=== PATIENT | male | born 1975 | race American Indian/Alaskan Native ===

== ENCOUNTER 2017-11-08 14:20 | Emergency (ER) | payer SELFPAY ==
[2017-11-08 16:38] VITALS: BP 111/67
[2017-11-08 17:44] LABS: Bilirubin,Urine NEG (Negative); Blood,Urine NEG (Negative); Color,Urine Yellow (Yellow); Hyaline Casts,Urine 1 /LPF; Mucus,Urine FEW /HPF; Nitrite,Urine NEG (Negative); Protein,Urine <15 mg/dL mg/dL (Negative)
== END 2017-11-08 22:02 | disposition left against medical advice (07) ==
LOC: ED 14:20
DX: Z53.21 Procedure and treatment not carried out due to patient leaving prior to being seen by health care provider (principal)
CPT/HCPCS: 81001

== ENCOUNTER 2017-11-09 07:15 | Inpatient (IN) | payer OTHER ==
[2017-11-09] MEDS ORDERED: NACL 0.9% 1000 ML 1,000 ML IV ONE ×2 (11:22→17:21)
--- NOTE | 2017-11-09 11:31 | XRay Report ---
Portable chest: Right chest pain. There is increased opacity at the lateral right lung base with blunting of the costophrenic angle. The remainder of the right lung as well as left lung are generally clear. The heart is normal in size. The ribs and other bony structures appear normal. Impression: Right basilar infiltrate consistent with pneumonia.
[2017-11-09 11:36] LABS: Bilirubin,Urine NEG (Negative); Blood,Urine NEG (Negative); Color,Urine Yellow (Yellow); Mucus,Urine 1+ /HPF; Nitrite,Urine NEG (Negative); Protein,Urine <15 mg/dL mg/dL (Negative)
[2017-11-09 12:14] LABS: Hematocrit 34.6 % (35.5-45.6); Hemoglobin 11.8 gm/dl (11.8-15.2); Mean Corpuscular HGB Conc 34 % (32-34); Mean Corpuscular Hemoglobin 31 pg (28-32); Mean Corpuscular Volume 90 fl (84-94); Platelet Count 198 K/mm3 (140-440); Red Blood Count 3.86 M/mm3 (3.65-5.03)
[2017-11-09 12:21] LABS: INR 0.96 (0.87-1.13)
[2017-11-09] MEDS ORDERED: ROCEPHIN/NS 1 GM/50 ML 1 GM/50 ML BAG IV ONE (12:28)
[2017-11-09 12:29] LABS: Alanine Aminotransferase 11 units/L (7-56); Albumin 4.3 g/dL (3.9-5); BUN/Creatinine Ratio 17; Blood Urea Nitrogen 10 mg/dL (9-20); Calcium 8.9 mg/dL (8.4-10.2); Hemolysis Index 20
--- NOTE | 2017-11-09 12:53 | Emergency Department Report ---
ED General Adult HPI - General Chief complaint: Pain General Stated complaint: R SIDE PAIN Time Seen by Provider: 11/09/17 11:17 Source: patient, RN notes reviewed, old records reviewed Mode of arrival: Ambulatory Limitations: No Limitations - History of Present Illness Initial comments: TO ER WITH 3 D HX OF RIGHT SIDE RIB PAIN. SOB. INC TODAY. CHILLS. OTC MEDS NOT HELPING -: Gradual, days(s) (3) Radiation: non-radiation Severity scale (0 -10): 7 Quality: burning Consistency: constant Improves with: none Worsens with: none Associated Symptoms: cough, fever/chills, malaise, shortness of breath. denies : confusion, chest pain, diaphoresis, headaches, loss of appetite, nausea/ vomiting, rash, seizure, syncope, weakness Treatments Prior to Arrival: NSAID, other (OTC) - Related Data Allergies Allergy/AdvReac Type Severity Reaction Status Date / Time No Known Allergies Allergy Unverified 11/08/17 16:40 ED Review of Systems ROS: Stated complaint: RIGHT FLANK PAIN Other details as noted in HPI Comment: All other systems reviewed and negative Constitutional: fever, malaise Respiratory: cough, SOB at rest, other (R LOWER RIB PAIN). denies: no symptoms reported Endocrine: denies: excessive sweating, flushing, intolerance to cold, intolerance to heat Gastrointestinal: denies: abdominal pain, nausea, vomiting Genitourinary: denies: urgency, dysuria Musculoskeletal: back pain (rib) Skin: denies: rash, lesions Neurological: weakness. denies: headache Psychiatric: denies: anxiety, depression Hematological/Lymphatic: denies: easy bleeding, easy bruising ED Past Medical Hx - Past Medical History Previous Medical History?: Yes Hx Sickle Cell Disease: No (DETAILS UNKNOWN AND I'M NOT CERTAIN THIS IF THIS IS A TRAIT OR SCD. ) Additional medical history: PT SAYS HE CAN NOT REMEMBER WHO TOLD HIM HE HAD THIS. BUT HAS ONLY BEEN ILL ONCE IN HIS LIFE. - Surgical History Past Surgical History?: No - Family History Family history: other (MOM A/W; DAD DEC P TRAUMA) - Social History Smoking Status: Current Every Day Smoker Substance Use Type: Alcohol ED Physical Exam - General Limitations: No Limitations General appearance: alert, other (APPEARS TO BE IN PAIN; STATES R SIDE HURTS) - Head Head exam: Present: atraumatic - Eye Eye exam: Present: PERRL, EOMI - ENT ENT exam: Present: mucous membranes dry, TM's normal bilaterally - Neck Neck exam: Present: normal inspection. Absent: tenderness, meningismus - Respiratory Respiratory exam: Present: normal lung sounds bilaterally, other (DEC B BASES; GUARDED WHEN ASKED TO TAKE DEEP BREATH; COUGH; NON PROD; CIG SMOKER) - Cardiovascular Cardiovascular Exam: Present: tachycardia, normal heart sounds - GI/Abdominal GI/Abdominal exam: Present: soft, normal bowel sounds. Absent: distended, tenderness, guarding, rebound, rigid, diminished bowel sounds - Rectal Rectal exam: Present: deferred - Extremities Exam Extremities exam: Present: normal inspection, full ROM - Back Exam Back exam: Present: normal inspection, full ROM. Absent: CVA tenderness (R), CVA tenderness (L) - Neurological Exam Neurological exam: Present: alert, oriented X3, CN II-XII intact, normal gait, reflexes normal - Psychiatric Psychiatric exam: Present: normal mood. Absent: normal affect (CONSTRICTED) - Skin Skin exam: Present: warm, dry, pallor, other (ILL APPEARING) ED Course Vital Signs 11/09/17 11/09/17 11/09/17 08:06 12:54 12:58 Temperature 98.1 F 99.3 F Pulse Rate 96 H 97 H Respiratory 20 18 Rate Blood Pressure 107/62 93/55 Blood Pressure 107/62 [Left] O2 Sat by Pulse 99 99 Oximetry 11/09/17 11/09/17 16:11 16:15 Temperature 98.8 F Pulse Rate 111 H Respiratory 20 20 Rate Blood Pressure Blood Pressure 107/65 [Left] O2 Sat by Pulse 95 Oximetry - Reevaluation(s) Reevaluation #1: 11/09/17 to er w co r side lower rib cage pain appears ill tachy no fever xray noted 12 lead noted trop neg wbc inc septic protocol fluids antibiotics still tachy p fluids/anbx no fever taking po fluids still co right lower rib cage pain no known risk for pe/dvt- may need to scan Reevaluation #2: 11/09/17 15:59 107/65 95%, 111, 98.[address] Law Will admit CO PAIN R LOWER LUNG AREA medicated for pain Reevaluation #3: 11/09/17 16:[address] LAW WILL ADMIT TO DR MICHAELS 11/09/17 16:06 DR MICHAELS AWARE OF PT AND WILL SEE PT. HER REMAINS 110 P FLUIDS AND IV ANBX ED Medical Decision Making - Lab Data Result diagrams: 11/09/17 11:48 11/09/17 11:48 - EKG Data Rate: tachycardia - EKG Data Interpretation: no acute changes - Radiology Data Radiology results: report reviewed, image reviewed PNA - Medical Decision Making SEE NOTE - Differential Diagnosis URTI V PLEURTIC PAIN Critical care attestation.: If time is entered above; I have spent that time in minutes in the direct care of this critically ill patient, excluding procedure time. ED Disposition Clinical Impression: PNA (pneumonia), Pleuritic pain, Tachycardia Disposition: 09 OP ADMIT IP TO THIS HOSP Is pt being admited?: Yes Does the pt Need Aspirin: No Condition: Stable Referrals: PRIMARY CARE, [Primary Care Provider] - 3-5 Days Time of Disposition: 16:10
[2017-11-09 13:57] LABS: Erythrocyte Sedimentation Rate 19 mm/Hr (0-20)
[2017-11-09] MEDS ORDERED: cefTRIAXone 1 GM in NACL 0.9% 20 ML IV ONE (14:00)
[2017-11-09 14:52] LABS: Basophils % (Manual) 0 % (0.0-1.8); Eosinophils % (Manual) 0 % (0.0-4.3); Total Cells Counted 100
[2017-11-09 14:53] LABS: Anisocytosis 1+
[2017-11-09 14:54] LABS: Poikilocytosis Few; Target Cells 2+
[2017-11-09] MEDS ORDERED: NORCO 5/325 PO ONE (15:59)
[2017-11-09 19:48] LABS: Hematocrit 31.1 % (35.5-45.6); Hemoglobin 10.8 gm/dl (11.8-15.2); Mean Corpuscular HGB Conc 35 % (32-34); Mean Corpuscular Hemoglobin 31 pg (28-32); Mean Corpuscular Volume 89 fl (84-94); Platelet Count 186 K/mm3 (140-440); Red Blood Count 3.48 M/mm3 (3.65-5.03)
[2017-11-09] MEDS ORDERED: LEVAQUIN 750MG/150ML 750 MG/150 ML BAG IV ONE (20:00)
[2017-11-09] MEDS ORDERED: TYLENOL PO PRN (20:35)
[2017-11-09] MEDS ORDERED: PROVENTIL IH PRN (20:35)
[2017-11-09] MEDS ORDERED: ZOFRAN IV PRN (20:35)
[2017-11-09 20:37] LABS: Anisocytosis 1+; Basophils % (Manual) 0 % (0.0-1.8); Eosinophils % (Manual) 0 % (0.0-4.3); Hypochromasia 1+; Total Cells Counted 100
[2017-11-09 20:38] LABS: Platelet Estimate Consistent w Auto; Target Cells 1+
--- NOTE | 2017-11-09 20:39 | History and Physical Report ---
History of Present Illness Chief complaint: I been coughing for days, History of present illness: 42 YO Male with Nicotine Dependence presents to ED for evaluation. Pt states that he has experienced productive cough of clear sputum over the past 4 days, with subjective fever, malaise, shortness of breath with worsening symptoms over the past 3 days. Pt states that his right side hurts and is worse with coughing episodes. Pt denies shaking chills, back pain, trauma, falls, hemoptysis, prolonged travel/immobility, individual/family history of DVT/PE, recent ill contacts, or HIV risk factors. Pt seen and evaluated in ED and found to have bilateral pneumonia complicated by sepsis. Pt initiated on sepsis protocol, and admitted to medical floor. Past History Past Medical History: No medical history, other (reviewed) Past Surgical History: No surgical history, Other (reviewed) Social history: single Family history: no significant family history Medications and Allergies Allergies Allergy/AdvReac Type Severity Reaction Status Date / Time No Known Allergies Allergy Unverified 11/08/17 16:40 Active Meds: Active Medications Acetaminophen (Tylenol) 650 mg PO Q4H PRN PRN Reason: Pain MILD(1-3)/Fever >100.5/LOWRY Albuterol (Proventil) 2.5 mg IH Q4HRT PRN PRN Reason: Shortness Of Breath Sodium Chloride (Nacl 0.9% 1000 Ml) 1,000 mls @ 150 mls/hr IV DIRECT JAMIR Levofloxacin/Dextrose (Levaquin 750mg/150ml) 750 mg in 150 mls @ 100 mls/hr IV ONCE ONE Stop: 11/09/17 21:29 Azithromycin 500 mg/ Sodium (Chloride) 250 mls @ 250 mls/hr IV Q24HR JAMIR Ceftriaxone Sodium (Rocephin/Ns 2 Gm/100 Ml) 2 gm in 100 mls @ 200 mls/hr IV Q24HR JAMIR PRN Reason: Protocol Ondansetron HCl (Zofran) 4 mg IV Q8H PRN PRN Reason: N/V unrelieved by Reglan Sodium Chloride (Nacl 0.9% 1000 Ml) 1,820 ml 30 ml/kg (1820 ml) IV ONCE ONE Stop: 11/09/17 20:36 Review of Systems Constitutional: fever, no weight loss, no weight gain, no chills, no sweats Ears, nose, mouth and throat: no ear pain, no ear discharge, no tinnitis, no decreased hearing, no nose pain, no nasal congestion Cardiovascular: no chest pain, no orthopnea, no palpitations, no rapid/ irregular heart beat Respiratory: cough with sputum, excessive sputum Gastrointestinal: no abdominal pain, no nausea Genitourinary Male: no hematuria, no flank pain, no discharge, no urinary frequency Rectal: no pain, no incontinence, no bleeding Musculoskeletal: no neck stiffness, no neck pain, no shooting arm pain, no arm numbness/tingling, no low back pain Integumentary: no rash, no pruritis, no redness, no sores, no wounds Neurological: no head injury, no transient paralysis, no paralysis, no weakness Psychiatric: no anxiety, no memory loss, no change in sleep habits, no sleep disturbances, no insomnia Endocrine: no cold intolerance, no heat intolerance, no polyphagia, no excessive thirst, no polydipsia, no polyuria, no nocturia Hematologic/Lymphatic: no easy bruising, no easy bleeding, no lymphadenopathy, no lymphedema Allergic/Immunologic: no urticaria, no allergic rhinitis, no wheezing, no persistent infections Exam - Constitutional Vitals: Temp Pulse Resp BP Pulse Ox 98.1 F 99 H 20 104/58 99 11/09/17 17:32 11/09/17 17:32 11/09/17 17:32 11/09/17 17:32 11/09/17 17:32 General appearance: Present: mild distress - EENT Eyes: Present: PERRL ENT: hearing intact, clear oral mucosa - Neck Neck: Present: supple, normal ROM - Respiratory Respiratory effort: normal Respiratory: bilateral: diminished - Cardiovascular Heart Sounds: Present: S1 & S2. Absent: rub, click - Extremities Extremities: pulses symmetrical, No edema Peripheral Pulses: within normal limits - Abdominal General gastrointestinal: Present: soft, non-tender, non-distended, normal bowel sounds Male genitourinary: Present: normal - Integumentary Integumentary: Present: clear, warm, dry - Musculoskeletal Musculoskeletal: gait normal, strength equal bilaterally - Psychiatric Psychiatric: appropriate mood/affect, intact judgment & insight - Neurologic Neurologic: CNII-XII intact, moves all extremities Results - Labs CBC & Chem 7: 11/10/17 04:00 11/09/17 11:48 Labs: Abnormal lab results 11/09/17 11/09/17 11/09/17 Range/Units 11:48 11:48 11:48 WBC 22.6 H (4.5-11.0) K/mm3 RBC (3.65-5.03) M/mm3 Hgb (11.8-15.2) gm/dl Hct 34.6 L (35.5-45.6) % MCHC (32-34) % RDW 16.0 H (13.2-15.2) % Seg Neuts % (Manual) 75.0 H (40.0-70.0) % Monocytes % (Manual) (0.0-7.3) % Seg Neutrophils # Man 17.0 H (1.8-7.7) K/mm3 Monocytes # (Manual) 1.1 H (0.0-0.8) K/mm3 Percent Retic 4.27 H (0.78-2.58) % Creatinine 0.6 L (0.8-1.5) mg/dL 11/09/17 Range/Units 19:05 WBC 21.9 H (4.5-11.0) K/mm3 RBC 3.48 L (3.65-5.03) M/mm3 Hgb 10.8 L (11.8-15.2) gm/dl Hct 31.1 L (35.5-45.6) % MCHC 35 H (32-34) % RDW 16.0 H (13.2-15.2) % Seg Neuts % (Manual) (40.0-70.0) % Monocytes % (Manual) 19.0 H (0.0-7.3) % Seg Neutrophils # Man 14.5 H (1.8-7.7) K/mm3 Monocytes # (Manual) 4.2 H (0.0-0.8) K/mm3 Percent Retic (0.78-2.58) % Creatinine (0.8-1.5) mg/dL Assessment and Plan - Patient Problems (1) Sepsis Current Visit: Yes Status: Acute Qualifiers: Sepsis type: sepsis due to unspecified organism Qualified Code(s): A41.9 - Sepsis, unspecified organism Plan to address problem: IV abx, IVF, serial lactic acid, blood cultures, supportive care, monitor uop q shift, CXR, CT chest, Rapid HIV, (2) PNA (pneumonia) Current Visit: Yes Status: Acute Plan to address problem: Pneumonia protocol; IV abx, supplemental oxygen, nebs, blood cultures, repeat cbc (3) DVT prophylaxis Current Visit: Yes Status: Acute
[2017-11-09] MEDS ORDERED: NACL 0.9% 1000 ML IV ONE (21:00)
[2017-11-09] MEDS: NACL 0.9% 1000 ML 1,000 ML IV SCH (22:09)
[2017-11-10] MEDS: ZITHROMAX 500 MG in NACL 0.9% 250ML 250 ML IV SCH ×2 (00:03→22:11)
[2017-11-10 04:10] LABS: Hematocrit 31.9 % (35.5-45.6); Hemoglobin 10.9 gm/dl (11.8-15.2); Mean Corpuscular HGB Conc 34 % (32-34); Mean Corpuscular Hemoglobin 31 pg (28-32); Mean Corpuscular Volume 90 fl (84-94); Platelet Count 186 K/mm3 (140-440); Red Blood Count 3.53 M/mm3 (3.65-5.03)
--- NOTE | 2017-11-10 04:55 | Cat Scan Report ---
FINAL REPORT EXAM: CT ANGIO CHEST HISTORY: shortness of breath TECHNIQUE: A CT angiogram was performed following the intravenous injection of 100 cc of Omnipaque 350. Rotational, sagittal and coronal MIP reconstructions were reviewed. FINDINGS: There are patchy traits within the right lower lobe, right middle lobe and to lesser extent in the left lower lobe compatible with pneumonia. There is a small right-sided effusion. The lungs are not overtly congested. The lung apices reveal multiple blebs and bulla. The heart size is normal. Adenopathy is not seen. Pericardial effusion is not identified. In the upper abdomen the adrenal glands appear normal. The spleen is normal size and reveals capsular calcifications. At the thoracic inlet the thyroid gland appears normal. The skeletal structures are well-maintained. IMPRESSION: No evidence of pulmonary embolus or aortic dissection. Extensive pneumonia involving the right lower lobe and right middle lobe and to lesser extent in the left lower lobe. Small right-sided pleural effusion.
[2017-11-10 07:40] LABS: Basophils % (Manual) 0 % (0.0-1.8); Eosinophils % (Manual) 0 % (0.0-4.3); Total Cells Counted 100
[2017-11-10 07:41] LABS: Anisocytosis 2+; Hypochromasia 1+; Poikilocytosis 1+; Sickle Cells Rare; Target Cells 1+; Tear Drop Cells Rare
[2017-11-10 07:43] LABS: Acanthocytes Few; Large Platelets Few; Platelet Estimate Cons; Toxic Granulation 1+; Toxic Vacuolation Few
[2017-11-10] MEDS ORDERED: ROCEPHIN/NS 2 GM/100 ML 2 GM/100 ML BAG IV SCH (10:00)
[2017-11-10] MEDS: cefTRIAXone 2 GM in NACL 0.9% 20 ML IV SCH (11:25)
[2017-11-10] MEDS: NACL 0.9% 1000 ML 1,000 ML IV SCH ×2 (11:25→22:11)
[2017-11-10] MEDS ORDERED: PNEUMOVAX 23 IM ONE (12:00)
--- NOTE | 2017-11-10 15:28 | Progress Note ---
<REGINO PALM - Last Filed: 11/10/17 15:24> Assessment and Plan Assessment and plan: 42 YO Male with Nicotine Dependence presents to ED for evaluation. Pt states that he has experienced productive cough of clear sputum over the past 4 days, with subjective fever, malaise, shortness of breath with worsening symptoms over the past 3 days. Pt states that his right side hurts and is worse with coughing episodes. Pt denies shaking chills, back pain, trauma, falls, hemoptysis, prolonged travel/immobility, individual/family history of DVT/PE, recent ill contacts, or HIV risk factors. Pt seen and evaluated in ED and found to have bilateral pneumonia complicated by sepsis. Sepsis Continue IV abx, IVF, blood cultures pending, supportive care, monitor uop q shift Rapid HIV non reactive PNA (pneumonia) Continue IV abx, supplemental oxygen PRN, nebs PRN CTA chest shows extensive PNA involving R lower and R middle lobe and to lesser extent L lower lobe Anemia Will continue to monitor Tachycardia Will continue to monitor DVT prophylaxis SCDs History Interval history: Patient was seen and examined. Patient continues to complain of r side lower rib cage pain 8/10. He denies shortness of breath, nausea, vomiting, chest pain. Labs and nursing notes reviewed. Hospitalist Physical - Constitutional Vitals: Temp Pulse Resp BP Pulse Ox 98.4 F 101 H 20 109/66 94 11/10/17 07:35 11/10/17 07:35 11/10/17 07:35 11/10/17 07:35 11/10/17 07:35 General appearance: Present: no acute distress - EENT Eyes: Present: PERRL, EOM intact ENT: hearing intact, clear oral mucosa - Neck Neck: Present: supple, normal ROM - Respiratory Respiratory effort: normal Respiratory: bilateral: diminished, negative: rales, rhonchi, wheezing - Cardiovascular Rhythm: regular Heart Sounds: Present: S1 & S2 - Extremities Extremities: no ischemia, No edema - Abdominal General gastrointestinal: soft, non-tender - Integumentary Integumentary: Present: clear, warm - Psychiatric Psychiatric: appropriate mood/affect, cooperative - Neurologic Neurologic: CNII-XII intact, moves all extremities - Allied Health Allied health notes reviewed: nursing Results - Labs CBC & Chem 7: 11/10/17 04:00 11/09/17 11:48 Labs: Laboratory Last Values WBC 24.4 K/mm3 (4.5-11.0) H 11/10/17 04:00 RBC 3.53 M/mm3 (3.65-5.03) L 11/10/17 04:00 Hgb 10.9 gm/dl (11.8-15.2) L 11/10/17 04:00 Hct 31.9 % (35.5-45.6) L 11/10/17 04:00 MCV 90 fl (84-94) 11/10/17 04:00 MCH 31 pg (28-32) 11/10/17 04:00 MCHC 34 % (32-34) 11/10/17 04:00 RDW 16.0 % (13.2-15.2) H 11/10/17 04:00 Plt Count 186 K/mm3 (140-440) 11/10/17 04:00 [place] % (Auto) Non Destructive Evaluation Manager 11/09/17 19:05 Add Manual Diff Complete 11/10/17 04:00 Total Counted 100 11/10/17 04:00 Seg Neuts % (Manual) 85.0 % (40.0-70.0) H 11/10/17 04:00 Band Neutrophils % 0 % 11/10/17 04:00 Lymphocytes % (Manual) 10.0 % (13.4-35.0) L 11/10/17 04:00 Reactive Lymphs % (Man) 0 % 11/10/17 04:00 Monocytes % (Manual) 5.0 % (0.0-7.3) 11/10/17 04:00 Eosinophils % (Manual) 0 % (0.0-4.3) 11/10/17 04:00 Basophils % (Manual) 0 % (0.0-1.8) 11/10/17 04:00 Metamyelocytes % 0 % 11/10/17 04:00 Myelocytes % 0 % 11/10/17 04:00 Promyelocytes % 0 % 11/10/17 04:00 Blast Cells % 0 % 11/10/17 04:00 Nucleated RBC % Not Reportable 11/10/17 04:00 Seg Neutrophils # Man 20.7 K/mm3 (1.8-7.7) H 11/10/17 04:00 Band Neutrophils # 0.0 K/mm3 11/10/17 04:00 Lymphocytes # (Manual) 2.4 K/mm3 (1.2-5.4) 11/10/17 04:00 Abs React Lymphs (Man) 0.0 K/mm3 11/10/17 04:00 Monocytes # (Manual) 1.2 K/mm3 (0.0-0.8) H 11/10/17 04:00 Eosinophils # (Manual) 0.0 K/mm3 (0.0-0.4) 11/10/17 04:00 Basophils # (Manual) 0.0 K/mm3 (0.0-0.1) 11/10/17 04:00 Metamyelocytes # 0.0 K/mm3 11/10/17 04:00 Myelocytes # 0.0 K/mm3 11/10/17 04:00 Promyelocytes # 0.0 K/mm3 11/10/17 04:00 Blast Cells # 0.0 K/mm3 11/10/17 04:00 WBC Morphology Not Reportable 11/10/17 04:00 Hypersegmented Neuts Not Reportable 11/10/17 04:00 Hyposegmented Neuts Not Reportable 11/10/17 04:00 Hypogranular Neuts Not Reportable 11/10/17 04:00 Smudge Cells Not Reportable 11/10/17 04:00 Toxic Granulation 1+ 11/10/17 04:00 Toxic Vacuolation Few 11/10/17 04:00 Dohle Bodies Not Reportable 11/10/17 04:00 Pelger-Huet Anomaly Not Reportable 11/10/17 04:00 Carlton Rods Not Reportable 11/10/17 04:00 Platelet Estimate Cons 11/10/17 04:00 Clumped Platelets Not Reportable 11/10/17 04:00 Plt Clumps, EDTA Not Reportable 11/10/17 04:00 Large Platelets Few 11/10/17 04:00 Giant Platelets Not Reportable 11/10/17 04:00 Platelet Satelliting Not Reportable 11/10/17 04:00 Plt Morphology Comment Not Reportable 11/10/17 04:00 RBC Morphology Not Reportable 11/10/17 04:00 Dimorphic RBCs Not Reportable 11/10/17 04:00 Polychromasia Few 11/10/17 04:00 Hypochromasia 1+ 11/10/17 04:00 Poikilocytosis 1+ 11/10/17 04:00 Anisocytosis 2+ 11/10/17 04:00 Microcytosis Not Reportable 11/10/17 04:00 Macrocytosis Not Reportable 11/10/17 04:00 Spherocytes Not Reportable 11/10/17 04:00 Pappenheimer Bodies Not Reportable 11/10/17 04:00 Sickle Cells Rare 11/10/17 04:00 Target Cells 1+ 11/10/17 04:00 Tear Drop Cells Rare 11/10/17 04:00 Ovalocytes Not Reportable 11/10/17 04:00 Helmet Cells Not Reportable 11/10/17 04:00 [place] Bodies Not Reportable 11/10/17 04:00 [place] Rings Not Reportable 11/10/17 04:00 [place] Cells Not Reportable 11/10/17 04:00 Bite Cells Not Reportable 11/10/17 04:00 Crenated Cell Not Reportable 11/10/17 04:00 Elliptocytes Not Reportable 11/10/17 04:00 Acanthocytes (Spur) Few 11/10/17 04:00 Rouleaux Not Reportable 11/10/17 04:00 Hemoglobin C Crystals Not Reportable 11/10/17 04:00 Schistocytes Not Reportable 11/10/17 04:00 Malaria parasites Not Reportable 11/10/17 04:00 ESR 19 mm/Hr (0-20) 11/09/17 11:48 Percent Retic 4.27 % (0.78-2.58) H 11/09/17 11:48 Obdulio Bodies Not Reportable 11/10/17 04:00 Hem Pathologist Commnt No 11/10/17 04:00 PT 13.3 Sec. (12.2-14.9) 11/09/17 11:48 INR 0.96 (0.87-1.13) 11/09/17 11:48 APTT 33.0 Sec. (24.2-36.6) 11/09/17 11:48 Sodium 140 mmol/L (137-145) 11/09/17 11:48 Potassium 4.0 mmol/L (3.6-5.0) 11/09/17 11:48 Chloride 98.7 mmol/L (98-107) 11/09/17 11:48 Carbon Dioxide 27 mmol/L (22-30) 11/09/17 11:48 Anion Gap 18 mmol/L 11/09/17 11:48 BUN 10 mg/dL (9-20) 11/09/17 11:48 Creatinine 0.6 mg/dL (0.8-1.5) L 11/09/17 11:48 Estimated GFR > 60 ml/min 11/09/17 11:48 BUN/Creatinine Ratio 17 % 11/09/17 11:48 Glucose 96 mg/dL (75-100) 11/09/17 11:48 Lactic Acid 0.60 mmol/L (0.7-2.0) L 11/10/17 03:20 Calcium 8.9 mg/dL (8.4-10.2) 11/09/17 11:48 Total Bilirubin 1.00 mg/dL (0.1-1.2) 11/09/17 11:48 AST 20 units/L (5-40) 11/09/17 11:48 ALT 11 units/L (7-56) 11/09/17 11:48 Alkaline Phosphatase 82 units/L (35-129) 11/09/17 11:48 Troponin T < 0.010 ng/mL (0.00-0.029) 11/09/17 17:46 Total Protein 7.4 g/dL (6.3-8.2) 11/09/17 11:48 Albumin 4.3 g/dL (3.9-5) 11/09/17 11:48 Albumin/Globulin Ratio 1.4 % 11/09/17 11:48 Urine Color Yellow (Yellow) 11/09/17 10:03 Urine Turbidity Clear (Clear) 11/09/17 10:03 Urine pH 5.0 (5.0-7.0) 11/09/17 10:03 Ur Specific [place] 1.017 (1.003-1.030) 11/09/17 10:03 Urine Protein <15 mg/dl mg/dL (Negative) 11/09/17 10:03 Urine Glucose (UA) Neg mg/dL (Negative) 11/09/17 10:03 Urine Ketones Neg mg/dL (Negative) 11/09/17 10:03 Urine Blood Neg (Negative) 11/09/17 10:03 Urine Nitrite Neg (Negative) 11/09/17 10:03 Urine Bilirubin Neg (Negative) 11/09/17 10:03 Urine Urobilinogen 4.0 mg/dL (<2.0) 11/09/17 10:03 Ur Leukocyte Esterase Neg (Negative) 11/09/17 10:03 Urine WBC (Auto) 2.0 /HPF (0.0-6.0) 11/09/17 10:03 Urine RBC (Auto) 5.0 /HPF (0.0-6.0) 11/09/17 10:03 U Epithel Cells (Auto) < 1.0 /HPF (0-13.0) 11/09/17 10:03 Urine Mucus 1+ /HPF 11/09/17 10:03 HIV 1&2 Antibody Rapid Non react (Non React) 11/10/17 09:29 HIV P24 Antigen Non react (Non React) 11/10/17 09:29 Blood Type O POSITIVE 11/09/17 21:26 Antibody Screen Negative 11/09/17 21:26 <NELLY NEWSOME R - Last Filed: 11/10/17 16:19> Assessment and Plan Assessment and plan: I saw and evaluated the patient. I agree with the findings and the plan of care as documented in the PA's~note, with the following corrections and additions. Hospitalist Physical - Constitutional Vitals: Temp Pulse Resp BP Pulse Ox 99.0 F 101 H 20 106/66 95 11/10/17 15:41 11/10/17 15:41 11/10/17 15:41 11/10/17 15:41 11/10/17 15:41 Results - Labs CBC & Chem 7: 11/10/17 04:00 11/09/17 11:48 Labs: Laboratory Last Values WBC 24.4 K/mm3 (4.5-11.0) H 11/10/17 04:00 RBC 3.53 M/mm3 (3.65-5.03) L 11/10/17 04:00 Hgb 10.9 gm/dl (11.8-15.2) L 11/10/17 04:00 Hct 31.9 % (35.5-45.6) L 11/10/17 04:00 MCV 90 fl (84-94) 11/10/17 04:00 MCH 31 pg (28-32) 11/10/17 04:00 MCHC 34 % (32-34) 11/10/17 04:00 RDW 16.0 % (13.2-15.2) H 11/10/17 04:00 Plt Count 186 K/mm3 (140-440) 11/10/17 04:00 [place] % (Auto) Non Destructive Evaluation Manager 11/09/17 19:05 Add Manual Diff Complete 11/10/17 04:00 Total Counted 100 11/10/17 04:00 Seg Neuts % (Manual) 85.0 % (40.0-70.0) H 11/10/17 04:00 Band Neutrophils % 0 % 11/10/17 04:00 Lymphocytes % (Manual) 10.0 % (13.4-35.0) L 11/10/17 04:00 Reactive Lymphs % (Man) 0 % 11/10/17 04:00 Monocytes % (Manual) 5.0 % (0.0-7.3) 11/10/17 04:00 Eosinophils % (Manual) 0 % (0.0-4.3) 11/10/17 04:00 Basophils % (Manual) 0 % (0.0-1.8) 11/10/17 04:00 Metamyelocytes % 0 % 11/10/17 04:00 Myelocytes % 0 % 11/10/17 04:00 Promyelocytes % 0 % 11/10/17 04:00 Blast Cells % 0 % 11/10/17 04:00 Nucleated RBC % Not Reportable 11/10/17 04:00 Seg Neutrophils # Man 20.7 K/mm3 (1.8-7.7) H 11/10/17 04:00 Band Neutrophils # 0.0 K/mm3 11/10/17 04:00 Lymphocytes # (Manual) 2.4 K/mm3 (1.2-5.4) 11/10/17 04:00 Abs React Lymphs (Man) 0.0 K/mm3 11/10/17 04:00 Monocytes # (Manual) 1.2 K/mm3 (0.0-0.8) H 11/10/17 04:00 Eosinophils # (Manual) 0.0 K/mm3 (0.0-0.4) 11/10/17 04:00 Basophils # (Manual) 0.0 K/mm3 (0.0-0.1) 11/10/17 04:00 Metamyelocytes # 0.0 K/mm3 11/10/17 04:00 Myelocytes # 0.0 K/mm3 11/10/17 04:00 Promyelocytes # 0.0 K/mm3 11/10/17 04:00 Blast Cells # 0.0 K/mm3 11/10/17 04:00 WBC Morphology Not Reportable 11/10/17 04:00 Hypersegmented Neuts Not Reportable 11/10/17 04:00 Hyposegmented Neuts Not Reportable 11/10/17 04:00 Hypogranular Neuts Not Reportable 11/10/17 04:00 Smudge Cells Not Reportable 11/10/17 04:00 Toxic Granulation 1+ 11/10/17 04:00 Toxic Vacuolation Few 11/10/17 04:00 Dohle Bodies Not Reportable 11/10/17 04:00 Pelger-Huet Anomaly Not Reportable 11/10/17 04:00 Carlton Rods Not Reportable 11/10/17 04:00 Platelet Estimate Cons 11/10/17 04:00 Clumped Platelets Not Reportable 11/10/17 04:00 Plt Clumps, EDTA Not Reportable 11/10/17 04:00 Large Platelets Few 11/10/17 04:00 Giant Platelets Not Reportable 11/10/17 04:00 Platelet Satelliting Not Reportable 11/10/17 04:00 Plt Morphology Comment Not Reportable 11/10/17 04:00 RBC Morphology Not Reportable 11/10/17 04:00 Dimorphic RBCs Not Reportable 11/10/17 04:00 Polychromasia Few 11/10/17 04:00 Hypochromasia 1+ 11/10/17 04:00 Poikilocytosis 1+ 11/10/17 04:00 Anisocytosis 2+ 11/10/17 04:00 Microcytosis Not Reportable 11/10/17 04:00 Macrocytosis Not Reportable 11/10/17 04:00 Spherocytes Not Reportable 11/10/17 04:00 Pappenheimer Bodies Not Reportable 11/10/17 04:00 Sickle Cells Rare 11/10/17 04:00 Target Cells 1+ 11/10/17 04:00 Tear Drop Cells Rare 11/10/17 04:00 Ovalocytes Not Reportable 11/10/17 04:00 Helmet Cells Not Reportable 11/10/17 04:00 [place] Bodies Not Reportable 11/10/17 04:00 [place] Rings Not Reportable 11/10/17 04:00 [place] Cells Not Reportable 11/10/17 04:00 Bite Cells Not Reportable 11/10/17 04:00 Crenated Cell Not Reportable 11/10/17 04:00 Elliptocytes Not Reportable 11/10/17 04:00 Acanthocytes (Spur) Few 11/10/17 04:00 Rouleaux Not Reportable 11/10/17 04:00 Hemoglobin C Crystals Not Reportable 11/10/17 04:00 Schistocytes Not Reportable 11/10/17 04:00 Malaria parasites Not Reportable 11/10/17 04:00 ESR 19 mm/Hr (0-20) 11/09/17 11:48 Percent Retic 4.27 % (0.78-2.58) H 11/09/17 11:48 Obdulio Bodies Not Reportable 11/10/17 04:00 Hem Pathologist Commnt No 11/10/17 04:00 PT 13.3 Sec. (12.2-14.9) 11/09/17 11:48 INR 0.96 (0.87-1.13) 11/09/17 11:48 APTT 33.0 Sec. (24.2-36.6) 11/09/17 11:48 Sodium 140 mmol/L (137-145) 11/09/17 11:48 Potassium 4.0 mmol/L (3.6-5.0) 11/09/17 11:48 Chloride 98.7 mmol/L (98-107) 11/09/17 11:48 Carbon Dioxide 27 mmol/L (22-30) 11/09/17 11:48 Anion Gap 18 mmol/L 11/09/17 11:48 BUN 10 mg/dL (9-20) 11/09/17 11:48 Creatinine 0.6 mg/dL (0.8-1.5) L 11/09/17 11:48 Estimated GFR > 60 ml/min 11/09/17 11:48 BUN/Creatinine Ratio 17 % 11/09/17 11:48 Glucose 96 mg/dL (75-100) 11/09/17 11:48 Lactic Acid 0.60 mmol/L (0.7-2.0) L 11/10/17 03:20 Calcium 8.9 mg/dL (8.4-10.2) 11/09/17 11:48 Total Bilirubin 1.00 mg/dL (0.1-1.2) 11/09/17 11:48 AST 20 units/L (5-40) 11/09/17 11:48 ALT 11 units/L (7-56) 11/09/17 11:48 Alkaline Phosphatase 82 units/L (35-129) 11/09/17 11:48 Troponin T < 0.010 ng/mL (0.00-0.029) 11/09/17 17:46 Total Protein 7.4 g/dL (6.3-8.2) 11/09/17 11:48 Albumin 4.3 g/dL (3.9-5) 11/09/17 11:48 Albumin/Globulin Ratio 1.4 % 11/09/17 11:48 Urine Color Yellow (Yellow) 11/09/17 10:03 Urine Turbidity Clear (Clear) 11/09/17 10:03 Urine pH 5.0 (5.0-7.0) 11/09/17 10:03 Ur Specific [place] 1.017 (1.003-1.030) 11/09/17 10:03 Urine Protein <15 mg/dl mg/dL (Negative) 11/09/17 10:03 Urine Glucose (UA) Neg mg/dL (Negative) 11/09/17 10:03 Urine Ketones Neg mg/dL (Negative) 11/09/17 10:03 Urine Blood Neg (Negative) 11/09/17 10:03 Urine Nitrite Neg (Negative) 11/09/17 10:03 Urine Bilirubin Neg (Negative) 11/09/17 10:03 Urine Urobilinogen 4.0 mg/dL (<2.0) 11/09/17 10:03 Ur Leukocyte Esterase Neg (Negative) 11/09/17 10:03 Urine WBC (Auto) 2.0 /HPF (0.0-6.0) 11/09/17 10:03 Urine RBC (Auto) 5.0 /HPF (0.0-6.0) 11/09/17 10:03 U Epithel Cells (Auto) < 1.0 /HPF (0-13.0) 11/09/17 10:03 Urine Mucus 1+ /HPF 11/09/17 10:03 HIV 1&2 Antibody Rapid Non react (Non React) 11/10/17 09:29 HIV P24 Antigen Non react (Non React) 11/10/17 09:29 Blood Type O POSITIVE 11/09/17 21:26 Antibody Screen Negative 11/09/17 21:26
[2017-11-11] MEDS: NACL 0.9% 1000 ML 1,000 ML IV SCH ×3 (05:46→18:47)
[2017-11-11] MEDS: cefTRIAXone 2 GM in NACL 0.9% 20 ML IV SCH (10:01)
--- NOTE | 2017-11-11 13:04 | Progress Note ---
Assessment and Plan Assessment and plan: Patient is 42 yo man with Nicotine Dependence who presented to ED for evaluation. Pt states that he has experienced productive cough of clear sputum over the past 4 days, with subjective fever, malaise, shortness of breath with worsening symptoms over the past 3 days. Pt states that his right side hurts and is worse with coughing episodes. Pt denies shaking chills, back pain, trauma , falls, hemoptysis, prolonged travel/immobility, individual/family history of DVT/PE, recent ill contacts, or HIV risk factors. Pt seen and evaluated in ED and found to have bilateral pneumonia complicated by sepsis. Sepsis pna Continue IV abx, IVF, blood cultures pending, supportive care, monitor uop q shift Rapid HIV non reactive PNA (pneumonia), suspected aspiration right lung Continue IV abx, supplemental oxygen PRN, nebs PRN CTA chest shows extensive PNA involving R lower and R middle lobe and to lesser extent L lower lobe Anemia Will continue to monitor Tachycardia Will continue to monitor DVT prophylaxis SCDs consult ID History Interval history: Patient was seen and examined. Follow-up on current diagnosis. Overnight uneventful. Patient denies any chest pain, shortness breath, nausea/vomiting or severe headaches. Imaging, nursing note, chart, labs and old chart reviewed. Discussed with patient. Hospitalist Physical - Physical exam Narrative exam: GEN: WDWN, NAD, AWAKE, ALERT, ORIENTATED x 3 HEENT: NCAT, EOMI, PERRL, OP Clear NECK: supple, no adenopathy, no thyromegaly, no JVD CVS/HEART: RRR, NORMAL S1S2, NO JVD, pulses present bilaterally CHEST/LUNGS: coarse bs right mid, lower lung, Symmetrical chest expansion, diminished air entry bilaterally GI/Abdomen: soft, NTND, good bowel sounds, no guarding or rebound /Bladder: no suprapubic tenderness, no CVA or paraspinal tenderness EXT/Skin: no c/c/e, no obvious rash MSK: FROM x 4 Neuro: CN 2-12 grossly intact, no new focal deficits Psych: calm - Constitutional Vitals: Temp Pulse Resp BP Pulse Ox 99.1 F 93 H 20 105/62 95 11/11/17 07:53 11/11/17 07:53 11/11/17 07:53 11/11/17 07:53 11/11/17 07:53 General appearance: Present: no acute distress Results - Labs CBC & Chem 7: 11/10/17 04:00 11/09/17 11:48 Labs: Laboratory Last Values WBC 24.4 K/mm3 (4.5-11.0) H 11/10/17 04:00 RBC 3.53 M/mm3 (3.65-5.03) L 11/10/17 04:00 Hgb 10.9 gm/dl (11.8-15.2) L 11/10/17 04:00 Hct 31.9 % (35.5-45.6) L 11/10/17 04:00 MCV 90 fl (84-94) 11/10/17 04:00 MCH 31 pg (28-32) 11/10/17 04:00 MCHC 34 % (32-34) 11/10/17 04:00 RDW 16.0 % (13.2-15.2) H 11/10/17 04:00 Plt Count 186 K/mm3 (140-440) 11/10/17 04:00 [place] % (Auto) Cooking Instructor 11/09/17 19:05 Add Manual Diff Complete 11/10/17 04:00 Total Counted 100 11/10/17 04:00 Seg Neuts % (Manual) 85.0 % (40.0-70.0) H 11/10/17 04:00 Band Neutrophils % 0 % 11/10/17 04:00 Lymphocytes % (Manual) 10.0 % (13.4-35.0) L 11/10/17 04:00 Reactive Lymphs % (Man) 0 % 11/10/17 04:00 Monocytes % (Manual) 5.0 % (0.0-7.3) 11/10/17 04:00 Eosinophils % (Manual) 0 % (0.0-4.3) 11/10/17 04:00 Basophils % (Manual) 0 % (0.0-1.8) 11/10/17 04:00 Metamyelocytes % 0 % 11/10/17 04:00 Myelocytes % 0 % 11/10/17 04:00 Promyelocytes % 0 % 11/10/17 04:00 Blast Cells % 0 % 11/10/17 04:00 Nucleated RBC % Not Reportable 11/10/17 04:00 Seg Neutrophils # Man 20.7 K/mm3 (1.8-7.7) H 11/10/17 04:00 Band Neutrophils # 0.0 K/mm3 11/10/17 04:00 Lymphocytes # (Manual) 2.4 K/mm3 (1.2-5.4) 11/10/17 04:00 Abs React Lymphs (Man) 0.0 K/mm3 11/10/17 04:00 Monocytes # (Manual) 1.2 K/mm3 (0.0-0.8) H 11/10/17 04:00 Eosinophils # (Manual) 0.0 K/mm3 (0.0-0.4) 11/10/17 04:00 Basophils # (Manual) 0.0 K/mm3 (0.0-0.1) 11/10/17 04:00 Metamyelocytes # 0.0 K/mm3 11/10/17 04:00 Myelocytes # 0.0 K/mm3 11/10/17 04:00 Promyelocytes # 0.0 K/mm3 11/10/17 04:00 Blast Cells # 0.0 K/mm3 11/10/17 04:00 WBC Morphology Not Reportable 11/10/17 04:00 Hypersegmented Neuts Not Reportable 11/10/17 04:00 Hyposegmented Neuts Not Reportable 11/10/17 04:00 Hypogranular Neuts Not Reportable 11/10/17 04:00 Smudge Cells Not Reportable 11/10/17 04:00 Toxic Granulation 1+ 11/10/17 04:00 Toxic Vacuolation Few 11/10/17 04:00 Dohle Bodies Not Reportable 11/10/17 04:00 Pelger-Huet Anomaly Not Reportable 11/10/17 04:00 Carlton Rods Not Reportable 11/10/17 04:00 Platelet Estimate Cons 11/10/17 04:00 Clumped Platelets Not Reportable 11/10/17 04:00 Plt Clumps, EDTA Not Reportable 11/10/17 04:00 Large Platelets Few 11/10/17 04:00 Giant Platelets Not Reportable 11/10/17 04:00 Platelet Satelliting Not Reportable 11/10/17 04:00 Plt Morphology Comment Not Reportable 11/10/17 04:00 RBC Morphology Not Reportable 11/10/17 04:00 Dimorphic RBCs Not Reportable 11/10/17 04:00 Polychromasia Few 11/10/17 04:00 Hypochromasia 1+ 11/10/17 04:00 Poikilocytosis 1+ 11/10/17 04:00 Anisocytosis 2+ 11/10/17 04:00 Microcytosis Not Reportable 11/10/17 04:00 Macrocytosis Not Reportable 11/10/17 04:00 Spherocytes Not Reportable 11/10/17 04:00 Pappenheimer Bodies Not Reportable 11/10/17 04:00 Sickle Cells Rare 11/10/17 04:00 Target Cells 1+ 11/10/17 04:00 Tear Drop Cells Rare 11/10/17 04:00 Ovalocytes Not Reportable 11/10/17 04:00 Helmet Cells Not Reportable 11/10/17 04:00 Antunez-[place] Bodies Not Reportable 11/10/17 04:00 [place] Rings Not Reportable 11/10/17 04:00 [place] Cells Not Reportable 11/10/17 04:00 Bite Cells Not Reportable 11/10/17 04:00 Crenated Cell Not Reportable 11/10/17 04:00 Elliptocytes Not Reportable 11/10/17 04:00 Acanthocytes (Spur) Few 11/10/17 04:00 Rouleaux Not Reportable 11/10/17 04:00 Hemoglobin C Crystals Not Reportable 11/10/17 04:00 Schistocytes Not Reportable 11/10/17 04:00 Malaria parasites Not Reportable 11/10/17 04:00 ESR 19 mm/Hr (0-20) 11/09/17 11:48 Percent Retic 4.27 % (0.78-2.58) H 11/09/17 11:48 Obdulio Bodies Not Reportable 11/10/17 04:00 Hem Pathologist Commnt No 11/10/17 04:00 PT 13.3 Sec. (12.2-14.9) 11/09/17 11:48 INR 0.96 (0.87-1.13) 11/09/17 11:48 APTT 33.0 Sec. (24.2-36.6) 11/09/17 11:48 Sodium 140 mmol/L (137-145) 11/09/17 11:48 Potassium 4.0 mmol/L (3.6-5.0) 11/09/17 11:48 Chloride 98.7 mmol/L (98-107) 11/09/17 11:48 Carbon Dioxide 27 mmol/L (22-30) 11/09/17 11:48 Anion Gap 18 mmol/L 11/09/17 11:48 BUN 10 mg/dL (9-20) 11/09/17 11:48 Creatinine 0.6 mg/dL (0.8-1.5) L 11/09/17 11:48 Estimated GFR > 60 ml/min 11/09/17 11:48 BUN/Creatinine Ratio 17 % 11/09/17 11:48 Glucose 96 mg/dL (75-100) 11/09/17 11:48 Lactic Acid 0.60 mmol/L (0.7-2.0) L 11/10/17 03:20 Calcium 8.9 mg/dL (8.4-10.2) 11/09/17 11:48 Total Bilirubin 1.00 mg/dL (0.1-1.2) 11/09/17 11:48 AST 20 units/L (5-40) 11/09/17 11:48 ALT 11 units/L (7-56) 11/09/17 11:48 Alkaline Phosphatase 82 units/L (35-129) 11/09/17 11:48 Troponin T < 0.010 ng/mL (0.00-0.029) 11/09/17 17:46 Total Protein 7.4 g/dL (6.3-8.2) 11/09/17 11:48 Albumin 4.3 g/dL (3.9-5) 11/09/17 11:48 Albumin/Globulin Ratio 1.4 % 11/09/17 11:48 Urine Color Yellow (Yellow) 11/09/17 10:03 Urine Turbidity Clear (Clear) 11/09/17 10:03 Urine pH 5.0 (5.0-7.0) 11/09/17 10:03 Ur Specific [place] 1.017 (1.003-1.030) 11/09/17 10:03 Urine Protein <15 mg/dl mg/dL (Negative) 11/09/17 10:03 Urine Glucose (UA) Neg mg/dL (Negative) 11/09/17 10:03 Urine Ketones Neg mg/dL (Negative) 11/09/17 10:03 Urine Blood Neg (Negative) 11/09/17 10:03 Urine Nitrite Neg (Negative) 11/09/17 10:03 Urine Bilirubin Neg (Negative) 11/09/17 10:03 Urine Urobilinogen 4.0 mg/dL (<2.0) 11/09/17 10:03 Ur Leukocyte Esterase Neg (Negative) 11/09/17 10:03 Urine WBC (Auto) 2.0 /HPF (0.0-6.0) 11/09/17 10:03 Urine RBC (Auto) 5.0 /HPF (0.0-6.0) 11/09/17 10:03 U Epithel Cells (Auto) < 1.0 /HPF (0-13.0) 11/09/17 10:03 Urine Mucus 1+ /HPF 11/09/17 10:03 HIV 1&2 Antibody Rapid Non react (Non React) 11/10/17 09:29 HIV P24 Antigen Non react (Non React) 11/10/17 09:29 Blood Type O POSITIVE 11/09/17 21:26 Antibody Screen Negative 11/09/17 21:26
[2017-11-11] MEDS: ZITHROMAX 500 MG in NACL 0.9% 250ML 250 ML IV SCH (22:38)
[2017-11-12] MEDS: NACL 0.9% 1000 ML 1,000 ML IV SCH ×2 (03:05→09:30)
[2017-11-12] MEDS: cefTRIAXone 2 GM in NACL 0.9% 20 ML IV SCH (09:30)
--- NOTE | 2017-11-12 11:18 | Progress Note ---
Assessment and Plan Assessment and plan: Patient is 42 yo man with Nicotine Dependence who presented to ED for evaluation. Pt states that he has experienced productive cough of clear sputum over the past 4 days, with subjective fever, malaise, shortness of breath with worsening symptoms over the past 3 days. Pt states that his right side hurts and is worse with coughing episodes. Pt denies shaking chills, back pain, trauma , falls, hemoptysis, prolonged travel/immobility, individual/family history of DVT/PE, recent ill contacts, or HIV risk factors. Pt seen and evaluated in ED and found to have bilateral pneumonia complicated by sepsis. Sepsis pna Continue IV abx, IVF, blood cultures pending, supportive care, monitor uop q shift HIV negative PNA (pneumonia), suspected aspiration right lung Continue IV abx, supplemental oxygen PRN, nebs PRN CTA chest shows extensive PNA involving R lower and R middle lobe and to lesser extent L lower lobe Anemia Will continue to monitor Tachycardia Will continue to monitor DVT prophylaxis SCDs Hopefully discharge tomorrow. History Interval history: Patient was seen and examined. Follow-up on current diagnosis. Overnight uneventful. Patient denies any chest pain, shortness breath, nausea/vomiting or severe headaches. Imaging, nursing note, chart, labs and old chart reviewed. Discussed with patient. Hospitalist Physical - Physical exam Narrative exam: GEN: WDWN, NAD, AWAKE, ALERT, ORIENTATED x 3 HEENT: NCAT, EOMI, PERRL, OP Clear NECK: supple, no adenopathy, no thyromegaly, no JVD CVS/HEART: RRR, NORMAL S1S2, NO JVD, pulses present bilaterally CHEST/LUNGS: coarse bs right mid, lower lung, Symmetrical chest expansion, diminished air entry bilaterally GI/Abdomen: soft, NTND, good bowel sounds, no guarding or rebound /Bladder: no suprapubic tenderness, no CVA or paraspinal tenderness EXT/Skin: no c/c/e, no obvious rash MSK: FROM x 4 Neuro: CN 2-12 grossly intact, no new focal deficits Psych: calm - Constitutional Vitals: Temp Pulse Resp BP Pulse Ox 98.3 F 97 H 20 107/72 94 11/12/17 08:02 11/12/17 08:02 11/12/17 08:02 11/12/17 08:02 11/12/17 08:02 General appearance: Present: no acute distress Results - Labs CBC & Chem 7: 11/10/17 04:00 11/09/17 11:48 Labs: Laboratory Last Values WBC 24.4 K/mm3 (4.5-11.0) H 11/10/17 04:00 RBC 3.53 M/mm3 (3.65-5.03) L 11/10/17 04:00 Hgb 10.9 gm/dl (11.8-15.2) L 11/10/17 04:00 Hct 31.9 % (35.5-45.6) L 11/10/17 04:00 MCV 90 fl (84-94) 11/10/17 04:00 MCH 31 pg (28-32) 11/10/17 04:00 MCHC 34 % (32-34) 11/10/17 04:00 RDW 16.0 % (13.2-15.2) H 11/10/17 04:00 Plt Count 186 K/mm3 (140-440) 11/10/17 04:00 Swisher % (Auto) [employer] Police 11/09/17 19:05 Add Manual Diff Complete 11/10/17 04:00 Total Counted 100 11/10/17 04:00 Seg Neuts % (Manual) 85.0 % (40.0-70.0) H 11/10/17 04:00 Band Neutrophils % 0 % 11/10/17 04:00 Lymphocytes % (Manual) 10.0 % (13.4-35.0) L 11/10/17 04:00 Reactive Lymphs % (Man) 0 % 11/10/17 04:00 Monocytes % (Manual) 5.0 % (0.0-7.3) 11/10/17 04:00 Eosinophils % (Manual) 0 % (0.0-4.3) 11/10/17 04:00 Basophils % (Manual) 0 % (0.0-1.8) 11/10/17 04:00 Metamyelocytes % 0 % 11/10/17 04:00 Myelocytes % 0 % 11/10/17 04:00 Promyelocytes % 0 % 11/10/17 04:00 Blast Cells % 0 % 11/10/17 04:00 Nucleated RBC % Not Reportable 11/10/17 04:00 Seg Neutrophils # Man 20.7 K/mm3 (1.8-7.7) H 11/10/17 04:00 Band Neutrophils # 0.0 K/mm3 11/10/17 04:00 Lymphocytes # (Manual) 2.4 K/mm3 (1.2-5.4) 11/10/17 04:00 Abs React Lymphs (Man) 0.0 K/mm3 11/10/17 04:00 Monocytes # (Manual) 1.2 K/mm3 (0.0-0.8) H 11/10/17 04:00 Eosinophils # (Manual) 0.0 K/mm3 (0.0-0.4) 11/10/17 04:00 Basophils # (Manual) 0.0 K/mm3 (0.0-0.1) 11/10/17 04:00 Metamyelocytes # 0.0 K/mm3 11/10/17 04:00 Myelocytes # 0.0 K/mm3 11/10/17 04:00 Promyelocytes # 0.0 K/mm3 11/10/17 04:00 Blast Cells # 0.0 K/mm3 11/10/17 04:00 WBC Morphology Not Reportable 11/10/17 04:00 Hypersegmented Neuts Not Reportable 11/10/17 04:00 Hyposegmented Neuts Not Reportable 11/10/17 04:00 Hypogranular Neuts Not Reportable 11/10/17 04:00 Smudge Cells Not Reportable 11/10/17 04:00 Toxic Granulation 1+ 11/10/17 04:00 Toxic Vacuolation Few 11/10/17 04:00 Dohle Bodies Not Reportable 11/10/17 04:00 Pelger-Huet Anomaly Not Reportable 11/10/17 04:00 Carlton Rods Not Reportable 11/10/17 04:00 Platelet Estimate Cons 11/10/17 04:00 Clumped Platelets Not Reportable 11/10/17 04:00 Plt Clumps, EDTA Not Reportable 11/10/17 04:00 Large Platelets Few 11/10/17 04:00 Giant Platelets Not Reportable 11/10/17 04:00 Platelet Satelliting Not Reportable 11/10/17 04:00 Plt Morphology Comment Not Reportable 11/10/17 04:00 RBC Morphology Not Reportable 11/10/17 04:00 Dimorphic RBCs Not Reportable 11/10/17 04:00 Polychromasia Few 11/10/17 04:00 Hypochromasia 1+ 11/10/17 04:00 Poikilocytosis 1+ 11/10/17 04:00 Anisocytosis 2+ 11/10/17 04:00 Microcytosis Not Reportable 11/10/17 04:00 Macrocytosis Not Reportable 11/10/17 04:00 Spherocytes Not Reportable 11/10/17 04:00 Pappenheimer Bodies Not Reportable 11/10/17 04:00 Sickle Cells Rare 11/10/17 04:00 Target Cells 1+ 11/10/17 04:00 Tear Drop Cells Rare 11/10/17 04:00 Ovalocytes Not Reportable 11/10/17 04:00 Helmet Cells Not Reportable 11/10/17 04:00 Antunez-[place] Bodies Not Reportable 11/10/17 04:00 [place] Rings Not Reportable 11/10/17 04:00 Bangs Cells Not Reportable 11/10/17 04:00 Bite Cells Not Reportable 11/10/17 04:00 Crenated Cell Not Reportable 11/10/17 04:00 Elliptocytes Not Reportable 11/10/17 04:00 Acanthocytes (Spur) Few 11/10/17 04:00 Rouleaux Not Reportable 11/10/17 04:00 Hemoglobin C Crystals Not Reportable 11/10/17 04:00 Schistocytes Not Reportable 11/10/17 04:00 Malaria parasites Not Reportable 11/10/17 04:00 ESR 19 mm/Hr (0-20) 11/09/17 11:48 Percent Retic 4.27 % (0.78-2.58) H 11/09/17 11:48 Obdulio Bodies Not Reportable 11/10/17 04:00 Hem Pathologist Commnt No 11/10/17 04:00 PT 13.3 Sec. (12.2-14.9) 11/09/17 11:48 INR 0.96 (0.87-1.13) 11/09/17 11:48 APTT 33.0 Sec. (24.2-36.6) 11/09/17 11:48 Sodium 140 mmol/L (137-145) 11/09/17 11:48 Potassium 4.0 mmol/L (3.6-5.0) 11/09/17 11:48 Chloride 98.7 mmol/L (98-107) 11/09/17 11:48 Carbon Dioxide 27 mmol/L (22-30) 11/09/17 11:48 Anion Gap 18 mmol/L 11/09/17 11:48 BUN 10 mg/dL (9-20) 11/09/17 11:48 Creatinine 0.6 mg/dL (0.8-1.5) L 11/09/17 11:48 Estimated GFR > 60 ml/min 11/09/17 11:48 BUN/Creatinine Ratio 17 % 11/09/17 11:48 Glucose 96 mg/dL (75-100) 11/09/17 11:48 Lactic Acid 0.60 mmol/L (0.7-2.0) L 11/10/17 03:20 Calcium 8.9 mg/dL (8.4-10.2) 11/09/17 11:48 Total Bilirubin 1.00 mg/dL (0.1-1.2) 11/09/17 11:48 AST 20 units/L (5-40) 11/09/17 11:48 ALT 11 units/L (7-56) 11/09/17 11:48 Alkaline Phosphatase 82 units/L (35-129) 11/09/17 11:48 Troponin T < 0.010 ng/mL (0.00-0.029) 11/09/17 17:46 Total Protein 7.4 g/dL (6.3-8.2) 11/09/17 11:48 Albumin 4.3 g/dL (3.9-5) 11/09/17 11:48 Albumin/Globulin Ratio 1.4 % 11/09/17 11:48 Urine Color Yellow (Yellow) 11/09/17 10:03 Urine Turbidity Clear (Clear) 11/09/17 10:03 Urine pH 5.0 (5.0-7.0) 11/09/17 10:03 Ur Specific [place] 1.017 (1.003-1.030) 11/09/17 10:03 Urine Protein <15 mg/dl mg/dL (Negative) 11/09/17 10:03 Urine Glucose (UA) Neg mg/dL (Negative) 11/09/17 10:03 Urine Ketones Neg mg/dL (Negative) 11/09/17 10:03 Urine Blood Neg (Negative) 11/09/17 10:03 Urine Nitrite Neg (Negative) 11/09/17 10:03 Urine Bilirubin Neg (Negative) 11/09/17 10:03 Urine Urobilinogen 4.0 mg/dL (<2.0) 11/09/17 10:03 Ur Leukocyte Esterase Neg (Negative) 11/09/17 10:03 Urine WBC (Auto) 2.0 /HPF (0.0-6.0) 11/09/17 10:03 Urine RBC (Auto) 5.0 /HPF (0.0-6.0) 11/09/17 10:03 U Epithel Cells (Auto) < 1.0 /HPF (0-13.0) 11/09/17 10:03 Urine Mucus 1+ /HPF 11/09/17 10:03 HIV 1&2 Antibody Rapid Non react (Non React) 11/11/17 13:13 HIV P24 Antigen Non react (Non React) 11/11/17 13:13 Blood Type O POSITIVE 11/09/17 21:26 Antibody Screen Negative 11/09/17 21:26
--- NOTE | 2017-11-12 21:08 | Consultation ---
History of Present Illness - Reason for Consult Consult date: 11/12/17 severe pneumonia Requesting physician: NELLY NEWSOME - History of Present Illness 42 years old male without any known medical history; admitted on due to 3-day history of malaise, nasal congestion, runny nose and acute onset of right sided chest pain, 8/10, no radiation, increased with deep inspiration. Denies any cough or SOB. 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 He smokes a ppd. Drinks ETOH occasionaly. In the ED, temp 98.1, HR 96, R22, BP 107/62. WBC 22.6. Creat 0.6. Ua neg. CXR showed right basilar infiltrate. CTA showed extensive pneumonia in RLL, RML an LLL. Antimicrobials: Ceftriaxone Azithromycin Cultures: Blood 11/09 ngtd Unrine 11/09 10-100K skin kamille. Past History Past Medical History: No medical history, other (reviewed) Past Surgical History: No surgical history, Other (reviewed) Social history: single, smoking, alcohol abuse Family history: no significant family history Medications and Allergies Allergies Allergy/AdvReac Type Severity Reaction Status Date / Time No Known Allergies Allergy Unverified 11/08/17 16:40 Active Meds: Active Medications Acetaminophen (Tylenol) 650 mg PO Q4H PRN PRN Reason: Pain MILD(1-3)/Fever >100.5/LOWRY Last Admin: 11/10/17 08:30 Dose: 650 mg Albuterol (Proventil) 2.5 mg IH Q4HRT PRN PRN Reason: Shortness Of Breath Azithromycin 500 mg/ Sodium (Chloride) 250 mls @ 250 mls/hr IV Q24H [facility] Last Admin: 11/11/17 22:38 Dose: 250 mls/hr Ceftriaxone Sodium 2 gm/ (Sodium Chloride) 20 mls @ 20 mls/10 min IV Q24H [facility] Last Admin: 11/12/17 09:30 Dose: 20 mls/10 min Ondansetron HCl (Zofran) 4 mg IV Q8H PRN PRN Reason: N/V unrelieved by Reglan Review of Systems All systems: negative (as per HPI rest neg) Physical Examination - Physical Exam Narrative exam: Alert in NAD MICHEAL OP clear Lung R sided crackles Abd soft NT Ext no edema Skin no rash Neuro alert oriented non focal - Constitutional Vitals: Vital Signs Temp Pulse Resp BP Pulse Ox 99.0 F 92 H 20 104/64 94 11/12/17 15:41 11/12/17 15:41 11/12/17 15:41 11/12/17 15:41 11/12/17 15:41 Temperature -Last 24 Hours Temperature 99.0 F Temperature 98.3 F Temperature 98.8 F Results - Labs CBC & Chem 7: 11/10/17 04:00 11/09/17 11:48 Assessment and Plan Assessment: 1) Sepsis: present on admission with leukocytosis, tachycardia, mild hypotension ; source pneumonia 2) Bilateral pneumonia: likely CAP. HIV negative 3) Smoking abuse Plan: -continue ceftriaxone and azithromycin -f/u blood cultures -check strep pneumoniae urine antigen and legionella urine antigen -monitor leukocytosis Thanks for consultation Dr Fredo Blake
[2017-11-12] MEDS: ZITHROMAX 500 MG in NACL 0.9% 250ML 250 ML IV SCH (23:24)
[2017-11-13] MEDS: cefTRIAXone 2 GM in NACL 0.9% 20 ML IV SCH (09:50)
--- NOTE | 2017-11-13 10:12 | Progress Note ---
Assessment and Plan Assessment and plan: Patient is 42 yo man with Nicotine Dependence who presented to ED for evaluation. Pt states that he has experienced productive cough of clear sputum over the past 4 days, with subjective fever, malaise, shortness of breath with worsening symptoms over the past 3 days. Pt states that his right side hurts and is worse with coughing episodes. Pt denies shaking chills, back pain, trauma , falls, hemoptysis, prolonged travel/immobility, individual/family history of DVT/PE, recent ill contacts, or HIV risk factors. Pt seen and evaluated in ED and found to have bilateral pneumonia complicated by sepsis. Sepsis pna Continue IV abx, IVF, blood cultures pending, supportive care, monitor uop q shift HIV negative PNA (pneumonia), suspected aspiration right lung Continue IV abx, supplemental oxygen PRN, nebs PRN CTA chest shows extensive PNA involving R lower and R middle lobe and to lesser extent L lower lobe Anemia Will continue to monitor Tachycardia Will continue to monitor DVT prophylaxis SCDs Hopefully discharge today, check cbc History Interval history: Patient was seen and examined. Follow-up on current diagnosis. Overnight uneventful. Patient denies any chest pain, shortness breath, nausea/vomiting or severe headaches. Imaging, nursing note, chart, labs and old chart reviewed. Discussed with patient. Hospitalist Physical - Physical exam Narrative exam: GEN: WDWN, NAD, AWAKE, ALERT, ORIENTATED x 3 HEENT: NCAT, EOMI, PERRL, OP Clear NECK: supple, no adenopathy, no thyromegaly, no JVD CVS/HEART: RRR, NORMAL S1S2, NO JVD, pulses present bilaterally CHEST/LUNGS: coarse bs right mid, lower lung, Symmetrical chest expansion, diminished air entry bilaterally GI/Abdomen: soft, NTND, good bowel sounds, no guarding or rebound /Bladder: no suprapubic tenderness, no CVA or paraspinal tenderness EXT/Skin: no c/c/e, no obvious rash MSK: FROM x 4 Neuro: CN 2-12 grossly intact, no new focal deficits Psych: calm - Constitutional Vitals: Temp Pulse Resp BP Pulse Ox 98.4 F 85 20 98/57 96 11/13/17 08:05 11/13/17 08:05 11/13/17 08:05 11/13/17 08:05 11/13/17 08:05 General appearance: Present: no acute distress Results - Labs CBC & Chem 7: 11/10/17 04:00 11/09/17 11:48 Labs: Laboratory Last Values WBC 24.4 K/mm3 (4.5-11.0) H 11/10/17 04:00 RBC 3.53 M/mm3 (3.65-5.03) L 11/10/17 04:00 Hgb 10.9 gm/dl (11.8-15.2) L 11/10/17 04:00 Hct 31.9 % (35.5-45.6) L 11/10/17 04:00 MCV 90 fl (84-94) 11/10/17 04:00 MCH 31 pg (28-32) 11/10/17 04:00 MCHC 34 % (32-34) 11/10/17 04:00 RDW 16.0 % (13.2-15.2) H 11/10/17 04:00 Plt Count 186 K/mm3 (140-440) 11/10/17 04:00 Gem % (Auto) [employer] Manager 11/09/17 19:05 Add Manual Diff Complete 11/10/17 04:00 Total Counted 100 11/10/17 04:00 Seg Neuts % (Manual) 85.0 % (40.0-70.0) H 11/10/17 04:00 Band Neutrophils % 0 % 11/10/17 04:00 Lymphocytes % (Manual) 10.0 % (13.4-35.0) L 11/10/17 04:00 Reactive Lymphs % (Man) 0 % 11/10/17 04:00 Monocytes % (Manual) 5.0 % (0.0-7.3) 11/10/17 04:00 Eosinophils % (Manual) 0 % (0.0-4.3) 11/10/17 04:00 Basophils % (Manual) 0 % (0.0-1.8) 11/10/17 04:00 Metamyelocytes % 0 % 11/10/17 04:00 Myelocytes % 0 % 11/10/17 04:00 Promyelocytes % 0 % 11/10/17 04:00 Blast Cells % 0 % 11/10/17 04:00 Nucleated RBC % Not Reportable 11/10/17 04:00 Seg Neutrophils # Man 20.7 K/mm3 (1.8-7.7) H 11/10/17 04:00 Band Neutrophils # 0.0 K/mm3 11/10/17 04:00 Lymphocytes # (Manual) 2.4 K/mm3 (1.2-5.4) 11/10/17 04:00 Abs React Lymphs (Man) 0.0 K/mm3 11/10/17 04:00 Monocytes # (Manual) 1.2 K/mm3 (0.0-0.8) H 11/10/17 04:00 Eosinophils # (Manual) 0.0 K/mm3 (0.0-0.4) 11/10/17 04:00 Basophils # (Manual) 0.0 K/mm3 (0.0-0.1) 11/10/17 04:00 Metamyelocytes # 0.0 K/mm3 11/10/17 04:00 Myelocytes # 0.0 K/mm3 11/10/17 04:00 Promyelocytes # 0.0 K/mm3 11/10/17 04:00 Blast Cells # 0.0 K/mm3 11/10/17 04:00 WBC Morphology Not Reportable 11/10/17 04:00 Hypersegmented Neuts Not Reportable 11/10/17 04:00 Hyposegmented Neuts Not Reportable 11/10/17 04:00 Hypogranular Neuts Not Reportable 11/10/17 04:00 Smudge Cells Not Reportable 11/10/17 04:00 Toxic Granulation 1+ 11/10/17 04:00 Toxic Vacuolation Few 11/10/17 04:00 Dohle Bodies Not Reportable 11/10/17 04:00 Pelger-Huet Anomaly Not Reportable 11/10/17 04:00 Carlton Rods Not Reportable 11/10/17 04:00 Platelet Estimate Cons 11/10/17 04:00 Clumped Platelets Not Reportable 11/10/17 04:00 Plt Clumps, EDTA Not Reportable 11/10/17 04:00 Large Platelets Few 11/10/17 04:00 Giant Platelets Not Reportable 11/10/17 04:00 Platelet Satelliting Not Reportable 11/10/17 04:00 Plt Morphology Comment Not Reportable 11/10/17 04:00 RBC Morphology Not Reportable 11/10/17 04:00 Dimorphic RBCs Not Reportable 11/10/17 04:00 Polychromasia Few 11/10/17 04:00 Hypochromasia 1+ 11/10/17 04:00 Poikilocytosis 1+ 11/10/17 04:00 Anisocytosis 2+ 11/10/17 04:00 Microcytosis Not Reportable 11/10/17 04:00 Macrocytosis Not Reportable 11/10/17 04:00 Spherocytes Not Reportable 11/10/17 04:00 Pappenheimer Bodies Not Reportable 11/10/17 04:00 Sickle Cells Rare 11/10/17 04:00 Target Cells 1+ 11/10/17 04:00 Tear Drop Cells Rare 11/10/17 04:00 Ovalocytes Not Reportable 11/10/17 04:00 Helmet Cells Not Reportable 11/10/17 04:00 Antunez-[place] Bodies Not Reportable 11/10/17 04:00 [place] Rings Not Reportable 11/10/17 04:00 [place] Cells Not Reportable 11/10/17 04:00 Bite Cells Not Reportable 11/10/17 04:00 Crenated Cell Not Reportable 11/10/17 04:00 Elliptocytes Not Reportable 11/10/17 04:00 Acanthocytes (Spur) Few 11/10/17 04:00 Rouleaux Not Reportable 11/10/17 04:00 Hemoglobin C Crystals Not Reportable 11/10/17 04:00 Schistocytes Not Reportable 11/10/17 04:00 Malaria parasites Not Reportable 11/10/17 04:00 ESR 19 mm/Hr (0-20) 11/09/17 11:48 Percent Retic 4.27 % (0.78-2.58) H 11/09/17 11:48 Obdulio Bodies Not Reportable 11/10/17 04:00 Hem Pathologist Commnt No 11/10/17 04:00 PT 13.3 Sec. (12.2-14.9) 11/09/17 11:48 INR 0.96 (0.87-1.13) 11/09/17 11:48 APTT 33.0 Sec. (24.2-36.6) 11/09/17 11:48 Sodium 140 mmol/L (137-145) 11/09/17 11:48 Potassium 4.0 mmol/L (3.6-5.0) 11/09/17 11:48 Chloride 98.7 mmol/L (98-107) 11/09/17 11:48 Carbon Dioxide 27 mmol/L (22-30) 11/09/17 11:48 Anion Gap 18 mmol/L 11/09/17 11:48 BUN 10 mg/dL (9-20) 11/09/17 11:48 Creatinine 0.6 mg/dL (0.8-1.5) L 11/09/17 11:48 Estimated GFR > 60 ml/min 11/09/17 11:48 BUN/Creatinine Ratio 17 % 11/09/17 11:48 Glucose 96 mg/dL (75-100) 11/09/17 11:48 Lactic Acid 0.60 mmol/L (0.7-2.0) L 11/10/17 03:20 Calcium 8.9 mg/dL (8.4-10.2) 11/09/17 11:48 Total Bilirubin 1.00 mg/dL (0.1-1.2) 11/09/17 11:48 AST 20 units/L (5-40) 11/09/17 11:48 ALT 11 units/L (7-56) 11/09/17 11:48 Alkaline Phosphatase 82 units/L (35-129) 11/09/17 11:48 Troponin T < 0.010 ng/mL (0.00-0.029) 11/09/17 17:46 C-Reactive Protein 4.00 mg/dL (0.00-1.30) H 11/12/17 21:30 Total Protein 7.4 g/dL (6.3-8.2) 11/09/17 11:48 Albumin 4.3 g/dL (3.9-5) 11/09/17 11:48 Albumin/Globulin Ratio 1.4 % 11/09/17 11:48 Urine Color Yellow (Yellow) 11/09/17 10:03 Urine Turbidity Clear (Clear) 11/09/17 10:03 Urine pH 5.0 (5.0-7.0) 11/09/17 10:03 Ur Specific [place] 1.017 (1.003-1.030) 11/09/17 10:03 Urine Protein <15 mg/dl mg/dL (Negative) 11/09/17 10:03 Urine Glucose (UA) Neg mg/dL (Negative) 11/09/17 10:03 Urine Ketones Neg mg/dL (Negative) 11/09/17 10:03 Urine Blood Neg (Negative) 11/09/17 10:03 Urine Nitrite Neg (Negative) 11/09/17 10:03 Urine Bilirubin Neg (Negative) 11/09/17 10:03 Urine Urobilinogen 4.0 mg/dL (<2.0) 11/09/17 10:03 Ur Leukocyte Esterase Neg (Negative) 11/09/17 10:03 Urine WBC (Auto) 2.0 /HPF (0.0-6.0) 11/09/17 10:03 Urine RBC (Auto) 5.0 /HPF (0.0-6.0) 11/09/17 10:03 U Epithel Cells (Auto) < 1.0 /HPF (0-13.0) 11/09/17 10:03 Urine Mucus 1+ /HPF 11/09/17 10:03 HIV 1&2 Antibody Rapid Non react (Non React) 11/11/17 13:13 HIV P24 Antigen Non react (Non React) 11/11/17 13:13 Blood Type O POSITIVE 11/09/17 21:26 Antibody Screen Negative 11/09/17 21:26
[2017-11-13 10:16] LABS: Hematocrit 30.3 % (35.5-45.6); Hemoglobin 10.1 gm/dl (11.8-15.2); Mean Corpuscular HGB Conc 34 % (32-34); Mean Corpuscular Hemoglobin 29 pg (28-32); Mean Corpuscular Volume 87 fl (84-94); Platelet Count 360 K/mm3 (140-440); Red Blood Count 3.48 M/mm3 (3.65-5.03); Red Cell Distribution Width 18.2 % (13.2-15.2)
--- NOTE | 2017-11-13 10:20 | Discharge Summary ---
Providers - Providers Date of Admission: 11/09/17 20:35 Date of discharge: 11/13/17 Attending physician: NELLY NEWSOME 11/11/17 13:01 Consult to Physician [CONS] Routine Consulting Provider: SHILPI MOSCOSO Reason For Exam: severe pneumonia Place consult to:: DR. WILSON Notified:: DR. WILSON Phone number called:: IN HOUSE Was contact made?: Yes If yes, spoke with:: DR. WILSON Time called:: 13:15 Primary care physician: WEB PRODUCTION ASSISTANT Hospitalization Condition: Stable Hospital course: Patient is 42 yo man with Nicotine Dependence who presented to ED for evaluation. Pt states that he has experienced productive cough of clear sputum over the past 4 days, with subjective fever, malaise, shortness of breath with worsening symptoms over the past 3 days. Pt states that his right side hurts and is worse with coughing episodes. Pt denies shaking chills, back pain, trauma , falls, hemoptysis, prolonged travel/immobility, individual/family history of DVT/PE, recent ill contacts, or HIV risk factors. Pt seen and evaluated in ED and found to have bilateral pneumonia complicated by sepsis. Sepsis pna Continue IV abx, IVF, blood cultures pending, supportive care, monitor uop q shift HIV negative PNA (pneumonia), suspected aspiration right lung Continue IV abx, supplemental oxygen PRN, nebs PRN CTA chest shows extensive PNA involving R lower and R middle lobe and to lesser extent L lower lobe Anemia Will continue to monitor Tachycardia Will continue to monitor DVT prophylaxis SCDs Hopefully discharge today, check cbc Disposition: DC-01 TO HOME OR SELFCARE Time spent for discharge: 35 minutes Core Measure Documentation - Palliative Care Palliative Care/ Comfort Measures: Not Applicable - Core Measures Any of the following diagnoses?: none - VTE Discharge Requirements Deep Vein Thrombosis/Pulmonary Embolism Present on Admission: No Has pt received <5 days of overlap therapy or INR<2.0: No Anticoagulant overlap therapy prescribed at discharge: No Contraindication No Overlap Therapy order at DC: Not Indicated Exam - Physical Exam Narrative exam: GEN: WDWN, NAD, AWAKE, ALERT, ORIENTATED x 3 HEENT: NCAT, EOMI, PERRL, OP Clear NECK: supple, no adenopathy, no thyromegaly, no JVD CVS/HEART: RRR, NORMAL S1S2, NO JVD, pulses present bilaterally CHEST/LUNGS: coarse bs right mid, lower lung, Symmetrical chest expansion, diminished air entry bilaterally GI/Abdomen: soft, NTND, good bowel sounds, no guarding or rebound /Bladder: no suprapubic tenderness, no CVA or paraspinal tenderness EXT/Skin: no c/c/e, no obvious rash MSK: FROM x 4 Neuro: CN 2-12 grossly intact, no new focal deficits Psych: calm - Constitutional Vitals: Temp Pulse Resp BP Pulse Ox 98.4 F 85 20 98/57 96 11/13/17 08:05 11/13/17 08:05 11/13/17 08:05 11/13/17 08:05 11/13/17 08:05 Plan Activity: other (no strenous activity until cleared by pcp) Diet: regular Follow up with: PRIMARY CARE, [Primary Care Provider] - 3-5 Days Prescriptions: ALBUTEROL NEB's [Proventil 0.083% NEBS] 2.5 mg IH Q4HRT PRN #30 day PRN Reason: Shortness Of Breath Levofloxacin [Levaquin] 750 mg PO QDAY #5 day
--- NOTE | 2017-11-13 10:27 | XRay Report ---
CHEST 2 VIEWS INDICATION: Complicated pneumonia. Evaluate for empyema/abscess. COMPARISON: Chest imaging from earlier this month. FINDINGS: PA and lateral chest radiographs suggest mild increased right lung base opacity, representing consolidation and/or pleural fluid. Mild left lung base atelectasis also again seen. Normal cardiomediastinal silhouette. Clear remainder lungs. Intact bones. Splenic calcifications. CONCLUSION: Mild interval radiographic worsening of right lower lobe pneumonia and few other findings, as above. Please correlate. Thank you for the opportunity to participate in this patient's care.
--- NOTE | 2017-11-13 12:57 | Progress Note ---
<FELIPA VAZQUEZ - Last Filed: 11/13/17 14:51> Assessment and Plan Assessment and Plan: 1) Sepsis: present on admission with leukocytosis, tachycardia, mild hypotension ; source pneumonia 2) Bilateral pneumonia: likely CAP. HIV negative 3) Smoking abuse Plan: -continue ceftriaxone and azithromycin -blood cultures negative -check strep pneumonia urine antigen and legionella urine antigen -monitor leukocytosis WBC is trending down 16.5 from 24.4 -home on levaquin 750 mg po daily x 7 days Subjective Date of service: 11/13/17 Principal diagnosis: pneumonia Interval history: I feel better without any pain right now Microbilogy: Current Antimicrobial: Ceftriaxone Azithromycin Previous Antimicrobial: Objective - Constitutional Vitals: Vital Signs Temp Pulse Resp BP Pulse Ox 98.4 F 85 20 98/57 96 11/13/17 08:05 11/13/17 08:05 11/13/17 08:05 11/13/17 08:05 11/13/17 08:05 Temperature -Last 24 Hours Temperature 98.4 F Temperature 98.6 F Temperature 99.0 F General appearance: Present: no acute distress - EENT Eyes: PERRL - Neck Neck: supple - Respiratory Respiratory: right: diminished (breath sounds diminished bilaterally) - Cardiovascular Rhythm: regular Heart Sounds: Present: S1 & S2. Absent: diastolic murmur - Gastrointestinal General gastrointestinal: Present: soft, non-tender. Absent: non-distended, rigid - Genitourinary Male genitourinary: normal - Integumentary Integumentary: clear, warm, dry - Musculoskeletal Musculoskeletal: strength equal bilaterally - Neurologic Neurologic: CNII-XII intact, moves all extremities - Psychiatric Psychiatric: appropriate mood/affect, memory intact, no agitated - Labs CBC & Chem 7: 11/13/17 09:59 11/09/17 11:48 Labs: Abnormal lab results 11/12/17 11/13/17 Range/Units 21:30 09:59 WBC 16.5 H (4.5-11.0) K/mm3 RBC 3.48 L (3.65-5.03) M/mm3 Hgb 10.1 L (11.8-15.2) gm/dl Hct 30.3 L (35.5-45.6) % RDW 18.2 H (13.2-15.2) % C-Reactive Protein 4.00 H (0.00-1.30) mg/dL <YASMIN MOSCOSO - Last Filed: 11/13/17 15:41> Assessment and Plan I have seen and examined 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 I agree with her report. Feels better, leukocytosis better. I will sign off Yasmin Blake MD Subjective Interval history: Blood cx negative Influenza neg Objective - Constitutional Vitals: Vital Signs Temp Pulse Resp BP Pulse Ox 98.4 F 85 20 98/57 96 11/13/17 08:05 11/13/17 08:05 11/13/17 08:05 11/13/17 08:05 11/13/17 08:05 Temperature -Last 24 Hours Temperature 98.4 F Temperature 98.6 F Temperature 99.0 F - Labs CBC & Chem 7: 11/13/17 09:59 11/09/17 11:48 Labs: Abnormal lab results 11/12/17 11/13/17 Range/Units 21:30 09:59 WBC 16.5 H (4.5-11.0) K/mm3 RBC 3.48 L (3.65-5.03) M/mm3 Hgb 10.1 L (11.8-15.2) gm/dl Hct 30.3 L (35.5-45.6) % RDW 18.2 H (13.2-15.2) % C-Reactive Protein 4.00 H (0.00-1.30) mg/dL
[2017-11-13] MEDS ORDERED: ZITHROMAX PO SCH (14:00)
[2017-11-13 17:05] VITALS: BP 110/72
== END 2017-11-13 17:00 | disposition home or self-care (01) | DRG 871 ==
LOC: ED 07:15 → 3A 20:35
PROVIDERS: ADMIT Internal Medicine; ATTEND Internal Medicine
PROC: 3E0234Z Introduction of Serum, Toxoid and Vaccine into Muscle, Percutaneous Approach (ICD-10-PCS; principal; 2017-11-10)
DX: A41.9 Sepsis, unspecified organism (principal); J18.9 Pneumonia, unspecified organism; F17.210 Nicotine dependence, cigarettes, uncomplicated; D64.9 Anemia, unspecified; Z23 Encounter for immunization
CPT/HCPCS: 36415; 71046; 71275; 80053; 81001; 82140; 84484; 85007; 85025; 85027; 85045; 85610; 85652; 85730; 86140; 86850; 86900; 86901; 87040; 87086; 87806; 90732; 93005; 93010; 96361; 96365; 96366; 99406; J0456; J0696; J1956; J7030; J7050; Q9967

== ENCOUNTER 2017-11-21 19:35 | Emergency (ER) | payer SELFPAY ==
[2017-11-21 20:36] LABS: Hematocrit 35.1 % (35.5-45.6); Hemoglobin 11.5 gm/dl (11.8-15.2); Mean Corpuscular HGB Conc 33 % (32-34); Mean Corpuscular Hemoglobin 29 pg (28-32); Mean Corpuscular Volume 87 fl (84-94); Platelet Count 430 K/mm3 (140-440); Red Blood Count 4.01 M/mm3 (3.65-5.03)
[2017-11-21 20:39] LABS: Red Cell Distribution Width 20.2 % (13.2-15.2)
[2017-11-21 20:54] LABS: BUN/Creatinine Ratio 9; Blood Urea Nitrogen 8 mg/dL (9-20); Hemolysis Index 2
[2017-11-21 21:41] LABS: Basophils % (Manual) 0 % (0.0-1.8); Eosinophils % (Manual) 0 % (0.0-4.3); Total Cells Counted 100
[2017-11-21 21:42] LABS: Target Cells 2+
[2017-11-21 21:43] LABS: Anisocytosis 1+; Hypochromasia 1+; Platelet Estimate Consistent w Auto; Poikilocytosis 1+
--- NOTE | 2017-11-21 22:00 | XRay Report ---
FINAL REPORT PROCEDURE: XR CHEST ROUTINE 2V TECHNIQUE: PA lateral chest HISTORY: shortness of breath COMPARISON: CTA chest 11/10/2017 FINDINGS: Slight elevation of the right hemidiaphragm. Prominent blunting and marked thickening of the right costophrenic angle which may reflect small right pleural effusion with right lower lung zone atelectasis and patchy infiltrate. IMPRESSION: Small effusion and atelectatic change with possible patchy infiltrate in the right lower lung zone
--- NOTE | 2017-11-22 10:48 | Emergency Department Report ---
ED Back Pain/Injury HPI - General Chief Complaint: Back Pain/Injury Stated Complaint: FLANK PAIN Time Seen by Provider: 11/22/17 10:25 Source: patient Limitations: No Limitations - History of Present Illness Initial Comments: Patient is a 42-year-old Male who was discharged on November 15 with bilateral pneumonia. Patient was given an additional 5 days of Levaquin after discharge. Patient states he is still having some right upper flank discomfort. Patient has no pleuritic chest pain or shortness of breath or cough. Patient a longer has fevers. Patient states that he is having pain in this area that is 6 out of 10 severity most with moving and breathing. Associated Symptoms: denies: confusion, weakness, chest pain, numbness, difficulty walking, cough, diaphoresis, incontinence, fever/chills, constipation , headaches, loss of appetite, malaise, rash, seizure, syncope - Related Data Previous Rx's Medication Instructions Recorded Last Taken Type ALBUTEROL NEB's [Proventil 0.083% 2.5 mg IH Q4HRT PRN #30 day 11/13/17 Unknown Rx NEBS] Acetaminophen [Acetaminophen TAB] 325 mg PO Q4H PRN #30 tablet 11/13/17 Unknown Rx Levofloxacin [Levaquin] 750 mg PO QDAY #5 day 11/13/17 Unknown Rx Azithromycin [Zithromax Z-SB] 250 mg PO DAILY #6 tablet 11/22/17 Unknown Rx HYDROcodone/ACETAMINOPHEN [[place] 1 each PO Q4-6H #15 tablet 11/22/17 Unknown Rx 5-325 Tablet] Ibuprofen [Motrin] 600 mg PO Q8H PRN #20 tablet 11/22/17 Unknown Rx Allergies Allergy/AdvReac Type Severity Reaction Status Date / Time No Known Allergies Allergy Verified 11/21/17 19:42 ED Review of Systems ROS: Stated complaint: FLANK PAIN Other details as noted in HPI Comment: All other systems reviewed and negative ED Past Medical Hx - Past Medical History Hx Congestive Heart Failure: No Hx Diabetes: No Hx Sickle Cell Disease: Yes Hx Asthma: No Hx COPD: No Additional medical history: PT SAYS HE CAN NOT REMEMBER WHO TOLD HIM HE HAD THIS. BUT HAS ONLY BEEN ILL ONCE IN HIS LIFE. - Social History Smoking Status: Current Some Day Smoker Substance Use Type: None - Medications Home Medications: Home Medications Medication Instructions Recorded Confirmed Last Taken Type ALBUTEROL NEB's [Proventil 0.083% 2.5 mg IH Q4HRT PRN #30 day 11/13/17 Unknown Rx NEBS] Acetaminophen [Acetaminophen TAB] 325 mg PO Q4H PRN #30 tablet 11/13/17 Unknown Rx Levofloxacin [Levaquin] 750 mg PO QDAY #5 day 11/13/17 Unknown Rx Azithromycin [Zithromax Z-SB] 250 mg PO DAILY #6 tablet 11/22/17 Unknown Rx HYDROcodone/ACETAMINOPHEN [[place] 1 each PO Q4-6H #15 tablet 11/22/17 Unknown Rx 5-325 Tablet] Ibuprofen [Motrin] 600 mg PO Q8H PRN #20 tablet 11/22/17 Unknown Rx ED Physical Exam - General Limitations: No Limitations General appearance: alert, in no apparent distress - Head Head exam: Present: atraumatic, normocephalic - Eye Eye exam: Present: normal appearance - ENT ENT exam: Present: mucous membranes moist - Neck Neck exam: Present: normal inspection - Respiratory Respiratory exam: Present: normal lung sounds bilaterally. Absent: respiratory distress - Cardiovascular Cardiovascular Exam: Present: regular rate, normal rhythm. Absent: systolic murmur, diastolic murmur, rubs, gallop - GI/Abdominal GI/Abdominal exam: Present: soft, normal bowel sounds - Rectal Rectal exam: Present: deferred - Extremities Exam Extremities exam: Present: normal inspection - Back Exam Back exam: Present: normal inspection - Neurological Exam Neurological exam: Present: alert, oriented X3 - Psychiatric Psychiatric exam: Present: normal affect, normal mood - Skin Skin exam: Present: warm, dry, intact, normal color. Absent: rash ED Course Vital Signs 11/21/17 11/21/17 19:38 19:43 Temperature 98.6 F 98.6 F Pulse Rate 112 H 112 H Respiratory 18 18 Rate Blood Pressure 125/72 125/72 O2 Sat by Pulse 98 98 Oximetry ED Medical Decision Making - Lab Data Result diagrams: 11/21/17 20:10 11/21/17 20:10 - Radiology Data Radiology results: report reviewed interpreted by me: Improving right lower lobe infiltrate - Medical Decision Making She is a 42-year-old Male who is having some discomfort and symptoms status post his diagnosis with pneumonia. Patient will be placed on a Z-Sb. Continue antibiotic coverage since the pneumonia has persisted as well as pain control Critical care attestation.: If time is entered above; I have spent that time in minutes in the direct care of this critically ill patient, excluding procedure time. ED Disposition Clinical Impression: PNA (pneumonia) Qualifiers: Pneumonia type: due to unspecified organism Laterality: right Lung location: lower lobe of lung Qualified Code(s): J18.1 - Lobar pneumonia, unspecified organism Disposition: TO HOME OR SELFCARE Is pt being admited?: No Does the pt Need Aspirin: No Condition: Stable Instructions: Bacterial Pneumonia (ED) Prescriptions: Azithromycin [Zithromax Z-SB] 250 mg PO DAILY #6 tablet HYDROcodone/ACETAMINOPHEN [[place] 5-325 Tablet] 1 each PO Q4-6H #15 tablet Ibuprofen [Motrin] 600 mg PO Q8H PRN #20 tablet PRN Reason: Pain Referrals: PRIMARY CARE,MD [Primary Care Provider] - 3-5 Days
[2017-11-22 10:57] VITALS: BP 126/61
== END 2017-11-22 10:57 | disposition home or self-care (01) ==
LOC: ED 19:35
DX: J18.9 Pneumonia, unspecified organism (principal); F17.200 Nicotine dependence, unspecified, uncomplicated
CPT/HCPCS: 36415; 71046; 80048; 85007; 85025; 85379; 99284

== ENCOUNTER 2018-01-01 20:53 | Emergency (ER) | payer BC, OTHER ==
[2018-01-01 21:08] VITALS: BP 108/72
[2018-01-01] MEDS ORDERED: ASPIRIN PO ONE (21:08)
[2018-01-01 21:26] LABS: Hematocrit 37.2 % (35.5-45.6); Hemoglobin 13.2 gm/dl (11.8-15.2); Mean Corpuscular HGB Conc 35 % (32-34); Mean Corpuscular Hemoglobin 30 pg (28-32); Mean Corpuscular Volume 86 fl (84-94); Platelet Count 210 K/mm3 (140-440); Red Blood Count 4.33 M/mm3 (3.65-5.03)
[2018-01-01 21:46] LABS: Alanine Aminotransferase 11 units/L (7-56); Albumin 4.6 g/dL (3.9-5); BUN/Creatinine Ratio 18; Blood Urea Nitrogen 9 mg/dL (9-20); Calcium 8.7 mg/dL (8.4-10.2); Hemolysis Index 7; Lipase 20 units/L (13-60)
[2018-01-01 22:31] LABS: Basophils % (Manual) 0 % (0.0-1.8); Eosinophils % (Manual) 0 % (0.0-4.3); Total Cells Counted 100
[2018-01-01 22:32] LABS: Anisocytosis 1+
[2018-01-01 22:33] LABS: Target Cells 2+
[2018-01-01 22:36] LABS: Giant Platelets 1+
[2018-01-01 22:37] LABS: Large Platelets Few; Poikilocytosis 1+
--- NOTE | 2018-01-02 13:43 | Event Note ---
Date: 01/02/18 Jimbo Brown 42-year-old male comes in for epigastric pain going on for 3 days. Labs on triage patient states pain has improved will order chest x-ray to evaluate discussed the patient plan and will the patient and I will give patient oral pain medication. Patient will be further seen.
--- NOTE | 2018-01-02 13:49 | Emergency Department Report ---
ED General Adult HPI - General Chief complaint: Chest Pain Stated complaint: CP Time Seen by Provider: 01/02/18 13:41 Source: patient Mode of arrival: Ambulatory Limitations: No Limitations - History of Present Illness Initial comments: Patient is a 42 year old male past medical history of alcoholism who presents with right upper chest pain it's been going on for last couple days. Patient states that this pain occurred after he was drinking alcohol. Patient states that the pain is a 5 out 10 as an achy type of pain it does not radiate it hurts sometimes when he eats, nothing makes it better and nothing makes it worse. Patient denies having any nausea or vomiting patient also denies smoking - Related Data Previous Rx's Medication Instructions Recorded Last Taken Type ALBUTEROL NEB's [Proventil 0.083% 2.5 mg IH Q4HRT PRN #30 day 11/13/17 Unknown Rx NEBS] Acetaminophen [Acetaminophen TAB] 325 mg PO Q4H PRN #30 tablet 11/13/17 Unknown Rx Levofloxacin [Levaquin] 750 mg PO QDAY #5 day 11/13/17 Unknown Rx Azithromycin [Zithromax Z-SB] 250 mg PO DAILY #6 tablet 11/22/17 Unknown Rx HYDROcodone/ACETAMINOPHEN [[place] 1 each PO Q4-6H #15 tablet 11/22/17 Unknown Rx 5-325 Tablet] Ibuprofen [Motrin] 600 mg PO Q8H PRN #20 tablet 11/22/17 Unknown Rx Diclofenac Sodium [Voltaren] 100 gm TP Q6H #1 gel..gram. 01/02/18 Unknown Rx Allergies Allergy/AdvReac Type Severity Reaction Status Date / Time No Known Allergies Allergy Verified 11/21/17 19:42 ED Review of Systems ROS: Stated complaint: CP Other details as noted in HPI Constitutional: denies: chills, fever Eyes: denies: eye pain, eye discharge, vision change ENT: denies: ear pain, throat pain Respiratory: denies: cough, shortness of breath, wheezing Cardiovascular: chest pain. denies: palpitations Endocrine: no symptoms reported Gastrointestinal: denies: abdominal pain, nausea, diarrhea Genitourinary: denies: urgency, dysuria Musculoskeletal: denies: back pain, joint swelling, arthralgia Skin: denies: rash, lesions Neurological: denies: headache, weakness, paresthesias Psychiatric: denies: anxiety, depression Hematological/Lymphatic: denies: easy bleeding, easy bruising ED Past Medical Hx - Past Medical History Hx Congestive Heart Failure: No Hx Diabetes: No Hx Sickle Cell Disease: Yes Hx Asthma: No Hx COPD: No Additional medical history: pneumonia - Social History Smoking Status: Current Every Day Smoker Substance Use Type: Alcohol - Medications Home Medications: Home Medications Medication Instructions Recorded Confirmed Last Taken Type ALBUTEROL NEB's [Proventil 0.083% 2.5 mg IH Q4HRT PRN #30 day 11/13/17 Unknown Rx NEBS] Acetaminophen [Acetaminophen TAB] 325 mg PO Q4H PRN #30 tablet 11/13/17 Unknown Rx Levofloxacin [Levaquin] 750 mg PO QDAY #5 day 11/13/17 Unknown Rx Azithromycin [Zithromax Z-SB] 250 mg PO DAILY #6 tablet 11/22/17 Unknown Rx HYDROcodone/ACETAMINOPHEN [[place] 1 each PO Q4-6H #15 tablet 11/22/17 Unknown Rx 5-325 Tablet] Ibuprofen [Motrin] 600 mg PO Q8H PRN #20 tablet 11/22/17 Unknown Rx Diclofenac Sodium [Voltaren] 100 gm TP Q6H #1 gel..gram. 01/02/18 Unknown Rx ED Physical Exam - General Limitations: No Limitations General appearance: alert, in no apparent distress - Head Head exam: Present: atraumatic, normocephalic - Eye Eye exam: Present: normal appearance - ENT ENT exam: Present: mucous membranes moist - Neck Neck exam: Present: normal inspection - Respiratory Respiratory exam: Present: normal lung sounds bilaterally. Absent: respiratory distress - Cardiovascular Cardiovascular Exam: Present: regular rate, normal rhythm. Absent: systolic murmur, diastolic murmur, rubs, gallop - GI/Abdominal GI/Abdominal exam: Present: soft, normal bowel sounds - Rectal Rectal exam: Present: deferred - Extremities Exam Extremities exam: Present: normal inspection - Back Exam Back exam: Present: normal inspection - Neurological Exam Neurological exam: Present: alert, oriented X3 - Psychiatric Psychiatric exam: Present: normal affect, normal mood - Skin Skin exam: Present: warm, dry, intact, normal color. Absent: rash ED Course Vital Signs 01/01/18 21:05 Temperature 98.2 F Pulse Rate 113 H Respiratory 18 Rate Blood Pressure 108/72 O2 Sat by Pulse 99 Oximetry ED Medical Decision Making - Lab Data Result diagrams: 01/01/18 21:12 01/01/18 21:12 Lab Results 01/01/18 01/01/18 01/01/18 Range/Units 21:12 21:12 21:12 WBC 18.8 H (4.5-11.0) K/mm3 RBC 4.33 (3.65-5.03) M/mm3 Hgb 13.2 (11.8-15.2) gm/dl Hct 37.2 (35.5-45.6) % MCV 86 (84-94) fl MCH 30 (28-32) pg MCHC 35 H (32-34) % RDW 19.0 H (13.2-15.2) % Plt Count 210 (140-440) K/mm3 Add Manual Diff Complete Total Counted 100 Seg Neuts % (Manual) 62.0 (40.0-70.0) % Band Neutrophils % 0 % Lymphocytes % (Manual) 16.0 (13.4-35.0) % Reactive Lymphs % (Man) 0 % Monocytes % (Manual) 22.0 H (0.0-7.3) % Eosinophils % (Manual) 0 (0.0-4.3) % Basophils % (Manual) 0 (0.0-1.8) % Metamyelocytes % 0 % Myelocytes % 0 % Promyelocytes % 0 % Blast Cells % 0 % Nucleated RBC % Not Reportable Seg Neutrophils # Man 11.7 H (1.8-7.7) K/mm3 Band Neutrophils # 0.0 K/mm3 Lymphocytes # (Manual) 3.0 (1.2-5.4) K/mm3 Abs React Lymphs (Man) 0.0 K/mm3 Monocytes # (Manual) 4.1 H (0.0-0.8) K/mm3 Eosinophils # (Manual) 0.0 (0.0-0.4) K/mm3 Basophils # (Manual) 0.0 (0.0-0.1) K/mm3 Metamyelocytes # 0.0 K/mm3 Myelocytes # 0.0 K/mm3 Promyelocytes # 0.0 K/mm3 Blast Cells # 0.0 K/mm3 WBC Morphology Not Reportable Hypersegmented Neuts Not Reportable Hyposegmented Neuts Not Reportable Hypogranular Neuts Not Reportable Smudge Cells Not Reportable Toxic Granulation Not Reportable Toxic Vacuolation Not Reportable Dohle Bodies Not Reportable Pelger-Huet Anomaly Not Reportable [place] Rods Not Reportable Platelet Estimate Appears normal Clumped Platelets Not Reportable Plt Clumps, EDTA Not Reportable Large Platelets Few Giant Platelets 1+ Platelet Satelliting Not Reportable Plt Morphology Comment Not Reportable RBC Morphology Not Reportable Dimorphic RBCs Not Reportable Polychromasia Few Hypochromasia Not Reportable Poikilocytosis 1+ Anisocytosis 1+ Microcytosis Not Reportable Macrocytosis Not Reportable Spherocytes Not Reportable Pappenheimer Bodies Not Reportable Sickle Cells Not Reportable Target Cells 2+ Tear Drop Cells Not Reportable Ovalocytes Not Reportable Helmet Cells Not Reportable Antunez-Rupert Bodies Not Reportable [place] Rings Not Reportable [place] Cells Not Reportable Bite Cells Not Reportable Crenated Cell Not Reportable Elliptocytes Not Reportable Acanthocytes (Spur) Not Reportable Rouleaux Not Reportable Hemoglobin C Crystals Not Reportable Schistocytes Not Reportable Malaria parasites Not Reportable Obdulio Bodies Not Reportable Hem Pathologist Commnt No Sodium 141 (137-145) mmol/L Potassium 3.4 L (3.6-5.0) mmol/L Chloride 100.2 (98-107) mmol/L Carbon Dioxide 27 (22-30) mmol/L Anion Gap 17 mmol/L BUN 9 (9-20) mg/dL Creatinine 0.5 L (0.8-1.5) mg/dL Estimated GFR > 60 ml/min BUN/Creatinine Ratio 18 % Glucose 99 (75-100) mg/dL Calcium 8.7 (8.4-10.2) mg/dL Total Bilirubin 0.90 (0.1-1.2) mg/dL AST 19 (5-40) units/L ALT 11 (7-56) units/L Alkaline Phosphatase 112 (35-129) units/L Troponin T < 0.010 (0.00-0.029) ng/mL Total Protein 7.0 (6.3-8.2) g/dL Albumin 4.6 (3.9-5) g/dL Albumin/Globulin Ratio 1.9 % Lipase 20 (13-60) units/L 01/02/18 Range/Units 00:13 WBC (4.5-11.0) K/mm3 RBC (3.65-5.03) M/mm3 Hgb (11.8-15.2) gm/dl Hct (35.5-45.6) % MCV (84-94) fl MCH (28-32) pg MCHC (32-34) % RDW (13.2-15.2) % Plt Count (140-440) K/mm3 Add Manual Diff Total Counted Seg Neuts % (Manual) (40.0-70.0) % Band Neutrophils % % Lymphocytes % (Manual) (13.4-35.0) % Reactive Lymphs % (Man) % Monocytes % (Manual) (0.0-7.3) % Eosinophils % (Manual) (0.0-4.3) % Basophils % (Manual) (0.0-1.8) % Metamyelocytes % % Myelocytes % % Promyelocytes % % Blast Cells % % Nucleated RBC % Seg Neutrophils # Man (1.8-7.7) K/mm3 Band Neutrophils # K/mm3 Lymphocytes # (Manual) (1.2-5.4) K/mm3 Abs React Lymphs (Man) K/mm3 Monocytes # (Manual) (0.0-0.8) K/mm3 Eosinophils # (Manual) (0.0-0.4) K/mm3 Basophils # (Manual) (0.0-0.1) K/mm3 Metamyelocytes # K/mm3 Myelocytes # K/mm3 Promyelocytes # K/mm3 Blast Cells # K/mm3 WBC Morphology Hypersegmented Neuts Hyposegmented Neuts Hypogranular Neuts Smudge Cells Toxic Granulation Toxic Vacuolation Dohle Bodies Pelger-Huet Anomaly Carl[place] Rods Platelet Estimate Clumped Platelets Plt Clumps, EDTA Large Platelets Giant Platelets Platelet Satelliting Plt Morphology Comment RBC Morphology Dimorphic RBCs Polychromasia Hypochromasia Poikilocytosis Anisocytosis Microcytosis Macrocytosis Spherocytes Pappenheimer Bodies Sickle Cells Target Cells Tear Drop Cells Ovalocytes Helmet Cells Antunez-Rupert Bodies [place] Rings [place] Cells Bite Cells Crenated Cell Elliptocytes Acanthocytes (Spur) Rouleaux Hemoglobin C Crystals Schistocytes Malaria parasites Obdulio Bodies Hem Pathologist Commnt Sodium (137-145) mmol/L Potassium (3.6-5.0) mmol/L Chloride (98-107) mmol/L Carbon Dioxide (22-30) mmol/L Anion Gap mmol/L BUN (9-20) mg/dL Creatinine (0.8-1.5) mg/dL Estimated GFR ml/min BUN/Creatinine Ratio % Glucose (75-100) mg/dL Calcium (8.4-10.2) mg/dL Total Bilirubin (0.1-1.2) mg/dL AST (5-40) units/L ALT (7-56) units/L Alkaline Phosphatase (35-129) units/L Troponin T < 0.010 (0.00-0.029) ng/mL Total Protein (6.3-8.2) g/dL Albumin (3.9-5) g/dL Albumin/Globulin Ratio % Lipase (13-60) units/L - EKG Data -: EKG Interpreted by Me - EKG Data 01/02/18 13:52 EKG shows normal sinus rhythm no ST segment elevation no T wave inversion no axis deviation. - Radiology Data Radiology results: pending - Medical Decision Making Cdx: GERD 2/2 alcohol abuse ddx: Electrolyte abnormality, NSTEMI, PNA I will get blood work, EKG, Chest xray, two sets of troponin and I will re- evaluate patient. Patient's blood work is unremarkable except for mild acidosis which can be explained by alcohol intake. We'll send patient home with oral pain medication for GERD and follow-up with the PCP. Discussed plan for discharge with patient. Additional verbal discharge instructions were given and patient agrees with plan. Critical care attestation.: If time is entered above; I have spent that time in minutes in the direct care of this critically ill patient, excluding procedure time. ED Disposition Clinical Impression: Chest wall pain Disposition: DC-01 TO HOME OR SELFCARE Is pt being admited?: No Does the pt Need Aspirin: No Condition: Stable Instructions: Costochondritis (ED), Chest Pain (ED) Prescriptions: Diclofenac Sodium [Voltaren] 100 gm TP Q6H #1 gel..gram. Referrals: EJ MUÑOZ MD [Referring] - 3-5 Days Forms: Work/School Release Form(ED)
--- NOTE | 2018-01-02 15:35 | XRay Report ---
ROUTINE CHEST, TWO VIEWS: HISTORY: Cough. Small opacity overlying the right costophrenic angle has nearly resolved since 11/21/17. This may have represented segmental atelectasis. The remainder of the lungs are clear. No pleural effusion or pneumothorax. Heart and mediastinal structures are normal. IMPRESSION: No acute cardiopulmonary process.
== END 2018-01-02 14:54 | disposition home or self-care (01) ==
LOC: ED 20:53
DX: R07.89 Other chest pain (principal); D57.1 Sickle-cell disease without crisis; F17.200 Nicotine dependence, unspecified, uncomplicated; F10.20 Alcohol dependence, uncomplicated; Y90.9 Presence of alcohol in blood, level not specified
CPT/HCPCS: 36415; 71046; 80053; 83690; 84484; 85007; 85025; 93005; 93010

== ENCOUNTER 2018-12-25 12:57 | Inpatient (IN) | payer BC ==
--- NOTE | 2018-12-25 13:31 | Emergency Department Report ---
Blank Doc - Documentation Documentation: This is a 43-year-old male that returns to the ED c/o worsen diffuse headache with worsen dizziness. CT on last visit was neg. WBC elevated. Patient denies any head trauma. Denies worst headache. Stated headache is 8/10. Denies tunderclap headache Plan hypotensive with tachycardia afebrile Repeat labs and treat headache.
[2018-12-25 13:51] LABS: Hematocrit 24.4 % (35.5-45.6); Hemoglobin 8.4 gm/dl (11.8-15.2); Mean Corpuscular HGB Conc 34 % (32-34); Mean Corpuscular Volume 84 fl (84-94); Platelet Count 375 K/mm3 (140-440); Red Blood Count 2.92 M/mm3 (3.65-5.03); Red Cell Distribution Width 18.4 % (13.2-15.2)
[2018-12-25] MEDS ORDERED: NACL 0.9% 1000 ML IV ONE (14:10)
[2018-12-25] MEDS ORDERED: BENADRYL IV ONE (14:11)
[2018-12-25] MEDS ORDERED: REGLAN IV ONE (14:11)
[2018-12-25 14:12] LABS: Alanine Aminotransferase 27 units/L (7-56); Albumin 4.3 g/dL (3.9-5); BUN/Creatinine Ratio 18; Blood Urea Nitrogen 25 mg/dL (9-20); Calcium 9.2 mg/dL (8.4-10.2); Hemolysis Index 10
[2018-12-25 14:28] LABS: Myelocytes # (Manual) 0.6 K/mm3; Total Cells Counted 100
[2018-12-25 14:36] LABS: Anisocytosis 1+; Macrocytosis Few; Poikilocytosis 2+; Sickle Cells 1+; Target Cells 1+
[2018-12-25 14:37] LABS: Platelet Estimate Consistent w Auto
--- NOTE | 2018-12-25 16:15 | Cat Scan Report ---
FINAL REPORT EXAM: CT HEAD/BRAIN WO/W CON HISTORY: persistant headache TECHNIQUE: CT of the head was performed without intravenous contrast. Subsequently, CT of the head w as performed after the administration of intravenous contrast. PRIORS: CT of the head from 12/16/2018. FINDINGS: The ventricles are normal in shape and position. The ventricles are nondilated. No intracranial hemo rrhage, mass, mass effect, midline shift or evidence of acute ischemic infarct. The basilar cisterns are patent. No evidence of abnormal contrast enhancement. The paranasal sinuses are clear. The extracranial soft tissues demonstrate no abnormality. The calvar ium is intact. The orbits are intact. The mastoid air cells are clear. IMPRESSION: No intracranial abnormality.
[2018-12-25 16:16] LABS: Bilirubin,Urine NEG (Negative); Blood,Urine NEG (Negative); Color,Urine Yellow (Yellow); Protein,Urine <15 mg/dL mg/dL (Negative); Urobilinogen,Urine < 2.0 mg/dL (<2.0)
[2018-12-25] MEDS ORDERED: ROCEPHIN/NS 1 GM/50 ML 1 GM/50 ML BAG IV ONE (16:43)
[2018-12-25] MEDS ORDERED: NACL 0.9% 1000 ML 1,000 ML IV ONE (16:46)
--- NOTE | 2018-12-25 16:49 | Emergency Department Report ---
<LENI RODRIGUEZ - Last Filed: 12/25/18 16:53> ED Headache HPI - General Chief Complaint: Headache Stated Complaint: RT SIDE PAIN/HEAD AND EYES/DIZZY Time Seen by Provider: 12/25/18 13:24 Source: patient Exam Limitations: no limitations - History of Present Illness Initial Comments: 43-year-old male with a past medical history of sickle cell disease presents to the hospital complaining of headache 2 weeks. Patient was seen here on the with complaint of headache 3 days. He was noted to have a leukocytosis. Ct head, cxr, and ua unremarkabe. He was discharged with Z-Royce, Zyrtec, Flonase, ibuprofen, and Zofran. Despite taking his prescribed medication, pt continues to have a constant daily left-sided headache described as a poking sensation behind his eye. Positives associated lightheadedness. He denies fever, cough, dysuria, nausea, vomiting, states he does have sweating at nighttime. He reports being diagnosed with sickle cell disease in 1994 states he has never had a crisis or seen a iron caster. He thinks he was diagnosed with sickle cell [place] but is unsure. Allergies/Adverse Reactions: Allergies naproxen [From Naprosyn] Adverse Reaction (Verified 12/16/18 14:28) Vomiting Home Medications: Ambulatory Orders Ibuprofen [Motrin] 600 mg PO Q8H PRN #20 tablet 11/22/17 Cetirizine HCl [ZyrTEC] 10 mg PO QAM 14 Days #14 capsule 12/16/18 Ondansetron [Zofran Odt] 4 mg PO Q8HR #6 tab.rapdis 12/16/18 ED Review of Systems Comment: All other systems reviewed and negative ED Past Medical Hx - Past Medical History Hx Congestive Heart Failure: No Hx Diabetes: No Hx Sickle Cell Disease: Yes Hx Asthma: No Hx COPD: No Additional medical history: pneumonia - Surgical History Past Surgical History?: No - Social History Smoking Status: Former Smoker Substance Use Type: None - Medications Home Medications: Home Medications Medication Instructions Recorded Confirmed Last Taken Type Ibuprofen [Motrin] 600 mg PO Q8H PRN #20 tablet 11/22/17 12/25/18 Unknown Rx Cetirizine HCl [ZyrTEC] 10 mg PO QAM 14 Days #14 capsule 12/16/18 12/25/18 Unknown Rx Ondansetron [Zofran Odt] 4 mg PO Q8HR #6 tab.rapdis 12/16/18 12/25/18 Unknown Rx ED Physical Exam - General Limitations: No Limitations - Other Other exam information: General: No limitations, patient is alert in no acute distress Head exam: Atraumatic, normocephalic Eyes exam: Normal appearance, pupils equal reactive to light, extraocular movements intact ENT: Moist mucous membrane, normal oropharynx, no maxillary or frontal sinus tenderness Neck exam: Normal inspection, full range of motion, no meningismus nontender Respiratory exam: Clear to auscultation bilateral, no wheezes, rales, crackles Cardiovascular: Normal rate and rhythm, normal heart sounds Abdomen: Soft, nondistended, and nontender, with normal bowel sounds, no rebound, or guarding Extremity: Full range of motion normal inspection no deformity Back: Normal Inspection, full range of motion, no tenderness Neurologic: Alert, oriented x3, cranial nerves intact, no motor or sensory deficit Psychiatric: normal affect, normal mood Skin: Warm, dry, intact ED Medical Decision Making - Lab Data Result diagrams: 12/25/18 13:39 12/25/18 13:39 Lab Results 12/25/18 12/25/18 12/25/18 Range/Units 13:39 13:39 13:39 WBC 18.6 H (4.5-11.0) K/mm3 RBC 2.92 L (3.65-5.03) M/mm3 Hgb 8.4 L (11.8-15.2) gm/dl Hct 24.4 L (35.5-45.6) % MCV 84 (84-94) fl MCH 29 (28-32) pg MCHC 34 (32-34) % RDW 18.4 H (13.2-15.2) % Plt Count 375 (140-440) K/mm3 Lymph # Building Inspection Engineer Add Manual Diff Complete Total Counted 100 Seg Neuts % (Manual) 60.0 (40.0-70.0) % Band Neutrophils % 0 % Lymphocytes % (Manual) 27.0 (13.4-35.0) % Reactive Lymphs % (Man) 0 % Monocytes % (Manual) 7.0 (0.0-7.3) % Eosinophils % (Manual) 2.0 (0.0-4.3) % Basophils % (Manual) 1.0 (0.0-1.8) % Metamyelocytes % 0 % Myelocytes % 3.0 % Promyelocytes % 0 % Blast Cells % 0 % Nucleated RBC % Not Reportable Seg Neutrophils # Man 11.2 H (1.8-7.7) K/mm3 Band Neutrophils # 0.0 K/mm3 Lymphocytes # (Manual) 5.0 (1.2-5.4) K/mm3 Abs React Lymphs (Man) 0.0 K/mm3 Monocytes # (Manual) 1.3 H (0.0-0.8) K/mm3 Eosinophils # (Manual) 0.4 (0.0-0.4) K/mm3 Basophils # (Manual) 0.2 H (0.0-0.1) K/mm3 Metamyelocytes # 0.0 K/mm3 Myelocytes # 0.6 K/mm3 Promyelocytes # 0.0 K/mm3 Blast Cells # 0.0 K/mm3 WBC Morphology Not Reportable Hypersegmented Neuts Not Reportable Hyposegmented Neuts Not Reportable Hypogranular Neuts Not Reportable Smudge Cells Not Reportable Toxic Granulation Not Reportable Toxic Vacuolation Not Reportable Dohle Bodies Not Reportable Pelger-Huet Anomaly Not Reportable [place] Rods Not Reportable Platelet Estimate Consistent w auto Clumped Platelets Not Reportable Plt Clumps, EDTA Not Reportable Large Platelets Not Reportable Giant Platelets Not Reportable Platelet Satelliting Not Reportable Plt Morphology Comment Not Reportable RBC Morphology Not Reportable Dimorphic RBCs Not Reportable Polychromasia Few Hypochromasia Not Reportable Poikilocytosis 2+ Anisocytosis 1+ Microcytosis Not Reportable Macrocytosis Few Spherocytes Not Reportable Pappenheimer Bodies Not Reportable Sickle Cells 1+ Target Cells 1+ Tear Drop Cells Not Reportable Ovalocytes Not Reportable Helmet Cells Not Reportable Antunez-Letts Bodies Not Reportable [place] Rings Not Reportable Reuben Cells Not Reportable Bite Cells Not Reportable Crenated Cell Not Reportable Elliptocytes Not Reportable Acanthocytes (Spur) Not Reportable Rouleaux Not Reportable Hemoglobin C Crystals Not Reportable Schistocytes Not Reportable Malaria parasites Not Reportable Percent Retic 6.45 H (0.78-2.58) % Obdulio Bodies Not Reportable Hem Pathologist Commnt Sent to pathology [facility] pH (7.320-7.420) Sodium 138 (137-145) mmol/L Potassium 3.9 (3.6-5.0) mmol/L Chloride 95.9 L (98-107) mmol/L Carbon Dioxide 27 (22-30) mmol/L Anion Gap 19 mmol/L BUN 25 H (9-20) mg/dL Creatinine 1.4 (0.8-1.5) mg/dL Estimated GFR > 60 ml/min BUN/Creatinine Ratio 18 % Glucose 92 (75-100) mg/dL Lactic Acid (0.7-2.0) mmol/L Calcium 9.2 (8.4-10.2) mg/dL Total Bilirubin 1.30 H (0.1-1.2) mg/dL AST 47 H (5-40) units/L ALT 27 (7-56) units/L Alkaline Phosphatase 94 (35-129) units/L Total Protein 7.5 (6.3-8.2) g/dL Albumin 4.3 (3.9-5) g/dL Albumin/Globulin Ratio 1.3 % Urine Color (Yellow) Urine Turbidity (Clear) Urine pH (5.0-7.0) Ur Specific [place] (1.003-1.030) Urine Protein (Negative) mg/dL Urine Glucose (UA) (Negative) mg/dL Urine Ketones (Negative) mg/dL Urine Blood (Negative) Urine Nitrite (Negative) Urine Bilirubin (Negative) Urine Urobilinogen (<2.0) mg/dL Ur Leukocyte Esterase (Negative) Urine WBC (Auto) (0.0-6.0) /HPF Urine RBC (Auto) (0.0-6.0) /HPF 12/25/18 12/25/18 12/25/18 Range/Units 14:17 14:17 15:50 WBC (4.5-11.0) K/mm3 RBC (3.65-5.03) M/mm3 Hgb (11.8-15.2) gm/dl Hct (35.5-45.6) % MCV (84-94) fl MCH (28-32) pg MCHC (32-34) % RDW (13.2-15.2) % Plt Count (140-440) K/mm3 Lymph # Add Manual Diff Total Counted Seg Neuts % (Manual) (40.0-70.0) % Band Neutrophils % % Lymphocytes % (Manual) (13.4-35.0) % Reactive Lymphs % (Man) % Monocytes % (Manual) (0.0-7.3) % Eosinophils % (Manual) (0.0-4.3) % Basophils % (Manual) (0.0-1.8) % Metamyelocytes % % Myelocytes % % Promyelocytes % % Blast Cells % % Nucleated RBC % Seg Neutrophils # Man (1.8-7.7) K/mm3 Band Neutrophils # K/mm3 Lymphocytes # (Manual) (1.2-5.4) K/mm3 Abs React Lymphs (Man) K/mm3 Monocytes # (Manual) (0.0-0.8) K/mm3 Eosinophils # (Manual) (0.0-0.4) K/mm3 Basophils # (Manual) (0.0-0.1) K/mm3 Metamyelocytes # K/mm3 Myelocytes # K/mm3 Promyelocytes # K/mm3 Blast Cells # K/mm3 WBC Morphology Hypersegmented Neuts Hyposegmented Neuts Hypogranular Neuts Smudge Cells Toxic Granulation Toxic Vacuolation Dohle Bodies Pelger-Huet Anomaly Carl[place] Rods Platelet Estimate Clumped Platelets Plt Clumps, EDTA Large Platelets Giant Platelets Platelet Satelliting Plt Morphology Comment RBC Morphology Dimorphic RBCs Polychromasia Hypochromasia Poikilocytosis Anisocytosis Microcytosis Macrocytosis Spherocytes Pappenheimer Bodies Sickle Cells Target Cells Tear Drop Cells Ovalocytes Helmet Cells Antunez-Letts Bodies Arthur Rings [place] Cells Bite Cells Crenated Cell Elliptocytes Acanthocytes (Spur) Rouleaux Hemoglobin C Crystals Schistocytes Malaria parasites Percent Retic (0.78-2.58) % Obdulio Bodies Hem Pathologist Commnt [facility] pH 7.408 (7.320-7.420) Sodium (137-145) mmol/L Potassium (3.6-5.0) mmol/L Chloride (98-107) mmol/L Carbon Dioxide (22-30) mmol/L Anion Gap mmol/L BUN (9-20) mg/dL Creatinine (0.8-1.5) mg/dL Estimated GFR ml/min BUN/Creatinine Ratio % Glucose (75-100) mg/dL Lactic Acid 1.30 (0.7-2.0) mmol/L Calcium (8.4-10.2) mg/dL Total Bilirubin (0.1-1.2) mg/dL AST (5-40) units/L ALT (7-56) units/L Alkaline Phosphatase (35-129) units/L Total Protein (6.3-8.2) g/dL Albumin (3.9-5) g/dL Albumin/Globulin Ratio % Urine Color Yellow (Yellow) Urine Turbidity Clear (Clear) Urine pH 5.0 (5.0-7.0) Ur Specific [place] 1.027 (1.003-1.030) Urine Protein <15 mg/dl (Negative) mg/dL Urine Glucose (UA) Neg (Negative) mg/dL Urine Ketones Neg (Negative) mg/dL Urine Blood Neg (Negative) Urine Nitrite Neg (Negative) Urine Bilirubin Neg (Negative) Urine Urobilinogen < 2.0 (<2.0) mg/dL Ur Leukocyte Esterase Neg (Negative) Urine WBC (Auto) 3.0 (0.0-6.0) /HPF Urine RBC (Auto) 2.0 (0.0-6.0) /HPF - Radiology Data Radiology results: report reviewed CT head with and without contrast: No acute findings Chest x-ray: No acute findings - Medical Decision Making Upon previous medical record review patient appears to have chronic leukocytosis. CT head on the 12/[address] head with and without contrast today a re normal. Patient does not have any nuncal rigidity. After Reglan, Benadryl and 2 L IV fluids patient reports that the headache has decreased, tachycardia has improved, however, patient remains hypotensive. Requested that RN place patient on the second facing baster for persistent hypotension. Patient was cultured although source of possible sepsis and has not been identified at this time. Differential also includes leukemia and sickle cell crisis. Rocephin 1 g ordered empirically. Hospitalist informed for admission. - Differential Diagnosis sepsis, ICH, mass, migraine, leukemia, sickle cell Critical Care Time: No ED Disposition Clinical Impression: Leukocytosis Headache Qualifiers: Headache type: unspecified Headache chronicity pattern: acute headache Intractability: not intractable Qualified Code(s): R51 - Headache Sepsis Qualifiers: Sepsis type: sepsis due to unspecified organism Qualified Code(s): A41.9 - Sepsis, unspecified organism Disposition: DC-09 OP ADMIT IP TO THIS HOSP Is pt being admited?: Yes Condition: Stable Time of Disposition: 16:52 (dr valdez/hosp) <ELOISA MCDOWELL - Last Filed: 12/25/18 22:30> ED Review of Systems ROS: Stated complaint: RT SIDE PAIN/HEAD AND EYES/DIZZY Other details as noted in HPI ED Course Vital Signs 12/25/18 12/25/18 12/25/18 13:25 14:37 16:38 Temperature 97.9 F Pulse Rate 124 H 79 Respiratory 18 16 16 Rate Blood Pressure 90/67 Blood Pressure 84/47 [Right] O2 Sat by Pulse 100 100 Oximetry 12/25/18 12/25/18 12/25/18 19:13 19:31 19:45 Temperature Pulse Rate 87 93 H 86 Respiratory 14 13 15 Rate Blood Pressure 85/52 80/47 91/64 Blood Pressure [Right] O2 Sat by Pulse 100 100 100 Oximetry 12/25/18 20:01 Temperature Pulse Rate 92 H Respiratory 18 Rate Blood Pressure 89/63 Blood Pressure [Right] O2 Sat by Pulse 94 Oximetry - Central Line Placement Right Femoral Consent Obtained: written consent Time Out Performed: Yes Patient Placed on Monitor/Pulse Ox: Yes MD Prep: mask, gown, gloves Central Line Prep: Povidone-Iodine 1%, Chlorhexidine scrub, sterile drapes applied Local Anesthesia Used: Lidocaine 2% Central Line Lumen Inserted: triple Bloods Obtained for Lab: Yes Central Line Position: good blood return, all ports aspirated, flus, sutured in place with 2-0 Dressing Applied: Tegaderm, sterile gauze/tape Patient Tolerated Procedure: well, no complications Complications: none ED Medical Decision Making - Lab Data Result diagrams: 12/25/18 13:39 12/25/18 13:39 Critical care attestation.: If time is entered above; I have spent that time in minutes in the direct care of this critically ill patient, excluding procedure time.
[2018-12-25] MEDS ORDERED: VANCOMYCIN 1,250 MG in NACL 0.9% 500 ML 500 ML IV ONE (16:51)
--- NOTE | 2018-12-25 16:51 | History and Physical Report ---
History of Present Illness Chief complaint: My head hurts History of present illness: 43 YO Male with Nicotine Dependence, SCD presents to ED for evaluation. Pt states that he has experienced headache with a pressure-sensation coming from behind his left eye for the past 2 weeks with worsening symptoms over the past 3 days. Pt transported to [facility] by his family for further care and evaluation. Pt seen and evaluated in ED and found to have sepsis, malnutrition, as well as hypotension with systolic BP in the 80's. Pt admitted to [facility]. Pt denies shaking chills, back pain, trauma, neck pain, falls, hemoptysis, prolonged travel/immobility, individual/family history of DVT/PE, recent ill contacts, or HIV risk factors. Pt is Alert oriented x4 and denies pain. Pt talkative, and request dinner. Pt is able to protect his airway, and his clinical exam is unremarkable at time of exam. Past History Past Medical History: other (Nicotine Dependence) Past Surgical History: No surgical history Social history: single. denies: smoking, alcohol abuse, prescription drug abuse Family history: hypertension Medications and Allergies Allergies Allergy/AdvReac Type Severity Reaction Status Date / Time naproxen [From Naprosyn] AdvReac Vomiting Verified 12/16/18 14:28 Home Medications Medication Instructions Recorded Confirmed Last Taken Type ALBUTEROL NEB's [Proventil 0.083% 2.5 mg IH Q4HRT PRN #30 day 11/13/17 Unknown Rx NEBS] Acetaminophen [Acetaminophen TAB] 325 mg PO Q4H PRN #30 tablet 11/13/17 Unknown Rx levoFLOXacin [Levaquin] 750 mg PO QDAY #5 day 11/13/17 Unknown Rx Azithromycin [Zithromax Z-SB] 250 mg PO DAILY #6 tablet 11/22/17 Unknown Rx HYDROcodone/ACETAMINOPHEN [[place] 1 each PO Q4-6H #15 tablet 11/22/17 Unknown Rx 5-325 Tablet] Ibuprofen [Motrin] 600 mg PO Q8H PRN #20 tablet 11/22/17 Unknown Rx Diclofenac Sodium [Voltaren] 100 gm TP Q6H #1 gel..gram. 01/02/18 Unknown Rx Azithromycin [Zithromax Z-SB] 250 mg PO DAILY 5 Days #1 pkg 12/16/18 Unknown Rx Cetirizine HCl [ZyrTEC] 10 mg PO QAM 14 Days #14 capsule 12/16/18 Unknown Rx Fluticasone [Flonase] 1 spray NS QDAY 14 Days #1 bottle 12/16/18 Unknown Rx Ibuprofen [Ibu] 800 mg PO TID PRN #30 tablet 12/16/18 Unknown Rx Ondansetron [Zofran Odt] 4 mg PO Q8HR #6 tab.rapdis 12/16/18 Unknown Rx Active Meds: Active Medications Ceftriaxone Sodium (Rocephin/Ns 1 Gm/50 Ml) 1 gm in 50 mls @ 100 mls/hr IV ONCE ONE; Protocol Stop: 12/25/18 17:12 Sodium Chloride (Nacl 0.9% 1000 Ml) 1,000 mls @ 999 mls/hr IV BOLUS ONE Stop: 12/25/18 17:46 Review of Systems Constitutional: no weight loss, no weight gain, no fever, no chills Ears, nose, mouth and throat: headache, no ear pain, no ear discharge, no tinnitis, no decreased hearing, no nose pain, no hoarseness, no sore throat, no swelling in mouth, no swelling in throat, no pain front of neck Cardiovascular: no chest pain, no orthopnea, no palpitations, no rapid/irregular heart beat, no edema Respiratory: no cough, no cough with sputum, no excessive sputum, no hemoptysis Gastrointestinal: no abdominal pain, no nausea, no vomiting, no diarrhea Genitourinary Male: no hematuria, no flank pain, no discharge, no urinary frequency, no urinary hesitancy Rectal: no pain, no incontinence, no bleeding Musculoskeletal: other (no nuchal rigidity), no neck stiffness, no neck pain Integumentary: no rash, no pruritis, no redness, no sores, no wounds Neurological: no transient paralysis, no paralysis, no weakness, no parathesias, no numbness, no tingling Psychiatric: no anxiety, no memory loss, no change in sleep habits, no sleep di sturbances, no insomnia, no hypersomnia Endocrine: no cold intolerance, no heat intolerance, no polyphagia, no excessive thirst, no polydipsia, no polyuria Hematologic/Lymphatic: no easy bruising, no easy bleeding, no lymphadenopathy, no lymphedema Allergic/Immunologic: no urticaria, no allergic rhinitis, no wheezing, no pe rsistent infections, no angioedema Exam - Constitutional Vitals: Temp Pulse Resp BP Pulse Ox 97.9 F 79 16 84/47 100 12/25/18 13:25 12/25/18 16:38 12/25/18 16:38 12/25/18 16:38 12/25/18 16:38 General appearance: Present: mild distress - EENT Eyes: Present: PERRL ENT: hearing intact, clear oral mucosa - Neck Neck: Present: supple, normal ROM - Respiratory Respiratory effort: normal Respiratory: bilateral: CTA - Cardiovascular Heart Sounds: Present: S1 & S2. Absent: rub, click - Extremities Extremities: pulses symmetrical, No edema Peripheral Pulses: abnormal (capillary refill greater than 3.5 seconds) - Abdominal General gastrointestinal: Present: soft, non-tender, non-distended, normal bowel sounds Male genitourinary: Present: normal - Integumentary Integumentary: Present: clear, warm, dry - Musculoskeletal Musculoskeletal: gait normal, strength equal bilaterally - Psychiatric Psychiatric: appropriate mood/affect, intact judgment & insight - Neurologic Neurologic: CNII-XII intact, moves all extremities Results - Labs CBC & Chem 7: 12/25/18 13:39 12/25/18 13:39 Labs: Abnormal lab results 12/25/18 12/25/18 12/25/18 Range/Units 13:39 13:39 13:39 WBC 18.6 H (4.5-11.0) K/mm3 RBC 2.92 L (3.65-5.03) M/mm3 Hgb 8.4 L (11.8-15.2) gm/dl Hct 24.4 L (35.5-45.6) % RDW 18.4 H (13.2-15.2) % Seg Neutrophils # Man 11.2 H (1.8-7.7) K/mm3 Monocytes # (Manual) 1.3 H (0.0-0.8) K/mm3 Basophils # (Manual) 0.2 H (0.0-0.1) K/mm3 Percent Retic 6.45 H (0.78-2.58) % Chloride 95.9 L (98-107) mmol/L BUN 25 H (9-20) mg/dL Total Bilirubin 1.30 H (0.1-1.2) mg/dL AST 47 H (5-40) units/L Assessment and Plan - Patient Problems (1) Sepsis Current Visit: Yes Status: Acute Qualifiers: Sepsis type: sepsis due to unspecified organism Qualified Code(s): A41.9 - Sepsis, unspecified organism Plan to address problem: Admit to IMCU, monitor uop q shift, IV antibiotic therapy, serial lactic acid level, blood cultures, urinalysis, blood cultures, chest x ray, (2) Malnutrition Current Visit: Yes Status: Acute Qualifiers: Malnutrition type: protein-calorie malnutrition Plan to address problem: Encourage increased protein intake (3) Head ache Current Visit: Yes Status: Acute Qualifiers: Headache type: unspecified Headache chronicity pattern: acute headache Intractability: not intractable Qualified Code(s): R51 - Headache Plan to address problem: CT Head, MRI Brain, neuro checks, (4) DVT prophylaxis Current Visit: No Status: Acute Plan to address problem: SCD to BLE while in bed.
[2018-12-25] MEDS ORDERED: SODIUM CHLORIDE FLUSH SYRINGE 10 ML IV PRN (16:55)
[2018-12-25] MEDS ORDERED: VANCOMYCIN 1,250 MG in NACL 0.9% 250ML 250 ML IV ONE (17:30)
[2018-12-25] MEDS ORDERED: NACL 0.9% 1000 ML 2,000 ML ONE (18:38)
[2018-12-25] MEDS ORDERED: LEVOPHED DRIP 4 MG/NS 250 ML 4 MG/250 ML BAG IV SCH ×2 (19:00→23:00)
--- NOTE | 2018-12-25 20:01 | XRay Report ---
FINAL REPORT EXAM: XR CHEST 1V AP HISTORY: dypsnea TECHNIQUE: upright single view chest PRIORS: None. FINDINGS: Cardiac and mediastinal contours are unremarkable. No focal pulmonary infiltrate is identified. No pleural fluid collection seen. Pulmonary vasculature is unremarkable. IMPRESSION: Negative single-view chest
[2018-12-25] MEDS ORDERED: TYLENOL PO PRN (20:22)
[2018-12-25] MEDS ORDERED: PROVENTIL IH PRN (20:22)
[2018-12-25] MEDS ORDERED: IBUPROFEN PO PRN (20:22)
[2018-12-25] MEDS ORDERED: NON-FORMULARY (Diclofenac Sodium [Voltaren] 100 GM) TP SCH (20:30)
[2018-12-25] MEDS: SODIUM CHLORIDE FLUSH SYRINGE 10 ML IV SCH (21:53)
[2018-12-25] MEDS: ZOFRAN ODT PO SCH (21:57)
[2018-12-25] MEDS ORDERED: ZOFRAN ODT ONE (21:58)
[2018-12-25 22:06] LABS: Amphetamine Screen,Urine PRESUMPTIVE NEGATIVE; Benzodiazepines Screen,Urine PRESUMPTIVE NEGATIVE; Cannabinoid Screen,Urine PRESUMPTIVE NEGATIVE; Cocaine Screen,Urine PRESUMPTIVE NEGATIVE; Methadone Screen,Urine PRESUMPTIVE NEGATIVE; Opiate Screen,Urine PRESUMPTIVE NEGATIVE
[2018-12-25] MEDS ORDERED: LEVOPHED DRIP 4 MG/NS 250 ML 4 MG/250 ML BAG IV ONE (23:33)
[2018-12-26] MEDS ORDERED: BENADRYL IV PRN (03:33)
[2018-12-26] MEDS ORDERED: BENADRYL ONE (03:38)
[2018-12-26] MEDS ORDERED: INTROPIN DRIP 800 MG/D5W 250 ML 800 MG/250 ML BAG IV ONE (05:13)
[2018-12-26] MEDS: INTROPIN DRIP 800 MG/D5W 250 ML 800 MG/250 ML BAG IV SCH (05:32)
[2018-12-26] MEDS ORDERED: ZOFRAN ODT ONE (05:41)
[2018-12-26] MEDS: ZOFRAN ODT PO SCH ×3 (06:01→23:57)
--- NOTE | 2018-12-26 08:53 | Progress Note ---
Assessment and Plan Assessment and plan: 43 YO Male with Nicotine Dependence, SCD presents to ED for evaluation. Pt states that he has experienced headache 5/10 with a pressure-sensation coming from behind his left eye for the past 2 weeks with worsening symptoms over the past 3 days with meningeal signs and chills. He was seen initially in the ED and discharged a few days ago. Pt transported to [facility] by his family for further care and evaluation. Pt seen and evaluated in ED and found to have sepsis, malnutrition, as well as hypotension with systolic BP in the 80's. Pt admitted to [facility]. He reports shaking chills but denies back pain, trauma, neck pain, falls, hemoptysis, prolonged travel/immobility, individual/family history of DVT/PE, recent ill contacts, or HIV risk factors. Pt is Alert oriented x4 and denies pain. Pt talkative, and request dinner. Review of Records shows that the patient was recently treated for Pneumonia In November and discharged. SIRS Doubt Sepsis but still will continue evaluation for the same. No clear source of infection vasogenic shock vs Septic Shock ? Meningitis, Low risk. Anemia- Precipitatious drop in Hgb LUCA secondary to vasomotor nephropathy, baseline creatinine 0.6 Throat pain/Chest pain- When placed on levophed and resolved after. Mild elevated transaminase PLAN Supportive care Give additional 2 Liters of Fluid Considering clinical case, will rule out Meningitis. XRAY Reviewed, no evidence of persistent pnuemonia Consult ID and critical care Monitor H/H If LFTs persistently elevated, will check liver Obtain trops Check Echo Wean pressors DVT/GI prophy The high probability of a clinically significant, sudden or life threatening deterioration of the [x] system(s) required my full and direct attention, intervention and personal management. The aggregate critical care time was [35] minutes. This time is in addition to time spent performing reported procedures but includes the following: [x] Data Review and interpretation [x] Patient assessment and monitoring of vital signs [x] Documentation [x] Medication orders and management History Interval history: Patient was examined with no acute distress still complains of headache with retro-orbital pain 5 /10 intensity Hospitalist Physical - Physical exam Narrative exam: VITAL SIGNS: Reviewed. GENERAL: The patient appeared well nourished and normally developed. Vital sign s as documented. HEAD: No signs of head trauma. EYES: Pupils are equal. Extraocular motions intact. EARS: Hearing grossly intact. MOUTH: Oropharynx is normal. NECK: No adenopathy, no JVD. CHEST: Chest with clear breath sounds bilaterally. No wheezes, rales, or rhonchi. CARDIAC: Regular rate and rhythm. S1 and S2, without murmurs, gallops, or rubs. VASCULAR: No Edema. Peripheral pulses normal and equal in all extremities. ABDOMEN: Soft, without detectable tenderness. No sign of distention. No rebound or guarding, and no masses palpated. Bowel Sounds normal. MUSCULOSKELETAL: Good range of motion of all major joints. Extremities without clubbing, cyanosis or edema. NEUROLOGIC EXAM: Alert and oriented x 3. No focal sensory or strength deficits. Speech normal. Follows commands. PSYCHIATRIC: Mood normal. SKIN: No rash or lesions. - Constitutional Vitals: Temp Pulse Resp BP Pulse Ox 97.9 F 82 16 97/52 95 12/25/18 13:25 12/26/18 08:45 12/26/18 08:45 12/26/18 08:45 12/26/18 08:45 General appearance: Present: mild distress Results - Labs CBC & Chem 7: 12/26/18 08:45 12/26/18 08:45 Labs: Laboratory Last Values WBC 18.6 K/mm3 (4.5-11.0) H 12/25/18 13:39 RBC 2.92 M/mm3 (3.65-5.03) L 12/25/18 13:39 Hgb 8.4 gm/dl (11.8-15.2) L 12/25/18 13:39 Hct 24.4 % (35.5-45.6) L 12/25/18 13:39 MCV 84 fl (84-94) 12/25/18 13:39 MCH 29 pg (28-32) 12/25/18 13:39 MCHC 34 % (32-34) 12/25/18 13:39 RDW 18.4 % (13.2-15.2) H 12/25/18 13:39 Plt Count 375 K/mm3 (140-440) 12/25/18 13:39 Lymph # Agriculture Engineer 12/25/18 13:39 Add Manual Diff Complete 12/25/18 13:39 Total Counted 100 12/25/18 13:39 Seg Neuts % (Manual) 60.0 % (40.0-70.0) 12/25/18 13:39 Band Neutrophils % 0 % 12/25/18 13:39 Lymphocytes % (Manual) 27.0 % (13.4-35.0) 12/25/18 13:39 Reactive Lymphs % (Man) 0 % 12/25/18 13:39 Monocytes % (Manual) 7.0 % (0.0-7.3) 12/25/18 13:39 Eosinophils % (Manual) 2.0 % (0.0-4.3) 12/25/18 13:39 Basophils % (Manual) 1.0 % (0.0-1.8) 12/25/18 13:39 Metamyelocytes % 0 % 12/25/18 13:39 Myelocytes % 3.0 % 12/25/18 13:39 Promyelocytes % 0 % 12/25/18 13:39 Blast Cells % 0 % 12/25/18 13:39 Nucleated RBC % Not Reportable 12/25/18 13:39 Seg Neutrophils # Man 11.2 K/mm3 (1.8-7.7) H 12/25/18 13:39 Band Neutrophils # 0.0 K/mm3 12/25/18 13:39 Lymphocytes # (Manual) 5.0 K/mm3 (1.2-5.4) 12/25/18 13:39 Abs React Lymphs (Man) 0.0 K/mm3 12/25/18 13:39 Monocytes # (Manual) 1.3 K/mm3 (0.0-0.8) H 12/25/18 13:39 Eosinophils # (Manual) 0.4 K/mm3 (0.0-0.4) 12/25/18 13:39 Basophils # (Manual) 0.2 K/mm3 (0.0-0.1) H 12/25/18 13:39 Metamyelocytes # 0.0 K/mm3 12/25/18 13:39 Myelocytes # 0.6 K/mm3 12/25/18 13:39 Promyelocytes # 0.0 K/mm3 12/25/18 13:39 Blast Cells # 0.0 K/mm3 12/25/18 13:39 WBC Morphology Not Reportable 12/25/18 13:39 Hypersegmented Neuts Not Reportable 12/25/18 13:39 Hyposegmented Neuts Not Reportable 12/25/18 13:39 Hypogranular Neuts Not Reportable 12/25/18 13:39 Smudge Cells Not Reportable 12/25/18 13:39 Toxic Granulation Not Reportable 12/25/18 13:39 Toxic Vacuolation Not Reportable 12/25/18 13:39 Dohle Bodies Not Reportable 12/25/18 13:39 Pelger-Huet Anomaly Not Reportable 12/25/18 13:39 Carlton Rods Not Reportable 12/25/18 13:39 Platelet Estimate Consistent w auto 12/25/18 13:39 Clumped Platelets Not Reportable 12/25/18 13:39 Plt Clumps, EDTA Not Reportable 12/25/18 13:39 Large Platelets Not Reportable 12/25/18 13:39 Giant Platelets Not Reportable 12/25/18 13:39 Platelet Satelliting Not Reportable 12/25/18 13:39 Plt Morphology Comment Not Reportable 12/25/18 13:39 RBC Morphology Not Reportable 12/25/18 13:39 Dimorphic RBCs Not Reportable 12/25/18 13:39 Polychromasia Few 12/25/18 13:39 Hypochromasia Not Reportable 12/25/18 13:39 Poikilocytosis 2+ 12/25/18 13:39 Anisocytosis 1+ 12/25/18 13:39 Microcytosis Not Reportable 12/25/18 13:39 Macrocytosis Few 12/25/18 13:39 Spherocytes Not Reportable 12/25/18 13:39 Pappenheimer Bodies Not Reportable 12/25/18 13:39 Sickle Cells 1+ 12/25/18 13:39 Target Cells 1+ 12/25/18 13:39 Tear Drop Cells Not Reportable 12/25/18 13:39 Ovalocytes Not Reportable 12/25/18 13:39 Helmet Cells Not Reportable 12/25/18 13:39 Antunez-Melbeta Bodies Not Reportable 12/25/18 13:39 Fulton Rings Not Reportable 12/25/18 13:39 Eagle Cells Not Reportable 12/25/18 13:39 Bite Cells Not Reportable 12/25/18 13:39 Crenated Cell Not Reportable 12/25/18 13:39 Elliptocytes Not Reportable 12/25/18 13:39 Acanthocytes (Spur) Not Reportable 12/25/18 13:39 Rouleaux Not Reportable 12/25/18 13:39 Hemoglobin C Crystals Not Reportable 12/25/18 13:39 Schistocytes Not Reportable 12/25/18 13:39 Malaria parasites Not Reportable 12/25/18 13:39 Percent Retic 6.45 % (0.78-2.58) H 12/25/18 13:39 Obdulio Bodies Not Reportable 12/25/18 13:39 Hem Pathologist Commnt Sent to pathology 12/25/18 13:39 VBG pH 7.408 (7.320-7.420) 12/25/18 14:17 Sodium 138 mmol/L (137-145) 12/25/18 13:39 Potassium 3.9 mmol/L (3.6-5.0) 12/25/18 13:39 Chloride 95.9 mmol/L (98-107) L 12/25/18 13:39 Carbon Dioxide 27 mmol/L (22-30) 12/25/18 13:39 Anion Gap 19 mmol/L 12/25/18 13:39 BUN 25 mg/dL (9-20) H 12/25/18 13:39 Creatinine 1.4 mg/dL (0.8-1.5) 12/25/18 13:39 Estimated GFR > 60 ml/min 12/25/18 13:39 BUN/Creatinine Ratio 18 % 12/25/18 13:39 Glucose 92 mg/dL (75-100) 12/25/18 13:39 Lactic Acid 1.40 mmol/L (0.7-2.0) 12/26/18 01:16 Calcium 9.2 mg/dL (8.4-10.2) 12/25/18 13:39 Total Bilirubin 1.30 mg/dL (0.1-1.2) H 12/25/18 13:39 AST 47 units/L (5-40) H 12/25/18 13:39 ALT 27 units/L (7-56) 12/25/18 13:39 Alkaline Phosphatase 94 units/L (35-129) 12/25/18 13:39 Total Protein 7.5 g/dL (6.3-8.2) 12/25/18 13:39 Albumin 4.3 g/dL (3.9-5) 12/25/18 13:39 Albumin/Globulin Ratio 1.3 % 12/25/18 13:39 Urine Color Yellow (Yellow) 12/25/18 15:50 Urine Turbidity Clear (Clear) 12/25/18 15:50 Urine pH 5.0 (5.0-7.0) 12/25/18 15:50 Ur Specific Mar Lin 1.027 (1.003-1.030) 12/25/18 15:50 Urine Protein <15 mg/dl mg/dL (Negative) 12/25/18 15:50 Urine Glucose (UA) Neg mg/dL (Negative) 12/25/18 15:50 Urine Ketones Neg mg/dL (Negative) 12/25/18 15:50 Urine Blood Neg (Negative) 12/25/18 15:50 Urine Nitrite Neg (Negative) 12/25/18 15:50 Urine Bilirubin Neg (Negative) 12/25/18 15:50 Urine Urobilinogen < 2.0 mg/dL (<2.0) 12/25/18 15:50 Ur Leukocyte Esterase Neg (Negative) 12/25/18 15:50 Urine WBC (Auto) 3.0 /HPF (0.0-6.0) 12/25/18 15:50 Urine RBC (Auto) 2.0 /HPF (0.0-6.0) 12/25/18 15:50 Urine Opiates Screen Presumptive negative 12/25/18 21:25 Urine Methadone Screen Presumptive negative 12/25/18 21:25 Ur Barbiturates Screen Presumptive negative 12/25/18 21:25 Ur Phencyclidine Scrn Presumptive negative 12/25/18 21:25 Ur Amphetamines Screen Presumptive negative 12/25/18 21:25 U Benzodiazepines Scrn Presumptive negative 12/25/18 21:25 Urine Cocaine Screen Presumptive negative 12/25/18 21:25 U Marijuana (THC) Screen Presumptive negative 12/25/18 21:25 Drugs of Abuse Note Disclamer 12/25/18 21:25
[2018-12-26] MEDS ORDERED: NACL 0.9% 1000 ML 1,000 ML IV SCH (09:09)
[2018-12-26 09:20] LABS: Hematocrit 22.7 % (35.5-45.6); Hemoglobin 7.6 gm/dl (11.8-15.2); Mean Corpuscular HGB Conc 33 % (32-34); Mean Corpuscular Volume 85 fl (84-94); Platelet Count 327 K/mm3 (140-440); Red Blood Count 2.66 M/mm3 (3.65-5.03); Red Cell Distribution Width 19.5 % (13.2-15.2)
[2018-12-26 09:37] LABS: INR 0.99 (0.87-1.13)
[2018-12-26 09:38] LABS: Partial Thromboplastin Time 30.9 Sec. (24.2-36.6)
[2018-12-26 09:39] LABS: BUN/Creatinine Ratio 11; Blood Urea Nitrogen 9 mg/dL (9-20); Calcium 8.2 mg/dL (8.4-10.2); Hemolysis Index 15
--- NOTE | 2018-12-26 09:44 | Consultation ---
History of Present Illness Consult date: 12/26/18 Requesting physician: BEVERLY ZULUAGA Reason for consult: other (Sepsis, shock/hypotension, possible meningitis) History of present illness: 43 YO Male with Nicotine Dependence, SCD presents to ED for evaluation. He states that he has experienced headache 5/10 with a pressure-sensation coming from behind his left eye for the past 2 weeks with worsening symptoms over the past 3 days with meningeal signs and chills. He was seen initially in the ED and discharged a few days ago. Pt transported to [facility] by his family for further care and evaluation. Pt seen and evaluated in ED and found to have sepsis, malnutrition, as well as hypotension with systolic BP in the 80's on vasopressor support. A critical care consult was placed for possible septic shock, and possible meningitis. Patient was seen and examined in the ED. He just got back form spinal tap and states his headache is improving He reports shaking chills but denies back pain, trauma, neck pain, falls, hemoptysis, prolonged travel/immobility, individual/family history of DVT/PE, recent ill contacts, or HIV risk factors. Review of Records shows that the patient was recently treated for Pneumonia in November and discharged. Review of Systems: General: no fevers,chills or rigors HEENT: no new visual disturbance Respiratory: No cough, sputum, hemoptysis or shortness of breath Cardiovascular: No chest pain, syncope Gastrointestinal: No nausea, vomiting or diarrhea Genitourinary: No dysuria or hematuria Musculoskeletal: No new or worsening neck pain or back pain Neurologic: + headaches, no seizures Hematologic: No easy bruising or bleeding Endocrine: No night sweats or acute weight loss Skin: negative for rash, jaundice Psychiatric: No suicidal or homicidal ideation Past History Past Medical History: other (Nicotine Dependence) Past Surgical History: No surgical history Social history: single. denies: smoking, alcohol abuse, prescription drug abuse Family history: hypertension Medications and Allergies Allergies Allergy/AdvReac Type Severity Reaction Status Date / Time naproxen [From Naprosyn] AdvReac Vomiting Verified 12/16/18 14:28 Home Medications Medication Instructions Recorded Confirmed Last Taken Type Ibuprofen [Motrin 600 MG tab] 600 mg PO Q8H PRN #20 tablet 11/22/17 12/25/18 Unknown Rx Cetirizine HCl [ZyrTEC] 10 mg PO QAM 14 Days #14 capsule 12/16/18 12/25/18 Unknown Rx Ondansetron [Zofran ODT TAB] 4 mg PO Q8HR #6 tab.rapdis 12/16/18 12/25/18 Unknown Rx Fluticasone [Flonase] 50 mcg NS QDAY bottle 12/31/18 Unknown Rx Levothyroxine [Synthroid] 112 mcg PO DAILY@0600 #30 tablet 12/31/18 Unknown Rx Loratadine [Claritin] 10 mg PO DAILY #30 tablet 12/31/18 Unknown Rx Midodrine [Proamatine] 5 mg PO TID@0800,1200,1600 #30 12/31/18 Unknown Rx tablet Active Meds: Active Medications Acetaminophen (Tylenol) 325 mg PO Q4H PRN PRN Reason: Pain MILD(1-3)/Fever >100.5/LOWRY Acetaminophen/Hydrocodone Bitart ([place] 5/325) 1 each PO Q4H PRN PRN Reason: Pain, Moderate (4-6) Albuterol (Proventil) 2.5 mg IH Q4HRT PRN PRN Reason: Shortness Of Breath Diphenhydramine HCl (Benadryl) 25 mg IV Q6H PRN PRN Reason: Itching Last Admin: 12/26/18 03:40 Dose: 25 mg Documented by: Fluticasone Propionate (Flonase) 50 mcg NS QDAY JAMIR Ceftriaxone Sodium (Rocephin/Ns 2 Gm/100 Ml) 2 gm in 100 mls @ 200 mls/hr IV Q24HR JAMIR; Protocol Norepinephrine (Levophed Drip 4 Mg/Ns 250 Ml) 4 mg in 250 mls @ 7.5 mls/hr IV TITR JAMIR; Protocol Last Titration: 12/26/18 03:40 Dose: 0 mcg/min, 0 mls/hr Documented by: Dopamine HCl/Dextrose (Intropin Drip 800 Mg/D5w 250 Ml) 800 mg in 250 mls @ 2.333 mls/hr IV TITR JAMIR; Protocol Last Titration: 12/26/18 06:54 Dose: 6 mcg/kg/min, 6.998 mls/hr Documented by: Acyclovir 730 mg/ Sodium (Chloride) 114.6 mls @ 100 mls/hr IV Q8HR JAMIR; Protocol Sodium Chloride (Nacl 0.9% 1000 Ml) 1,000 mls @ 0 mls/hr IV ONCE [facility] Stop: 12/27/18 09:10 Ibuprofen (Motrin) 800 mg PO TID PRN PRN Reason: Pain, Moderate (4-6) Loratadine (Claritin) 10 mg PO DAILY [facility] Ondansetron HCl (Zofran Odt) 4 mg PO Q8HR [facility] Last Admin: 12/26/18 06:01 Dose: 4 mg Documented by: Sodium Chloride (Sodium Chloride Flush Syringe 10 Ml) 10 ml IV BID [facility] Last Admin: 12/25/18 21:53 Dose: 10 ml Documented by: Sodium Chloride (Sodium Chloride Flush Syringe 10 Ml) 10 ml IV PRN PRN PRN Reason: LINE FLUSH Physical Examination Vital signs: Vital Signs Temp Pulse Resp BP Pulse Ox 97.9 F 124 H 18 90/67 100 12/25/18 13:25 12/25/18 13:25 12/25/18 13:25 12/25/18 13:25 12/25/18 13:25 VITAL SIGNS: Reviewed. GENERAL: The patient appeared well nourished and normally developed. Vital signs as documented. HEAD: No signs of head trauma. EYES: Pupils are equal. Extraocular motions intact. EARS: Hearing grossly intact. MOUTH: Oropharynx is normal. NECK: No adenopathy, no JVD. CHEST: Chest with clear breath sounds bilaterally. No wheezes, rales, or rhonchi. CARDIAC: Regular rate and rhythm. S1 and S2, without murmurs, gallops, or rubs. VASCULAR: No Edema. Peripheral pulses normal and equal in all extremities. ABDOMEN: Soft, without detectable tenderness. No sign of distention. No rebound or guarding, and no masses palpated. Bowel Sounds normal. MUSCULOSKELETAL: Good range of motion of all major joints. Extremities without clubbing, cyanosis or edema. NEUROLOGIC EXAM: Alert and oriented x 3. No focal sensory or strength deficits. Speech normal. Follows commands. PSYCHIATRIC: Mood normal. SKIN: No rash or lesions. Results - Laboratory Findings CBC and BMP: 12/29/18 18:45 12/28/18 04:11 PT/INR, D-dimer PT 13.7 Sec. (12.2-14.9) 12/26/18 09:15 INR 0.99 (0.87-1.13) 12/26/18 09:15 Abnormal lab findings: Abnormal Labs 12/25/18 12/25/18 12/25/18 13:39 13:39 13:39 WBC 18.6 H RBC 2.92 L Hgb 8.4 L Hct 24.4 L RDW 18.4 H Seg Neutrophils # Man 11.2 H Monocytes # (Manual) 1.3 H Basophils # (Manual) 0.2 H Percent Retic 6.45 H Sodium Chloride 95.9 L BUN 25 H Calcium Total Bilirubin 1.30 H AST 47 H 12/26/18 12/26/18 08:45 08:45 WBC 16.5 H RBC 2.66 L Hgb 7.6 L Hct 22.7 L RDW 19.5 H Seg Neutrophils # Man Monocytes # (Manual) Basophils # (Manual) Percent Retic Sodium 147 H D Chloride 110.6 H BUN Calcium 8.2 L Total Bilirubin AST - Diagnostic Findings Chest x-ray: image reviewed (No acute cardiopulmonary disease) Assessment and Plan SIRS/sepsis No clear source of infection Undifferentiated shock requiring vasopressor support Headaches ? Meningitis, Low risk. Anemia, probably of chronic disease with dilution element LUCA secondary to vasomotor nephropathy, baseline creatinine 0.6 h/o SCD - volume resuscitate -wean vasopressor support for MAP>65 -get procalcitonin and CRP levels to help guide antibiotic therapy -Follow up spinal tap studies -Get MRI fro ongoing headaches -VTE prophylaxis -Follow cultures -Influenza vaccination per protocol -Pain management -Avoid nephrotoxics, adjust all medications for GFR and CrCL -Trend renal indices CONDITION: CRITICAL PROGNOSIS: GOOD CODE STATUS: FULL Discussed care plan with Dr. Zuluaga and updated the patient re care plan; answered all his questions .... re-evaluate in am & prn The high probability of a clinically significant, sudden or life threatening deterioration of the [CVS, renal, hematology] system(s) required my full and direct attention, intervention and personal management. The aggregate critical care time was [35] minutes. This time is in addition to time spent performing reported procedures but includes the following: [x] Data Review and interpretation [x] Patient assessment and monitoring of vital signs [x] Documentation [x] Medication orders and management
[2018-12-26 09:55] LABS: Basophils % (Manual) 0 % (0.0-1.8); Total Cells Counted 100
[2018-12-26 09:57] LABS: Anisocytosis 1+; Macrocytosis Few; Platelet Estimate Consistent w Auto; Poikilocytosis 2+; Sickle Cells 1+; Target Cells 1+
[2018-12-26] MEDS ORDERED: NON-FORMULARY (Cetirizine Hcl [Zyrtec] 10 MG) PO SCH (10:00)
[2018-12-26] MEDS: ROCEPHIN/NS 2 GM/100 ML 2 GM/100 ML BAG IV SCH (11:06)
[2018-12-26 12:20] LABS: Glucose,CSF 68 mg/dL
[2018-12-26 12:27] LABS: Appearance,CSF Clear
[2018-12-26 12:36] LABS: Basophils CSF 0 %; Total Cells Counted 10 /mm3
--- NOTE | 2018-12-26 12:51 | Fluoroscopy Report ---
FLUORO GUIDED LUMBAR PUNCTURE INDICATION: Meningitis. COMPARISON: None similar. IMAGES/CINE CLIPS: 1 FINDINGS: After obtaining risks and benefits to patient, written informed consent obtained. Patient positioned prone on the fluoroscopy table. An appropriate skin site marked using fluoro guidance. Patient prepped and draped in the usual sterile fashion. 1% lidocaine used for local anesthesia. A 22-gauge spinal needle advanced into the thecal sac at L4 with clear CSF obtained. Total of approximately 12 cc CSF retrieved and sent to the lab in 4 separate test tubes. Patient tolerated the procedure well and left the department in stable condition. CONCLUSION: Status post lumbar puncture, as described. Dr. Santana present for and performed the entire procedure. Thank you for the opportunity to participate in this patient's care.
--- NOTE | 2018-12-26 12:54 | Procedure Note ---
Date of procedure: 12/26/18 Pre-op diagnosis: Meningitis Post-op diagnosis: same Procedure: FL guided lumbar puncture. Findings: 12 cc clear CSF obtained. Anesthesia: local Surgeon: SEBASTIAN CHRISTOPHER Estimated blood loss: none Specimen disposition: to lab Condition: stable Disposition: floor (Strict bed rest for 2 hrs. Then head sl. up. Rest upto 24 hrs in bed.)
[2018-12-26] MEDS: FLONASE NS SCH (13:07)
[2018-12-26] MEDS: CLARITIN PO SCH (13:07)
[2018-12-26] MEDS: SODIUM CHLORIDE FLUSH SYRINGE 10 ML IV SCH ×2 (13:08→22:00)
[2018-12-26] MEDS: NACL 0.9% IV SCH ×3 (13:08→22:17)
[2018-12-26] MEDS: ZOVIRAX IV SCH ×3 (13:08→22:17)
--- NOTE | 2018-12-26 14:31 | Consultation ---
History of Present Illness - Reason for Consult Consult date: 12/26/18 Headache, ?meningitis Requesting physician: BEVERLY OLIVO - History of Present Illness The patient is a 31-year-old male with sickle cell disease presented to the emergency room with complaints of headache. He was also noted to be hypotensive with a leukocytosis. He was admitted to the hospital and due to concerns for possible meningitis he underwent a lumbar puncture. Infectious diseases was consulted for additional recommendations. Patient denies any fevers or chills. He reports having a severe headache with left eye pain going on for a week or so. Then also started feeling dizzy and hence he came to the ER. He also got hypotensive and currently is on a dopamine infusion. Denies any cough or shortness of breath. Underwent LP by radiology today, about 12 mL of clear CSF was obtained. Denies any IVDU. Review of Systems: General: no fevers,chills or rigors HEENT: no new visual disturbance Respiratory: No cough, sputum, hemoptysis or shortness of breath Cardiovascular: No chest pain, syncope Gastrointestinal: No nausea, vomiting or diarrhea Genitourinary: No dysuria or hematuria Musculoskeletal: No new or worsening neck pain or back pain Neurologic: + headaches, no seizures Hematologic: No easy bruising or bleeding Endocrine: No night sweats or acute weight loss Skin: negative for rash, jaundice Psychiatric: No suicidal or homicidal ideation Past History Past Medical History: other (Nicotine Dependence) Past Surgical History: No surgical history Social history: single. denies: smoking, alcohol abuse, prescription drug abuse Family history: hypertension Medications and Allergies Allergies Allergy/AdvReac Type Severity Reaction Status Date / Time naproxen [From Naprosyn] AdvReac Vomiting Verified 12/16/18 14:28 Home Medications Medication Instructions Recorded Confirmed Last Taken Type Ibuprofen [Motrin] 600 mg PO Q8H PRN #20 tablet 11/22/17 12/25/18 Unknown Rx Cetirizine HCl [ZyrTEC] 10 mg PO QAM 14 Days #14 capsule 12/16/18 12/25/18 Unkno wn Rx Ondansetron [Zofran Odt] 4 mg PO Q8HR #6 tab.rapdis 12/16/18 12/25/18 Unknown Rx Active Meds: Active Medications Acetaminophen (Tylenol) 325 mg PO Q4H PRN PRN Reason: Pain MILD(1-3)/Fever >100.5/LOWRY Acetaminophen/Hydrocodone Bitart (Floyd 5/325) 1 each PO Q4H PRN PRN Reason: Pain, Moderate (4-6) Albuterol (Proventil) 2.5 mg IH Q4HRT PRN PRN Reason: Shortness Of Breath Diphenhydramine HCl (Benadryl) 25 mg IV Q6H PRN PRN Reason: Itching Last Admin: 12/26/18 03:40 Dose: 25 mg Documented by: Fluticasone Propionate (Flonase) 50 mcg NS QDAY JAMIR Last Admin: 12/26/18 13:07 Dose: 50 mcg Documented by: Ceftriaxone Sodium (Rocephin/Ns 2 Gm/100 Ml) 2 gm in 100 mls @ 200 mls/hr IV Q24HR JAMIR; Protocol Norepinephrine (Levophed Drip 4 Mg/Ns 250 Ml) 4 mg in 250 mls @ 7.5 mls/hr IV TITR JAMIR; Protocol Last Titration: 12/26/18 03:40 Dose: 0 mcg/min, 0 mls/hr Documented by: Dopamine HCl/Dextrose (Intropin Drip 800 Mg/D5w 250 Ml) 800 mg in 250 mls @ 2.333 mls/hr IV TITR JAMIR; Protocol Last Titration: 12/26/18 06:54 Dose: 6 mcg/kg/min, 6.998 mls/hr Documented by: Acyclovir 730 mg/ Sodium (Chloride) 114.6 mls @ 100 mls/hr IV Q8HR JAMIR; Protoc ol Last Admin: 12/26/18 13:08 Dose: 100 mls/hr Documented by: Sodium Chloride (Nacl 0.9% 1000 Ml) 1,000 mls @ 0 mls/hr IV ONCE JAMIR Stop: 12/27/18 09:10 Last Admin: 12/26/18 09:49 Dose: 500 mls/hr Documented by: Ibuprofen (Motrin) 800 mg PO TID PRN PRN Reason: Pain, Moderate (4-6) Loratadine (Claritin) 10 mg PO DAILY JAMIR Last Admin: 12/26/18 13:07 Dose: 10 mg Documented by: Ondansetron HCl (Zofran Odt) 4 mg PO Q8HR JAMIR Last Admin: 12/26/18 14:16 Dose: Not Given Documented by: Sodium Chloride (Sodium Chloride Flush Syringe 10 Ml) 10 ml IV BID JAMIR Last Admin: 12/26/18 13:08 Dose: 10 ml Documented by: Sodium Chloride (Sodium Chloride Flush Syringe 10 Ml) 10 ml IV PRN PRN PRN Reason: LINE FLUSH Physical Examination - Physical Exam Narrative exam: Physical Exam: Constitutional: Alert, cooperative. No acute distress Head, Ears, Nose: Normocephalic, atraumatic. External ears, nose normal Eyes: Conjunctivae/corneas clear. No icterus. No ptosis. Neck: Supple, no meningeal signs Oral: dentition fair, no thrush Cardiovascular: S1, S2 normal. Respiratory: Good air entry, clear to auscultation bilaterally GI: Soft, non-tender; bowel sounds normal. No peritoneal signs Musculoskeletal: No pedal edema, no cyanosis. Skin: No rash or abscess Hem/Lymphatic: No palpable cervical or supraclavicular nodes. No lymphangitis Psych: Mood ok. Affect normal Neurological: Awake, alert, oriented. No gross abnormality - Constitutional Vitals: Vital Signs Temp Pulse Resp BP Pulse Ox 97.9 F 82 16 97/52 95 12/25/18 13:25 12/26/18 08:45 12/26/18 08:45 12/26/18 08:45 12/26/18 08:45 Results - Labs CBC & Chem 7: 12/26/18 08:45 12/26/18 08:45 Labs: Abnormal lab results 12/25/18 12/26/18 12/26/18 Range/Units 13:39 08:45 08:45 WBC 18.6 H 16.5 H (4.5-11.0) K/mm3 RBC 2.92 L 2.66 L (3.65-5.03) M/mm3 Hgb 8.4 L 7.6 L (11.8-15.2) gm/dl Hct 24.4 L 22.7 L (35.5-45.6) % RDW 18.4 H 19.5 H (13.2-15.2) % Seg Neutrophils # Man 11.2 H 11.4 H (1.8-7.7) K/mm3 Monocytes # (Manual) 1.3 H 1.0 H (0.0-0.8) K/mm3 Eosinophils # (Manual) 0.5 H (0.0-0.4) K/mm3 Basophils # (Manual) 0.2 H (0.0-0.1) K/mm3 Sodium 147 H D (137-145) mmol/L Chloride 110.6 H (98-107) mmol/L Calcium 8.2 L (8.4-10.2) mg/dL - Imaging and Cardiology Chest x-ray: report reviewed, image reviewed (Chest x-ray shows no evidence of pneumonia) CT Scan - head: report reviewed, image reviewed (no bleed seen.) Assessment and Plan Cultures: 12/25/2018 blood culture: In progress 10/24/2019 urine culture: No growth at 24 hours A/P: 43/M with sickle cell disease: 1) Headaches: CSF appears clear, analysis not consistent with infection. Overall clinical suspicion for acute bacterial meningitis is quite low. No fever. Leucocytosis is probably chronic. CT was unremarkable. CXR without pneumonia. Patient does have a history of sickle cell disease, if headaches remain persistent, consider getting an MRI. HIV negative in 11/2017. 2) Leukocytosis: Is chronic likely related to his underlying sickle cell disease. 3) Shock/hypotension: requiring pressors. 4) Sickle cell anemia: Hb 7.6 Recs: - suspicion for bacterial meningitis is low - however, given hypotension requiring pressors, continue abx for now: ceftriaxone, acyclovir and vancomycin - follow up blood, urine and CSF Will follow. D/W Dr. Margareth Temple MD [facility] C: [phone] O: [phone] F: [phone]
--- NOTE | 2018-12-26 17:39 | Cat Scan Report ---
FINAL REPORT EXAM: CT ABDOMEN PELVIS W CON HISTORY: ab pain TECHNIQUE: CT abdomen and pelvis with intravenous contrast PRIORS: None. FINDINGS: Multiple linear and confluent opacities are present posterior lung bases bilaterally most consistent with areas of infiltrate, atelectasis and/or scarring. No focal abnormality identified within the liver parenchyma. Multiple dense foci are present within t he lumen the gallbladder. Is spleen is not enlarged. There are multiple splenic calcifications present some of which have a per ipheral distribution. No pancreatic abnormalities seen. The kidneys demonstrate symmetric contrast enhancement. No evidence of hydronephrosis. The adrenal glands are unremarkable Abdominal aorta is normal in caliber. No pathologically enlarged lymph nodes are identified. No signs of free fluid or free air No evidence of small bowel dilatation. Colon is nondistended. No pericolonic inflammatory change. Urinary bladder is unremarkable. Noted is a vascular access port and catheter right femoral distribution catheter tip within the right common femoral vein. And IMPRESSION: Lower lobe areas of pulmonary infiltrate/atelectasis Cholelithiasis multiple calculi within the lumen of the gallbladder Splenic calcifications. Nonspecific may be secondary to granulomatous disease sickle cell or other et iologies. Right femoral vascular port noted
--- NOTE | 2018-12-26 21:59 | Magnetic Resonance Report ---
FINAL REPORT EXAM: MR BRAIN WO CON HISTORY: headacheER INPATIENT TECHNIQUE: MRI brain without contrast PRIORS: None. FINDINGS: There is enlargement of the sella with a mixed signal intensity mass identified demonstrating areas o f right signal intensity on T2 weighted sequence with a intermediate signal on T1 and T2 weighted seq uences. This borders on the optic chiasm. The pituitary stock is not well identified. No flow voids a re appreciated. May be solid or mixed cystic/solid and further characterization recommended. There is otherwise normal signal throughout the brain parenchyma. No evidence for brain edema pattern or mass effect. Ventricles and sulci are within normal limits. No evidence for acute intra-axial or extra-axial hemorrhage. No evidence for acute restriction on diffusion-weighted study. Brainstem and posterior fossa structur es are unremarkable. IMPRESSION: Findings concerning for pituitary mass. Differential considerations are broad and include Rathke's cl eft cyst, craniopharyngioma, adenoma or other etiologies. A followup MRI with contrast and pituitary protocol is recommended for further evaluation CTR 2 protocol initiated at the time of this dictation
[2018-12-27] MEDS: ZOFRAN ODT PO SCH ×2 (06:30→20:57)
[2018-12-27] MEDS: ZOVIRAX IV SCH (07:08)
[2018-12-27] MEDS: NACL 0.9% IV SCH (07:08)
--- NOTE | 2018-12-27 10:18 | Progress Note ---
Assessment and Plan Cultures: 12/25/2018 blood culture: no growth 10/24/2019 urine culture: No growth 10/25/2019 CSF: negative thus far A/P: 43/M with sickle cell disease: 1) Headaches: likely secondary to pituitary mass seen on MRI. CSF appears clear, analysis not consistent with infection. Overall clinical suspicion for acute bacterial meningitis is quite low. No fever. Leucocytosis is probably chronic. CT abdomen pelvis was unremarkable. CXR without pneumonia. Clinically with no respiratory symptoms. HIV negative in 11/2017. 2) Leukocytosis: Is chronic likely related to his underlying sickle cell disease. 3) Shock/hypotension: requiring pressors. suspect underlying endocrine etiology. ?Consider cortisol level. 4) Sickle cell anemia: Hb 7.6 Recs: - discontinued Acyclovir (MRI without any concern for encephalitis or meningitis) - discontinued Vancomycin - continue ceftriaxone for now, since he is still on pressors, but infectious etiology seems less likely. follow up final cultures - follow up MRI brain with contrast to further evaluate pituitary mass - ?check cortisol and evaluate for endocrine etiology d/w Dr. Margareth Temple MD [facility] C: [phone] O: [phone] F: [phone] Subjective Date of service: 12/27/18 Interval history: Still has headache and some blurry vision. No fever. No cough or shortness of breath. No abdominal pain. Remains on dopamine. Objective - Exam Narrative Exam: Physical Exam: Constitutional: Alert, cooperative. No acute distress Head, Ears, Nose: Normocephalic, atraumatic. External ears, nose normal Eyes: Conjunctivae/corneas clear. No icterus. No ptosis. Neck: Supple, no meningeal signs Oral: dentition fair, no thrush Cardiovascular: S1, S2 normal. Respiratory: Good air entry, clear to auscultation bilaterally GI: Soft, non-tender; bowel sounds normal. No peritoneal signs Musculoskeletal: No pedal edema, no cyanosis. Femoral line + Skin: No rash or abscess Hem/Lymphatic: No palpable cervical or supraclavicular nodes. No lymphangitis Psych: Mood ok. Affect normal Neurological: Awake, alert, oriented. No gross abnormality - Constitutional Vitals: Vital Signs Temp Pulse Resp BP Pulse Ox 99.1 F 81 13 95/59 97 12/26/18 18:18 12/27/18 02:00 12/27/18 02:00 12/27/18 02:00 12/27/18 02:00 Temperature -Last 24 Hours Temperature 99.1 F - Labs CBC & Chem 7: 12/26/18 08:45 12/26/18 08:45
[2018-12-27] MEDS: CLARITIN PO SCH (10:44)
[2018-12-27] MEDS: SODIUM CHLORIDE FLUSH SYRINGE 10 ML IV SCH ×2 (10:45→21:45)
[2018-12-27 10:48] LABS: Hematocrit 22.4 % (35.5-45.6); Hemoglobin 7.6 gm/dl (11.8-15.2); Mean Corpuscular HGB Conc 34 % (32-34); Mean Corpuscular Volume 86 fl (84-94); Platelet Count 333 K/mm3 (140-440)
[2018-12-27] MEDS: ROCEPHIN/NS 2 GM/100 ML 2 GM/100 ML BAG IV SCH (10:50)
[2018-12-27] MEDS: FLONASE NS SCH (10:51)
[2018-12-27 10:54] LABS: Red Cell Distribution Width 20.7 % (13.2-15.2)
[2018-12-27 11:08] LABS: Alanine Aminotransferase 17 units/L (7-56); Albumin 3.6 g/dL (3.9-5); BUN/Creatinine Ratio 5; Blood Urea Nitrogen 4 mg/dL (9-20); Calcium 8.3 mg/dL (8.4-10.2); Hemolysis Index 9
--- NOTE | 2018-12-27 11:29 | Progress Note ---
Assessment and Plan Hypotension ? Meningitis Intractable Migraine Pituitary tumor Anemia LUCA secondary to vasomotor nephropathy, baseline creatinine 0.6 Throat pain/Chest pain Mild elevated transaminase (with low TSH and low free T4 with hypotension i suspect chiu-hypopituitarism) - agree with stress dose steroids - see by neurology - needs endocrinology evaluation - gentle volume resuscitation - wean dopamine to keep MAP > 65 mmHg - continue empiric AB's for now - get CRP & Lactate levels to aid clinical decision making and AB's de-escal ation - ID consult - follow 2D ECHO - cardiology evaluation ongoing - anemia w/up per attending - GI & VTE prophylaxis - Flu 7 pneumovax per protocol .... re-evaluate in am & prn The high probability of a clinically significant, sudden or life threatening deterioration of the [CVS, endocrine] system(s) required my full and direct attention, intervention and personal management. The aggregate critical care time was [35] minutes. This time is in addition to time spent performing reported procedures but includes the following: [x] Data Review and interpretation [x] Patient assessment and monitoring of vital signs [x] Documentation [x] Medication orders and management Subjective Date of service: 12/27/18 Principal diagnosis: Hypotension; ? Meningitis; Intractable Migraine; Pituitary tumor; Anemia Interval history: Patient is seen today for: Hypotension; ? Meningitis; Intractable Migraine; Pituitary tumor; Anemia Seen and examined at bedside; 24hour events reviewed; nursing and respiratory care staff consulted; no adverse overnight events reported to me; resting peacefully in bed; remains on dopamine at 10 mics/kg/min; + intermittent headache with light and sound sensitivity; denies orthostatic symptoms; denies acute chest pains or palpitations; seen by cardiology and 2D ECHO pending Objective Vital Signs - 12hr 12/26/18 12/26/18 12/27/18 23:30 23:46 02:00 Pulse Rate 78 77 81 Respiratory 14 21 13 Rate Blood Pressure 103/55 95/53 Blood Pressure 95/59 [Right] O2 Sat by Pulse 96 96 97 Oximetry Constitutional: no acute distress, alert, other (middle aged AAM, normocephalic and atraumatic with normal respiratory effort at rest) Eyes: non-icteric ENT: oropharynx moist, other (mallampati 2) Neck: supple, no lymphadenopathy, no JVD, other (no thyromegaly) Effort: normal Ascultation: Bilateral: clear Percussion: Bilateral: not dull Cardiovascular: regular rate and rhythm Gastrointestinal: normoactive bowel sounds, soft, non-tender, non-distended Integumentary: normal Extremities: no cyanosis, no edema, pulses normal, no ischemia or petechiae Neurologic: normal mental status, non-focal exam, pupils equal and round, motor strength normal and Psychiatric: mood appropriate, affect normal CBC and BMP: 12/28/18 04:11 12/28/18 04:11 ABG, PT/INR, D-dimer: PT/INR, D-dimer PT 13.7 Sec. (12.2-14.9) 12/26/18 09:15 INR 0.99 (0.87-1.13) 12/26/18 09:15 Abnormal lab findings: Abnormal Labs 12/25/18 12/25/18 12/25/18 13:39 13:39 13:39 WBC 18.6 H RBC 2.92 L Hgb 8.4 L Hct 24.4 L RDW 18.4 H Seg Neutrophils # Man 11.2 H Monocytes # (Manual) 1.3 H Eosinophils # (Manual) Basophils # (Manual) 0.2 H Percent Retic 6.45 H Sodium Chloride 95.9 L BUN 25 H Calcium Total Bilirubin 1.30 H AST 47 H Albumin 12/26/18 12/26/18 12/27/18 08:45 08:45 09:46 WBC 16.5 H 14.0 H RBC 2.66 L 2.60 L Hgb 7.6 L 7.6 L Hct 22.7 L 22.4 L RDW 19.5 H 20.7 H Seg Neutrophils # Man 11.4 H Monocytes # (Manual) 1.0 H Eosinophils # (Manual) 0.5 H Basophils # (Manual) Percent Retic Sodium 147 H D Chloride 110.6 H BUN Calcium 8.2 L Total Bilirubin AST Albumin 12/27/18 09:46 WBC RBC Hgb Hct RDW Seg Neutrophils # Man Monocytes # (Manual) Eosinophils # (Manual) Basophils # (Manual) Percent Retic Sodium Chloride BUN 4 L Calcium 8.3 L Total Bilirubin 1.50 H AST Albumin 3.6 L Chest x-ray: image reviewed (no acute process) Allied health notes reviewed: nursing
[2018-12-27 12:05] LABS: Anisocytosis 1+; Band Neutrophils # (Manual) 0.3 K/mm3; Basophils % (Manual) 0 % (0.0-1.8); Hypochromasia 1+; Large Platelets Rare; Macrocytosis Few; Platelet Estimate Consistent w Auto; Target Cells 1+; Total Cells Counted 100
[2018-12-27] MEDS: D5NS 1,000 ML IV SCH ×2 (12:42→23:31)
[2018-12-27] MEDS: PEPCID PO SCH (14:13)
[2018-12-27] MEDS: LOVENOX SUB-Q SCH (14:13)
[2018-12-27] MEDS ORDERED: ZOFRAN IV PRN (15:00)
[2018-12-27] MEDS: INTROPIN DRIP 800 MG/D5W 250 ML 800 MG/250 ML BAG IV SCH (16:34)
[2018-12-27] MEDS: NORCO 5/325 PO PRN (16:41)
[2018-12-27 16:52] LABS: Creatine Kinase MB < 1.0 ng/mL (0.0-4.0)
--- NOTE | 2018-12-27 17:11 | XRay Report ---
FINAL REPORT EXAM: XR CHEST 1V AP HISTORY: MAYRA PICC line placement TECHNIQUE: upright single view chest PRIORS: None. FINDINGS: Cardiac and mediastinal contours are unremarkable. No focal pulmonary infiltrate is identified. No pleural fluid collection seen. Pulmonary vasculature is unremarkable. There is a right PICC line present. Positioning is low overlying the right atrium recommend retractio n approximately 12 centimeters. No evidence for pneumothorax post line placement. IMPRESSION: PICC line low overlying the right atrium. Recommend retraction approximately 12 centimeters
--- NOTE | 2018-12-27 17:33 | Progress Note ---
Assessment and Plan Assessment and plan: 43 YO Male with Nicotine Dependence, SCD presents to ED for evaluation. Pt states that he has experienced headache 5/10 with a pressure-sensation coming from behind his left eye for the past 2 weeks with worsening symptoms over the past 3 days with meningeal signs and chills. He was seen initially in the ED and discharged a few days ago. Pt transported to [facility] by his family for further care and evaluation. Pt seen and evaluated in ED and found to have sepsis, malnutrition, as well as hypotension with systolic BP in the 80's. Pt admitted to [facility]. He reports shaking chills but denies back pain, trauma, neck pain, falls, hemoptysis, prolonged travel/immobility, individual/family history of DVT/PE, recent ill contacts, or HIV risk factors. Pt is Alert oriented x4 and denies pain. Pt talkative, and request dinner. Review of Records shows that the patient was recently treated for Pneumonia In November and discharged. SIRS Doubt Sepsis but still will continue evaluation for the same. No clear source of infection vasogenic shock vs Septic Shock ? Meningitis, Low risk. Intaractable Migraine Chronic Hypotension on review of records Pitutary tumor ?Endocrinopathy Anemia- Precipitatious drop in Hgb LUCA secondary to vasomotor nephropathy, baseline creatinine 0.6 Throat pain/Chest pain- When placed on levophed and resolved after. Mild elevated transaminase PLAN Supportive care Give additional 2 Liters of Fluid Endocrine testing. Considering clinical case, will rule out Meningitis. XRAY Reviewed, no evidence of persistent pnuemonia Outpatient Histology Teacher Consult ID and critical care input noted Monitor H/H If LFTs persistently elevated, will check liver Obtain trops Check Echo Wean pressors DVT/GI prophy The high probability of a clinically significant, sudden or life threatening deterioration of the [x] system(s) required my full and direct attention, intervention and personal management. The aggregate critical care time was [35] minutes. This time is in addition to time spent performing reported procedures but includes the following: [x] Data Review and interpretation [x] Patient assessment and monitoring of vital signs [x] Documentation [x] Medication orders and management History Interval history: Patient was examined with no acute distress still complains of headache with retro-orbital pain 3 /10 intensity Hospitalist Physical - Physical exam Narrative exam: VITAL SIGNS: Reviewed. GENERAL: The patient appeared well nourished and normally developed. Vital signs as documented. HEAD: No signs of head trauma. EYES: Pupils are equal. Extraocular motions intact. EARS: Hearing grossly intact. MOUTH: Oropharynx is normal. NECK: No adenopathy, no JVD. CHEST: Chest with clear breath sounds bilaterally. No wheezes, rales, or rhonchi. CARDIAC: Regular rate and rhythm. S1 and S2, without murmurs, gallops, or rubs. VASCULAR: No Edema. Peripheral pulses normal and equal in all extremities. ABDOMEN: Soft, without detectable tenderness. No sign of distention. No rebound or guarding, and no masses palpated. Bowel Sounds normal. MUSCULOSKELETAL: Good range of motion of all major joints. Extremities without clubbing, cyanosis or edema. NEUROLOGIC EXAM: Alert and oriented x 3. No focal sensory or strength deficits. Speech normal. Follows commands. PSYCHIATRIC: Mood normal. SKIN: No rash or lesions. - Constitutional Vitals: Temp Pulse Resp BP Pulse Ox 99.1 F 81 12 95/59 99 12/26/18 18:18 12/27/18 02:00 12/27/18 16:41 12/27/18 02:00 12/27/18 08:00 General appearance: Present: mild distress Results - Labs CBC & Chem 7: 12/28/18 04:11 12/28/18 04:11 Labs: Laboratory Last Values WBC 14.0 K/mm3 (4.5-11.0) H 12/27/18 09:46 RBC 2.60 M/mm3 (3.65-5.03) L 12/27/18 09:46 Hgb 7.6 gm/dl (11.8-15.2) L 12/27/18 09:46 Hct 22.4 % (35.5-45.6) L 12/27/18 09:46 MCV 86 fl (84-94) 12/27/18 09:46 MCH 29 pg (28-32) 12/27/18 09:46 MCHC 34 % (32-34) 12/27/18 09:46 RDW 20.7 % (13.2-15.2) H 12/27/18 09:46 Plt Count 333 K/mm3 (140-440) 12/27/18 09:46 Lymph # Barrel Stave Inspector 12/25/18 13:39 Add Manual Diff Complete 12/27/18 09:46 Total Counted 100 12/27/18 09:46 Seg Neuts % (Manual) 60.0 % (40.0-70.0) 12/27/18 09:46 Band Neutrophils % 2.0 % 12/27/18 09:46 Lymphocytes % (Manual) 27.0 % (13.4-35.0) 12/27/18 09:46 Reactive Lymphs % (Man) 0 % 12/27/18 09:46 Monocytes % (Manual) 10.0 % (0.0-7.3) H 12/27/18 09:46 Eosinophils % (Manual) 1.0 % (0.0-4.3) 12/27/18 09:46 Basophils % (Manual) 0 % (0.0-1.8) 12/27/18 09:46 Metamyelocytes % 0 % 12/27/18 09:46 Myelocytes % 0 % 12/27/18 09:46 Promyelocytes % 0 % 12/27/18 09:46 Blast Cells % 0 % 12/27/18 09:46 Nucleated RBC % Not Reportable 12/27/18 09:46 Seg Neutrophils # Man 8.4 K/mm3 (1.8-7.7) H 12/27/18 09:46 Band Neutrophils # 0.3 K/mm3 12/27/18 09:46 Lymphocytes # (Manual) 3.8 K/mm3 (1.2-5.4) 12/27/18 09:46 Abs React Lymphs (Man) 0.0 K/mm3 12/27/18 09:46 Monocytes # (Manual) 1.4 K/mm3 (0.0-0.8) H 12/27/18 09:46 Eosinophils # (Manual) 0.1 K/mm3 (0.0-0.4) 12/27/18 09:46 Basophils # (Manual) 0.0 K/mm3 (0.0-0.1) 12/27/18 09:46 Metamyelocytes # 0.0 K/mm3 12/27/18 09:46 Myelocytes # 0.0 K/mm3 12/27/18 09:46 Promyelocytes # 0.0 K/mm3 12/27/18 09:46 Blast Cells # 0.0 K/mm3 12/27/18 09:46 Pathologist Review 12/25/18 13:39 WBC Morphology Not Reportable 12/27/18 09:46 Hypersegmented Neuts Not Reportable 12/27/18 09:46 Hyposegmented Neuts Not Reportable 12/27/18 09:46 Hypogranular Neuts Not Reportable 12/27/18 09:46 Smudge Cells Not Reportable 12/27/18 09:46 Toxic Granulation Not Reportable 12/27/18 09:46 Toxic Vacuolation Not Reportable 12/27/18 09:46 Dohle Bodies Not Reportable 12/27/18 09:46 Pelger-Huet Anomaly Not Reportable 12/27/18 09:46 Carlton Rods Not Reportable 12/27/18 09:46 Platelet Estimate Consistent w auto 12/27/18 09:46 Clumped Platelets Not Reportable 12/27/18 09:46 Plt Clumps, EDTA Not Reportable 12/27/18 09:46 Large Platelets Rare 12/27/18 09:46 Giant Platelets Not Reportable 12/27/18 09:46 Platelet Satelliting Not Reportable 12/27/18 09:46 Plt Morphology Comment Not Reportable 12/27/18 09:46 RBC Morphology Not Reportable 12/27/18 09:46 Dimorphic RBCs Not Reportable 12/27/18 09:46 Polychromasia Not Reportable 12/27/18 09:46 Hypochromasia 1+ 12/27/18 09:46 Poikilocytosis Not Reportable 12/27/18 09:46 Anisocytosis 1+ 12/27/18 09:46 Microcytosis Not Reportable 12/27/18 09:46 Macrocytosis Few 12/27/18 09:46 Spherocytes Not Reportable 12/27/18 09:46 Pappenheimer Bodies Not Reportable 12/27/18 09:46 Sickle Cells Not Reportable 12/27/18 09:46 Target Cells 1+ 12/27/18 09:46 Tear Drop Cells Not Reportable 12/27/18 09:46 Ovalocytes Not Reportable 12/27/18 09:46 Helmet Cells Not Reportable 12/27/18 09:46 [place] Bodies Not Reportable 12/27/18 09:46 [place]once Rings Not Reportable 12/27/18 09:46 Reuben Cells Not Reportable 12/27/18 09:46 Bite Cells Not Reportable 12/27/18 09:46 Crenated Cell Not Reportable 12/27/18 09:46 Elliptocytes Not Reportable 12/27/18 09:46 Acanthocytes (Spur) Not Reportable 12/27/18 09:46 Rouleaux Not Reportable 12/27/18 09:46 Hemoglobin C Crystals Not Reportable 12/27/18 09:46 Schistocytes Not Reportable 12/27/18 09:46 Malaria parasites Not Reportable 12/27/18 09:46 Percent Retic 6.45 % (0.78-2.58) H 12/25/18 13:39 Obdulio Bodies Not Reportable 12/27/18 09:46 Hem Pathologist Commnt No 12/27/18 09:46 PT 13.7 Sec. (12.2-14.9) 12/26/18 09:15 INR 0.99 (0.87-1.13) 12/26/18 09:15 APTT 30.9 Sec. (24.2-36.6) 12/26/18 09:15 VBG pH 7.408 (7.320-7.420) 12/25/18 14:17 Sodium 142 mmol/L (137-145) 12/27/18 09:46 Potassium 3.9 mmol/L (3.6-5.0) 12/27/18 09:46 Chloride 103.2 mmol/L (98-107) 12/27/18 09:46 Carbon Dioxide 29 mmol/L (22-30) 12/27/18 09:46 Anion Gap 14 mmol/L 12/27/18 09:46 BUN 4 mg/dL (9-20) L 12/27/18 09:46 Creatinine 0.8 mg/dL (0.8-1.5) 12/27/18 09:46 Estimated GFR > 60 ml/min 12/27/18 09:46 BUN/Creatinine Ratio 5 % 12/27/18 09:46 Glucose 91 mg/dL (75-100) 12/27/18 09:46 Lactic Acid 1.40 mmol/L (0.7-2.0) 12/26/18 01:16 Calcium 8.3 mg/dL (8.4-10.2) L 12/27/18 09:46 Total Bilirubin 1.50 mg/dL (0.1-1.2) H 12/27/18 09:46 AST 33 units/L (5-40) 12/27/18 09:46 ALT 17 units/L (7-56) 12/27/18 09:46 Alkaline Phosphatase 77 units/L (35-129) 12/27/18 09:46 Total Creatine Kinase 45 units/L (55-170) L 12/27/18 16:00 CK-MB (CK-2) < 1.0 ng/mL (0.0-4.0) 12/27/18 16:00 CK-MB (CK-2) Rel Index 2.2 (0-4) 12/27/18 16:00 Troponin T < 0.010 ng/mL (0.00-0.029) 12/27/18 16:00 Total Protein 6.3 g/dL (6.3-8.2) 12/27/18 09:46 Albumin 3.6 g/dL (3.9-5) L 12/27/18 09:46 Albumin/Globulin Ratio 1.3 % 12/27/18 09:46 TSH 0.025 mlU/mL (0.270-4.200) L 12/27/18 16:00 Free T4 0.37 ng/dL (0.76-1.46) L 12/27/18 16:00 Urine Color Yellow (Yellow) 12/25/18 15:50 Urine Turbidity Clear (Clear) 12/25/18 15:50 Urine pH 5.0 (5.0-7.0) 12/25/18 15:50 Ur Specific [place] 1.027 (1.003-1.030) 12/25/18 15:50 Urine Protein <15 mg/dl mg/dL (Negative) 12/25/18 15:50 Urine Glucose (UA) Neg mg/dL (Negative) 12/25/18 15:50 Urine Ketones Neg mg/dL (Negative) 12/25/18 15:50 Urine Blood Neg (Negative) 12/25/18 15:50 Urine Nitrite Neg (Negative) 12/25/18 15:50 Urine Bilirubin Neg (Negative) 12/25/18 15:50 Urine Urobilinogen < 2.0 mg/dL (<2.0) 12/25/18 15:50 Ur Leukocyte Esterase Neg (Negative) 12/25/18 15:50 Urine WBC (Auto) 3.0 /HPF (0.0-6.0) 12/25/18 15:50 Urine RBC (Auto) 2.0 /HPF (0.0-6.0) 12/25/18 15:50 CSF Appearance Clear 12/26/18 11:00 CSF Color Colorless 12/26/18 11:00 CSF WBC 3.0 /mm3 (1-10) 12/26/18 11:00 CSF RBC 4.0 /mm3 (0-0) 12/26/18 11:00 CSF Seg Neutrophils 0 % (0-6) 12/26/18 11:00 CSF Lymphocytes % 80.0 % (40-80) 12/26/18 11:00 CSF Reactive Lymphs 0 % 12/26/18 11:00 CSF Monocytes % 20.0 % (15-45) 12/26/18 11:00 CSF Eosinophils % 0 % 12/26/18 11:00 CSF Basophils 0 % 12/26/18 11:00 CSF Pathologist Review C 12/26/18 11:00 CSF Glucose 68 mg/dL 12/26/18 11:00 CSF Total Protein 45 mg/dL 12/26/18 11:00 Urine Opiates Screen Presumptive negative 12/25/18 21:25 Urine Methadone Screen Presumptive negative 12/25/18 21:25 Ur Barbiturates Screen Presumptive negative 12/25/18 21:25 Ur Phencyclidine Scrn Presumptive negative 12/25/18 21:25 Ur Amphetamines Screen Presumptive negative 12/25/18 21:25 U Benzodiazepines Scrn Presumptive negative 12/25/18 21:25 Urine Cocaine Screen Presumptive negative 12/25/18 21:25 U Marijuana (THC) Screen Presumptive negative 12/25/18 21:25 Drugs of Abuse Note Disclamer 12/25/18 21:25
--- NOTE | 2018-12-27 18:42 | XRay Report ---
FINAL REPORT EXAM: XR CHEST 1V AP HISTORY: right upper arm picc pulled back TECHNIQUE: Chest single AP PRIORS: Correlated with today's earlier chest radiograph FINDINGS: PICC line is been repositioned. Catheter tip overlies the SVC in satisfactory position. No acute abno rmality identified heart lungs or mediastinum. IMPRESSION: PICC line in satisfactory position
--- NOTE | 2018-12-27 19:24 | Consultation ---
History of Present Illness Consult date: 12/27/18 Requesting physician: MARIBEL BERMEO Reason for Consult: pituitary tumor Chief complaint: headaches History of present illness: This 43-year-old right-handed -E[place]ian male had headache since the Monday before Campos's Day, worse with lying down with associated dizziness when standing. He had no nausea but has had some photophobia though no phonophobia. He has had some blurred vision with the headaches which began bitemporally and behind the left eye and now include the vertex. He has sickle cell C disease which gives him pain in the shins and swelling sometimes of the hands and feet for which he then takes off work but does not take any medications. MRI shows pituitary tumor pressing on optic chiasm. No contrast was given and contrast cannot be given at the moment because he has become somewhat hypotensive and the MRI compatible pump is broken. Past History Past Medical History: other (Nicotine Dependence. Sickle cell C disease.) Past Surgical History: No surgical history, Other (recent dental extractions September, previous wisdom teeth extractions) Social history: single (no children), smoking (2 cigs per day now, 3 months ago was 1 pack every 3 days), alcohol abuse (none lately, was drinking a a 6 pack per week), other (operates [employer] in [employer] denies: prescription drug abuse, IV drug use (Marijuana when younger, never IVDA) Family history: hypertension (mother), other (no epilepsy). denies: diabetes, stroke Medications and Allergies Allergies Allergy/AdvReac Type Severity Reaction Status Date / Time naproxen [From Naprosyn] AdvReac Vomiting Verified 12/16/18 14:28 Home Medications Medication Instructions Recorded Confirmed Last Taken Type Ibuprofen [Motrin] 600 mg PO Q8H PRN #20 tablet 11/22/17 12/25/18 Unknown Rx Cetirizine HCl [ZyrTEC] 10 mg PO QAM 14 Days #14 capsule 12/16/18 12/25/18 Unknown Rx Ondansetron [Zofran Odt] 4 mg PO Q8HR #6 tab.rapdis 12/16/18 12/25/18 Unknown Rx Active Meds: Active Medications Acetaminophen (Tylenol) 325 mg PO Q4H PRN PRN Reason: Pain MILD(1-3)/Fever >100.5/LOWRY Acetaminophen/Hydrocodone Bitart ([place] 5/325) 1 each PO Q4H PRN PRN Reason: Pain, Moderate (4-6) Last Admin: 12/27/18 16:41 Dose: 1 each Documented by: Albuterol (Proventil) 2.5 mg IH Q4HRT PRN PRN Reason: Shortness Of Breath Diphenhydramine HCl (Benadryl) 25 mg IV Q6H PRN PRN Reason: Itching Last Admin: 12/26/18 03:40 Dose: 25 mg Documented by: Enoxaparin Sodium (Lovenox) 40 mg SUB-Q QDAY@1000 JAMIR Last Admin: 12/27/18 14:13 Dose: 40 mg Documented by: Famotidine (Pepcid) 20 mg PO DAILY JAMIR Last Admin: 12/27/18 14:13 Dose: 20 mg Documented by: Fluticasone Propionate (Flonase) 50 mcg NS QDAY JAMIR Last Admin: 12/27/18 10:51 Dose: 50 mcg Documented by: Ceftriaxone Sodium (Rocephin/Ns 2 Gm/100 Ml) 2 gm in 100 mls @ 200 mls/hr IV Q24HR JAMIR; Protocol Last Admin: 12/27/18 10:50 Dose: 200 mls/hr Documented by: Norepinephrine (Levophed Drip 4 Mg/Ns 250 Ml) 4 mg in 250 mls @ 7.5 mls/hr IV TITR JAMIR; Protocol Last Titration: 12/26/18 03:40 Dose: 0 mcg/min, 0 mls/hr Documented by: Dopamine HCl/Dextrose (Intropin Drip 800 Mg/D5w 250 Ml) 800 mg in 250 mls @ 2.333 mls/hr IV TITR JAMIR; Protocol Last Admin: 12/27/18 16:34 Dose: 11 mcg/kg/min, 12.829 mls/hr Documented by: Dextrose/Sodium Chloride (D5ns) 1,000 mls @ 100 mls/hr IV DIRECT JAMIR Stop: 12/28/18 21:59 Last Admin: 12/27/18 12:42 Dose: 100 mls/hr Documented by: Loratadine (Claritin) 10 mg PO DAILY JAMIR Last Admin: 12/27/18 10:44 Dose: 10 mg Documented by: Ondansetron HCl (Zofran) 4 mg IV Q8H PRN PRN Reason: Nausea And Vomiting Sodium Chloride (Sodium Chloride Flush Syringe 10 Ml) 10 ml IV BID JAMIR Last Admin: 12/27/18 10:45 Dose: 10 ml Documented by: Sodium Chloride (Sodium Chloride Flush Syringe 10 Ml) 10 ml IV PRN PRN PRN Reason: LINE FLUSH Review of Systems All systems: negative (no headaches before this, in past only dizzy if stood up from squatting position. 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 HEENT: atraumatic, normocephalic; no bruits, 2+ Neville without soreness or induration or enlargement, sclerae nonicteric. Oropharynx pink and moist. No TMJ click, no TMJ or sinus soreness to pressure or percussion. Neck: supple, no bruits. Heart: grade I/ systolic ejection murmur at the base, no other extra sounds. Extremities: no clubbing, cyanosis or edema. 2+ dorsalis pedis pulses bilaterally. Neurologic Exam: Mental Status: Awake, alert, oriented X 3, speech is clear, names pen and needle (instead of tip) of pen but gets glasses and their lenses, and abstracts well. Names President and Tufting Machine Fixer, serial 7's intact, no right-left confusion, gets 3 of 3 objects at 3 minutes, spells WORLD backwards correctly. Cranial Nerves: bush full, no papilledema, SVPs present, PERRLA, EOMs full without nystagmus or diplopia, facial sensation intact to pinprick and light touch, no facial weakness, Davila is midline, palate rises symmetrically to phonation OR gags are positive, shoulder shrug is 5 X 2, tongue protrudes midline. Cerebellar: finger to nose and heel to gaitan are normal. Could not have him tandem due to low BPs. Sensory: intact to light touch, pinprick, and vibrations. Double simultaneous stimulation is intact. Motor Exam Upper Extremities: no drift or pronation, Reza intact. Mannequin Sander And Finisher are 5 X 2, tone is normal. No atrophy or fasciculations are noted visually. Motor Exam Lower Extremities: no leg lag; iliopsoas, quadriceps, anterior tibials and gastrocnemius are 5 X 2. Reza intact. Tone is normal. No atrophy or fasciculations are noted visually. Reflexes: Palmomental and snout are negative but jaw jerk is slightly positive. Triceps, biceps and brachioradialis are trace bilaterally. Abilio's is negative bilaterally. Knee jerks are 0 even with reinforcement and ankle jerks are 0 bilaterally becoming trace bilaterally with reinforcement but without clonus. Toes are downgoing bilaterally to Babinski testing. Results - Laboratory Findings CBC and BMP: 12/27/18 09:46 12/27/18 09:46 Abnormal Lab Findings: Abnormal Labs 12/25/18 12/25/18 12/25/18 13:39 13:39 13:39 WBC 18.6 H RBC 2.92 L Hgb 8.4 L Hct 24.4 L RDW 18.4 H Monocytes % (Manual) Seg Neutrophils # Man 11.2 H Monocytes # (Manual) 1.3 H Eosinophils # (Manual) Basophils # (Manual) 0.2 H Percent Retic 6.45 H Sodium Chloride 95.9 L BUN 25 H Calcium Total Bilirubin 1.30 H AST 47 H Total Creatine Kinase Albumin TSH Free T4 12/26/18 12/26/18 12/27/18 08:45 08:45 09:46 WBC 16.5 H 14.0 H RBC 2.66 L 2.60 L Hgb 7.6 L 7.6 L Hct 22.7 L 22.4 L RDW 19.5 H 20.7 H Monocytes % (Manual) 10.0 H Seg Neutrophils # Man 11.4 H 8.4 H Monocytes # (Manual) 1.0 H 1.4 H Eosinophils # (Manual) 0.5 H Basophils # (Manual) Percent Retic Sodium 147 H D Chloride 110.6 H BUN Calcium 8.2 L Total Bilirubin AST Total Creatine Kinase Albumin TSH Free T4 12/27/18 12/27/18 12/27/18 09:46 16:00 16:00 WBC RBC Hgb Hct RDW Monocytes % (Manual) Seg Neutrophils # Man Monocytes # (Manual) Eosinophils # (Manual) Basophils # (Manual) Percent Retic Sodium Chloride BUN 4 L Calcium 8.3 L Total Bilirubin 1.50 H AST Total Creatine Kinase 45 L Albumin 3.6 L TSH Free T4 0.37 L 12/27/18 16:00 WBC RBC Hgb Hct RDW Monocytes % (Manual) Seg Neutrophils # Man Monocytes # (Manual) Eosinophils # (Manual) Basophils # (Manual) Percent Retic Sodium Chloride BUN Calcium Total Bilirubin AST Total Creatine Kinase Albumin TSH 0.025 L Free T4 Assessment and Plan Impression: 1. Pituitary tumor 2. Common migraine, intractable Plan: 1. Pituitary sequence with contrast MRI when possible. 2. Referral to liquefier for management, perhaps with medication such as cabergoline. 3. Ordered thyroid functions, prolactin, insulin-like growth factor I, ACTH level, cortisol level. I leave measurement of gonadotroponins to an liquefier. 4. Since he is hypotensive and may have cortisol deficiency related to his pituitary tumor, I am ordering a single 100 mg hydrocortisone IV dose to be given after the labs are drawn. 5. If hypotension resolves with hydrocortisone treatment, could simply follow up with an liquefier as an outpatient. 40 minutes critical care time spent with this patient including review of 100s of MRI images. Thank you for an interesting consultation on this pleasant early 40s man.
[2018-12-28 01:33] LABS: Creatine Kinase MB < 1.0 ng/mL (0.0-4.0)
[2018-12-28 04:28] LABS: Hematocrit 22.3 % (35.5-45.6); Hemoglobin 7.8 gm/dl (11.8-15.2); Mean Corpuscular HGB Conc 35 % (32-34); Mean Corpuscular Volume 85 fl (84-94); Platelet Count 451 K/mm3 (140-440); Red Blood Count 2.63 M/mm3 (3.65-5.03)
[2018-12-28 04:47] LABS: BUN/Creatinine Ratio 8; Blood Urea Nitrogen 5 mg/dL (9-20); Calcium 8.2 mg/dL (8.4-10.2); Hemolysis Index 90; Red Cell Distribution Width 20.6 % (13.2-15.2)
[2018-12-28] MEDS ORDERED: SYNTHROID PO SCH (06:00)
[2018-12-28] MEDS ORDERED: SYNTHROID 112 MCG, SYNTHROID 25 MCG PO SCH (08:30)
[2018-12-28] MEDS: ROCEPHIN/NS 2 GM/100 ML 2 GM/100 ML BAG IV SCH (09:13)
[2018-12-28] MEDS: FLONASE NS SCH (09:13)
[2018-12-28] MEDS: PEPCID PO SCH (09:13)
[2018-12-28] MEDS: CLARITIN PO SCH (09:13)
[2018-12-28] MEDS: LOVENOX SUB-Q SCH (09:14)
[2018-12-28] MEDS: SODIUM CHLORIDE FLUSH SYRINGE 10 ML IV SCH ×2 (09:14→21:53)
[2018-12-28] MEDS ORDERED: CORTEF PO SCH (10:00)
--- NOTE | 2018-12-28 12:21 | Progress Note ---
Assessment and Plan Cultures: 12/25/2018 blood culture: no growth 10/24/2019 urine culture: No growth 10/25/2019 CSF: negative thus far A/P: 43/M with sickle cell disease, tobacco abuse, ETOh abuse; admitted with 2-week history of body aches, chills, night sweats, headaches: 1) Headaches: likely secondary to pituitary mass seen on MRI. Overall clinical suspicion for acute bacterial meningitis is quite low. No fever. Leucocytosis is probably chronic. -MRI brain showed findings concerning for pituitary mass. Differential considerations are broad and include Rathke's cleft cyst, craniopharyngioma, adenoma or other etiologies. -CT abdomen pelvis was unremarkable. -CXR without pneumonia. -HIV negative in 11/2017. -CSF appears clear, analysis not consistent with infection. 2) Leukocytosis: Is chronic likely related to his underlying sickle cell disease. 3) Shock/hypotension: requiring pressors. suspect underlying endocrine etiology. ?Consider cortisol level.?thyroid, other ? cardiac ? sepsis 4) Sickle cell anemia: Hb 7.6 Recs: - continue ceftriaxone for now, since he is still on pressors, but infectious etiology seems less likely - follow up MRI brain with contrast to further evaluate pituitary mass - ?check cortisol and evaluate for endocrine etiology - check CRP/procal - check EBV/CMV 2-3 weeks of chills/night sweats - check TTE - repeat HIV I am covering this weekend Yasmin Simon MD Infectious Diseases Cosmetic Sales Assistant [facility] M [phone] Subjective Date of service: 12/28/18 Objective - Constitutional Vitals: Vital Signs Temp Pulse Resp BP Pulse Ox 98.6 F 73 12 86/47 96 12/28/18 02:53 12/28/18 11:15 12/28/18 11:15 12/28/18 11:15 12/28/18 11:15 Temperature -Last 24 Hours Temperature 98.6 F Temperature 98.3 F Temperature 98.7 F - Labs CBC & Chem 7: 12/28/18 04:11 12/28/18 04:11 Labs: Abnormal lab results 12/27/18 12/27/18 12/27/18 Range/Units 16:00 16:00 16:00 WBC (4.5-11.0) K/mm3 RBC (3.65-5.03) M/mm3 Hgb (11.8-15.2) gm/dl Hct (35.5-45.6) % MCHC (32-34) % RDW (13.2-15.2) % Plt Count (140-440) K/mm3 Chloride (98-107) mmol/L BUN (9-20) mg/dL Creatinine (0.8-1.5) mg/dL Glucose (75-100) mg/dL Calcium (8.4-10.2) mg/dL Total Creatine Kinase 45 L (55-170) units/L TSH 0.025 L (0.270-4.200) mlU/mL Free T4 0.37 L (0.76-1.46) ng/dL 12/28/18 12/28/18 12/28/18 Range/Units 00:07 04:11 04:11 WBC 13.4 H (4.5-11.0) K/mm3 RBC 2.63 L (3.65-5.03) M/mm3 Hgb 7.8 L (11.8-15.2) gm/dl Hct 22.3 L (35.5-45.6) % MCHC 35 H (32-34) % RDW 20.6 H (13.2-15.2) % Plt Count 451 H (140-440) K/mm3 Chloride 97.8 L (98-107) mmol/L BUN 5 L (9-20) mg/dL Creatinine 0.6 L (0.8-1.5) mg/dL Glucose 173 H (75-100) mg/dL Calcium 8.2 L (8.4-10.2) mg/dL Total Creatine Kinase 44 L (55-170) units/L TSH (0.270-4.200) mlU/mL Free T4 (0.76-1.46) ng/dL
[2018-12-28] MEDS: INTROPIN DRIP 800 MG/D5W 250 ML 800 MG/250 ML BAG IV SCH (13:48)
[2018-12-28] MEDS: PROAMATINE PO SCH ×2 (13:51→19:54)
[2018-12-28] MEDS: NACL 0.9% 1000 ML 1,000 ML IV SCH ×2 (13:51→23:54)
--- NOTE | 2018-12-28 15:03 | Progress Note ---
Assessment and Plan Assessment and plan: 43 YO Male with Nicotine Dependence, SCD presents to ED for evaluation. Pt states that he has experienced headache 5/10 with a pressure-sensation coming from behind his left eye for the past 2 weeks with worsening symptoms over the past 3 days with meningeal signs and chills. He was seen initially in the ED and discharged a few days ago. Pt transported to [facility] by his family for further care and evaluation. Pt seen and evaluated in ED and found to have sepsis, malnutrition, as well as hypotension with systolic BP in the 80's. Pt admitted to [facility]. He reports shaking chills but denies back pain, trauma, neck pain, falls, hemoptysis, prolonged travel/immobility, individual/family history of DVT/PE, recent ill contacts, or HIV risk factors. Pt is Alert oriented x4 and denies pain. Pt talkative, and request dinner. Review of Records shows that the patient was recently treated for Pneumonia In November and discharged. SIRS Hypopitiutarism Doubt Sepsis but still will continue evaluation for the same. No clear source of infection vasogenic shock vs Septic Shock ? Meningitis, Low risk. Intaractable Migraine Chronic Hypotension on review of records Pitutary tumor ?Endocrinopathy Hypothyrodisim Anemia- Precipitatious drop in Hgb LUCA secondary to vasomotor nephropathy, baseline creatinine 0.6 Throat pain/Chest pain- When placed on levophed and resolved after. Mild elevated transaminase PLAN Supportive care Give additional 2 Liters of Fluid Endocrine testing. Continue High dose steroids Considering clinical case, will rule out Meningitis. XRAY Reviewed, no evidence of persistent pnuemonia Outpatient Honing Machine Try Out Setter Start on Synthroid Consult ID and critical care input noted Monitor H/H If LFTs persistently elevated, will check liver Check Echo Wean pressors DVT/GI prophy The high probability of a clinically significant, sudden or life threatening deterioration of the [vascular, endocrine] system(s) required my full and direct attention, intervention and personal management. The aggregate critical care time was [35] minutes. This time is in addition to time spent performing reported procedures but includes the following: [x] Data Review and interpretation [x] Patient assessment and monitoring of vital signs [x] Documentation [x] Medication orders and management History Interval history: Patient was examined with no acute distress still complains of headache with retro-orbital pain 3 /10 intensity. NO Shortness of breath Hospitalist Physical - Physical exam Narrative exam: VITAL SIGNS: Reviewed. GENERAL: The patient appeared well nourished and normally developed. Vital signs as documented. HEAD: No signs of head trauma. EYES: Pupils are equal. Extraocular motions intact. EARS: Hearing grossly intact. MOUTH: Oropharynx is normal. NECK: No adenopathy, no JVD. CHEST: Chest with clear breath sounds bilaterally. No wheezes, rales, or rhonchi. CARDIAC: Regular rate and rhythm. S1 and S2, without murmurs, gallops, or rubs. VASCULAR: No Edema. Peripheral pulses normal and equal in all extremities. ABDOMEN: Soft, without detectable tenderness. No sign of distention. No r ebound or guarding, and no masses palpated. Bowel Sounds normal. MUSCULOSKELETAL: Good range of motion of all major joints. Extremities without clubbing, cyanosis or edema. NEUROLOGIC EXAM: Alert and oriented x 3. No focal sensory or strength deficits. Speech normal. Follows commands. PSYCHIATRIC: Mood normal. SKIN: No rash or lesions. - Constitutional Vitals: Temp Pulse Resp BP Pulse Ox 98.6 F 65 16 121/63 98 12/28/18 02:53 12/28/18 14:15 12/28/18 14:15 12/28/18 14:15 12/28/18 14:15 General appearance: Present: mild distress Results - Labs CBC & Chem 7: 12/28/18 04:11 12/28/18 04:11 Labs: Laboratory Last Values WBC 13.4 K/mm3 (4.5-11.0) H 12/28/18 04:11 RBC 2.63 M/mm3 (3.65-5.03) L 12/28/18 04:11 Hgb 7.8 gm/dl (11.8-15.2) L 12/28/18 04:11 Hct 22.3 % (35.5-45.6) L 12/28/18 04:11 MCV 85 fl (84-94) 12/28/18 04:11 MCH 30 pg (28-32) 12/28/18 04:11 MCHC 35 % (32-34) H 12/28/18 04:11 RDW 20.6 % (13.2-15.2) H 12/28/18 04:11 Plt Count 451 K/mm3 (140-440) H 12/28/18 04:11 Lymph # Producer Arborist Manager 12/25/18 13:39 Add Manual Diff Complete 12/27/18 09:46 Total Counted 100 12/27/18 09:46 Seg Neuts % (Manual) 60.0 % (40.0-70.0) 12/27/18 09:46 Band Neutrophils % 2.0 % 12/27/18 09:46 Lymphocytes % (Manual) 27.0 % (13.4-35.0) 12/27/18 09:46 Reactive Lymphs % (Man) 0 % 12/27/18 09:46 Monocytes % (Manual) 10.0 % (0.0-7.3) H 12/27/18 09:46 Eosinophils % (Manual) 1.0 % (0.0-4.3) 12/27/18 09:46 Basophils % (Manual) 0 % (0.0-1.8) 12/27/18 09:46 Metamyelocytes % 0 % 12/27/18 09:46 Myelocytes % 0 % 12/27/18 09:46 Promyelocytes % 0 % 12/27/18 09:46 Blast Cells % 0 % 12/27/18 09:46 Nucleated RBC % Not Reportable 12/27/18 09:46 Seg Neutrophils # Man 8.4 K/mm3 (1.8-7.7) H 12/27/18 09:46 Band Neutrophils # 0.3 K/mm3 12/27/18 09:46 Lymphocytes # (Manual) 3.8 K/mm3 (1.2-5.4) 12/27/18 09:46 Abs React Lymphs (Man) 0.0 K/mm3 12/27/18 09:46 Monocytes # (Manual) 1.4 K/mm3 (0.0-0.8) H 12/27/18 09:46 Eosinophils # (Manual) 0.1 K/mm3 (0.0-0.4) 12/27/18 09:46 Basophils # (Manual) 0.0 K/mm3 (0.0-0.1) 12/27/18 09:46 Metamyelocytes # 0.0 K/mm3 12/27/18 09:46 Myelocytes # 0.0 K/mm3 12/27/18 09:46 Promyelocytes # 0.0 K/mm3 12/27/18 09:46 Blast Cells # 0.0 K/mm3 12/27/18 09:46 Pathologist Review 12/25/18 13:39 WBC Morphology Not Reportable 12/27/18 09:46 Hypersegmented Neuts Not Reportable 12/27/18 09:46 Hyposegmented Neuts Not Reportable 12/27/18 09:46 Hypogranular Neuts Not Reportable 12/27/18 09:46 Smudge Cells Not Reportable 12/27/18 09:46 Toxic Granulation Not Reportable 12/27/18 09:46 Toxic Vacuolation Not Reportable 12/27/18 09:46 Dohle Bodies Not Reportable 12/27/18 09:46 Pelger-Huet Anomaly Not Reportable 12/27/18 09:46 Carlton Rods Not Reportable 12/27/18 09:46 Platelet Estimate Consistent w auto 12/27/18 09:46 Clumped Platelets Not Reportable 12/27/18 09:46 Plt Clumps, EDTA Not Reportable 12/27/18 09:46 Large Platelets Rare 12/27/18 09:46 Giant Platelets Not Reportable 12/27/18 09:46 Platelet Satelliting Not Reportable 12/27/18 09:46 Plt Morphology Comment Not Reportable 12/27/18 09:46 RBC Morphology Not Reportable 12/27/18 09:46 Dimorphic RBCs Not Reportable 12/27/18 09:46 Polychromasia Not Reportable 12/27/18 09:46 Hypochromasia 1+ 12/27/18 09:46 Poikilocytosis Not Reportable 12/27/18 09:46 Anisocytosis 1+ 12/27/18 09:46 Microcytosis Not Reportable 12/27/18 09:46 Macrocytosis Few 12/27/18 09:46 Spherocytes Not Reportable 12/27/18 09:46 Pappenheimer Bodies Not Reportable 12/27/18 09:46 Sickle Cells Not Reportable 12/27/18 09:46 Target Cells 1+ 12/27/18 09:46 Tear Drop Cells Not Reportable 12/27/18 09:46 Ovalocytes Not Reportable 12/27/18 09:46 Helmet Cells Not Reportable 12/27/18 09:46 Antunez-Bellerose Bodies Not Reportable 12/27/18 09:46 Helena Rings Not Reportable 12/27/18 09:46 Reuben Cells Not Reportable 12/27/18 09:46 Bite Cells Not Reportable 12/27/18 09:46 Crenated Cell Not Reportable 12/27/18 09:46 Elliptocytes Not Reportable 12/27/18 09:46 Acanthocytes (Spur) Not Reportable 12/27/18 09:46 Rouleaux Not Reportable 12/27/18 09:46 Hemoglobin C Crystals Not Reportable 12/27/18 09:46 Schistocytes Not Reportable 12/27/18 09:46 Malaria parasites Not Reportable 12/27/18 09:46 Percent Retic 6.45 % (0.78-2.58) H 12/25/18 13:39 Obdulio Bodies Not Reportable 12/27/18 09:46 Hem Pathologist Commnt No 12/27/18 09:46 PT 13.7 Sec. (12.2-14.9) 12/26/18 09:15 INR 0.99 (0.87-1.13) 12/26/18 09:15 APTT 30.9 Sec. (24.2-36.6) 12/26/18 09:15 VBG pH 7.408 (7.320-7.420) 12/25/18 14:17 Sodium 138 mmol/L (137-145) 12/28/18 04:11 Potassium 4.9 mmol/L (3.6-5.0) D 12/28/18 04:11 Chloride 97.8 mmol/L (98-107) L 12/28/18 04:11 Carbon Dioxide 29 mmol/L (22-30) 12/28/18 04:11 Anion Gap 16 mmol/L 12/28/18 04:11 BUN 5 mg/dL (9-20) L 12/28/18 04:11 Creatinine 0.6 mg/dL (0.8-1.5) L 12/28/18 04:11 Estimated GFR > 60 ml/min 12/28/18 04:11 BUN/Creatinine Ratio 8 % 12/28/18 04:11 Glucose 173 mg/dL (75-100) H 12/28/18 04:11 Lactic Acid 1.40 mmol/L (0.7-2.0) 12/26/18 01:16 Calcium 8.2 mg/dL (8.4-10.2) L 12/28/18 04:11 Total Bilirubin 1.50 mg/dL (0.1-1.2) H 12/27/18 09:46 AST 33 units/L (5-40) 12/27/18 09:46 ALT 17 units/L (7-56) 12/27/18 09:46 Alkaline Phosphatase 77 units/L (35-129) 12/27/18 09:46 Total Creatine Kinase 44 units/L (55-170) L 12/28/18 00:07 CK-MB (CK-2) < 1.0 ng/mL (0.0-4.0) 12/28/18 00:07 CK-MB (CK-2) Rel Index 2.2 (0-4) 12/28/18 00:07 Troponin T < 0.010 ng/mL (0.00-0.029) 12/28/18 00:07 C-Reactive Protein 1.40 mg/dL (0.00-1.30) H 12/28/18 04:11 Total Protein 6.3 g/dL (6.3-8.2) 12/27/18 09:46 Albumin 3.6 g/dL (3.9-5) L 12/27/18 09:46 Albumin/Globulin Ratio 1.3 % 12/27/18 09:46 TSH 0.025 mlU/mL (0.270-4.200) L 12/27/18 16:00 Free T4 0.37 ng/dL (0.76-1.46) L 12/27/18 16:00 Urine Color Yellow (Yellow) 12/25/18 15:50 Urine Turbidity Clear (Clear) 12/25/18 15:50 Urine pH 5.0 (5.0-7.0) 12/25/18 15:50 Ur Specific [place] 1.027 (1.003-1.030) 12/25/18 15:50 Urine Protein <15 mg/dl mg/dL (Negative) 12/25/18 15:50 Urine Glucose (UA) Neg mg/dL (Negative) 12/25/18 15:50 Urine Ketones Neg mg/dL (Negative) 12/25/18 15:50 Urine Blood Neg (Negative) 12/25/18 15:50 Urine Nitrite Neg (Negative) 12/25/18 15:50 Urine Bilirubin Neg (Negative) 12/25/18 15:50 Urine Urobilinogen < 2.0 mg/dL (<2.0) 12/25/18 15:50 Ur Leukocyte Esterase Neg (Negative) 12/25/18 15:50 Urine WBC (Auto) 3.0 /HPF (0.0-6.0) 12/25/18 15:50 Urine RBC (Auto) 2.0 /HPF (0.0-6.0) 12/25/18 15:50 CSF Appearance Clear 12/26/18 11:00 CSF Color Colorless 12/26/18 11:00 CSF WBC 3.0 /mm3 (1-10) 12/26/18 11:00 CSF RBC 4.0 /mm3 (0-0) 12/26/18 11:00 CSF Seg Neutrophils 0 % (0-6) 12/26/18 11:00 CSF Lymphocytes % 80.0 % (40-80) 12/26/18 11:00 CSF Reactive Lymphs 0 % 12/26/18 11:00 CSF Monocytes % 20.0 % (15-45) 12/26/18 11:00 CSF Eosinophils % 0 % 12/26/18 11:00 CSF Basophils 0 % 12/26/18 11:00 CSF Pathologist Review C 12/26/18 11:00 CSF Glucose 68 mg/dL 12/26/18 11:00 CSF Total Protein 45 mg/dL 12/26/18 11:00 CSF VDRL Nonreactive (Nonreactive) 12/26/18 11:00 Urine Opiates Screen Presumptive negative 12/25/18 21:25 Urine Methadone Screen Presumptive negative 12/25/18 21:25 Ur Barbiturates Screen Presumptive negative 12/25/18 21:25 Ur Phencyclidine Scrn Presumptive negative 12/25/18 21:25 Ur Amphetamines Screen Presumptive negative 12/25/18 21:25 U Benzodiazepines Scrn Presumptive negative 12/25/18 21:25 Urine Cocaine Screen Presumptive negative 12/25/18 21:25 U Marijuana (THC) Screen Presumptive negative 12/25/18 21:25 Drugs of Abuse Note Disclamer 12/25/18 21:25
--- NOTE | 2018-12-28 17:22 | Progress Note ---
Assessment and Plan Hypotension ? Meningitis Intractable Migraine Pituitary tumor Anemia LUCA secondary to vasomotor nephropathy, baseline creatinine 0.6 Throat pain/Chest pain Mild elevated transaminase (with low TSH and low free T4 with hypotension i suspect chiu-hypopituitarism) - continue with stress dose steroids - add midodrine in short term - IVNS at 100 mls/hr X 2 liters and re-assess - seen by neurology - needs endocrinology evaluation - continue to wean dopamine to keep MAP > 65 mmHg - continue empiric AB's for now - CRP & Lactate levels unremarkable; doubt true infectious process - ID consulted - 2D ECHO unremarkable - cardiology evaluation ongoing - anemia w/up per attending - GI & VTE prophylaxis - Flu & pneumovax per protocol .... re-evaluate in am & prn The high probability of a clinically significant, sudden or life threatening deterioration of the [CVS, endocrine] system(s) required my full and direct attention, intervention and personal management. The aggregate critical care time was [32] minutes. This time is in addition to time spent performing reported procedures but includes the following: [x] Data Review and interpretation [x] Patient assessment and monitoring of vital signs [x] Documentation [x] Medication orders and management Subjective Date of service: 12/28/18 Principal diagnosis: Hypotension; ? Meningitis; Intractable Migraine; Pituitary tumor; Anemia Interval history: Patient is seen today for: Hypotension; ? Meningitis; Intractable Migraine; Pituitary tumor; Anemia Seen and examined at bedside; 24hour events reviewed; nursing and respiratory care staff consulted; no adverse overnight events reported to me; resting peacefully in bed; remains on Dopamine; denies acute chest pains or palpitations; No emesis but + nausea Objective Vital Signs - 12hr 12/28/18 12/28/18 12/28/18 05:30 05:40 05:50 Pulse Rate 53 L 54 L 69 Respiratory 12 13 12 Rate Respiratory Rate [Leg] Blood Pressure 101/45 100/44 100/44 O2 Sat by Pulse 98 98 98 Oximetry 12/28/18 12/28/18 12/28/18 06:00 06:10 06:20 Pulse Rate 56 L 54 L 59 L Respiratory 13 14 10 L Rate Respiratory Rate [Leg] Blood Pressure 99/54 102/57 108/61 O2 Sat by Pulse 99 99 98 Oximetry 12/28/18 12/28/18 12/28/18 06:30 06:40 06:50 Pulse Rate 56 L 57 L 58 L Respiratory 9 L 11 L 11 L Rate Respiratory Rate [Leg] Blood Pressure 108/61 106/56 93/49 O2 Sat by Pulse 98 98 98 Oximetry 12/28/18 12/28/18 12/28/18 07:00 07:10 07:20 Pulse Rate 58 L 58 L 58 L Respiratory 11 L 13 9 L Rate Respiratory Rate [Leg] Blood Pressure 93/49 99/46 99/46 O2 Sat by Pulse 97 97 99 Oximetry 12/28/18 12/28/18 12/28/18 07:30 07:45 08:00 Pulse Rate 57 L 60 75 Respiratory 12 13 10 L Rate Respiratory Rate [Leg] Blood Pressure 99/46 101/54 90/44 O2 Sat by Pulse 98 98 100 Oximetry 12/28/18 12/28/18 12/28/18 08:15 08:30 08:45 Pulse Rate 61 64 82 Respiratory 11 L 8 L 11 L Rate Respiratory Rate [Leg] Blood Pressure 110/64 110/64 101/61 O2 Sat by Pulse 98 98 98 Oximetry 12/28/18 12/28/18 12/28/18 09:01 09:15 09:30 Pulse Rate 77 75 83 Respiratory 14 14 13 Rate Respiratory Rate [Leg] Blood Pressure 78/37 78/39 83/42 O2 Sat by Pulse 100 99 Oximetry 12/28/18 12/28/18 12/28/18 09:45 10:00 10:15 Pulse Rate 62 70 76 Respiratory 13 13 12 Rate Respiratory 12 Rate [Leg] Blood Pressure 81/46 90/46 82/45 O2 Sat by Pulse 100 99 97 Oximetry 12/28/18 12/28/18 12/28/18 10:30 10:45 11:00 Pulse Rate 81 67 72 Respiratory 13 13 11 L Rate Respiratory Rate [Leg] Blood Pressure 82/45 92/47 91/46 O2 Sat by Pulse 98 99 97 Oximetry 12/28/18 12/28/18 12/28/18 11:15 11:30 12:00 Pulse Rate 73 67 Respiratory 12 12 15 Rate Respiratory Rate [Leg] Blood Pressure 86/47 91/51 O2 Sat by Pulse 96 97 98 Oximetry 12/28/18 12/28/18 12/28/18 13:05 13:15 13:31 Pulse Rate 102 H 101 H 79 Respiratory 17 19 16 Rate Respiratory Rate [Leg] Blood Pressure 74/35 83/51 O2 Sat by Pulse 96 97 97 Oximetry 12/28/18 12/28/18 12/28/18 13:45 14:01 14:15 Pulse Rate 70 62 65 Respiratory 14 16 16 Rate Respiratory Rate [Leg] Blood Pressure 83/51 124/61 121/63 O2 Sat by Pulse 98 98 98 Oximetry 12/28/18 12/28/18 12/28/18 14:31 14:45 15:01 Pulse Rate 58 L 55 L 56 L Respiratory 18 11 L 11 L Rate Respiratory Rate [Leg] Blood Pressure 127/70 145/79 140/57 O2 Sat by Pulse 97 96 98 Oximetry 12/28/18 12/28/18 12/28/18 15:15 15:30 15:45 Pulse Rate 53 L 70 74 Respiratory 14 17 16 Rate Respiratory Rate [Leg] Blood Pressure 130/66 106/59 97/51 O2 Sat by Pulse 97 98 99 Oximetry 12/28/18 12/28/18 12/28/18 16:00 16:15 16:30 Pulse Rate 73 78 79 Respiratory 17 12 12 Rate Respiratory Rate [Leg] Blood Pressure 93/47 98/53 93/48 O2 Sat by Pulse 97 99 97 Oximetry Constitutional: no acute distress, alert, other (middle aged AAM, normocephalic and atraumatic with normal respiratory effort at rest) Eyes: non-icteric ENT: oropharynx moist, other (mallampati 2) Neck: supple, no lymphadenopathy, no JVD, other (no thyromegaly) Effort: normal Ascultation: Bilateral: clear Percussion: Bilateral: not dull Cardiovascular: regular rate and rhythm Gastrointestinal: normoactive bowel sounds, soft, non-tender, non-distended Integumentary: normal Extremities: no cyanosis, no edema, pulses normal, no ischemia or petechiae Neurologic: normal mental status, non-focal exam, pupils equal and round, motor strength normal and Psychiatric: mood appropriate, affect normal CBC and BMP: 12/29/18 07:00 12/28/18 04:11 ABG, PT/INR, D-dimer: PT/INR, D-dimer PT 13.7 Sec. (12.2-14.9) 12/26/18 09:15 INR 0.99 (0.87-1.13) 12/26/18 09:15 Abnormal lab findings: Abnormal Labs 12/25/18 12/25/18 12/25/18 13:39 13:39 13:39 WBC 18.6 H RBC 2.92 L Hgb 8.4 L Hct 24.4 L MCHC RDW 18.4 H Plt Count Monocytes % (Manual) Seg Neutrophils # Man 11.2 H Monocytes # (Manual) 1.3 H Eosinophils # (Manual) Basophils # (Manual) 0.2 H Percent Retic 6.45 H Sodium Chloride 95.9 L BUN 25 H Creatinine Glucose Calcium Total Bilirubin 1.30 H AST 47 H Total Creatine Kinase C-Reactive Protein Albumin TSH Free T4 12/26/18 12/26/18 12/27/18 08:45 08:45 09:46 WBC 16.5 H 14.0 H RBC 2.66 L 2.60 L Hgb 7.6 L 7.6 L Hct 22.7 L 22.4 L MCHC RDW 19.5 H 20.7 H Plt Count Monocytes % (Manual) 10.0 H Seg Neutrophils # Man 11.4 H 8.4 H Monocytes # (Manual) 1.0 H 1.4 H Eosinophils # (Manual) 0.5 H Basophils # (Manual) Percent Retic Sodium 147 H D Chloride 110.6 H BUN Creatinine Glucose Calcium 8.2 L Total Bilirubin AST Total Creatine Kinase C-Reactive Protein Albumin TSH Free T4 12/27/18 12/27/18 12/27/18 09:46 16:00 16:00 WBC RBC Hgb Hct MCHC RDW Plt Count Monocytes % (Manual) Seg Neutrophils # Man Monocytes # (Manual) Eosinophils # (Manual) Basophils # (Manual) Percent Retic Sodium Chloride BUN 4 L Creatinine Glucose Calcium 8.3 L Total Bilirubin 1.50 H AST Total Creatine Kinase 45 L C-Reactive Protein Albumin 3.6 L TSH Free T4 0.37 L 12/27/18 12/28/18 12/28/18 16:00 00:07 04:11 WBC 13.4 H RBC 2.63 L Hgb 7.8 L Hct 22.3 L MCHC 35 H RDW 20.6 H Plt Count 451 H Monocytes % (Manual) Seg Neutrophils # Man Monocytes # (Manual) Eosinophils # (Manual) Basophils # (Manual) Percent Retic Sodium Chloride BUN Creatinine Glucose Calcium Total Bilirubin AST Total Creatine Kinase 44 L C-Reactive Protein Albumin TSH 0.025 L Free T4 12/28/18 12/28/18 04:11 04:11 WBC RBC Hgb Hct MCHC RDW Plt Count Monocytes % (Manual) Seg Neutrophils # Man Monocytes # (Manual) Eosinophils # (Manual) Basophils # (Manual) Percent Retic Sodium Chloride 97.8 L BUN 5 L Creatinine 0.6 L Glucose 173 H Calcium 8.2 L Total Bilirubin AST Total Creatine Kinase C-Reactive Protein 1.40 H Albumin TSH Free T4 Allied health notes reviewed: nursing
--- NOTE | 2018-12-28 17:46 | Event Note ---
Date: 12/28/18 TSH was 0.025, free T4 was 0.37. I started levothyroxine 50 g daily. I started hydrocortisone 100 mg by mouth daily. Discussed with Dr. Zuluaga. He says his blood pressure improves with the hydrocortisone, he may be able to discharge him with endocrinology follow-up as an outpatient. Signing off for now, call for any questions. If he is still here Monday, you can call Dr. Romo, neurology locum coming on duty then, if you need her.
--- NOTE | 2018-12-28 21:31 | Magnetic Resonance Report ---
FINAL REPORT PROCEDURE: MR BRAIN WO CON TECHNIQUE: Magnetic resonance imaging of the brain was performed before and after the IV injection o f paramagnetic contrast. HISTORY: pituitary mass COMPARISON: 12/26/2018 FINDINGS: Prior examination demonstrated pituitary mass. This is again noted and demonstrates peripheral postco ntrast enhancement. The majority of the pituitary demonstrates non enhancement. This portion measures 9.6 x 17.4 by 18.5 millimeters. Findings suggest a macro adenoma. Remainder of the brain demonstrates normal vascular enhancement. There is no abnormal parenchymal or meningeal enhancement. There is known binge meant on the optic chiasm or cavernous sinuses. There is no destructive changes of the sella turcica or clivus. IMPRESSION: Pituitary macro adenoma.
[2018-12-29] MEDS ORDERED: SYNTHROID 112 MCG, SYNTHROID 25 MCG PO SCH (06:00)
[2018-12-29] MEDS ORDERED: SYNTHROID PO SCH (07:10)
[2018-12-29 07:15] LABS: Hematocrit 20.8 % (35.5-45.6); Mean Corpuscular HGB Conc 34 % (32-34); Mean Corpuscular Volume 85 fl (84-94); Platelet Count 362 K/mm3 (140-440); Red Blood Count 2.44 M/mm3 (3.65-5.03)
[2018-12-29 07:21] LABS: Red Cell Distribution Width 20.6 % (13.2-15.2)
[2018-12-29] MEDS: SYNTHROID PO SCH (08:29)
[2018-12-29] MEDS: PROAMATINE PO SCH ×3 (08:29→20:19)
[2018-12-29] MEDS ORDERED: NACL 0.9% 500 ML 500 ML IV ONE (09:06)
--- NOTE | 2018-12-29 09:12 | Progress Note ---
Assessment and Plan Assessment and plan: 43 YO Male with Nicotine Dependence, SCD presents to ED for evaluation. Pt states that he has experienced headache 5/10 with a pressure-sensation coming from behind his left eye for the past 2 weeks with worsening symptoms over the past 3 days with meningeal signs and chills. He was seen initially in the ED and discharged a few days ago. Pt transported to [facility] by his family for further care and evaluation. Pt seen and evaluated in ED and found to have sepsis, malnutrition, as well as hypotension with systolic BP in the 80's. Pt admitted to [facility]. He reports shaking chills but denies back pain, trauma, neck pain, falls, hemoptysis, prolonged travel/immobility, individual/family history of DVT/PE, recent ill contacts, or HIV risk factors. Pt is Alert oriented x4 and denies pain. Pt talkative, and request dinner. Review of Records shows that the patient was recently treated for Pneumonia In November and discharged. SIRS Pitutary tumor/Hypopitiutarism Doubt Sepsis but still will continue evaluation for the same. No clear source of infection vasogenic shock vs Septic Shock Meningitis RULED OUT Intaractable Migraine Chronic Hypotension on review of records Hypothyrodisim Anemia- Precipitatious drop in Hgb LUCA secondary to vasomotor nephropathy, baseline creatinine 0.6 Throat pain/Chest pain- When placed on levophed and resolved after. Mild elevated transaminase PLAN Supportive care Give a unit of blood to see if this will help with vasogenic shock Check stool for occult blood PPI IV in the mean time Will also continue stress dose steroids Wean pressors as tolerated. 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 The aggregate critical care time was [35] minutes. This time is in addition to time spent performing reported procedures but includes the following: [x] Data Review and interpretation [x] Patient assessment and monitoring of vital signs [x] Documentation [x] Medication orders and management History Interval history: Patient was examined with no acute distress NO HEADACHE TODAY Hospitalist Physical - Physical exam Narrative exam: VITAL SIGNS: Reviewed. GENERAL: The patient appeared well nourished and normally developed. Vital signs as documented. HEAD: No signs of head trauma. EYES: Pupils are equal. Extraocular motions intact. EARS: Hearing grossly intact. MOUTH: Oropharynx is normal. NECK: No adenopathy, no JVD. CHEST: Chest with clear breath sounds bilaterally. No wheezes, rales, or rhonchi. CARDIAC: Regular rate and rhythm. S1 and S2, without murmurs, gallops, or rubs. VASCULAR: No Edema. Peripheral pulses normal and equal in all extremities. ABDOMEN: Soft, without detectable tenderness. No sign of distention. No rebound or guarding, and no masses palpated. Bowel Sounds normal. MUSCULOSKELETAL: Good range of motion of all major joints. Extremities without clubbing, cyanosis or edema. NEUROLOGIC EXAM: Alert and oriented x 3. No focal sensory or strength deficits. Speech normal. Follows commands. PSYCHIATRIC: Mood normal. SKIN: No rash or lesions. - Constitutional Vitals: Temp Pulse Resp BP Pulse Ox 98.1 F 58 L 9 L 97/60 99 12/29/18 08:00 12/29/18 06:30 12/29/18 06:30 12/29/18 06:30 12/29/18 06:30 General appearance: Present: mild distress Results - Labs CBC & Chem 7: 12/29/18 07:00 12/28/18 04:11 Labs: Laboratory Last Values WBC 18.4 K/mm3 (4.5-11.0) H 12/29/18 07:00 RBC 2.44 M/mm3 (3.65-5.03) L 12/29/18 07:00 Hgb 7.0 gm/dl (11.8-15.2) L 12/29/18 07:00 Hct 20.8 % (35.5-45.6) L 12/29/18 07:00 MCV 85 fl (84-94) 12/29/18 07:00 MCH 29 pg (28-32) 12/29/18 07:00 MCHC 34 % (32-34) 12/29/18 07:00 RDW 20.6 % (13.2-15.2) H 12/29/18 07:00 Plt Count 362 K/mm3 (140-440) 12/29/18 07:00 Lymph # Manufacturing Weaver 12/25/18 13:39 Add Manual Diff Complete 12/27/18 09:46 Total Counted 100 12/27/18 09:46 Seg Neuts % (Manual) 60.0 % (40.0-70.0) 12/27/18 09:46 Band Neutrophils % 2.0 % 12/27/18 09:46 Lymphocytes % (Manual) 27.0 % (13.4-35.0) 12/27/18 09:46 Reactive Lymphs % (Man) 0 % 12/27/18 09:46 Monocytes % (Manual) 10.0 % (0.0-7.3) H 12/27/18 09:46 Eosinophils % (Manual) 1.0 % (0.0-4.3) 12/27/18 09:46 Basophils % (Manual) 0 % (0.0-1.8) 12/27/18 09:46 Metamyelocytes % 0 % 12/27/18 09:46 Myelocytes % 0 % 12/27/18 09:46 Promyelocytes % 0 % 12/27/18 09:46 Blast Cells % 0 % 12/27/18 09:46 Nucleated RBC % Not Reportable 12/27/18 09:46 Seg Neutrophils # Man 8.4 K/mm3 (1.8-7.7) H 12/27/18 09:46 Band Neutrophils # 0.3 K/mm3 12/27/18 09:46 Lymphocytes # (Manual) 3.8 K/mm3 (1.2-5.4) 12/27/18 09:46 Abs React Lymphs (Man) 0.0 K/mm3 12/27/18 09:46 Monocytes # (Manual) 1.4 K/mm3 (0.0-0.8) H 12/27/18 09:46 Eosinophils # (Manual) 0.1 K/mm3 (0.0-0.4) 12/27/18 09:46 Basophils # (Manual) 0.0 K/mm3 (0.0-0.1) 12/27/18 09:46 Metamyelocytes # 0.0 K/mm3 12/27/18 09:46 Myelocytes # 0.0 K/mm3 12/27/18 09:46 Promyelocytes # 0.0 K/mm3 12/27/18 09:46 Blast Cells # 0.0 K/mm3 12/27/18 09:46 Pathologist Review 12/25/18 13:39 WBC Morphology Not Reportable 12/27/18 09:46 Hypersegmented Neuts Not Reportable 12/27/18 09:46 Hyposegmented Neuts Not Reportable 12/27/18 09:46 Hypogranular Neuts Not Reportable 12/27/18 09:46 Smudge Cells Not Reportable 12/27/18 09:46 Toxic Granulation Not Reportable 12/27/18 09:46 Toxic Vacuolation Not Reportable 12/27/18 09:46 Dohle Bodies Not Reportable 12/27/18 09:46 Pelger-Huet Anomaly Not Reportable 12/27/18 09:46 Carlton Rods Not Reportable 12/27/18 09:46 Platelet Estimate Consistent w auto 12/27/18 09:46 Clumped Platelets Not Reportable 12/27/18 09:46 Plt Clumps, EDTA Not Reportable 12/27/18 09:46 Large Platelets Rare 12/27/18 09:46 Giant Platelets Not Reportable 12/27/18 09:46 Platelet Satelliting Not Reportable 12/27/18 09:46 Plt Morphology Comment Not Reportable 12/27/18 09:46 RBC Morphology Not Reportable 12/27/18 09:46 Dimorphic RBCs Not Reportable 12/27/18 09:46 Polychromasia Not Reportable 12/27/18 09:46 Hypochromasia 1+ 12/27/18 09:46 Poikilocytosis Not Reportable 12/27/18 09:46 Anisocytosis 1+ 12/27/18 09:46 Microcytosis Not Reportable 12/27/18 09:46 Macrocytosis Few 12/27/18 09:46 Spherocytes Not Reportable 12/27/18 09:46 Pappenheimer Bodies Not Reportable 12/27/18 09:46 Sickle Cells Not Reportable 12/27/18 09:46 Target Cells 1+ 12/27/18 09:46 Tear Drop Cells Not Reportable 12/27/18 09:46 Ovalocytes Not Reportable 12/27/18 09:46 Helmet Cells Not Reportable 12/27/18 09:46 [place]unez-[place] Bodies Not Reportable 12/27/18 09:46 [place] Rings Not Reportable 12/27/18 09:46 Reuben Cells Not Reportable 12/27/18 09:46 Bite Cells Not Reportable 12/27/18 09:46 Crenated Cell Not Reportable 12/27/18 09:46 Elliptocytes Not Reportable 12/27/18 09:46 Acanthocytes (Spur) Not Reportable 12/27/18 09:46 Rouleaux Not Reportable 12/27/18 09:46 Hemoglobin C Crystals Not Reportable 12/27/18 09:46 Schistocytes Not Reportable 12/27/18 09:46 Malaria parasites Not Reportable 12/27/18 09:46 Percent Retic 6.45 % (0.78-2.58) H 12/25/18 13:39 Obdulio Bodies Not Reportable 12/27/18 09:46 Hem Pathologist Commnt No 12/27/18 09:46 PT 13.7 Sec. (12.2-14.9) 12/26/18 09:15 INR 0.99 (0.87-1.13) 12/26/18 09:15 APTT 30.9 Sec. (24.2-36.6) 12/26/18 09:15 VBG pH 7.408 (7.320-7.420) 12/25/18 14:17 Sodium 138 mmol/L (137-145) 12/28/18 04:11 Potassium 4.9 mmol/L (3.6-5.0) D 12/28/18 04:11 Chloride 97.8 mmol/L (98-107) L 12/28/18 04:11 Carbon Dioxide 29 mmol/L (22-30) 12/28/18 04:11 Anion Gap 16 mmol/L 12/28/18 04:11 BUN 5 mg/dL (9-20) L 12/28/18 04:11 Creatinine 0.6 mg/dL (0.8-1.5) L 12/28/18 04:11 Estimated GFR > 60 ml/min 12/28/18 04:11 BUN/Creatinine Ratio 8 % 12/28/18 04:11 Glucose 173 mg/dL (75-100) H 12/28/18 04:11 Lactic Acid 1.40 mmol/L (0.7-2.0) 12/26/18 01:16 Calcium 8.2 mg/dL (8.4-10.2) L 12/28/18 04:11 Total Bilirubin 1.50 mg/dL (0.1-1.2) H 12/27/18 09:46 AST 33 units/L (5-40) 12/27/18 09:46 ALT 17 units/L (7-56) 12/27/18 09:46 Alkaline Phosphatase 77 units/L (35-129) 12/27/18 09:46 Total Creatine Kinase 44 units/L (55-170) L 12/28/18 00:07 CK-MB (CK-2) < 1.0 ng/mL (0.0-4.0) 12/28/18 00:07 CK-MB (CK-2) Rel Index 2.2 (0-4) 12/28/18 00:07 Troponin T < 0.010 ng/mL (0.00-0.029) 12/28/18 00:07 C-Reactive Protein 1.40 mg/dL (0.00-1.30) H 12/28/18 04:11 Total Protein 6.3 g/dL (6.3-8.2) 12/27/18 09:46 Albumin 3.6 g/dL (3.9-5) L 12/27/18 09:46 Albumin/Globulin Ratio 1.3 % 12/27/18 09:46 TSH 0.025 mlU/mL (0.270-4.200) L 12/27/18 16:00 Free T4 0.37 ng/dL (0.76-1.46) L 12/27/18 16:00 Urine Color Yellow (Yellow) 12/25/18 15:50 Urine Turbidity Clear (Clear) 12/25/18 15:50 Urine pH 5.0 (5.0-7.0) 12/25/18 15:50 Ur Specific [place] 1.027 (1.003-1.030) 12/25/18 15:50 Urine Protein <15 mg/dl mg/dL (Negative) 12/25/18 15:50 Urine Glucose (UA) Neg mg/dL (Negative) 12/25/18 15:50 Urine Ketones Neg mg/dL (Negative) 12/25/18 15:50 Urine Blood Neg (Negative) 12/25/18 15:50 Urine Nitrite Neg (Negative) 12/25/18 15:50 Urine Bilirubin Neg (Negative) 12/25/18 15:50 Urine Urobilinogen < 2.0 mg/dL (<2.0) 12/25/18 15:50 Ur Leukocyte Esterase Neg (Negative) 12/25/18 15:50 Urine WBC (Auto) 3.0 /HPF (0.0-6.0) 12/25/18 15:50 Urine RBC (Auto) 2.0 /HPF (0.0-6.0) 12/25/18 15:50 CSF Appearance Clear 12/26/18 11:00 CSF Color Colorless 12/26/18 11:00 CSF WBC 3.0 /mm3 (1-10) 12/26/18 11:00 CSF RBC 4.0 /mm3 (0-0) 12/26/18 11:00 CSF Seg Neutrophils 0 % (0-6) 12/26/18 11:00 CSF Lymphocytes % 80.0 % (40-80) 12/26/18 11:00 CSF Reactive Lymphs 0 % 12/26/18 11:00 CSF Monocytes % 20.0 % (15-45) 12/26/18 11:00 CSF Eosinophils % 0 % 12/26/18 11:00 CSF Basophils 0 % 12/26/18 11:00 CSF Pathologist Review C 12/26/18 11:00 CSF Glucose 68 mg/dL 12/26/18 11:00 CSF Total Protein 45 mg/dL 12/26/18 11:00 CSF VDRL Nonreactive (Nonreactive) 12/26/18 11:00 Urine Opiates Screen Presumptive negative 12/25/18 21:25 Urine Methadone Screen Presumptive negative 12/25/18 21:25 Ur Barbiturates Screen Presumptive negative 12/25/18 21:25 Ur Phencyclidine Scrn Presumptive negative 12/25/18 21:25 Ur Amphetamines Screen Presumptive negative 12/25/18 21:25 U Benzodiazepines Scrn Presumptive negative 12/25/18 21:25 Urine Cocaine Screen Presumptive negative 12/25/18 21:25 U Marijuana (THC) Screen Presumptive negative 12/25/18 21:25 Drugs of Abuse Note Disclamer 12/25/18 21:25
[2018-12-29] MEDS: PEPCID PO SCH (10:55)
[2018-12-29] MEDS: CLARITIN PO SCH (10:55)
[2018-12-29] MEDS: LOVENOX SUB-Q SCH (11:07)
[2018-12-29] MEDS: ROCEPHIN/NS 2 GM/100 ML 2 GM/100 ML BAG IV SCH (11:09)
[2018-12-29] MEDS: SODIUM CHLORIDE FLUSH SYRINGE 10 ML IV SCH ×2 (11:09→22:07)
[2018-12-29] MEDS: FLONASE NS SCH (11:10)
[2018-12-29] MEDS ORDERED: NACL 0.9% 500 ML 500 ML ONE (13:43)
--- NOTE | 2018-12-29 16:45 | Progress Note ---
Assessment and Plan Hypotension ? Meningitis Intractable Migraine Pituitary tumor Anemia LUCA secondary to vasomotor nephropathy, baseline creatinine 0.6 Throat pain/Chest pain Mild elevated transaminase - continue to wean dopamine to keep MAP > 65 mmHg - continue with stress dose steroids - add midodrine in short term - continue gentle volume resuscitation - seen by neurology - needs endocrinology evaluation - continue empiric AB's for now - CRP & Lactate levels unremarkable; doubt true infectious process - ID consulted - 2D ECHO unremarkable - cardiology evaluation ongoing - anemia w/up per attending - GI & VTE prophylaxis - Flu & pneumovax per protocol .... re-evaluate in am & prn The high probability of a clinically significant, sudden or life threatening deterioration of the [CVS, endocrine] system(s) required my full and direct attention, intervention and personal management. The aggregate critical care time was [35] minutes. This time is in addition to time spent performing reported procedures but includes the following: [x] Data Review and interpretation [x] Patient assessment and monitoring of vital signs [x] Documentation [x] Medication orders and management Subjective Date of service: 12/29/18 Principal diagnosis: Hypotension; ? Meningitis; Intractable Migraine; Pituitary tumor; Anemia Interval history: Patient is seen today for: Hypotension; ? Meningitis; Intractable Migraine; Pituitary tumor; Anemia Seen and examined at bedside; 24hour events reviewed; nursing and respiratory care staff consulted; no adverse overnight events reported to me; resting peacefully in bed; remains on dopamine; No N/V/F/C; tentatively to transfer to [facility] for endocrinology evaluation; denies new onset visual field deficits Objective Vital Signs - 12hr 12/29/18 12/29/18 12/29/18 05:00 05:15 05:31 Temperature Pulse Rate 55 L 56 L 54 L Pulse Rate [ Right Radial] Respiratory 11 L 15 15 Rate Blood Pressure 96/53 96/51 99/56 O2 Sat by Pulse 99 99 99 Oximetry 12/29/18 12/29/18 12/29/18 05:45 06:00 06:15 Temperature Pulse Rate 54 L 55 L 54 L Pulse Rate [ Right Radial] Respiratory 12 13 14 Rate Blood Pressure 102/55 103/57 107/61 O2 Sat by Pulse 99 98 99 Oximetry 12/29/18 12/29/18 12/29/18 06:30 06:45 07:00 Temperature Pulse Rate 58 L 62 59 L Pulse Rate [ Right Radial] Respiratory 9 L 15 14 Rate Blood Pressure 97/60 88/48 88/49 O2 Sat by Pulse 99 99 98 Oximetry 12/29/18 12/29/18 12/29/18 07:15 07:30 07:45 Temperature Pulse Rate 77 73 67 Pulse Rate [ Right Radial] Respiratory 17 17 14 Rate Blood Pressure 79/41 80/42 85/42 O2 Sat by Pulse 99 100 100 Oximetry 12/29/18 12/29/18 12/29/18 08:00 08:15 08:30 Temperature 98.1 F Pulse Rate 70 72 68 Pulse Rate [ 55 L Right Radial] Respiratory 13 14 19 Rate Blood Pressure 82/48 83/49 84/49 O2 Sat by Pulse 98 97 99 Oximetry 12/29/18 12/29/18 12/29/18 08:45 09:00 09:15 Temperature Pulse Rate 69 62 71 Pulse Rate [ Right Radial] Respiratory 12 13 14 Rate Blood Pressure 85/44 83/44 83/45 O2 Sat by Pulse 98 99 100 Oximetry 12/29/18 12/29/18 12/29/18 09:30 09:45 10:01 Temperature Pulse Rate 68 80 54 L Pulse Rate [ Right Radial] Respiratory 10 L 15 15 Rate Blood Pressure 70/32 77/42 40/23 O2 Sat by Pulse 100 100 100 Oximetry 12/29/18 12/29/18 12/29/18 10:15 10:31 10:45 Temperature Pulse Rate 63 63 61 Pulse Rate [ Right Radial] Respiratory 13 15 14 Rate Blood Pressure 116/62 125/71 125/71 O2 Sat by Pulse 100 98 97 Oximetry 12/29/18 12/29/18 12/29/18 11:00 11:15 11:30 Temperature Pulse Rate 60 65 87 Pulse Rate [ Right Radial] Respiratory 13 11 L 15 Rate Blood Pressure 112/61 116/62 81/42 O2 Sat by Pulse 98 98 99 Oximetry 12/29/18 12/29/18 12/29/18 11:45 12:00 12:15 Temperature 97.8 F Pulse Rate 60 58 L 56 L Pulse Rate [ 54 L Right Radial] Respiratory 14 15 14 Rate Blood Pressure 89/48 113/58 113/58 O2 Sat by Pulse 100 99 99 Oximetry 12/29/18 12/29/18 12/29/18 12:30 12:45 13:00 Temperature Pulse Rate 61 78 65 Pulse Rate [ Right Radial] Respiratory 11 L 12 16 Rate Blood Pressure 125/67 125/67 110/64 O2 Sat by Pulse 99 99 99 Oximetry 12/29/18 12/29/18 12/29/18 13:15 13:30 13:45 Temperature Pulse Rate 86 60 58 L Pulse Rate [ Right Radial] Respiratory 17 16 16 Rate Blood Pressure 110/64 102/54 102/54 O2 Sat by Pulse 98 100 99 Oximetry 12/29/18 12/29/18 12/29/18 13:51 14:00 14:06 Temperature 97.4 F L 98.4 F Pulse Rate 60 56 L 55 L Pulse Rate [ Right Radial] Respiratory 16 16 15 Rate Blood Pressure 102/54 104/56 106/55 O2 Sat by Pulse 100 100 99 Oximetry 12/29/18 12/29/18 12/29/18 14:15 14:30 14:36 Temperature 98.4 F Pulse Rate 58 L 54 L 55 L Pulse Rate [ Right Radial] Respiratory 14 13 12 Rate Blood Pressure 106/57 107/56 107/56 O2 Sat by Pulse 99 99 98 Oximetry 12/29/18 12/29/18 12/29/18 14:45 15:01 15:06 Temperature 98.1 F Pulse Rate 55 L 56 L 55 L Pulse Rate [ Right Radial] Respiratory 11 L 15 12 Rate Blood Pressure 106/57 107/61 107/61 O2 Sat by Pulse 98 98 98 Oximetry 12/29/18 12/29/18 12/29/18 15:15 15:30 15:36 Temperature 97.3 F L Pulse Rate 52 L 51 L 58 L Pulse Rate [ Right Radial] Respiratory 17 13 14 Rate Blood Pressure 107/61 103/57 103/57 O2 Sat by Pulse 98 98 99 Oximetry 12/29/18 12/29/18 15:45 16:06 Temperature 97.8 F Pulse Rate 67 58 L Pulse Rate [ Right Radial] Respiratory 13 16 Rate Blood Pressure 107/61 92/45 O2 Sat by Pulse 98 100 Oximetry Constitutional: no acute distress, alert, other (middle aged AAM, normocephalic and atraumatic with normal respiratory effort at rest) Eyes: non-icteric ENT: oropharynx moist, other (mallampati 2) Neck: supple, no lymphadenopathy, no JVD, other (no thyromegaly) Effort: normal Ascultation: Bilateral: clear Percussion: Bilateral: not dull Cardiovascular: regular rate and rhythm Gastrointestinal: normoactive bowel sounds, soft, non-tender, non-distended Integumentary: normal Extremities: no cyanosis, no edema, pulses normal, no ischemia or petechiae Neurologic: normal mental status, non-focal exam, pupils equal and round, motor strength normal and Psychiatric: mood appropriate, affect normal CBC and BMP: 12/29/18 18:45 12/28/18 04:11 ABG, PT/INR, D-dimer: PT/INR, D-dimer PT 13.7 Sec. (12.2-14.9) 12/26/18 09:15 INR 0.99 (0.87-1.13) 12/26/18 09:15 Abnormal lab findings: Abnormal Labs 12/25/18 12/25/18 12/25/18 13:39 13:39 13:39 WBC 18.6 H RBC 2.92 L Hgb 8.4 L Hct 24.4 L MCHC RDW 18.4 H Plt Count Monocytes % (Manual) Seg Neutrophils # Man 11.2 H Monocytes # (Manual) 1.3 H Eosinophils # (Manual) Basophils # (Manual) 0.2 H Percent Retic 6.45 H Sodium Chloride 95.9 L BUN 25 H Creatinine Glucose Calcium Total Bilirubin 1.30 H AST 47 H Total Creatine Kinase C-Reactive Protein Albumin TSH Free T4 Crossmatch 12/26/18 12/26/18 12/27/18 08:45 08:45 09:46 WBC 16.5 H 14.0 H RBC 2.66 L 2.60 L Hgb 7.6 L 7.6 L Hct 22.7 L 22.4 L MCHC RDW 19.5 H 20.7 H Plt Count Monocytes % (Manual) 10.0 H Seg Neutrophils # Man 11.4 H 8.4 H Monocytes # (Manual) 1.0 H 1.4 H Eosinophils # (Manual) 0.5 H Basophils # (Manual) Percent Retic Sodium 147 H D Chloride 110.6 H BUN Creatinine Glucose Calcium 8.2 L Total Bilirubin AST Total Creatine Kinase C-Reactive Protein Albumin TSH Free T4 Crossmatch 12/27/18 12/27/18 12/27/18 09:46 16:00 16:00 WBC RBC Hgb Hct MCHC RDW Plt Count Monocytes % (Manual) Seg Neutrophils # Man Monocytes # (Manual) Eosinophils # (Manual) Basophils # (Manual) Percent Retic Sodium Chloride BUN 4 L Creatinine Glucose Calcium 8.3 L Total Bilirubin 1.50 H AST Total Creatine Kinase 45 L C-Reactive Protein Albumin 3.6 L TSH Free T4 0.37 L Crossmatch 12/27/18 12/28/18 12/28/18 16:00 00:07 04:11 WBC 13.4 H RBC 2.63 L Hgb 7.8 L Hct 22.3 L MCHC 35 H RDW 20.6 H Plt Count 451 H Monocytes % (Manual) Seg Neutrophils # Man Monocytes # (Manual) Eosinophils # (Manual) Basophils # (Manual) Percent Retic Sodium Chloride BUN Creatinine Glucose Calcium Total Bilirubin AST Total Creatine Kinase 44 L C-Reactive Protein Albumin TSH 0.025 L Free T4 Crossmatch 12/28/18 12/28/18 12/29/18 04:11 04:11 07:00 WBC 18.4 H RBC 2.44 L Hgb 7.0 L Hct 20.8 L MCHC RDW 20.6 H Plt Count Monocytes % (Manual) Seg Neutrophils # Man Monocytes # (Manual) Eosinophils # (Manual) Basophils # (Manual) Percent Retic Sodium Chloride 97.8 L BUN 5 L Creatinine 0.6 L Glucose 173 H Calcium 8.2 L Total Bilirubin AST Total Creatine Kinase C-Reactive Protein 1.40 H Albumin TSH Free T4 Crossmatch 12/29/18 11:20 WBC RBC Hgb Hct MCHC RDW Plt Count Monocytes % (Manual) Seg Neutrophils # Man Monocytes # (Manual) Eosinophils # (Manual) Basophils # (Manual) Percent Retic Sodium Chloride BUN Creatinine Glucose Calcium Total Bilirubin AST Total Creatine Kinase C-Reactive Protein Albumin TSH Free T4 Crossmatch See Detail Allied health notes reviewed: nursing
[2018-12-29 19:04] LABS: Hematocrit 25.7 % (35.5-45.6); Hemoglobin 8.9 gm/dl (11.8-15.2)
[2018-12-29] MEDS: INTROPIN DRIP 800 MG/D5W 250 ML 800 MG/250 ML BAG IV SCH (23:08)
[2018-12-30] MEDS: SYNTHROID PO SCH (06:24)
[2018-12-30] MEDS: PROAMATINE PO SCH ×3 (09:05→21:29)
[2018-12-30] MEDS: PEPCID PO SCH (09:36)
[2018-12-30] MEDS: CLARITIN PO SCH (09:36)
[2018-12-30] MEDS: LOVENOX SUB-Q SCH (09:36)
[2018-12-30] MEDS: SODIUM CHLORIDE FLUSH SYRINGE 10 ML IV SCH ×2 (09:37→21:28)
[2018-12-30] MEDS: ROCEPHIN/NS 2 GM/100 ML 2 GM/100 ML BAG IV SCH (09:48)
[2018-12-30] MEDS: NORCO 5/325 PO PRN (09:48)
[2018-12-30] MEDS: FLONASE NS SCH (09:51)
--- NOTE | 2018-12-30 11:10 | Progress Note ---
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 No evidence of meningitis on CSF. No fever. Leucocytosis is probably chronic. -MRI brain showed findings concerning for pituitary mass. Differential considerations are broad and include Rathke's cleft cyst, craniopharyngioma, adenoma or other etiologies. -CT abdomen pelvis was unremarkable. -CXR without pneumonia. -HIV negative in 11/2017. -CSF appears clear, analysis not consistent with infection. -CRP=1.4 -MRI with contrasy -TTE normal EF 2) Leukocytosis: Is chronic likely related to his underlying sickle cell disease. 3) Shock/hypotension: from symptomatic bradycardia requiring dopamine. suspect underlying endocrine etiology. ?Consider cortisol level.?thyroid, other ? cardiac. Doubt sepsis 4) Sickle cell anemia: Hb 7.6 Recs: - stop ceftriaxone - no septic etiology found, shock likely from symptomatic bradycardia - Cards consult for symptomatic bradycardia - f/u cortisol and evaluate for endocrine etiology - still pending - f/u procal - f/u EBV/CMV - monitor off abx Yasmin Simon MD Infectious Diseases [facility] M [phone] O [phone] Subjective Date of service: 12/30/18 Principal diagnosis: Hypotension; ? Meningitis; Intractable Migraine; Pituitary tumor; Anemia Interval history: Patient feels better, talking, denies SOB, still on dopamine at 2 for bradycardia, c/o mild LB pain. No fever. ROS: negative except for LB pain. Objective - Exam Narrative Exam: General appearance: Alert in NAD, conversant Eyes: anicteric sclerae, moist conjunctivae; no lid-lag; PERRLA HENT: Atraumatic; oropharynx clear with moist mucous membranes and no mucosal ulcerations/no oral thrush; normal hard and soft palate. Normal external ears. Neck: Trachea midline; supple, no thyromegaly or lymphadenopathy Lungs: CTA, with normal respiratory effort and no intercostal retractions CV: bradycardic Abdomen: Soft, non-tender; no masses or hepatosplenomegaly Extremities: No peripheral edema or extremity lymphadenopathy Skin: Normal temperature, turgor and texture; no rash, ulcers or subcutaneous nodules Psych: Appropriate affect, alert and oriented to person, place and time. Neuro: alert and oriented x 3. Moving all extermities - Constitutional Vitals: Vital Signs Temp Pulse Resp BP Pulse Ox 97.1 F L 63 13 87/53 99 12/30/18 08:26 12/30/18 07:15 12/30/18 07:15 12/30/18 07:15 12/30/18 07:15 Temperature -Last 24 Hours Temperature 97.1 F Temperature 98.6 F Temperature 98.2 F Temperature 98.3 F Temperature 97.8 F Temperature 97.8 F Temperature 97.3 F Temperature 98.1 F Temperature 98.4 F Temperature 98.4 F Temperature 97.4 F Temperature 97.8 F - Labs CBC & Chem 7: 12/29/18 18:45 12/28/18 04:11 Labs: Abnormal lab results 12/29/18 12/29/18 Range/Units 11:20 18:45 Hgb 8.9 L (11.8-15.2) gm/dl Hct 25.7 L (35.5-45.6) % Crossmatch See Detail
--- NOTE | 2018-12-30 11:49 | Consultation ---
History of Present Illness Consult date: 12/30/18 Consult reason: hypotension Past History Past Medical History: other (Nicotine Dependence. Sickle cell C disease.) Past Surgical History: No surgical history, Other (recent dental extractions September, previous wisdom teeth extractions) Social history: single (no children), smoking (2 cigs per day now, 3 months ago was 1 pack every 3 days), alcohol abuse (none lately, was drinking a a 6 pack per week), other (operates [employer] in [employer] denies: prescription drug abuse, IV drug use (Marijuana when younger, never IVDA) Family history: hypertension (mother), other (no epilepsy). denies: diabetes, stroke Medications and Allergies Allergies Allergy/AdvReac Type Severity Reaction Status Date / Time naproxen [From Naprosyn] AdvReac Vomiting Verified 12/16/18 14:28 Home Medications Medication Instructions Recorded Confirmed Last Taken Type Ibuprofen [Motrin] 600 mg PO Q8H PRN #20 tablet 11/22/17 12/25/18 Unknown Rx Cetirizine HCl [ZyrTEC] 10 mg PO QAM 14 Days #14 capsule 12/16/18 12/25/18 Unknown Rx Ondansetron [Zofran Odt] 4 mg PO Q8HR #6 tab.rapdis 12/16/18 12/25/18 Unknown Rx Active Meds: Active Medications Acetaminophen (Tylenol) 325 mg PO Q4H PRN PRN Reason: Pain MILD(1-3)/Fever >100.5/LOWRY Acetaminophen/Hydrocodone Bitart (Mcdonald 5/325) 1 each PO Q4H PRN PRN Reason: Pain, Moderate (4-6) Last Admin: 12/30/18 09:48 Dose: 1 each Documented by: Albuterol (Proventil) 2.5 mg IH Q4HRT PRN PRN Reason: Shortness Of Breath Diphenhydramine HCl (Benadryl) 25 mg IV Q6H PRN PRN Reason: Itching Last Admin: 12/26/18 03:40 Dose: 25 mg Documented by: Enoxaparin Sodium (Lovenox) 40 mg SUB-Q QDAY@1000 JAMIR Last Admin: 12/30/18 09:36 Dose: 40 mg Documented by: Famotidine (Pepcid) 20 mg PO DAILY [facility] Last Admin: 12/30/18 09:36 Dose: 20 mg Documented by: Fluticasone Propionate (Flonase) 50 mcg NS QDAY [facility] Last Admin: 12/30/18 09:51 Dose: 50 mcg Documented by: Hydrocortisone Sodium Succinate (Solu-Cortef) 100 mg IV Q8HR [facility] Last Admin: 12/30/18 06:24 Dose: 100 mg Documented by: Norepinephrine (Levophed Drip 4 Mg/Ns 250 Ml) 4 mg in 250 mls @ 7.5 mls/hr IV TITR [facility]; Protocol Last Titration: 12/26/18 03:40 Dose: 0 mcg/min, 0 mls/hr Documented by: Dopamine HCl/Dextrose (Intropin Drip 800 Mg/D5w 250 Ml) 800 mg in 250 mls @ 2.333 mls/hr IV TITR [facility]; Protocol Last Titration: 12/30/18 06:15 Dose: 2 mcg/kg/min, 2.333 mls/hr Documented by: Levothyroxine Sodium (Synthroid) 112 mcg PO DAILY@0600 [facility] Last Admin: 12/30/18 06:24 Dose: 112 mcg Documented by: Loratadine (Claritin) 10 mg PO DAILY [facility] Last Admin: 12/30/18 09:36 Dose: 10 mg Documented by: Midodrine (Proamatine) 10 mg PO TID [facility] Stop: 12/31/18 08:01 Last Admin: 12/30/18 09:05 Dose: 10 mg Documented by: Ondansetron HCl (Zofran) 4 mg IV Q8H PRN PRN Reason: Nausea And Vomiting Sodium Chloride (Sodium Chloride Flush Syringe 10 Ml) 10 ml IV BID [facility] Last Admin: 12/30/18 09:37 Dose: 10 ml Documented by: Sodium Chloride (Sodium Chloride Flush Syringe 10 Ml) 10 ml IV PRN PRN PRN Reason: LINE FLUSH Physical Examination Vital Signs Temp Pulse Resp BP Pulse Ox 97.9 F 124 H 18 90/67 100 12/25/18 13:25 12/25/18 13:25 12/25/18 13:25 12/25/18 13:25 12/25/18 13:25 General appearance: no acute distress HEENT: Positive: PERRL Neck: Positive: neck supple Cardiac: Positive: Reg Rate and Rhythm Lungs: Positive: Normal Exam, clear to auscultation Neuro: Positive: Grossly Intact Abdomen: Positive: Unremarkable, Soft, Active Bowel Sounds Male genitourinary: Positive: deferred Skin: Positive: Clear Extremities: Present: normal, upper extr. pulses, lower extr. pulses Results 12/29/18 18:45 12/28/18 04:11 CBC 12/29/18 Range/Units 18:45 Hgb 8.9 L (11.8-15.2) gm/dl Hct 25.7 L (35.5-45.6) % Assessment and Plan 43yo AAM: 1. Borderline hypotension/sinus bradycardia * chronic hypotension noted from records * doubt primary cardiac etiology * TTE reveals nl lv fxn, no sig valvulopathy, no pericardial effusion * mild hypotension very likely centrally mediated 2. Pituitary tumor/Hypopituitarism 3. SIRS 4. Intractable Migraine 5. Hypothyroidism 6. Anemia 7. LUCA * resolved 8. Mild transaminitis * resolved Plan: cont ivf wean dopamine pud/dvt prophylaxis Apparently arrangements for transfer to tertiary care in progress thanks - will follow - Patient Problems (1) Head ache Current Visit: Yes Status: Acute Qualifiers: Headache type: unspecified Headache chronicity pattern: acute headache Intractability: not intractable Qualified Code(s): R51 - Headache (2) Leukocytosis Current Visit: Yes Status: Acute (3) Malnutrition Current Visit: Yes Status: Acute Qualifiers: Malnutrition type: protein-calorie malnutrition (4) Sepsis Current Visit: Yes Status: Acute Qualifiers: Sepsis type: sepsis due to unspecified organism Qualified Code(s): A41.9 - Sepsis, unspecified organism (5) PNA (pneumonia) Current Visit: No Status: Acute Qualifiers: Pneumonia type: due to unspecified organism Laterality: right Lung location: lower lobe of lung Qualified Code(s): J18.1 - Lobar pneumonia, u nspecified organism
--- NOTE | 2018-12-30 12:18 | Progress Note ---
Assessment and Plan Assessment and plan: 43 YO Male with Nicotine Dependence, SCD presents to ED for evaluation. Pt states that he has experienced headache 5/10 with a pressure-sensation coming from behind his left eye for the past 2 weeks with worsening symptoms over the past 3 days with meningeal signs and chills. He was seen initially in the ED and discharged a few days ago. Pt transported to [facility] by his family for further care and evaluation. Pt seen and evaluated in ED and found to have sepsis, malnutrition, as well as hypotension with systolic BP in the 80's. Pt admitted to [facility]. He reports shaking chills but denies back pain, trauma, neck pain, falls, hemoptysis, prolonged travel/immobility, individual/family history of DVT/PE, recent ill contacts, or HIV risk factors. Pt is Alert oriented x4 and denies pain. Pt talkative, and request dinner. Review of Records shows that the patient was recently treated for Pneumonia In November and discharged. SIRS Pitutary tumor/Hypopitiutarism Doubt Sepsis but still will continue evaluation for the same. No clear source of infection vasogenic shock vs Septic Shock Meningitis RULED OUT Intaractable Migraine Chronic Hypotension on review of records Hypothyrodisim Anemia- Precipitatious drop in Hgb LUCA secondary to vasomotor nephropathy, baseline creatinine 0.6 Throat pain/Chest pain- When placed on levophed and resolved after. Mild elevated transaminase PLAN Supportive care Give a unit of blood to see if this will help with vasogenic shock Check stool for occult blood PPI IV in the mean time Will also continue stress dose steroids Wean pressors as tolerated. XRAY Reviewed, no evidence of persistent pnuemonia Outpatient Clinic Director Continue synthroid Consult ID and critical care input noted Wean pressors DVT/GI prophy The high probability of a clinically significant, sudden or life threatening deterioration of the [vascular, endocrine] system(s) required my full and direct attention, intervention and personal management. The aggregate critical care time was [35] minutes. This time is in addition to time spent performing reported procedures but includes the following: [x] Data Review and interpretation [x] Patient assessment and monitoring of vital signs [x] Documentation [x] Medication orders and management History Interval history: Patient was examined with no acute distress NO HEADACHE TODAY Hospitalist Physical - Physical exam Narrative exam: VITAL SIGNS: Reviewed. GENERAL: The patient appeared well nourished and normally developed. Vital signs as documented. HEAD: No signs of head trauma. EYES: Pupils are equal. Extraocular motions intact. EARS: Hearing grossly intact. MOUTH: Oropharynx is normal. NECK: No adenopathy, no JVD. CHEST: Chest with clear breath sounds bilaterally. No wheezes, rales, or rhonchi. CARDIAC: Regular rate and rhythm. S1 and S2, without murmurs, gallops, or rubs. VASCULAR: No Edema. Peripheral pulses normal and equal in all extremities. ABDOMEN: Soft, without detectable tenderness. No sign of distention. No rebound or guarding, and no masses palpated. Bowel Sounds normal. MUSCULOSKELETAL: Good range of motion of all major joints. Extremities without clubbing, cyanosis or edema. NEUROLOGIC EXAM: Alert and oriented x 3. No focal sensory or strength deficits. Speech normal. Follows commands. PSYCHIATRIC: Mood normal. SKIN: No rash or lesions. - Constitutional Vitals: Temp Pulse Resp BP Pulse Ox 98.1 F 52 L 14 88/48 98 12/30/18 12:08 12/30/18 12:08 12/30/18 12:08 12/30/18 12:00 12/30/18 12:08 General appearance: Present: no acute distress Results - Labs CBC & Chem 7: 12/29/18 18:45 12/28/18 04:11 Labs: Laboratory Last Values WBC 18.4 K/mm3 (4.5-11.0) H 12/29/18 07:00 RBC 2.44 M/mm3 (3.65-5.03) L 12/29/18 07:00 Hgb 8.9 gm/dl (11.8-15.2) L 12/29/18 18:45 Hct 25.7 % (35.5-45.6) L 12/29/18 18:45 MCV 85 fl (84-94) 12/29/18 07:00 MCH 29 pg (28-32) 12/29/18 07:00 MCHC 34 % (32-34) 12/29/18 07:00 RDW 20.6 % (13.2-15.2) H 12/29/18 07:00 Plt Count 362 K/mm3 (140-440) 12/29/18 07:00 Lymph # Human Resources Benefits Administrator 12/25/18 13:39 Add Manual Diff Complete 12/27/18 09:46 Total Counted 100 12/27/18 09:46 Seg Neuts % (Manual) 60.0 % (40.0-70.0) 12/27/18 09:46 Band Neutrophils % 2.0 % 12/27/18 09:46 Lymphocytes % (Manual) 27.0 % (13.4-35.0) 12/27/18 09:46 Reactive Lymphs % (Man) 0 % 12/27/18 09:46 Monocytes % (Manual) 10.0 % (0.0-7.3) H 12/27/18 09:46 Eosinophils % (Manual) 1.0 % (0.0-4.3) 12/27/18 09:46 Basophils % (Manual) 0 % (0.0-1.8) 12/27/18 09:46 Metamyelocytes % 0 % 12/27/18 09:46 Myelocytes % 0 % 12/27/18 09:46 Promyelocytes % 0 % 12/27/18 09:46 Blast Cells % 0 % 12/27/18 09:46 Nucleated RBC % Not Reportable 12/27/18 09:46 Seg Neutrophils # Man 8.4 K/mm3 (1.8-7.7) H 12/27/18 09:46 Band Neutrophils # 0.3 K/mm3 12/27/18 09:46 Lymphocytes # (Manual) 3.8 K/mm3 (1.2-5.4) 12/27/18 09:46 Abs React Lymphs (Man) 0.0 K/mm3 12/27/18 09:46 Monocytes # (Manual) 1.4 K/mm3 (0.0-0.8) H 12/27/18 09:46 Eosinophils # (Manual) 0.1 K/mm3 (0.0-0.4) 12/27/18 09:46 Basophils # (Manual) 0.0 K/mm3 (0.0-0.1) 12/27/18 09:46 Metamyelocytes # 0.0 K/mm3 12/27/18 09:46 Myelocytes # 0.0 K/mm3 12/27/18 09:46 Promyelocytes # 0.0 K/mm3 12/27/18 09:46 Blast Cells # 0.0 K/mm3 12/27/18 09:46 Pathologist Review 12/25/18 13:39 WBC Morphology Not Reportable 12/27/18 09:46 Hypersegmented Neuts Not Reportable 12/27/18 09:46 Hyposegmented Neuts Not Reportable 12/27/18 09:46 Hypogranular Neuts Not Reportable 12/27/18 09:46 Smudge Cells Not Reportable 12/27/18 09:46 Toxic Granulation Not Reportable 12/27/18 09:46 Toxic Vacuolation Not Reportable 12/27/18 09:46 Dohle Bodies Not Reportable 12/27/18 09:46 Pelger-Huet Anomaly Not Reportable 12/27/18 09:46 Carlton Rods Not Reportable 12/27/18 09:46 Platelet Estimate Consistent w auto 12/27/18 09:46 Clumped Platelets Not Reportable 12/27/18 09:46 Plt Clumps, EDTA Not Reportable 12/27/18 09:46 Large Platelets Rare 12/27/18 09:46 Giant Platelets Not Reportable 12/27/18 09:46 Platelet Satelliting Not Reportable 12/27/18 09:46 Plt Morphology Comment Not Reportable 12/27/18 09:46 RBC Morphology Not Reportable 12/27/18 09:46 Dimorphic RBCs Not Reportable 12/27/18 09:46 Polychromasia Not Reportable 12/27/18 09:46 Hypochromasia 1+ 12/27/18 09:46 Poikilocytosis Not Reportable 12/27/18 09:46 Anisocytosis 1+ 12/27/18 09:46 Microcytosis Not Reportable 12/27/18 09:46 Macrocytosis Few 12/27/18 09:46 Spherocytes Not Reportable 12/27/18 09:46 Pappenheimer Bodies Not Reportable 12/27/18 09:46 Sickle Cells Not Reportable 12/27/18 09:46 Target Cells 1+ 12/27/18 09:46 Tear Drop Cells Not Reportable 12/27/18 09:46 Ovalocytes Not Reportable 12/27/18 09:46 Helmet Cells Not Reportable 12/27/18 09:46 Antunez-Hazelton Bodies Not Reportable 12/27/18 09:46 [place] Rings Not Reportable 12/27/18 09:46 Reuben Cells Not Reportable 12/27/18 09:46 Bite Cells Not Reportable 12/27/18 09:46 Crenated Cell Not Reportable 12/27/18 09:46 Elliptocytes Not Reportable 12/27/18 09:46 Acanthocytes (Spur) Not Reportable 12/27/18 09:46 Rouleaux Not Reportable 12/27/18 09:46 Hemoglobin C Crystals Not Reportable 12/27/18 09:46 Schistocytes Not Reportable 12/27/18 09:46 Malaria parasites Not Reportable 12/27/18 09:46 Percent Retic 6.45 % (0.78-2.58) H 12/25/18 13:39 Obdulio Bodies Not Reportable 12/27/18 09:46 Hem Pathologist Commnt No 12/27/18 09:46 PT 13.7 Sec. (12.2-14.9) 12/26/18 09:15 INR 0.99 (0.87-1.13) 12/26/18 09:15 APTT 30.9 Sec. (24.2-36.6) 12/26/18 09:15 VBG pH 7.408 (7.320-7.420) 12/25/18 14:17 Sodium 138 mmol/L (137-145) 12/28/18 04:11 Potassium 4.9 mmol/L (3.6-5.0) D 12/28/18 04:11 Chloride 97.8 mmol/L (98-107) L 12/28/18 04:11 Carbon Dioxide 29 mmol/L (22-30) 12/28/18 04:11 Anion Gap 16 mmol/L 12/28/18 04:11 BUN 5 mg/dL (9-20) L 12/28/18 04:11 Creatinine 0.6 mg/dL (0.8-1.5) L 12/28/18 04:11 Estimated GFR > 60 ml/min 12/28/18 04:11 BUN/Creatinine Ratio 8 % 12/28/18 04:11 Glucose 173 mg/dL (75-100) H 12/28/18 04:11 Lactic Acid 1.40 mmol/L (0.7-2.0) 12/26/18 01:16 Calcium 8.2 mg/dL (8.4-10.2) L 12/28/18 04:11 Total Bilirubin 1.50 mg/dL (0.1-1.2) H 12/27/18 09:46 AST 33 units/L (5-40) 12/27/18 09:46 ALT 17 units/L (7-56) 12/27/18 09:46 Alkaline Phosphatase 77 units/L (35-129) 12/27/18 09:46 Total Creatine Kinase 44 units/L (55-170) L 12/28/18 00:07 CK-MB (CK-2) < 1.0 ng/mL (0.0-4.0) 12/28/18 00:07 CK-MB (CK-2) Rel Index 2.2 (0-4) 12/28/18 00:07 Troponin T < 0.010 ng/mL (0.00-0.029) 12/28/18 00:07 C-Reactive Protein 1.40 mg/dL (0.00-1.30) H 12/28/18 04:11 Total Protein 6.3 g/dL (6.3-8.2) 12/27/18 09:46 Albumin 3.6 g/dL (3.9-5) L 12/27/18 09:46 Albumin/Globulin Ratio 1.3 % 12/27/18 09:46 TSH 0.025 mlU/mL (0.270-4.200) L 12/27/18 16:00 Free T4 0.37 ng/dL (0.76-1.46) L 12/27/18 16:00 Urine Color Yellow (Yellow) 12/25/18 15:50 Urine Turbidity Clear (Clear) 12/25/18 15:50 Urine pH 5.0 (5.0-7.0) 12/25/18 15:50 Ur Specific [place] 1.027 (1.003-1.030) 12/25/18 15:50 Urine Protein <15 mg/dl mg/dL (Negative) 12/25/18 15:50 Urine Glucose (UA) Neg mg/dL (Negative) 12/25/18 15:50 Urine Ketones Neg mg/dL (Negative) 12/25/18 15:50 Urine Blood Neg (Negative) 12/25/18 15:50 Urine Nitrite Neg (Negative) 12/25/18 15:50 Urine Bilirubin Neg (Negative) 12/25/18 15:50 Urine Urobilinogen < 2.0 mg/dL (<2.0) 12/25/18 15:50 Ur Leukocyte Esterase Neg (Negative) 12/25/18 15:50 Urine WBC (Auto) 3.0 /HPF (0.0-6.0) 12/25/18 15:50 Urine RBC (Auto) 2.0 /HPF (0.0-6.0) 12/25/18 15:50 CSF Appearance Clear 12/26/18 11:00 CSF Color Colorless 12/26/18 11:00 CSF WBC 3.0 /mm3 (1-10) 12/26/18 11:00 CSF RBC 4.0 /mm3 (0-0) 12/26/18 11:00 CSF Seg Neutrophils 0 % (0-6) 12/26/18 11:00 CSF Lymphocytes % 80.0 % (40-80) 12/26/18 11:00 CSF Reactive Lymphs 0 % 12/26/18 11:00 CSF Monocytes % 20.0 % (15-45) 12/26/18 11:00 CSF Eosinophils % 0 % 12/26/18 11:00 CSF Basophils 0 % 12/26/18 11:00 CSF Pathologist Review C 12/26/18 11:00 CSF Glucose 68 mg/dL 12/26/18 11:00 CSF Total Protein 45 mg/dL 12/26/18 11:00 CSF VDRL Nonreactive (Nonreactive) 12/26/18 11:00 Urine Opiates Screen Presumptive negative 12/25/18 21:25 Urine Methadone Screen Presumptive negative 12/25/18 21:25 Ur Barbiturates Screen Presumptive negative 12/25/18 21:25 Ur Phencyclidine Scrn Presumptive negative 12/25/18 21:25 Ur Amphetamines Screen Presumptive negative 12/25/18 21:25 U Benzodiazepines Scrn Presumptive negative 12/25/18 21:25 Urine Cocaine Screen Presumptive negative 12/25/18 21:25 U Marijuana (THC) Screen Presumptive negative 12/25/18 21:25 Drugs of Abuse Note Disclamer 12/25/18 21:25 Blood Type O POSITIVE 12/29/18 11:20 Antibody Screen Negative 12/29/18 11:20 Crossmatch See Detail 12/29/18 11:20
--- NOTE | 2018-12-30 17:53 | Progress Note ---
Assessment and Plan Hypotension ? Meningitis Intractable Migraine Pituitary tumor Anemia LUCA secondary to vasomotor nephropathy, baseline creatinine 0.6 Throat pain/Chest pain Mild elevated transaminase - continue with stress dose steroids - continue midodrine in short term - continue gentle volume resuscitation - seen by neurology - needs endocrinology evaluation - continue empiric AB's for now - CRP & Lactate levels unremarkable; doubt true infectious process - ID consulted - 2D ECHO unremarkable - cardiology evaluation ongoing - anemia w/up per attending - GI & VTE prophylaxis - Flu & pneumovax per protocol .... re-evaluate in am & prn Subjective Date of service: 12/30/18 Principal diagnosis: Hypotension; ? Meningitis; Intractable Migraine; Pituitary tumor; Anemia Interval history: Patient is seen today for: Hypotension; ? Meningitis; Intractable Migraine; Pituitary tumor; Anemia Seen and examined at bedside; 24hour events reviewed; nursing and respiratory care staff consulted; no adverse overnight events reported to me; resting peacefully in bed; off dopamine; No N/V/F/C Objective Vital Signs - 12hr 12/30/18 12/30/18 12/30/18 06:00 06:15 06:30 Temperature Pulse Rate 50 L 50 L 53 L Pulse Rate [ Right Radial] Respiratory 11 L 9 L 10 L Rate Blood Pressure 95/48 91/51 88/51 O2 Sat by Pulse 100 99 99 Oximetry 12/30/18 12/30/18 12/30/18 06:45 07:00 07:15 Temperature Pulse Rate 49 L 48 L 63 Pulse Rate [ Right Radial] Respiratory 10 L 11 L 13 Rate Blood Pressure 94/50 92/51 87/53 O2 Sat by Pulse 99 99 99 Oximetry 12/30/18 12/30/18 12/30/18 07:30 07:45 08:00 Temperature Pulse Rate 49 L 53 L 61 Pulse Rate [ 52 L Right Radial] Respiratory 12 10 L 12 Rate Blood Pressure 99/57 92/60 95/48 O2 Sat by Pulse 99 98 100 Oximetry 12/30/18 12/30/18 12/30/18 08:15 08:26 08:31 Temperature 97.1 F L Pulse Rate 62 63 Pulse Rate [ Right Radial] Respiratory 10 L 17 Rate Blood Pressure 91/60 91/60 O2 Sat by Pulse 100 98 Oximetry 12/30/18 12/30/18 12/30/18 08:45 09:00 09:15 Temperature Pulse Rate 53 L 59 L 58 L Pulse Rate [ Right Radial] Respiratory 9 L 8 L 15 Rate Blood Pressure 89/50 75/51 100/61 O2 Sat by Pulse 100 100 100 Oximetry 12/30/18 12/30/18 12/30/18 09:31 09:45 10:00 Temperature Pulse Rate 64 72 73 Pulse Rate [ Right Radial] Respiratory 12 12 14 Rate Blood Pressure 96/56 109/73 109/73 O2 Sat by Pulse 100 97 99 Oximetry 12/30/18 12/30/18 12/30/18 10:15 10:31 10:45 Temperature Pulse Rate 67 64 64 Pulse Rate [ Right Radial] Respiratory 17 16 15 Rate Blood Pressure 84/49 88/48 85/51 O2 Sat by Pulse 100 99 99 Oximetry 12/30/18 12/30/18 12/30/18 11:00 11:15 11:30 Temperature Pulse Rate 57 L 58 L 53 L Pulse Rate [ Right Radial] Respiratory 8 L 14 13 Rate Blood Pressure 89/52 86/49 86/53 O2 Sat by Pulse 99 98 99 Oximetry 12/30/18 12/30/18 12/30/18 11:45 12:00 12:08 Temperature 98.1 F Pulse Rate 55 L 54 L Pulse Rate [ 56 L Right Radial] Respiratory 12 11 L 14 Rate Blood Pressure 88/47 88/48 O2 Sat by Pulse 98 98 98 Oximetry 12/30/18 12/30/18 12/30/18 12:15 12:30 12:45 Temperature Pulse Rate 53 L 53 L 58 L Pulse Rate [ Right Radial] Respiratory 12 13 12 Rate Blood Pressure 86/48 88/50 83/53 O2 Sat by Pulse 98 98 99 Oximetry 12/30/18 12/30/18 12/30/18 13:00 13:15 13:30 Temperature Pulse Rate 62 53 L 49 L Pulse Rate [ Right Radial] Respiratory 11 L 15 13 Rate Blood Pressure 92/61 97/59 103/65 O2 Sat by Pulse 97 100 99 Oximetry 12/30/18 12/30/18 12/30/18 13:45 14:00 14:15 Temperature Pulse Rate 52 L 50 L 52 L Pulse Rate [ Right Radial] Respiratory 15 13 14 Rate Blood Pressure 103/62 97/62 100/63 O2 Sat by Pulse 99 99 98 Oximetry 12/30/18 12/30/18 12/30/18 14:30 14:45 15:00 Temperature Pulse Rate 59 L 60 53 L Pulse Rate [ Right Radial] Respiratory 16 12 14 Rate Blood Pressure 92/60 97/62 93/58 O2 Sat by Pulse 100 100 99 Oximetry 12/30/18 12/30/18 12/30/18 15:15 15:30 15:45 Temperature Pulse Rate 49 L 51 L 51 L Pulse Rate [ Right Radial] Respiratory 10 L 11 L 10 L Rate Blood Pressure 101/67 101/65 97/58 O2 Sat by Pulse 99 100 100 Oximetry 12/30/18 12/30/18 12/30/18 16:00 16:15 16:31 Temperature Pulse Rate 46 L 49 L 50 L Pulse Rate [ 49 L Right Radial] Respiratory 15 9 L 12 Rate Blood Pressure 97/58 101/65 94/59 O2 Sat by Pulse 99 98 99 Oximetry 12/30/18 12/30/18 12/30/18 16:45 17:01 17:15 Temperature Pulse Rate 61 51 L 54 L Pulse Rate [ Right Radial] Respiratory 14 14 17 Rate Blood Pressure 94/59 106/65 O2 Sat by Pulse 98 99 100 Oximetry Constitutional: no acute distress, alert, other (middle aged AAM, normocephalic and atraumatic with normal respiratory effort at rest) Eyes: non-icteric ENT: oropharynx moist, other (mallampati 2) Neck: supple, no lymphadenopathy, no JVD, other (no thyromegaly) Effort: normal Ascultation: Bilateral: clear Percussion: Bilateral: not dull Cardiovascular: regular rate and rhythm Gastrointestinal: normoactive bowel sounds, soft, non-tender, non-distended Integumentary: normal Extremities: no cyanosis, no edema, pulses normal, no ischemia or petechiae Neurologic: normal mental status, non-focal exam, pupils equal and round, motor strength normal and Psychiatric: mood appropriate, affect normal CBC and BMP: 12/29/18 18:45 12/28/18 04:11 ABG, PT/INR, D-dimer: PT/INR, D-dimer PT 13.7 Sec. (12.2-14.9) 12/26/18 09:15 INR 0.99 (0.87-1.13) 12/26/18 09:15 Abnormal lab findings: Abnormal Labs 12/25/18 12/25/1812/25/19 13:39 13:39 13:39 WBC 18.6 H RBC 2.92 L Hgb 8.4 L Hct 24.4 L MCHC RDW 18.4 H Plt Count Monocytes % (Manual) Seg Neutrophils # Man 11.2 H Monocytes # (Manual) 1.3 H Eosinophils # (Manual) Basophils # (Manual) 0.2 H Percent Retic 6.45 H Sodium Chloride 95.9 L BUN 25 H Creatinine Glucose Calcium Total Bilirubin 1.30 H AST 47 H Total Creatine Kinase C-Reactive Protein Albumin TSH Free T4 Crossmatch 12/26/18 12/26/18 12/27/18 08:45 08:45 09:46 WBC 16.5 H 14.0 H RBC 2.66 L 2.60 L Hgb 7.6 L 7.6 L Hct 22.7 L 22.4 L MCHC RDW 19.5 H 20.7 H Plt Count Monocytes % (Manual) 10.0 H Seg Neutrophils # Man 11.4 H 8.4 H Monocytes # (Manual) 1.0 H 1.4 H Eosinophils # (Manual) 0.5 H Basophils # (Manual) Percent Retic Sodium 147 H D Chloride 110.6 H BUN Creatinine Glucose Calcium 8.2 L Total Bilirubin AST Total Creatine Kinase C-Reactive Protein Albumin TSH Free T4 Crossmatch 12/27/18 12/27/18 12/27/18 09:46 16:00 16:00 WBC RBC Hgb Hct MCHC RDW Plt Count Monocytes % (Manual) Seg Neutrophils # Man Monocytes # (Manual) Eosinophils # (Manual) Basophils # (Manual) Percent Retic Sodium Chloride BUN 4 L Creatinine Glucose Calcium 8.3 L Total Bilirubin 1.50 H AST Total Creatine Kinase 45 L C-Reactive Protein Albumin 3.6 L TSH Free T4 0.37 L Crossmatch 12/27/18 12/28/18 12/28/18 16:00 00:07 04:11 WBC 13.4 H RBC 2.63 L Hgb 7.8 L Hct 22.3 L MCHC 35 H RDW 20.6 H Plt Count 451 H Monocytes % (Manual) Seg Neutrophils # Man Monocytes # (Manual) Eosinophils # (Manual) Basophils # (Manual) Percent Retic Sodium Chloride BUN Creatinine Glucose Calcium Total Bilirubin AST Total Creatine Kinase 44 L C-Reactive Protein Albumin TSH 0.025 L Free T4 Crossmatch 12/28/18 12/28/18 12/29/18 04:11 04:11 07:00 WBC 18.4 H RBC 2.44 L Hgb 7.0 L Hct 20.8 L MCHC RDW 20.6 H Plt Count Monocytes % (Manual) Seg Neutrophils # Man Monocytes # (Manual) Eosinophils # (Manual) Basophils # (Manual) Percent Retic Sodium Chloride 97.8 L BUN 5 L Creatinine 0.6 L Glucose 173 H Calcium 8.2 L Total Bilirubin AST Total Creatine Kinase C-Reactive Protein 1.40 H Albumin TSH Free T4 Crossmatch 12/29/18 12/29/18 11:20 18:45 WBC RBC Hgb 8.9 L Hct 25.7 L MCHC RDW Plt Count Monocytes % (Manual) Seg Neutrophils # Man Monocytes # (Manual) Eosinophils # (Manual) Basophils # (Manual) Percent Retic Sodium Chloride BUN Creatinine Glucose Calcium Total Bilirubin AST Total Creatine Kinase C-Reactive Protein Albumin TSH Free T4 Crossmatch See Detail Allied health notes reviewed: nursing
[2018-12-31] MEDS: SYNTHROID PO SCH (05:13)
[2018-12-31] MEDS ORDERED: LOVENOX SUB-Q SCH (06:00)
--- NOTE | 2018-12-31 09:16 | Progress Note ---
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 No evidence of meningitis on CSF. No fever. Leucocytosis is probably chronic. -MRI brain showed findings concerning for pituitary mass. Differential considerations are broad and include Rathke's cleft cyst, craniopharyngioma, adenoma or other etiologies. -CT abdomen pelvis was unremarkable. -CXR without pneumonia. -HIV negative in 11/2017. -CSF appears clear, analysis not consistent with infection. -CRP=1.4 -MRI with contrasy -TTE normal EF 2) Leukocytosis: Is chronic likely related to his underlying sickle cell disease. 3) Shock/hypotension: from symptomatic bradycardia requiring dopamine. suspect underlying endocrine etiology. ?Consider cortisol level.?thyroid, other ? cardiac. Doubt sepsis 4) Sickle cell anemia Recs: - f/u cortisol and evaluate for endocrine etiology - still pending - f/u procal - pending - f/u EBV/CMV - pending - monitor off abx - needs endocrinology evaluation Will sign off Yasmin Simon MD Infectious Diseases [employer] [facility] M [phone] O [phone] Subjective Date of service: 12/31/18 Principal diagnosis: Hypotension; ? Meningitis; Intractable Migraine; Pituitary tumor; Anemia Interval history: Patient feels better, talking, sitting up, no headaches, denies SOB, off dopamine gtt, no pain. No fever. ROS: negative Objective - Exam Narrative Exam: General appearance: Alert in NAD, conversant, pleasant Eyes: anicteric sclerae, moist conjunctivae; no lid-lag; PERRLA HENT: Atraumatic; oropharynx clear with moist mucous membranes and no mucosal ulcerations/no oral thrush; normal hard and soft palate. Normal external ears. Neck: Trachea midline; supple, no thyromegaly or lymphadenopathy Lungs: CTA, with normal respiratory effort and no intercostal retractions CV: bradycardic Abdomen: Soft, non-tender; no masses or hepatosplenomegaly Extremities: No peripheral edema or extremity lymphadenopathy Skin: Normal temperature, turgor and texture; no rash, ulcers or subcutaneous nodules Psych: Appropriate affect, alert and oriented to person, place and time. Neuro: alert and oriented x 3. Moving all extermities - Constitutional Vitals: Vital Signs Temp Pulse Resp BP Pulse Ox 98.8 F 54 L 14 107/70 100 12/31/18 04:09 12/31/18 08:30 12/31/18 08:30 12/31/18 08:30 12/31/18 08:30 Temperature -Last 24 Hours Temperature 98.8 F Temperature 98.7 F Temperature 98.8 F Temperature 98.1 F - Labs CBC & Chem 7: 12/29/18 18:45 12/28/18 04:11 Labs: Abnormal lab results 12/27/18 Range/Units 16:00 T3 (MEHUL) 46 L (76-181) ng/dL
[2018-12-31] MEDS: PEPCID PO SCH (09:20)
[2018-12-31] MEDS: CLARITIN PO SCH (09:20)
[2018-12-31] MEDS: FLONASE NS SCH (09:21)
[2018-12-31] MEDS: PROAMATINE PO SCH (09:21)
[2018-12-31] MEDS: SODIUM CHLORIDE FLUSH SYRINGE 10 ML IV SCH (09:22)
[2018-12-31 12:51] VITALS: BP 91/53
--- NOTE | 2018-12-31 14:21 | Discharge Summary ---
Providers - Providers Date of Admission: 12/25/18 16:56 Attending physician: BEVERLY OLIVO MD 12/26/18 08:11 Consult to Physician [CONS] Routine Comment: Consulting Provider: MARIBEL BERMEO Physician Instructions: Reason For Exam: septic shock 12/26/18 11:07 Consult to Physician [CONS] Routine Comment: Consulting Provider: IRMA HILL Physician Instructions: Reason For Exam: meningitis 12/27/18 12:17 Consult to Physician [CONS] Routine Comment: Consulting Provider: IRMA HILL Physician Instructions: Reason For Exam: septic shock 12/27/18 12:28 Consult to Physician [CONS] Routine Comment: Consulting Provider: KATHRYN GOMEZ Physician Instructions: Reason For Exam: headache; abnormal MRI 12/27/18 12:40 Consult to PICC Line RN [CONS] Routine Reason For Exam: Central IV access Type Line:: PICC 12/29/18 16:44 Consult to Physician [CONS] Routine Comment: Consulting Provider: RIVERA ZARATE Physician Instructions: Reason For Exam: Bradycardia [facility] Reason for admission: MIGRAINE Condition: Stable Hospital course: 43 YO Male with Nicotine Dependence, SCD presents to ED for evaluation. Pt states that he has experienced headache 5/10 with a pressure-sensation coming from behind his left eye for the past 2 weeks with worsening symptoms over the past 3 days with meningeal signs and chills. He was seen initially in the ED and discharged a few days ago. Pt transported to [facility] by his family for further care and evaluation. Pt seen and evaluated in ED and found to have sepsis, malnutrition, as well as hypotension with systolic BP in the 80's. Pt admitted to [facility]. He reports shaking chills but denies back pain, trauma, neck pain, falls, hemoptysis, prolonged travel/immobility, individual/family history of DVT/PE, recent ill contacts, or HIV risk factors. Pt is Alert oriented x4 and denies pain. Pt talkative, and request dinner. Review of Records shows that the patient was recently treated for Pneumonia In November and discharged. Patient was started on treatment for infection with ID and subsequently stopped. Imaging studies revealed Pituitary macroadenoma and this was discussed with the patient. We were able to wean him off dopamine and started on levathyroxine following stress dose steroids. TTE reveals nl lv fxn, no sig valvulopathy, no pericardial effusion * SIRS Pitutary tumor/Hypopitiutarism Pituitary Macro Adenoma Bradycardia Doubt Sepsis but still will continue evaluation for the same. No clear source of infection vasogenic shock vs Septic Shock Meningitis RULED OUT Intaractable Migraine Chronic Hypotension on review of records Hypothyrodisim Anemia- Precipitatious drop in Hgb LUCA secondary to vasomotor nephropathy, baseline creatinine 0.6 Throat pain/Chest pain- When placed on levophed and resolved after. Mild elevated transaminase Malnutrition Disposition: DC-01 TO HOME OR SELFCARE Time spent for discharge: 35 mins Core Measure Documentation - Palliative Care Palliative Care/ Comfort Measures: Not Applicable - Core Measures Any of the following diagnoses?: none Exam - Physical Exam Narrative exam: VITAL SIGNS: Reviewed. GENERAL: The patient appeared well nourished and normally developed. Vital signs as documented. HEAD: No signs of head trauma. EYES: Pupils are equal. Extraocular motions intact. EARS: Hearing grossly intact. MOUTH: Oropharynx is normal. NECK: No adenopathy, no JVD. CHEST: Chest with clear breath sounds bilaterally. No wheezes, rales, or rhonchi. CARDIAC: Regular rate and rhythm. S1 and S2, without murmurs, gallops, or rubs. VASCULAR: No Edema. Peripheral pulses normal and equal in all extremities. ABDOMEN: Soft, without detectable tenderness. No sign of distention. No rebound or guarding, and no masses palpated. Bowel Sounds normal. MUSCULOSKELETAL: Good range of motion of all major joints. Extremities without clubbing, cyanosis or edema. NEUROLOGIC EXAM: Alert and oriented x 3. No focal sensory or strength deficits. Speech normal. Follows commands. PSYCHIATRIC: Mood normal. SKIN: No rash or lesions. - Constitutional Vitals: Temp Pulse Resp BP Pulse Ox 97.6 F 71 17 91/53 100 12/31/18 12:54 12/31/18 12:30 12/31/18 12:30 12/31/18 12:30 12/31/18 12:30 Plan Activity: advance as tolerated, fall precautions Diet: regular Special Instructions: record daily weights, record daily BP diary Follow up with: LEXIE DIAZ MD [Primary Care Provider] - 3-5 Days DEBORAH WOODS MD [Referring] - 7 Days Forms: Work/School Release Form Prescriptions: Levothyroxine [Synthroid] 112 mcg PO DAILY@0600 #30 tablet Loratadine [Claritin] 10 mg PO DAILY #30 tablet Midodrine [Proamatine] 5 mg PO TID@0800,1200,1600 #30 tablet
--- NOTE | 2018-12-31 14:40 | Progress Note ---
Assessment and Plan 43yo AAM: 1. Borderline hypotension/sinus bradycardia * chronic hypotension noted from records * doubt primary cardiac etiology * TTE reveals nl lv fxn, no sig valvulopathy, no pericardial effusion * mild hypotension very likely centrally mediated 2. Pituitary tumor/Hypopituitarism 3. SIRS 4. Intractable Migraine 5. Hypothyroidism 6. Anemia 7. LUCA * resolved 8. Mild transaminitis * resolved Plan: currently stable cardiac status. weaned off dopamine gtt. Apparently arrangements for transfer to tertiary care in progress The patient has been seen in conjunction with Dr. Zimmerman who agrees with the assessment and plan of care. - Patient Problems (1) Head ache Current Visit: Yes Status: Acute Qualifiers: Headache type: unspecified Headache chronicity pattern: acute headache Intractability: not intractable Qualified Code(s): R51 - Headache (2) Leukocytosis Current Visit: Yes Status: Acute (3) Malnutrition Current Visit: Yes Status: Acute Qualifiers: Malnutrition type: protein-calorie malnutrition (4) Sepsis Current Visit: Yes Status: Acute Qualifiers: Sepsis type: sepsis due to unspecified organism Qualified Code(s): A41.9 - Sepsis, unspecified organism (5) PNA (pneumonia) Current Visit: No Status: Acute Qualifiers: Pneumonia type: due to unspecified organism Laterality: right Lung location: lower lobe of lung Qualified Code(s): J18.1 - Lobar pneumonia, unspecified organism Subjective Date of service: 12/31/18 Principal diagnosis: Hypotension; ? Meningitis; Intractable Migraine; Pituitary tumor; Anemia Interval history: pt sitting at bedside, no current complaints. in SR on telemetry. off dopamine gtt. Objective Last Vital Signs Temp 97.6 F 12/31/18 12:54 Pulse 71 12/31/18 12:30 Resp 17 12/31/18 12:30 BP 91/53 12/31/18 12:30 Pulse Ox 100 12/31/18 12:30 - Physical Examination HEENT: Positive: PERRL Neck: Positive: neck supple Neuro: Positive: Grossly Intact Abdomen: Positive: Unremarkable, Soft, Active Bowel Sounds Skin: Positive: Clear Extremities: Present: normal, upper extr. pulses, lower extr. pulses - Allied health notes Allied health notes reviewed: nursing
[2018-12-31] MEDS ORDERED: PROAMATINE PO SCH (16:00)
== END 2018-12-31 17:15 | disposition home or self-care (01) | DRG 871 ==
LOC: ED 12:57 → 3A 16:56 → IMCU 20:25 → CC1 22:39 → 3A 12-31 14:19
PROVIDERS: ADMIT Internal Medicine; ATTEND Internal Medicine
PROC: 06HY33Z Insertion of Infusion Device into Lower Vein, Percutaneous Approach (ICD-10-PCS; principal; 2018-12-25)
PROC: 009U3ZZ Drainage of Spinal Canal, Percutaneous Approach (ICD-10-PCS; 2018-12-26)
PROC: B01B1ZZ Fluoroscopy of Spinal Cord using Low Osmolar Contrast (ICD-10-PCS; 2018-12-26)
PROC: 02HV33Z Insertion of Infusion Device into Superior Vena Cava, Percutaneous Approach (ICD-10-PCS; 2018-12-27)
PROC: 30233N1 Transfusion of Nonautologous Red Blood Cells into Peripheral Vein, Percutaneous Approach (ICD-10-PCS; 2018-12-29)
DX: A41.9 Sepsis, unspecified organism (principal); N17.0 Acute kidney failure with tubular necrosis; J18.1 Lobar pneumonia, unspecified organism; R65.21 Severe sepsis with septic shock; E23.0 Hypopituitarism; E46 Unspecified protein-calorie malnutrition; Z68.1 Body mass index [BMI] 19.9 or less, adult; D57.1 Sickle-cell disease without crisis; F17.210 Nicotine dependence, cigarettes, uncomplicated; D35.2 Benign neoplasm of pituitary gland; R07.0 Pain in throat; F10.10 Alcohol abuse, uncomplicated; Y90.0 Blood alcohol level of less than 20 mg/100 ml; G43.919 Migraine, unspecified, intractable, without status migrainosus; E03.9 Hypothyroidism, unspecified; R74.0 Nonspecific elevation of levels of transaminase and lactic acid dehydrogenase [LDH]; Z82.49 Family history of ischemic heart disease and other diseases of the circulatory system; Z88.8 Allergy status to other drugs, medicaments and biological substances; Z79.51 Long term (current) use of inhaled steroids; Z79.899 Other long term (current) drug therapy
CPT/HCPCS: 36415; 62270; 70470; 70551; 71045; 74177; 77003; 80048; 80053; 80307; 81001; 82024; 82140; 82533; 82550; 82553; 82805; 82947; 82962; 84146; 84160; 84305; 84439; 84443; 84480; 84484; 85007; 85014; 85018; 85025; 85027; 85045; 85610; 85730; 86140; 86592; 86665; 86850; 86900; 86901; 86920; 87040; 87086; 87116; 87497; 87498; 87799; 89051; 93005; 93010; 93306; 96361; 96365; 96366; 96367; 96375; G0378; A9577; J0133; J0696; J1200; J1265; J1650; J1720; J2765; J3370; J7030; J7040; J7042; J7050; P9016; Q0162; Q9967

== ENCOUNTER 2019-01-02 21:42 | Emergency (ER) | payer BC ==
--- NOTE | 2019-01-02 22:03 | Emergency Department Report ---
Blank Doc - Documentation Documentation: Left hip, knee and ankle pain. Patient recently discharged on 12/31/18. Hx/o SCD Pituitary Tumor This initial assessment diagnostic orders/clinical plan/treatment (s) is/Are subject change based on patient's health status, clinical progression and re- assessment by fellow clinical providers in the ED. Further treatment and work-up at subsequent clinical providers discretion. Patient/guardians urged not to elope from s their condition may be serious if not clinically assessed and managed. Initial order include:
[2019-01-02 22:27] LABS: Hematocrit 29.5 % (35.5-45.6); Hemoglobin 10.6 gm/dl (11.8-15.2); Mean Corpuscular HGB Conc 36 % (32-34); Mean Corpuscular Volume 88 fl (84-94); Platelet Count 328 K/mm3 (140-440); Red Blood Count 3.36 M/mm3 (3.65-5.03)
[2019-01-02 22:34] LABS: Red Cell Distribution Width 20.1 % (13.2-15.2)
[2019-01-02 22:48] LABS: Alanine Aminotransferase 42 units/L (7-56); Albumin 4.2 g/dL (3.9-5); BUN/Creatinine Ratio 10; Blood Urea Nitrogen 11 mg/dL (9-20); Calcium 8.2 mg/dL (8.4-10.2); Hemolysis Index 5
[2019-01-02 22:55] LABS: Basophils % (Manual) 0 % (0.0-1.8); Total Cells Counted 100
[2019-01-02 22:57] LABS: Anisocytosis 1+; Target Cells 2+
[2019-01-02 22:58] LABS: Spherocytes Few
--- NOTE | 2019-01-02 23:48 | XRay Report ---
FINAL REPORT PROCEDURE: XR ANKLE 2V LT TECHNIQUE: LEFT ankle radiographs, AP and lateral views. HISTORY: ankle pain COMPARISON: No prior studies are available for comparison. FINDINGS: Fracture (s) and/or Dislocation(s): None. Alignment: Normal. Joint space(s): Normal. Soft tissues: Normal. Bone mineralization: Normal. Foreign bodies: Normal. Calcaneal spurring: Normal. IMPRESSION: Normal Examination .
--- NOTE | 2019-01-02 23:50 | XRay Report ---
FINAL REPORT PROCEDURE: XR KNEE 3V LT TECHNIQUE: LEFT knee radiographs, AP, lateral and sunrise views. CPT 34833 HISTORY: knee pain COMPARISON: No prior studies are available for comparison. FINDINGS: Fracture (s) and/or Dislocation(s): None . Alignment: Normal . Joint space(s): Normal . Soft tissues: Normal . Bone mineralization: Normal . Foreign bodies: None . IMPRESSION: Normal Examination.
--- NOTE | 2019-01-02 23:51 | XRay Report ---
FINAL REPORT PROCEDURE: XR HIP 2-3V LT TECHNIQUE: LEFT hip radiographs, 2 views each, including AP view of the pelvis. HISTORY: hip pain COMPARISON: No prior studies are available for comparison. FINDINGS: Fracture (s) and/or Dislocation(s): None . Joint space(s): Normal. Soft tissues: Normal. Bone mineralization: Normal. Foreign bodies: None. IMPRESSION: Normal Examination.
--- NOTE | 2019-01-02 23:55 | Emergency Department Report ---
ED General Adult HPI - General Chief complaint: Pain General Stated complaint: BODY PAIN Time Seen by Provider: 01/02/19 21:51 Source: patient Mode of arrival: Ambulatory Limitations: No Limitations - History of Present Illness Initial comments: Emergency on male patient discharged from this hospital 2 days ago following admission for meningitis. Patient states he is supposed to return to work tonight however his work excuse does not reflect that he should have work restrictions and be on light duty. Patient here requesting work excuse. 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 Patient does not want pain meds. Radiation: non-radiation Severity scale (0 -10): 7 Quality: aching Improves with: immobilization Worsens with: movement Associated Symptoms: denies other symptoms - Related Data Previous Rx's Medication Instructions Recorded Last Taken Type Ibuprofen [Motrin 600 MG tab] 600 mg PO Q8H PRN #20 tablet 11/22/17 Unknown Rx Cetirizine HCl [ZyrTEC] 10 mg PO QAM 14 Days #14 capsule 12/16/18 Unknown Rx Ondansetron [Zofran ODT TAB] 4 mg PO Q8HR #6 tab.rapdis 12/16/18 Unknown Rx Fluticasone [Flonase] 50 mcg NS QDAY bottle 12/31/18 Unknown Rx Levothyroxine [Synthroid] 112 mcg PO DAILY@0600 #30 tablet 12/31/18 Unknown Rx Loratadine [Claritin] 10 mg PO DAILY #30 tablet 12/31/18 Unknown Rx Midodrine [Proamatine] 5 mg PO TID@0800,1200,1600 #30 12/31/18 Unknown Rx tablet Allergies Allergy/AdvReac Type Severity Reaction Status Date / Time naproxen [From Naprosyn] AdvReac Vomiting Verified 12/16/18 14:28 ED Review of Systems ROS: Stated complaint: BODY PAIN Other details as noted in HPI Comment: All other systems reviewed and negative Constitutional: denies: chills, fever Musculoskeletal: arthralgia ED Past Medical Hx - Past Medical History Hx Congestive Heart Failure: No Hx Diabetes: No Hx Deep Vein Thrombosis: No Hx Sickle Cell Disease: Yes Hx Asthma: No Hx COPD: No Additional medical history: pneumonia - Surgical History Past Surgical History?: No Hx Pacemaker: No Hx Internal Defibrillator: No - Social History Smoking Status: Current Every Day Smoker Substance Use Type: None - Medications Home Medications: Home Medications Medication Instructions Recorded Confirmed Last Taken Type Ibuprofen [Motrin 600 MG tab] 600 mg PO Q8H PRN #20 tablet 11/22/17 12/25/18 Unknown Rx Cetirizine HCl [ZyrTEC] 10 mg PO QAM 14 Days #14 capsule 12/16/18 12/25/18 Unknown Rx Ondansetron [Zofran ODT TAB] 4 mg PO Q8HR #6 tab.rapdis 12/16/18 12/25/18 Unknown Rx Fluticasone [Flonase] 50 mcg NS QDAY bottle 12/31/18 Unknown Rx Levothyroxine [Synthroid] 112 mcg PO DAILY@0600 #30 tablet 12/31/18 Unknown Rx Loratadine [Claritin] 10 mg PO DAILY #30 tablet 12/31/18 Unknown Rx Midodrine [Proamatine] 5 mg PO TID@0800,1200,1600 #30 12/31/18 Unknown Rx tablet ED Physical Exam - General Limitations: No Limitations General appearance: alert, in no apparent distress - Head Head exam: Present: atraumatic, normocephalic - Eye Eye exam: Present: normal appearance - ENT ENT exam: Present: mucous membranes moist - Neck Neck exam: Present: normal inspection - Respiratory Respiratory exam: Present: normal lung sounds bilaterally. Absent: respiratory distress - Cardiovascular Cardiovascular Exam: Present: regular rate, normal rhythm - GI/Abdominal GI/Abdominal exam: Present: soft. Absent: distended - Extremities Exam Extremities exam: Present: normal inspection - Neurological Exam Neurological exam: Present: alert, oriented X3, CN II-XII intact - Psychiatric Psychiatric exam: Present: normal affect, normal mood - Skin Skin exam: Present: warm, dry, intact, normal color. Absent: rash ED Course Vital Signs 01/02/19 01/03/19 21:51 00:05 Temperature 98.4 F 98.1 F Pulse Rate 138 H 89 Respiratory 20 16 Rate Blood Pressure 110/76 Blood Pressure 106/69 [Left] O2 Sat by Pulse 96 99 Oximetry ED Medical Decision Making - Lab Data Result diagrams: 01/02/19 22:07 01/02/19 22:07 Critical care attestation.: If time is entered above; I have spent that time in minutes in the direct care of this critically ill patient, excluding procedure time. ED Disposition Clinical Impression: Arthralgia Disposition: DC-01 TO HOME OR SELFCARE Is pt being admited?: No Condition: Stable Referrals: DENISHA PHILIP MD [Primary Care Provider] - 3-5 Days [facility] [Provider Group] - 3-5 Days Forms: Work/School Release Form(ED) Time of Disposition: 23:47
[2019-01-03 00:07] VITALS: BP 106/69
== END 2019-01-03 00:05 | disposition home or self-care (01) ==
LOC: ED 21:42
DX: M25.50 Pain in unspecified joint (principal); D57.80 Other sickle-cell disorders without crisis; F17.200 Nicotine dependence, unspecified, uncomplicated; Z88.6 Allergy status to analgesic agent
CPT/HCPCS: 36415; 80053; 85007; 85025; 99283

== ENCOUNTER 2019-06-16 13:54 | Emergency (ER) | payer BC ==
[2019-06-16 14:14] VITALS: BP 107/47
[2019-06-16] MEDS ORDERED: BOOSTRIX IM ONE (14:14)
--- NOTE | 2019-06-16 14:14 | Emergency Department Report ---
Blank Doc - Documentation Documentation: This is a 43-year-old male that presents with right sided upper back pain and redness after believe being bite by something. Denies bieng UTD with tetanus. This initial assessment/diagnostic orders/clinical plan/treatment(s) is/are subject to change based on patient's health status, clinical progression and re- assessment by fellow clinical providers in the ED. Further treatment and workup at subsequent clinical providers discretion. Patient/guardians urged not to elope from the ED as their condition may be serious if not clinically assessed and managed. Initial orders include: 1- Patient sent to [facility] for further evaluation and treatment
--- NOTE | 2019-06-16 15:39 | Emergency Department Report ---
ED General Adult HPI - General Chief complaint: Animal Bite Stated complaint: BITTEN BY SOMETHING Time Seen by Provider: 06/16/19 14:13 Source: patient Mode of arrival: Ambulatory Limitations: No Limitations - History of Present Illness Initial comments: Patient is a 43-year-old -[place] male who has itching and pain to his right mid back just below the clavicle. Patient feels as though something bit him earlier today. Patient states that that the pain is 7 out of 10 in severity. Denies any nausea vomiting or cough cold congestion or difficulty breathing or swallowing. - Related Data Previous Rx's Medication Instructions Recorded Last Taken Type Ibuprofen [Motrin 600 MG tab] 600 mg PO Q8H PRN #20 tablet 11/22/17 Unknown Rx Cetirizine HCl [ZyrTEC 10mg cap] 10 mg PO QAM 14 Days #14 capsule 12/16/18 Unknown Rx Ondansetron [Zofran ODT TAB] 4 mg PO Q8HR #6 tab.rapdis 12/16/18 Unknown Rx Fluticasone [Flonase] 50 mcg NS QDAY bottle 12/31/18 Unknown Rx Levothyroxine [Synthroid] 112 mcg PO DAILY@0600 #30 tablet 12/31/18 Unknown Rx Loratadine [Claritin] 10 mg PO DAILY #30 tablet 12/31/18 Unknown Rx Midodrine [Proamatine] 5 mg PO TID@0800,1200,1600 #30 12/31/18 Unknown Rx tablet Sulfamethoxazole/Trimethoprim 1 each PO BID #14 tablet 06/16/19 Unknown Rx [Bactrim DS TAB] diphenhydrAMINE [Benadryl CAP] 25 mg PO Q6HR PRN #12 capsule 06/16/19 Unknown Rx predniSONE [Deltasone] 20 mg PO QDAY #5 tab 06/16/19 Unknown Rx traMADol [Ultram] 50 mg PO Q6HR PRN #12 tablet 06/16/19 Unknown Rx Allergies Allergy/AdvReac Type Severity Reaction Status Date / Time naproxen [From Naprosyn] AdvReac Vomiting Verified 12/16/18 14:28 ED Review of Systems ROS: Stated complaint: BITTEN BY SOMETHING Other details as noted in HPI Comment: All other systems reviewed and negative ED Past Medical Hx - Past Medical History Previous Medical History?: Yes Hx Congestive Heart Failure: No Hx Diabetes: No Hx Deep Vein Thrombosis: No Hx Sickle Cell Disease: Yes Hx Asthma: No Hx COPD: No Additional medical history: pneumonia - Surgical History Past Surgical History?: No Hx Pacemaker: No Hx Internal Defibrillator: No - Social History Smoking Status: Current Every Day Smoker Substance Use Type: None - Medications Home Medications: Home Medications Medication Instructions Recorded Confirmed Last Taken Type Ibuprofen [Motrin 600 MG tab] 600 mg PO Q8H PRN #20 tablet 11/22/17 12/25/18 Unknown Rx Cetirizine HCl [ZyrTEC 10mg cap] 10 mg PO QAM 14 Days #14 capsule 12/16/18 12/25/18 Unknown Rx Ondansetron [Zofran ODT TAB] 4 mg PO Q8HR #6 tab.rapdis 12/16/18 12/25/18 Unknown Rx Fluticasone [Flonase] 50 mcg NS QDAY bottle 12/31/18 Unknown Rx Levothyroxine [Synthroid] 112 mcg PO DAILY@0600 #30 tablet 12/31/18 Unknown Rx Loratadine [Claritin] 10 mg PO DAILY #30 tablet 12/31/18 Unknown Rx Midodrine [Proamatine] 5 mg PO TID@0800,1200,1600 #30 12/31/18 Unknown Rx tablet Sulfamethoxazole/Trimethoprim 1 each PO BID #14 tablet 06/16/19 Unknown Rx [Bactrim DS TAB] diphenhydrAMINE [Benadryl CAP] 25 mg PO Q6HR PRN #12 capsule 06/16/19 Unknown Rx predniSONE [Deltasone] 20 mg PO QDAY #5 tab 06/16/19 Unknown Rx traMADol [Ultram] 50 mg PO Q6HR PRN #12 tablet 06/16/19 Unknown Rx ED Physical Exam - General Limitations: No Limitations General appearance: alert, in no apparent distress - Head Head exam: Present: atraumatic, normocephalic - Eye Eye exam: Present: normal appearance. Absent: PERRL, EOMI - ENT ENT exam: Present: mucous membranes moist - Neck Neck exam: Present: normal inspection - Respiratory Respiratory exam: Present: normal lung sounds bilaterally. Absent: respiratory distress, wheezes, rales, rhonchi - Cardiovascular Cardiovascular Exam: Present: regular rate, normal rhythm. Absent: systolic murmur, diastolic murmur, rubs, gallop - GI/Abdominal GI/Abdominal exam: Present: soft, normal bowel sounds - Rectal Rectal exam: Present: deferred - Extremities Exam Extremities exam: Present: normal inspection - Back Exam Back exam: Present: normal inspection - Neurological Exam Neurological exam: Present: alert, oriented X3 - Psychiatric Psychiatric exam: Present: normal affect, normal mood - Skin Skin exam: Present: warm, dry, intact, normal color, rash (he has a regular shaped tennis ball sized area of induration with warmth to the right mid back.) ED Course Vital Signs 06/16/19 14:13 Temperature 98.7 F Pulse Rate 104 H Respiratory 18 Rate Blood Pressure 107/47 O2 Sat by Pulse 100 Oximetry ED Medical Decision Making - Medical Decision Making Patient is a 43-year-old black male who states he feels though he was bitten by something earlier today. Patient did not see an actual insect on him. Patient is noted to have a large area of erythema forms. This could be a localized reaction secondary to insect bite however patient could have this developed a cellulitis which just became symptomatic. Patient to be started on Benadryl and prednisone but also antibiotics for the possibility of this area being affected. Patient discharged home in stable condition. Critical care attestation.: If time is entered above; I have spent that time in minutes in the direct care of this critically ill patient, excluding procedure time. ED Disposition Clinical Impression: Insect bite Qualifiers: Encounter type: initial encounter Site of insect bite: thoracic wall Site of insect bite of thoracic wall: back wall Laterality: right Qualified Code(s): S20.461A - Insect bite (nonvenomous) of right back wall of thorax, initial encounter; W57.XXXA - Bitten or stung by nonvenomous insect and other nonvenomous arthropods, initial encounter Cellulitis Qualifiers: Site of cellulitis: trunk Site of cellulitis of trunk: back Qualified Code(s): L03.312 - Cellulitis of back [any part except buttock] Disposition: -01 TO HOME OR SELFCARE Is pt being admited?: No Does the pt Need Aspirin: No Condition: Stable Instructions: Insect Bite or Sting (ED), Cellulitis (ED) Referrals: LEXIE DIAZ MD [Referring] - 3-5 Days Time of Disposition: 15:39
== END 2019-06-16 15:51 | disposition home or self-care (01) ==
LOC: ED 13:54
DX: S20.461A Insect bite (nonvenomous) of right back wall of thorax, initial encounter (principal); L03.312 Cellulitis of back [any part except buttock and flank]; F17.200 Nicotine dependence, unspecified, uncomplicated; Z79.899 Other long term (current) drug therapy; Z88.8 Allergy status to other drugs, medicaments and biological substances; W57.XXXA Bitten or stung by nonvenomous insect and other nonvenomous arthropods, initial encounter; Y93.89 Activity, other specified; Y92.89 Other specified places as the place of occurrence of the external cause; Y99.8 Other external cause status
CPT/HCPCS: 90471; 90715; 99282

== ENCOUNTER 2019-09-26 19:39 | Inpatient (IN) | payer BC ==
--- NOTE | 2019-09-26 21:00 | Event Note ---
ED Screening Note Date of service: 09/26/19 Time: 20:56 ED Screening Note: 44 y o male with sickle cell presents with acute chest apin with low back pain This initial assessment/diagnostic orders/clinical plan/treatment(s) is/are subject to change based on patients health status, clinical progression and re- assessment by fellow clinical providers in the ED. Further treatment and workup at subsequent clinical providers discretion. Patient/guardian urged not to elope from the ED as their condition may be serious if not clinically assessed and managed. Initial orders include: labs
[2019-09-26 21:43] LABS: Hematocrit 27.4 % (35.5-45.6); Hemoglobin 9.4 gm/dl (11.8-15.2); Mean Corpuscular HGB Conc 34 % (32-34); Mean Corpuscular Volume 80 fl (84-94); Platelet Count 398 K/mm3 (140-440); Red Blood Count 3.42 M/mm3 (3.65-5.03)
[2019-09-26 21:44] LABS: Red Cell Distribution Width 21.6 % (13.2-15.2)
--- NOTE | 2019-09-26 21:56 | XRay Report ---
CHEST PA AND LATERAL VIEWS INDICATION: Chest pain. COMPARISON: 12/27/2018. FINDINGS: Support devices: None. Heart: Within normal limits. Lungs/Pleura: There is consolidative change in the left lung base with associated small left pleural effusion. Minimal pleural parenchymal disease is noted in the right lung base. IMPRESSION: 1. Pleural-parenchymal disease in the left lower hemithorax is concerning for pneumonia with parapneu soco effusion. Similar but milder changes are present on the right. Follow-up is recommended. Signer Name: Emiliano Joaquin MD Signed: 09/26/2019 9:52 PM Workstation Name: [id number]
[2019-09-26 22:11] LABS: Basophils % (Manual) 0 % (0.0-1.8); Eosinophils % (Manual) 0 % (0.0-4.3); Total Cells Counted 100
[2019-09-26 22:12] LABS: Anisocytosis 1+; Target Cells 2+
[2019-09-26] MEDS ORDERED: SODIUM CHLORIDE 0.9% 1000 ML IV SOLN IV ONE ×2 (23:47→23:50)
[2019-09-26] MEDS ORDERED: PIPERACIL/TAZOBACTA 4.5/NS 100 4.5 GM/100 ML VIAL IV ONE (23:48)
[2019-09-27] MEDS ORDERED: ONDANSETRON 4 MG/2 ML INJ IV ONE (00:07)
[2019-09-27] MEDS ORDERED: MORPHINE 4 MG/1 ML INJ IV ONE (00:07)
[2019-09-27 00:40] LABS: Alanine Aminotransferase 8 units/L (7-56); Albumin 4.3 g/dL (3.9-5); BUN/Creatinine Ratio 9; Blood Urea Nitrogen 7 mg/dL (9-20); Calcium 9.1 mg/dL (8.4-10.2); Hemolysis Index 4
--- NOTE | 2019-09-27 00:43 | Emergency Department Report ---
ED General Adult HPI - General Chief complaint: Chest Pain Stated complaint: LOWER BACK PAIN, CHEST PAIN, WOODROW Time Seen by Provider: 09/26/19 23:46 Source: patient Mode of arrival: Ambulatory Limitations: No Limitations - History of Present Illness Initial comments: 44-year-old male just the hospital complaining of left-sided chest and flank pain 1 week. Pain is intermittent, sharp, moderate in intensity, worse with movement, deep inspiration, palpation, certain positions. Patient denies fever but having chills. Denies cough. Reports a history of sickle cell disease but is unsure what type of sickle cell he has. He states he was diagnosed in 1994 and has intermittent pain to leg swelling to the hands but has never required a blood transfusion. 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 Severity scale (0 -10): 8 - Related Data Previous Rx's Medication Instructions Recorded Last Taken Type Ibuprofen [Motrin 600 MG tab] 600 mg PO Q8H PRN #20 tablet 11/22/17 Unknown Rx Cetirizine HCl [ZyrTEC 10mg cap] 10 mg PO QAM 14 Days #14 capsule 12/16/18 Unknown Rx Ondansetron [Zofran ODT TAB] 4 mg PO Q8HR #6 tab.rapdis 12/16/18 Unknown Rx Fluticasone [Flonase] 50 mcg NS QDAY bottle 12/31/18 Unknown Rx Levothyroxine [Synthroid] 112 mcg PO DAILY@0600 #30 tablet 12/31/18 Unknown Rx Loratadine [Claritin] 10 mg PO DAILY #30 tablet 12/31/18 Unknown Rx Midodrine [Proamatine] 5 mg PO TID@0800,1200,1600 #30 12/31/18 Unknown Rx tablet Sulfamethoxazole/Trimethoprim 1 each PO BID #14 tablet 06/16/19 Unknown Rx [Bactrim DS TAB] diphenhydrAMINE [Benadryl CAP] 25 mg PO Q6HR PRN #12 capsule 06/16/19 Unknown Rx predniSONE [Deltasone] 20 mg PO QDAY #5 tab 06/16/19 Unknown Rx traMADoL [Ultram] 50 mg PO Q6HR PRN #12 tablet 06/16/19 Unknown Rx Allergies Allergy/AdvReac Type Severity Reaction Status Date / Time naproxen [From Naprosyn] AdvReac Vomiting Verified 12/16/18 14:28 ED Review of Systems ROS: Stated complaint: LOWER BACK PAIN, CHEST PAIN, WOODROW Other details as noted in HPI Comment: All other systems reviewed and negative ED Past Medical Hx - Past Medical History Previous Medical History?: Yes Hx Congestive Heart Failure: No Hx Diabetes: No Hx Deep Vein Thrombosis: No Hx Sickle Cell Disease: Yes Hx Asthma: No Hx COPD: No Additional medical history: pneumonia - Surgical History Past Surgical History?: No Hx Pacemaker: No Hx Internal Defibrillator: No - Social History Smoking Status: Current Every Day Smoker Substance Use Type: None - Medications Home Medications: Home Medications Medication Instructions Recorded Confirmed Last Taken Type Ibuprofen [Motrin 600 MG tab] 600 mg PO Q8H PRN #20 tablet 11/22/17 12/25/18 Unknown Rx Cetirizine HCl [ZyrTEC 10mg cap] 10 mg PO QAM 14 Days #14 capsule 12/16/18 12/25/18 Unknown Rx Ondansetron [Zofran ODT TAB] 4 mg PO Q8HR #6 tab.rapdis 12/16/18 12/25/18 Unknown Rx Fluticasone [Flonase] 50 mcg NS QDAY bottle 12/31/18 Unknown Rx Levothyroxine [Synthroid] 112 mcg PO DAILY@0600 #30 tablet 12/31/18 Unknown Rx Loratadine [Claritin] 10 mg PO DAILY #30 tablet 12/31/18 Unknown Rx Midodrine [Proamatine] 5 mg PO TID@0800,1200,1600 #30 12/31/18 Unknown Rx tablet Sulfamethoxazole/Trimethoprim 1 each PO BID #14 tablet 06/16/19 Unknown Rx [Bactrim DS TAB] diphenhydrAMINE [Benadryl CAP] 25 mg PO Q6HR PRN #12 capsule 06/16/19 Unknown Rx predniSONE [Deltasone] 20 mg PO QDAY #5 tab 06/16/19 Unknown Rx traMADoL [Ultram] 50 mg PO Q6HR PRN #12 tablet 06/16/19 Unknown Rx ED Physical Exam - General Limitations: No Limitations - Other Other exam information: General: No acute distress Head: Atraumatic Eyes: normal appearance ENT: Moist mucous membranes Neck: Normal appearance, no midline tenderness Chest: Crackles left base, no tachypnea or accessory muscle use CV: Tachycardic regular rhythm Abdomen: Soft, normal bowel sounds, nontender, nondistended, no rebound or guarding Back: Normal inspection Extremity: Normal inspection infection, full range of motion, no calf tenderness or leg edema Neuro: Alert O x 3, no facial asymmetry, speech clear, no gross motor sensory deficit Psych: Appropriate behavior Skin: No rash ED Course Vital Signs 09/26/19 19:58 Temperature 99.5 F Pulse Rate 111 H Respiratory 20 Rate Blood Pressure 100/68 O2 Sat by Pulse 94 Oximetry ED Medical Decision Making - Lab Data Result diagrams: 09/26/19 21:19 09/26/19 23:54 Lab Results 09/26/19 09/26/19 09/26/19 Range/Units 21:19 23:54 23:54 WBC 23.9 H (4.5-11.0) K/mm3 RBC 3.42 L (3.65-5.03) M/mm3 Hgb 9.4 L (11.8-15.2) gm/dl Hct 27.4 L (35.5-45.6) % MCV 80 L (84-94) fl MCH 28 (28-32) pg MCHC 34 (32-34) % RDW 21.6 H (13.2-15.2) % Plt Count 398 (140-440) K/mm3 Add Manual Diff Complete Total Counted 100 Seg Neuts % (Manual) 79.0 H (40.0-70.0) % Band Neutrophils % 0 % Lymphocytes % (Manual) 13.0 L (13.4-35.0) % Reactive Lymphs % (Man) 0 % Monocytes % (Manual) 8.0 H (0.0-7.3) % Eosinophils % (Manual) 0 (0.0-4.3) % Basophils % (Manual) 0 (0.0-1.8) % Metamyelocytes % 0 % Myelocytes % 0 % Promyelocytes % 0 % Blast Cells % 0 % Nucleated RBC % Not Reportable Seg Neutrophils # Man 18.9 H (1.8-7.7) K/mm3 Band Neutrophils # 0.0 K/mm3 Lymphocytes # (Manual) 3.1 (1.2-5.4) K/mm3 Abs React Lymphs (Man) 0.0 K/mm3 Monocytes # (Manual) 1.9 H (0.0-0.8) K/mm3 Eosinophils # (Manual) 0.0 (0.0-0.4) K/mm3 Basophils # (Manual) 0.0 (0.0-0.1) K/mm3 Metamyelocytes # 0.0 K/mm3 Myelocytes # 0.0 K/mm3 Promyelocytes # 0.0 K/mm3 Blast Cells # 0.0 K/mm3 WBC Morphology Not Reportable Hypersegmented Neuts Not Reportable Hyposegmented Neuts Not Reportable Hypogranular Neuts Not Reportable Smudge Cells Not Reportable Toxic Granulation Not Reportable Toxic Vacuolation Not Reportable Dohle Bodies Not Reportable Pelger-Huet Anomaly Not Reportable Carlton Rods Not Reportable Platelet Estimate Appears normal Clumped Platelets Not Reportable Plt Clumps, EDTA Not Reportable Large Platelets Not Reportable Giant Platelets Not Reportable Platelet Satelliting Not Reportable Plt Morphology Comment Not Reportable RBC Morphology Not Reportable Dimorphic RBCs Not Reportable Polychromasia Not Reportable Hypochromasia Not Reportable Poikilocytosis Not Reportable Anisocytosis 1+ Microcytosis Not Reportable Macrocytosis Not Reportable Spherocytes Not Reportable Pappenheimer Bodies Not Reportable Sickle Cells Not Reportable Target Cells 2+ Tear Drop Cells Not Reportable Ovalocytes Not Reportable Helmet Cells Not Reportable Antunez-[place] Bodies Not Reportable Starbuck Rings Not Reportable Reuben Cells Not Reportable Bite Cells Not Reportable Crenated Cell Not Reportable Elliptocytes Not Reportable Acanthocytes (Spur) Not Reportable Rouleaux Not Reportable Hemoglobin C Crystals Not Reportable Schistocytes Not Reportable Malaria parasites Not Reportable Percent Retic 4.56 H (0.78-2.58) % Obdulio Bodies Not Reportable Hem Pathologist Commnt No APTT 34.5 (24.2-36.6) Sec. VBG pH (7.320-7.420) Sodium 135 L (137-145) mmol/L Potassium 4.1 (3.6-5.0) mmol/L Chloride 95.2 L (98-107) mmol/L Carbon Dioxide 24 (22-30) mmol/L Anion Gap 20 mmol/L BUN 7 L (9-20) mg/dL Creatinine 0.8 (0.8-1.5) mg/dL Estimated GFR > 60 ml/min BUN/Creatinine Ratio 9 % Glucose 89 (75-100) mg/dL Lactic Acid (0.7-2.0) mmol/L Calcium 9.1 (8.4-10.2) mg/dL Total Bilirubin 1.20 (0.1-1.2) mg/dL AST 16 (5-40) units/L ALT 8 (7-56) units/L Alkaline Phosphatase 109 (35-129) units/L Total Protein 7.6 (6.3-8.2) g/dL Albumin 4.3 (3.9-5) g/dL Albumin/Globulin Ratio 1.3 % 09/26/19 09/26/19 Range/Units 23:54 23:54 WBC (4.5-11.0) K/mm3 RBC (3.65-5.03) M/mm3 Hgb (11.8-15.2) gm/dl Hct (35.5-45.6) % MCV (84-94) fl MCH (28-32) pg MCHC (32-34) % RDW (13.2-15.2) % Plt Count (140-440) K/mm3 Add Manual Diff Total Counted Seg Neuts % (Manual) (40.0-70.0) % Band Neutrophils % % Lymphocytes % (Manual) (13.4-35.0) % Reactive Lymphs % (Man) % Monocytes % (Manual) (0.0-7.3) % Eosinophils % (Manual) (0.0-4.3) % Basophils % (Manual) (0.0-1.8) % Metamyelocytes % % Myelocytes % % Promyelocytes % % Blast Cells % % Nucleated RBC % Seg Neutrophils # Man (1.8-7.7) K/mm3 Band Neutrophils # K/mm3 Lymphocytes # (Manual) (1.2-5.4) K/mm3 Abs React Lymphs (Man) K/mm3 Monocytes # (Manual) (0.0-0.8) K/mm3 Eosinophils # (Manual) (0.0-0.4) K/mm3 Basophils # (Manual) (0.0-0.1) K/mm3 Metamyelocytes # K/mm3 Myelocytes # K/mm3 Promyelocytes # K/mm3 Blast Cells # K/mm3 WBC Morphology Hypersegmented Neuts Hyposegmented Neuts Hypogranular Neuts Smudge Cells Toxic Granulation Toxic Vacuolation Dohle Bodies Pelger-Huet Anomaly Carlton Rods Platelet Estimate Clumped Platelets Plt Clumps, EDTA Large Platelets Giant Platelets Platelet Satelliting Plt Morphology Comment RBC Morphology Dimorphic RBCs Polychromasia Hypochromasia Poikilocytosis Anisocytosis Microcytosis Macrocytosis Spherocytes Pappenheimer Bodies Sickle Cells Target Cells Tear Drop Cells Ovalocytes Helmet Cells Antunez-[place] Bodies Starbuck Rings Reuben Cells Bite Cells Crenated Cell Elliptocytes Acanthocytes (Spur) Rouleaux Hemoglobin C Crystals Schistocytes Malaria parasites Percent Retic (0.78-2.58) % Obdulio Bodies Hem Pathologist Commnt APTT (24.2-36.6) Sec. VBG pH 7.383 (7.320-7.420) Sodium (137-145) mmol/L Potassium (3.6-5.0) mmol/L Chloride (98-107) mmol/L Carbon Dioxide (22-30) mmol/L Anion Gap mmol/L BUN (9-20) mg/dL Creatinine (0.8-1.5) mg/dL Estimated GFR ml/min BUN/Creatinine Ratio % Glucose (75-100) mg/dL Lactic Acid 1.10 (0.7-2.0) mmol/L Calcium (8.4-10.2) mg/dL Total Bilirubin (0.1-1.2) mg/dL AST (5-40) units/L ALT (7-56) units/L Alkaline Phosphatase (35-129) units/L Total Protein (6.3-8.2) g/dL Albumin (3.9-5) g/dL Albumin/Globulin Ratio % - EKG Data -: EKG Interpreted by [facility] EKG shows normal: sinus rhythm, ST-T waves (no stemi) Rate: normal (97) - Radiology Data Radiology results: report reviewed CHEST PA AND LATERAL VIEWS INDICATION: Chest pain. COMPARISON: 12/27/2018. FINDINGS: Support devices: None. Heart: Within normal limits. Lungs/Pleura: There is consolidative change in the left lung base with associated small left pleural effusion. Minimal pleural parenchymal disease is noted in the right lung base. IMPRESSION: 1. Pleural-parenchymal disease in the left lower hemithorax is concerning for pneumonia with parapneumonic effusion. Similar but milder changes are present on the right. Follow-up is recommended. - Medical Decision Making Patient has an effusion and infiltrate left lower lung. No signs of septic shock at this time. Treated with Zosyn, pain medication, and IV fluids. Hospitalist informed for admission - Differential Diagnosis PE, pneumonia, pneumothorax, UTI Critical Care Time: No Critical care attestation.: If time is entered above; I have spent that time in minutes in the direct care of this critically ill patient, excluding procedure time. ED Disposition Clinical Impression: Left lower lobe pneumonia, Pleural effusion on left Disposition: DC-09 OP ADMIT IP TO THIS HOSP Is pt being admited?: Yes Condition: Stable Time of Disposition: 00:43 (Dr lima/hosp)
[2019-09-27] MEDS ORDERED: MORPHINE 2 MG/1 ML INJ IV PRN (01:23)
[2019-09-27] MEDS ORDERED: ONDANSETRON 4 MG/2 ML INJ IV PRN (01:23)
--- NOTE | 2019-09-27 01:27 | History and Physical Report ---
History of Present Illness Date of examination: 09/27/19 History of present illness: 44 -year-old history of sickle cell emergency room complaining of left lateral thoracic pain 1 week. Pain is pleuritic, sharp for surgery inspiration, no cough, complains of chills, shortness of breath, no fever, no joint pain or pre vious admission for sickle cell. Patient received IV fluids and antibiotics in the emergency room Review of systems Constitutional: no weight loss, chills, fever Ears, eyes, nose, mouth and throat: no nasal congestion, no nasal discharge, no sinus pressure, no vision change, no red eye. Neck: No neck pain or rigidity. Cardiovascular: no chest pain, palpitations Respiratory: no cough Gastrointestinal: no abdominal pain hematochezia Genitourinary : no frequency , no hematuria Musculoskeletal: no joint swelling or muscle ache Integumentary: no rash, no pruritis Neurological: no parathesias, no numbness, no focal weakness Endocrine: no cold or heat intolerance, no polyuria or polydipsia Hematologic/Lymphatic: no easy bruising, no easy bleeding, no gland swelling Allergic/Immunologic: no urticaria, no angioedema. PAST MEDICAL HISTORY: sickle cell PAST SURGICAL HISTORY: None SOCIAL HISTORY:Social alcohol, no drugs, smoke 1/2 pack a day FAMILY HISTORY: Hypertension Medications and Allergies Allergies Allergy/AdvReac Type Severity Reaction Status Date / Time naproxen [From Naprosyn] AdvReac Vomiting Verified 12/16/18 14:28 Home Medications Medication Instructions Recorded Confirmed Last Taken Type Cetirizine HCl [ZyrTEC 10mg cap] 10 mg PO QAM 14 Days #14 capsule 12/16/18 09/27/19 Unknown Rx Fluticasone [Flonase] 50 mcg NS QDAY bottle 12/31/18 09/27/19 Unknown Rx Levothyroxine [Synthroid] 112 mcg PO DAILY@0600 #30 tablet 12/31/18 09/27/19 Unknown Rx Loratadine [Claritin] 10 mg PO DAILY #30 tablet 12/31/18 09/27/19 Unknown Rx Midodrine [Proamatine] 5 mg PO TID@0800,1200,1600 #30 12/31/18 09/27/19 Unknown Rx tablet Active Meds: Active Medications Acetaminophen (Tylenol) 650 mg PO Q4H PRN PRN Reason: Pain MILD(1-3)/Fever >100.5/LOWRY Enoxaparin Sodium (Enoxaparin) 30 mg SUB-Q QDAY JAMIR Sodium Chloride (Nacl 0.9% 1000 Ml) 1,000 mls @ 125 mls/hr IV DIRECT JAMIR Piperacillin Sod/Tazobactam Sod (Zosyn/Ns 4.5gm/100ml) 4.5 gm in 100 mls @ 200 mls/hr IV Q8HR JAMIR; Protocol Morphine Sulfate (Morphine) 2 mg IV Q4H PRN PRN Reason: Pain, Moderate (4-6) Ondansetron HCl (Zofran) 4 mg IV Q8H PRN PRN Reason: Nausea And Vomiting Sodium Chloride (Sodium Chloride Flush Syringe 10 Ml) 10 ml IV BID JAMIR Sodium Chloride (Sodium Chloride Flush Syringe 10 Ml) 10 ml IV PRN PRN PRN Reason: LINE FLUSH Exam - Physical Exam Narrative exam: Gen. appearance: Patient lying in bed, no apparent distress HEENT: Normocephalic, atraumatic, pupils equally round and reactive to light, extraocular movement intact, and no sclericterus,. No JVD or thyromegaly or nodule,neck supple, no carotid bruit ,mucous membranes moist, no exudate or erythema Heart: S1, S2, regular rate and rhythm Lungs: Crackles bilaterally,lrft > right, breathing comfortable Abdomen: Positive bowel sounds, non-tender, nondistended, no organomegaly Extremity:no edema cyanosis, clubbing Skin: no rash, dry, warm Neuro: Oriented 3, cranial nerves II-12 intact, speech is fluent, motor and sensory intact - Constitutional Vitals: Temp Pulse Resp BP Pulse Ox 99.5 F 111 H 20 100/68 94 09/26/19 19:58 09/26/19 19:58 09/26/19 19:58 09/26/19 19:58 09/26/19 19:58 Results - Labs CBC & Chem 7: 09/27/19 Unknown 09/27/19 02:40 Labs: Abnormal lab results 09/26/19 09/26/19 Range/Units : 23:54 WBC 23.9 H (4.5-11.0) K/mm3 RBC 3.42 L (3.65-5.03) M/mm3 Hgb 9.4 L (11.8-15.2) gm/dl Hct 27.4 L (35.5-45.6) % MCV 80 L (84-94) fl RDW 21.6 H (13.2-15.2) % Seg Neuts % (Manual) 79.0 H (40.0-70.0) % Lymphocytes % (Manual) 13.0 L (13.4-35.0) % Monocytes % (Manual) 8.0 H (0.0-7.3) % Seg Neutrophils # Man 18.9 H (1.8-7.7) K/mm3 Monocytes # (Manual) 1.9 H (0.0-0.8) K/mm3 Percent Retic 4.56 H (0.78-2.58) % Sodium 135 L (137-145) mmol/L Chloride 95.2 L (98-107) mmol/L BUN 7 L (9-20) mg/dL - Imaging and Cardiology Chest x-ray: report reviewed Assessment and Plan Assessment Parapneumonic effusion Plan Admit medicine Start IV fluids, IV Zosyn, follow cultures Consult pulmonary, IV morphine for pain DVT prophylaxis
[2019-09-27 02:40] LABS: Bilirubin,Urine NEG (Negative); Blood,Urine NEG (Negative); Color,Urine Yellow (Yellow); Mucus,Urine FEW /HPF; Protein,Urine <15 mg/dL mg/dL (Negative); Urobilinogen,Urine < 2.0 mg/dL (<2.0)
[2019-09-27 02:58] LABS: Hematocrit 23.7 % (35.5-45.6); Mean Corpuscular HGB Conc 34 % (32-34); Mean Corpuscular Volume 80 fl (84-94); Platelet Count 328 K/mm3 (140-440); Red Blood Count 2.96 M/mm3 (3.65-5.03)
[2019-09-27 03:04] LABS: Red Cell Distribution Width 21.6 % (13.2-15.2)
[2019-09-27] MEDS ORDERED: SODIUM CHLORIDE 0.9% 1000 ML 1,000 ML ONE (03:13)
[2019-09-27 03:14] LABS: BUN/Creatinine Ratio 8; Blood Urea Nitrogen 6 mg/dL (9-20); Calcium 7.6 mg/dL (8.4-10.2); Hemolysis Index 4
[2019-09-27] MEDS: SODIUM CHLORIDE 0.9% 1000 ML 1,000 ML IV SCH ×3 (03:14→18:46)
[2019-09-27 03:55] LABS: Basophils % (Manual) 0 % (0.0-1.8); Eosinophils % (Manual) 0 % (0.0-4.3); Total Cells Counted 100
[2019-09-27 03:56] LABS: Anisocytosis 1+
[2019-09-27 03:59] LABS: Target Cells 1+
[2019-09-27 04:00] LABS: Macrocytosis Few; Platelet Estimate Consistent w Auto
[2019-09-27] MEDS: PIPERACIL/TAZOBACTA 4.5/NS 100 4.5 GM/100 ML VIAL IV SCH ×3 (06:29→22:46)
[2019-09-27] MEDS ORDERED: ENOXAPARIN 30 MG/0.3 ML INJ SUB-Q SCH (10:00)
--- NOTE | 2019-09-27 11:28 | Consultation ---
History of Present Illness Consult date: 09/27/19 Requesting physician: EDUARD GRAJEDA Reason for consult: pleural effusion, abnormal CXR/CT Medications and Allergies Allergies Allergy/AdvReac Type Severity Reaction Status Date / Time naproxen [From Naprosyn] AdvReac Vomiting Verified 12/16/18 14:28 Home Medications Medication Instructions Recorded Confirmed Last Taken Type Cetirizine HCl [ZyrTEC 10mg cap] 10 mg PO QAM 14 Days #14 capsule 12/16/18 09/27/19 Unknown Rx Fluticasone [Flonase] 50 mcg NS QDAY bottle 12/31/18 09/27/19 Unknown Rx Levothyroxine [Synthroid] 112 mcg PO DAILY@0600 #30 tablet 12/31/18 09/27/19 Unknown Rx Loratadine [Claritin] 10 mg PO DAILY #30 tablet 12/31/18 09/27/19 Unknown Rx Midodrine [Proamatine] 5 mg PO TID@0800,1200,1600 #30 12/31/18 09/27/19 Unknown Rx tablet Active Meds: Active Medications Acetaminophen (Tylenol) 650 mg PO Q4H PRN PRN Reason: Pain MILD(1-3)/Fever >100.5/LOWRY Enoxaparin Sodium (Enoxaparin) 40 mg SUB-Q QDAY@1000 JAMIR Sodium Chloride (Nacl 0.9% 1000 Ml) 1,000 mls @ 125 mls/hr IV DIRECT JAMIR Last Admin: 09/27/19 09:48 Dose: 125 mls/hr Documented by: Piperacillin Sod/Tazobactam Sod (Zosyn/Ns 4.5gm/100ml) 4.5 gm in 100 mls @ 200 mls/hr IV Q8HR JAMIR; Protocol Last Admin: 09/27/19 06:29 Dose: 200 mls/hr Documented by: Morphine Sulfate (Morphine) 2 mg IV Q4H PRN PRN Reason: Pain, Moderate (4-6) Ondansetron HCl (Zofran) 4 mg IV Q8H PRN PRN Reason: Nausea And Vomiting Sodium Chloride (Sodium Chloride Flush Syringe 10 Ml) 10 ml IV BID JAMIR Sodium Chloride (Sodium Chloride Flush Syringe 10 Ml) 10 ml IV PRN PRN PRN Reason: LINE FLUSH Physical Examination Vital signs: Vital Signs Temp Pulse Resp BP Pulse Ox 99.5 F 111 H 20 100/68 94 09/26/19 19:58 09/26/19 19:58 09/26/19 19:58 09/26/19 19:58 09/26/19 19:58 Results - Laboratory Findings CBC and BMP: 09/27/19 Unknown 09/27/19 02:40 Abnormal lab findings: Abnormal Labs 09/26/19 09/26/19 09/27/19 21:19 23:54 02:40 WBC 23.9 H RBC 3.42 L Hgb 9.4 L Hct 27.4 L MCV 80 L MCH RDW 21.6 H Seg Neuts % (Manual) 79.0 H Lymphocytes % (Manual) 13.0 L Monocytes % (Manual) 8.0 H Seg Neutrophils # Man 18.9 H Monocytes # (Manual) 1.9 H Percent Retic 4.56 H Sodium 135 L 135 L Chloride 95.2 L BUN 7 L 6 L Calcium 7.6 L D 09/27/19 Unknown WBC 21.3 H RBC 2.96 L Hgb 8.0 L Hct 23.7 L MCV 80 L MCH 27 L RDW 21.6 H Seg Neuts % (Manual) 71.0 H Lymphocytes % (Manual) Monocytes % (Manual) Seg Neutrophils # Man 15.1 H Monocytes # (Manual) 1.5 H Percent Retic Sodium Chloride BUN Calcium Assessment and Plan 44 y/o male with sickle cell admitted with left sided pleural effusion 1. CT guided thoracentesis as space appears complicated. Could be empyema. 2. Will send for LDH, Protein, Cell count with Diff and cytology. Will also send aFB, fungal and sterile body fluid culture. Glucose as well 3. abx therapy per primary team
[2019-09-27] MEDS: ENOXAPARIN 40 MG/0.4 ML INJ SUB-Q SCH (11:43)
--- NOTE | 2019-09-27 12:28 | Consultation ---
History of Present Illness Consult date: 09/27/19 Requesting physician: KARL FERRER Reason for consult: pleural effusion, abnormal CXR/CT History of present illness: 44 y/o male with sickle cell admitted with back pain and shortness of breath. Found to have moderate left sided effusion. Pulmonary consulted for this. Past History Past Medical History: other (seizures and chronic hypotension) Medications and Allergies Allergies Allergy/AdvReac Type Severity Reaction Status Date / Time naproxen [From Naprosyn] AdvReac Vomiting Verified 12/16/18 14:28 Home Medications Medication Instructions Recorded Confirmed Last Taken Type Cetirizine HCl [ZyrTEC 10mg cap] 10 mg PO QAM 14 Days #14 capsule 12/16/18 09/27/19 Unknown Rx Fluticasone [Flonase] 50 mcg NS QDAY bottle 12/31/18 09/27/19 Unknown Rx Levothyroxine [Synthroid] 112 mcg PO DAILY@0600 #30 tablet 12/31/18 09/27/19 Unknown Rx Loratadine [Claritin] 10 mg PO DAILY #30 tablet 12/31/18 09/27/19 Unknown Rx Midodrine [Proamatine] 5 mg PO TID@0800,1200,1600 #30 12/31/18 09/27/19 Unknown Rx tablet Active Meds: Active Medications Acetaminophen (Tylenol) 650 mg PO Q4H PRN PRN Reason: Pain MILD(1-3)/Fever >100.5/LOWRY Enoxaparin Sodium (Enoxaparin) 40 mg SUB-Q QDAY@1000 JAMIR Last Admin: 09/27/19 11:43 Dose: 40 mg Documented by: Sodium Chloride (Nacl 0.9% 1000 Ml) 1,000 mls @ 125 mls/hr IV DIRECT JAMIR Last Admin: 09/27/19 09:48 Dose: 125 mls/hr Documented by: Piperacillin Sod/Tazobactam Sod (Zosyn/Ns 4.5gm/100ml) 4.5 gm in 100 mls @ 200 mls/hr IV Q8HR JAMIR; Protocol Last Admin: 09/27/19 06:29 Dose: 200 mls/hr Documented by: Morphine Sulfate (Morphine) 2 mg IV Q4H PRN PRN Reason: Pain, Moderate (4-6) Ondansetron HCl (Zofran) 4 mg IV Q8H PRN PRN Reason: Nausea And Vomiting Sodium Chloride (Sodium Chloride Flush Syringe 10 Ml) 10 ml IV BID JAMIR Last Admin: 09/27/19 11:43 Dose: 10 ml Documented by: Sodium Chloride (Sodium Chloride Flush Syringe 10 Ml) 10 ml IV PRN PRN PRN Reason: LINE FLUSH Review of Systems All systems: negative Constitutional: fatigue, weakness Physical Examination Vital signs: Vital Signs Temp Pulse Resp BP Pulse Ox 99.5 F 111 H 20 100/68 94 09/26/19 19:58 09/26/19 19:58 09/26/19 19:58 09/26/19 19:58 09/26/19 19:58 General appearance: appears uncomfortable Eyes: icteric ENT: other (poor dentition) Neck: supple Effort: normal Ascultation: Left: diminished breath sounds (base) Percussion: Left: dull (base) Cardiovascular: regular rate and rhythm Gastrointestinal: normoactive bowel sounds Results - Laboratory Findings CBC and BMP: 09/27/19 Unknown 09/27/19 02:40 Abnormal lab findings: Abnormal Labs 09/26/19 09/26/19 09/27/19 21:19 23:54 02:40 WBC 23.9 H RBC 3.42 L Hgb 9.4 L Hct 27.4 L MCV 80 L MCH RDW 21.6 H Seg Neuts % (Manual) 79.0 H Lymphocytes % (Manual) 13.0 L Monocytes % (Manual) 8.0 H Seg Neutrophils # Man 18.9 H Monocytes # (Manual) 1.9 H Percent Retic 4.56 H Sodium 135 L 135 L Chloride 95.2 L BUN 7 L 6 L Calcium 7.6 L D 09/27/19 Unknown WBC 21.3 H RBC 2.96 L Hgb 8.0 L Hct 23.7 L MCV 80 L MCH 27 L RDW 21.6 H Seg Neuts % (Manual) 71.0 H Lymphocytes % (Manual) Monocytes % (Manual) Seg Neutrophils # Man 15.1 H Monocytes # (Manual) 1.5 H Percent Retic Sodium Chloride BUN Calcium - Diagnostic Findings Chest x-ray: image reviewed Assessment and Plan 44 y/o male with sickle cell admitted with left sided pleural effusion 1. patient cannot have CT guided nor ultrasound removal of fluid by radiology as no physician is available. 2. I will attempt to remove later today or tomorrow morning at the bedside. Patient is able to consent 3. Agree with IB abx therapy.
--- NOTE | 2019-09-27 13:33 | Event Note ---
Date: 09/27/19 Not enough fluid to tap, visualized under US guidance. Will obtain CT of chest later today to better evaluate space.
[2019-09-27] MEDS: ACETAMINOPHEN 325 MG TAB PO PRN (14:29)
--- NOTE | 2019-09-27 19:25 | Progress Note ---
Assessment and Plan Assessment and plan: --Community-acquired pneumonia; Continue empiric antibiotics, follow cultures Pulmonary following --Parapneumonic effusion; IV antibiotics, supportive care, not enough fluid for thoracentesis Pulmonary following, recommended CT chest --Lt pleural effusion; Follow CT chest, US guided thoracentesis if needed --Sickle cell disease; Oxygen, pain management, supportive care --Chronic Hypotension: IV fluids and supportive care --DVT prophylaxis; Lovenox Monitor closely and adjust management as needed History Interval history: Patient Seen and examined medical records reviewed Patient feels slightly better Pulmonary recommended thoracentesis However not enough fluid, recommended CT chest Patient alert awake oriented Vital signs reviewed Hospitalist Physical - Constitutional Vitals: Temp Pulse Resp BP Pulse Ox 98.1 F 84 20 90/50 95 09/27/19 17:39 09/27/19 17:39 09/27/19 17:39 09/27/19 17:39 09/27/19 17:39 General appearance: Present: no acute distress, cachectic - EENT Eyes: Present: PERRL, EOM intact - Neck Neck: Present: supple, normal ROM - Respiratory Respiratory effort: normal Respiratory: bilateral: diminished, rhonchi, negative: rales, wheezing - Cardiovascular Rhythm: regular Heart Sounds: Present: S1 & S2 - Extremities Extremities: no ischemia, No edema - Abdominal General gastrointestinal: soft, non-tender, non-distended, normal bowel sounds - Integumentary Integumentary: Present: clear, warm - Psychiatric Psychiatric: appropriate mood/affect, cooperative - Neurologic Neurologic: moves all extremities Results - Labs CBC & Chem 7: 09/27/19 Unknown 09/27/19 02:40 Labs: Laboratory Last Values WBC 21.3 K/mm3 (4.5-11.0) H 09/27/19 Unknown RBC 2.96 M/mm3 (3.65-5.03) L 09/27/19 Unknown Hgb 8.0 gm/dl (11.8-15.2) L 09/27/19 Unknown Hct 23.7 % (35.5-45.6) L 09/27/19 Unknown MCV 80 fl (84-94) L 09/27/19 Unknown MCH 27 pg (28-32) L 09/27/19 Unknown MCHC 34 % (32-34) 09/27/19 Unknown RDW 21.6 % (13.2-15.2) H 09/27/19 Unknown Plt Count 328 K/mm3 (140-440) 09/27/19 Unknown Add Manual Diff Complete 09/27/19 Unknown Total Counted 100 09/27/19 Unknown Seg Neuts % (Manual) 71.0 % (40.0-70.0) H 09/27/19 Unknown Band Neutrophils % 0 % 09/27/19 Unknown Lymphocytes % (Manual) 22.0 % (13.4-35.0) 09/27/19 Unknown Reactive Lymphs % (Man) 0 % 09/27/19 Unknown Monocytes % (Manual) 7.0 % (0.0-7.3) 09/27/19 Unknown Eosinophils % (Manual) 0 % (0.0-4.3) 09/27/19 Unknown Basophils % (Manual) 0 % (0.0-1.8) 09/27/19 Unknown Metamyelocytes % 0 % 09/27/19 Unknown Myelocytes % 0 % 09/27/19 Unknown Promyelocytes % 0 % 09/27/19 Unknown Blast Cells % 0 % 09/27/19 Unknown Nucleated RBC % Not Reportable 09/27/19 Unknown Seg Neutrophils # Man 15.1 K/mm3 (1.8-7.7) H 09/27/19 Unknown Band Neutrophils # 0.0 K/mm3 09/27/19 Unknown Lymphocytes # (Manual) 4.7 K/mm3 (1.2-5.4) 09/27/19 Unknown Abs React Lymphs (Man) 0.0 K/mm3 09/27/19 Unknown Monocytes # (Manual) 1.5 K/mm3 (0.0-0.8) H 09/27/19 Unknown Eosinophils # (Manual) 0.0 K/mm3 (0.0-0.4) 09/27/19 Unknown Basophils # (Manual) 0.0 K/mm3 (0.0-0.1) 09/27/19 Unknown Metamyelocytes # 0.0 K/mm3 09/27/19 Unknown Myelocytes # 0.0 K/mm3 09/27/19 Unknown Promyelocytes # 0.0 K/mm3 09/27/19 Unknown Blast Cells # 0.0 K/mm3 09/27/19 Unknown WBC Morphology Not Reportable 09/27/19 Unknown Hypersegmented Neuts Not Reportable 09/27/19 Unknown Hyposegmented Neuts Not Reportable 09/27/19 Unknown Hypogranular Neuts Not Reportable 09/27/19 Unknown Smudge Cells Not Reportable 09/27/19 Unknown Toxic Granulation Not Reportable 09/27/19 Unknown Toxic Vacuolation Not Reportable 09/27/19 Unknown Dohle Bodies Not Reportable 09/27/19 Unknown Pelger-Huet Anomaly Not Reportable 09/27/19 Unknown [place] Rods Not Reportable 09/27/19 Unknown Platelet Estimate Consistent w auto 09/27/19 Unknown Clumped Platelets Not Reportable 09/27/19 Unknown Plt Clumps, EDTA Not Reportable 09/27/19 Unknown Large Platelets Not Reportable 09/27/19 Unknown Giant Platelets Not Reportable 09/27/19 Unknown Platelet Satelliting Not Reportable 09/27/19 Unknown Plt Morphology Comment Not Reportable 09/27/19 Unknown RBC Morphology Not Reportable 09/27/19 Unknown Dimorphic RBCs Not Reportable 09/27/19 Unknown Polychromasia Not Reportable 09/27/19 Unknown Hypochromasia Not Reportable 09/27/19 Unknown Poikilocytosis Not Reportable 09/27/19 Unknown Anisocytosis 1+ 09/27/19 Unknown Microcytosis Not Reportable 09/27/19 Unknown Macrocytosis Few 09/27/19 Unknown Spherocytes Not Reportable 09/27/19 Unknown Pappenheimer Bodies Not Reportable 09/27/19 Unknown Sickle Cells Not Reportable 09/27/19 Unknown Target Cells 1+ 09/27/19 Unknown Tear Drop Cells Not Reportable 09/27/19 Unknown Ovalocytes Not Reportable 09/27/19 Unknown Helmet Cells Not Reportable 09/27/19 Unknown [place] Bodies Not Reportable 09/27/19 Unknown [place] Rings Not Reportable 09/27/19 Unknown [place] Cells Not Reportable 09/27/19 Unknown Bite Cells Not Reportable 09/27/19 Unknown Crenated Cell Not Reportable 09/27/19 Unknown Elliptocytes Not Reportable 09/27/19 Unknown Acanthocytes (Spur) Not Reportable 09/27/19 Unknown Rouleaux Not Reportable 09/27/19 Unknown Hemoglobin C Crystals Not Reportable 09/27/19 Unknown Schistocytes Not Reportable 09/27/19 Unknown Malaria parasites Not Reportable 09/27/19 Unknown Percent Retic 4.56 % (0.78-2.58) H 09/26/19 21:19 Obdulio Bodies Not Reportable 09/27/19 Unknown Hem Pathologist Commnt No 09/27/19 Unknown APTT 34.5 Sec. (24.2-36.6) 09/26/19 23:54 VBG pH 7.383 (7.320-7.420) 09/26/19 23:54 Sodium 135 mmol/L (137-145) L 09/27/19 02:40 Potassium 4.3 mmol/L (3.6-5.0) 09/27/19 02:40 Chloride 100.4 mmol/L (98-107) 09/27/19 02:40 Carbon Dioxide 23 mmol/L (22-30) 09/27/19 02:40 Anion Gap 16 mmol/L 09/27/19 02:40 BUN 6 mg/dL (9-20) L 09/27/19 02:40 Creatinine 0.8 mg/dL (0.8-1.5) 09/27/19 02:40 Estimated GFR > 60 ml/min 09/27/19 02:40 BUN/Creatinine Ratio 8 % 09/27/19 02:40 Glucose 90 mg/dL (75-100) 09/27/19 02:40 Lactic Acid 0.80 mmol/L (0.7-2.0) 09/27/19 Unknown Calcium 7.6 mg/dL (8.4-10.2) L D 09/27/19 02:40 Total Bilirubin 1.20 mg/dL (0.1-1.2) 09/26/19 23:54 AST 16 units/L (5-40) 09/26/19 23:54 ALT 8 units/L (7-56) 09/26/19 23:54 Alkaline Phosphatase 109 units/L (35-129) 09/26/19 23:54 Total Protein 7.6 g/dL (6.3-8.2) 09/26/19 23:54 Albumin 4.3 g/dL (3.9-5) 09/26/19 23:54 Albumin/Globulin Ratio 1.3 % 09/26/19 23:54 Urine Color Yellow (Yellow) 09/27/19 02:10 Urine Turbidity Clear (Clear) 09/27/19 02:10 Urine pH 5.0 (5.0-7.0) 09/27/19 02:10 Ur Specific [place] 1.012 (1.003-1.030) 09/27/19 02:10 Urine Protein <15 mg/dl mg/dL (Negative) 09/27/19 02:10 Urine Glucose (UA) Neg mg/dL (Negative) 09/27/19 02:10 Urine Ketones Tr mg/dL (Negative) 09/27/19 02:10 Urine Blood Neg (Negative) 09/27/19 02:10 Urine Nitrite Neg (Negative) 09/27/19 02:10 Urine Bilirubin Neg (Negative) 09/27/19 02:10 Urine Urobilinogen < 2.0 mg/dL (<2.0) 09/27/19 02:10 Ur Leukocyte Esterase Neg (Negative) 09/27/19 02:10 Urine WBC (Auto) 1.0 /HPF (0.0-6.0) 09/27/19 02:10 Urine RBC (Auto) 1.0 /HPF (0.0-6.0) 09/27/19 02:10 Urine Mucus Few /HPF 09/27/19 02:10 Active Medications - Current Medications Current Medications: Generic Name Dose Route Start Last Admin Trade Name Freq PRN Reason Stop Dose Admin Acetaminophen 650 mg 09/27/19 01:23 09/27/19 14:29 Tylenol PO 650 mg Q4H PRN Administration Pain MILD(1-3)/Fever >100.5/LOWRY Enoxaparin Sodium 40 mg 09/27/19 10:00 09/27/19 11:43 Enoxaparin SUB-Q 40 mg QDAY@1000 JAMIR Administration Sodium Chloride 1,000 mls @ 125 mls/hr 09/27/19 02:00 09/27/19 18:46 Nacl 0.9% 1000 Ml IV 125 mls/hr DIRECT JAMIR Administration Piperacillin Sod/Tazobactam Sod 4.5 gm in 100 mls @ 200 mls/hr 09/27/19 06:00 09/27/19 14:30 Zosyn/Ns 4.5gm/100ml IV 200 mls/hr Q8HR JAMIR Administration Protocol Morphine Sulfate 2 mg 09/27/19 01:23 Morphine IV Q4H PRN Pain, Moderate (4-6) Ondansetron HCl 4 mg 09/27/19 01:23 Zofran IV Q8H PRN Nausea And Vomiting Sodium Chloride 10 ml 09/27/19 10:00 09/27/19 11:43 Sodium Chloride Flush Syringe 10 Ml IV 10 ml BID JAMIR Administration Sodium Chloride 10 ml 09/27/19 01:23 Sodium Chloride Flush Syringe 10 Ml IV PRN PRN LINE FLUSH Nutrition/Malnutrition Assess - Dietary Evaluation Nutrition/Malnutrition Findings: Nutrition Notes Start: 09/27/19 10:01 Freq: Status: Active Protocol: Document 09/27/19 10:01 JENNIFER (Rec: 09/27/19 10:55 [email or web address] [id number]) Co-Sign 09/27/19 10:01 LM Nutrition Notes 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 Pt lost 9% from UBW. Time frame is unknown. Weight Status Underweight Subjective/Other Information RD consult for malnutrition per RN. 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 Pt stated his appetite was good and ate 25% of breakfast and was still eating . Pt had a friend at bedside that stated that he normally eats slow and eats small portions. I explained ensure to pt, and pt and his friend denied it. Mild clavicle wasting noted. Burn Absent Trauma Absent GI Symptoms None Current % PO Poor (25-49%) Minimum of two criteria Yes Energy Intake (non-severe) <75% Estimated Energy Requirement >7 days Body Fat Depletion Mild depletion (non-severe) #1 Nutrition Diagnosis Malnutrition Etiology Sickle cell crisis As Evidenced by Signs and Symptoms Clavicle wasting, <75% of estimated energy requirement > 7 days, and BMI of 18.3 Is patient on ventilator? No Is Patient Ambulatory and/or Out of Bed Yes REE-(Flom-St. Jeor-ambulatory/OOB) [ 1925.625 NUTR.MSJOOB] Kcal/Kg value to use for calculation 38 Approximate Energy Requirements Using 2204 kcal/Kg Calculation Used for Recommendations Kcal/kg Additional Notes Protein: 70-87g/kg (1.2-1.5g/ kg) Fluid: 1ml/kcal Nutrition Intervention Change Diet Order: Continue current Goal #1 Meet at least 90% of energy and protein needs via PO intakes Goal #2 Wt maintenance Follow-Up By: 09/30/19 Additional Comments F/U for PO intakes and ONS need
[2019-09-27] MEDS ORDERED: IBUPROFEN ORAL LIQD 100 MG/5 ML ORAL.LIQD PO PRN (19:29)
[2019-09-28] MEDS: ACETAMINOPHEN 325 MG TAB PO PRN ×2 (01:00→21:39)
[2019-09-28] MEDS: SODIUM CHLORIDE 0.9% 1000 ML 1,000 ML IV SCH ×2 (04:12→17:56)
[2019-09-28] MEDS: PIPERACIL/TAZOBACTA 4.5/NS 100 4.5 GM/100 ML VIAL IV SCH ×2 (06:15→14:00)
[2019-09-28] MEDS: ENOXAPARIN 40 MG/0.4 ML INJ SUB-Q SCH (09:11)
--- NOTE | 2019-09-28 09:23 | Progress Note ---
Assessment and Plan Assessment and plan: --Parapneumonic effusion; IV antibiotics, supportive care, not enough fluid for thoracentesis Pulmonary following, recommended CT chest --Community-acquired pneumonia; Empiric antibiotics, follow cultures Pulmonary following --Lt pleural effusion; Follow CT chest, US guided thoracentesis if needed --Sickle cell disease; Oxygen, pain management, supportive care --Chronic Hypotension: IV fluids and supportive care --DVT prophylaxis; Lovenox Monitor closely and adjust management as needed History Interval history: Patient seen and examined medical records reviewed Patient complains of generalized weakness and shortness of breath Alert awake oriented Vital signs reviewed Hospitalist Physical - Constitutional Vitals: Temp Pulse Resp BP Pulse Ox 98.1 F 75 17 87/51 95 09/28/19 05:35 09/28/19 05:35 09/28/19 05:35 09/28/19 05:35 09/28/19 05:35 General appearance: Present: no acute distress, cachectic - EENT Eyes: Present: PERRL, EOM intact - Neck Neck: Present: supple, normal ROM - Respiratory Respiratory effort: normal Respiratory: bilateral: diminished, rhonchi, negative: rales, wheezing - Cardiovascular Rhythm: regular Heart Sounds: Present: S1 & S2 - Extremities Extremities: no ischemia, No edema - Abdominal General gastrointestinal: soft, non-tender, non-distended, normal bowel sounds - Integumentary Integumentary: Present: clear, warm - Psychiatric Psychiatric: appropriate mood/affect, cooperative - Neurologic Neurologic: CNII-XII intact, moves all extremities Results - Labs CBC & Chem 7: 09/27/19 Unknown 09/27/19 02:40 Labs: Laboratory Last Values WBC 21.3 K/mm3 (4.5-11.0) H 09/27/19 Unknown RBC 2.96 M/mm3 (3.65-5.03) L 09/27/19 Unknown Hgb 8.0 gm/dl (11.8-15.2) L 09/27/19 Unknown Hct 23.7 % (35.5-45.6) L 09/27/19 Unknown MCV 80 fl (84-94) L 09/27/19 Unknown MCH 27 pg (28-32) L 09/27/19 Unknown MCHC 34 % (32-34) 09/27/19 Unknown RDW 21.6 % (13.2-15.2) H 09/27/19 Unknown Plt Count 328 K/mm3 (140-440) 09/27/19 Unknown Add Manual Diff Complete 09/27/19 Unknown Total Counted 100 09/27/19 Unknown Seg Neuts % (Manual) 71.0 % (40.0-70.0) H 09/27/19 Unknown Band Neutrophils % 0 % 09/27/19 Unknown Lymphocytes % (Manual) 22.0 % (13.4-35.0) 09/27/19 Unknown Reactive Lymphs % (Man) 0 % 09/27/19 Unknown Monocytes % (Manual) 7.0 % (0.0-7.3) 09/27/19 Unknown Eosinophils % (Manual) 0 % (0.0-4.3) 09/27/19 Unknown Basophils % (Manual) 0 % (0.0-1.8) 09/27/19 Unknown Metamyelocytes % 0 % 09/27/19 Unknown Myelocytes % 0 % 09/27/19 Unknown Promyelocytes % 0 % 09/27/19 Unknown Blast Cells % 0 % 09/27/19 Unknown Nucleated RBC % Not Reportable 09/27/19 Unknown Seg Neutrophils # Man 15.1 K/mm3 (1.8-7.7) H 09/27/19 Unknown Band Neutrophils # 0.0 K/mm3 09/27/19 Unknown Lymphocytes # (Manual) 4.7 K/mm3 (1.2-5.4) 09/27/19 Unknown Abs React Lymphs (Man) 0.0 K/mm3 09/27/19 Unknown Monocytes # (Manual) 1.5 K/mm3 (0.0-0.8) H 09/27/19 Unknown Eosinophils # (Manual) 0.0 K/mm3 (0.0-0.4) 09/27/19 Unknown Basophils # (Manual) 0.0 K/mm3 (0.0-0.1) 09/27/19 Unknown Metamyelocytes # 0.0 K/mm3 09/27/19 Unknown Myelocytes # 0.0 K/mm3 09/27/19 Unknown Promyelocytes # 0.0 K/mm3 09/27/19 Unknown Blast Cells # 0.0 K/mm3 09/27/19 Unknown WBC Morphology Not Reportable 09/27/19 Unknown Hypersegmented Neuts Not Reportable 09/27/19 Unknown Hyposegmented Neuts Not Reportable 09/27/19 Unknown Hypogranular Neuts Not Reportable 09/27/19 Unknown Smudge Cells Not Reportable 09/27/19 Unknown Toxic Granulation Not Reportable 09/27/19 Unknown Toxic Vacuolation Not Reportable 09/27/19 Unknown Dohle Bodies Not Reportable 09/27/19 Unknown Pelger-Huet Anomaly Not Reportable 09/27/19 Unknown Carlton Rods Not Reportable 09/27/19 Unknown Platelet Estimate Consistent w auto 09/27/19 Unknown Clumped Platelets Not Reportable 09/27/19 Unknown Plt Clumps, EDTA Not Reportable 09/27/19 Unknown Large Platelets Not Reportable 09/27/19 Unknown Giant Platelets Not Reportable 09/27/19 Unknown Platelet Satelliting Not Reportable 09/27/19 Unknown Plt Morphology Comment Not Reportable 09/27/19 Unknown RBC Morphology Not Reportable 09/27/19 Unknown Dimorphic RBCs Not Reportable 09/27/19 Unknown Polychromasia Not Reportable 09/27/19 Unknown Hypochromasia Not Reportable 09/27/19 Unknown Poikilocytosis Not Reportable 09/27/19 Unknown Anisocytosis 1+ 09/27/19 Unknown Microcytosis Not Reportable 09/27/19 Unknown Macrocytosis Few 09/27/19 Unknown Spherocytes Not Reportable 09/27/19 Unknown Pappenheimer Bodies Not Reportable 09/27/19 Unknown Sickle Cells Not Reportable 09/27/19 Unknown Target Cells 1+ 09/27/19 Unknown Tear Drop Cells Not Reportable 09/27/19 Unknown Ovalocytes Not Reportable 09/27/19 Unknown Helmet Cells Not Reportable 09/27/19 Unknown [place] Bodies Not Reportable 09/27/19 Unknown [place] Rings Not Reportable 09/27/19 Unknown [place] Cells Not Reportable 09/27/19 Unknown Bite Cells Not Reportable 09/27/19 Unknown Crenated Cell Not Reportable 09/27/19 Unknown Elliptocytes Not Reportable 09/27/19 Unknown Acanthocytes (Spur) Not Reportable 09/27/19 Unknown Rouleaux Not Reportable 09/27/19 Unknown Hemoglobin C Crystals Not Reportable 09/27/19 Unknown Schistocytes Not Reportable 09/27/19 Unknown Malaria parasites Not Reportable 09/27/19 Unknown Percent Retic 4.56 % (0.78-2.58) H 09/26/19 21:19 Obdulio Bodies Not Reportable 09/27/19 Unknown Hem Pathologist Commnt No 09/27/19 Unknown APTT 34.5 Sec. (24.2-36.6) 09/26/19 23:54 VBG pH 7.383 (7.320-7.420) 09/26/19 23:54 Sodium 135 mmol/L (137-145) L 09/27/19 02:40 Potassium 4.3 mmol/L (3.6-5.0) 09/27/19 02:40 Chloride 100.4 mmol/L (98-107) 09/27/19 02:40 Carbon Dioxide 23 mmol/L (22-30) 09/27/19 02:40 Anion Gap 16 mmol/L 09/27/19 02:40 BUN 6 mg/dL (9-20) L 09/27/19 02:40 Creatinine 0.8 mg/dL (0.8-1.5) 09/27/19 02:40 Estimated GFR > 60 ml/min 09/27/19 02:40 BUN/Creatinine Ratio 8 % 09/27/19 02:40 Glucose 90 mg/dL (75-100) 09/27/19 02:40 Lactic Acid 0.80 mmol/L (0.7-2.0) 09/27/19 Unknown Calcium 7.6 mg/dL (8.4-10.2) L D 09/27/19 02:40 Total Bilirubin 1.20 mg/dL (0.1-1.2) 09/26/19 23:54 AST 16 units/L (5-40) 09/26/19 23:54 ALT 8 units/L (7-56) 09/26/19 23:54 Alkaline Phosphatase 109 units/L (35-129) 09/26/19 23:54 Total Protein 7.6 g/dL (6.3-8.2) 09/26/19 23:54 Albumin 4.3 g/dL (3.9-5) 09/26/19 23:54 Albumin/Globulin Ratio 1.3 % 09/26/19 23:54 Urine Color Yellow (Yellow) 09/27/19 02:10 Urine Turbidity Clear (Clear) 09/27/19 02:10 Urine pH 5.0 (5.0-7.0) 09/27/19 02:10 Ur Specific [place] 1.012 (1.003-1.030) 09/27/19 02:10 Urine Protein <15 mg/dl mg/dL (Negative) 09/27/19 02:10 Urine Glucose (UA) Neg mg/dL (Negative) 09/27/19 02:10 Urine Ketones Tr mg/dL (Negative) 09/27/19 02:10 Urine Blood Neg (Negative) 09/27/19 02:10 Urine Nitrite Neg (Negative) 09/27/19 02:10 Urine Bilirubin Neg (Negative) 09/27/19 02:10 Urine Urobilinogen < 2.0 mg/dL (<2.0) 09/27/19 02:10 Ur Leukocyte Esterase Neg (Negative) 09/27/19 02:10 Urine WBC (Auto) 1.0 /HPF (0.0-6.0) 09/27/19 02:10 Urine RBC (Auto) 1.0 /HPF (0.0-6.0) 09/27/19 02:10 Urine Mucus Few /HPF 09/27/19 02:10 Active Medications - Current Medications Current Medications: Generic Name Dose Route Start Last Admin Trade Name Freq PRN Reason Stop Dose Admin Acetaminophen 650 mg 09/27/19 01:23 09/28/19 01:00 Tylenol PO 650 mg Q4H PRN Administration Pain MILD(1-3)/Fever >100.5/LOWRY Enoxaparin Sodium 40 mg 09/27/19 10:00 09/28/19 09:11 Enoxaparin SUB-Q 40 mg QDAY@1000 JAMIR Administration Sodium Chloride 1,000 mls @ 75 mls/hr 09/27/19 02:00 09/28/19 06:48 Nacl 0.9% 1000 Ml IV 75 mls/hr DIRECT JAMIR Infusion Piperacillin Sod/Tazobactam Sod 4.5 gm in 100 mls @ 200 mls/hr 09/27/19 06:00 09/28/19 06:15 Zosyn/Ns 4.5gm/100ml IV 200 mls/hr Q8HR JAMIR Administration Protocol Ibuprofen 200 mg 09/27/19 19:29 Motrin PO Q6H PRN Pain , Severe (7-10) Morphine Sulfate 2 mg 09/27/19 01:23 Morphine IV Q4H PRN Pain, Moderate (4-6) Ondansetron HCl 4 mg 09/27/19 01:23 Zofran IV Q8H PRN Nausea And Vomiting Sodium Chloride 10 ml 09/27/19 10:00 09/28/19 09:11 Sodium Chloride Flush Syringe 10 Ml IV 10 ml BID JAMIR Administration Sodium Chloride 10 ml 09/27/19 01:23 Sodium Chloride Flush Syringe 10 Ml IV PRN PRN LINE FLUSH Nutrition/Malnutrition Assess - Dietary Evaluation Nutrition/Malnutrition Findings: Nutrition Notes Start: 09/27/19 10:01 Freq: Status: Active Protocol: Document 09/27/19 10:01 JENNIFER (Rec: 09/27/19 10:55 JENNIFER [id number]) Co-Sign 09/27/19 10:01 LM Nutrition Notes 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 Pt lost 9% from UBW. Time frame is unknown. Weight Status Underweight Subjective/Other Information RD consult for malnutrition per RN. 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 Pt stated his appetite was good and ate 25% of breakfast and was still eating . Pt had a friend at bedside that stated that he normally eats slow and eats small portions. I explained ensure to pt, and pt and his friend denied it. Mild clavicle wasting noted. Burn Absent Trauma Absent GI Symptoms None Current % PO Poor (25-49%) Minimum of two criteria Yes Energy Intake (non-severe) <75% Estimated Energy Requirement >7 days Body Fat Depletion Mild depletion (non-severe) #1 Nutrition Diagnosis Malnutrition Etiology Sickle cell crisis As Evidenced by Signs and Symptoms Clavicle wasting, <75% of estimated energy requirement > 7 days, and BMI of 18.3 Is patient on ventilator? No Is Patient Ambulatory and/or Out of Bed Yes [facility] [ 1925.625 NUTR.MSJOOB] Kcal/Kg value to use for calculation 38 Approximate Energy Requirements Using 2204 kcal/Kg Calculation Used for Recommendations Kcal/kg Additional Notes Protein: 70-87g/kg (1.2-1.5g/ kg) Fluid: 1ml/kcal Nutrition Intervention Change Diet Order: Continue current Goal #1 Meet at least 90% of energy and protein needs via PO intakes Goal #2 Wt maintenance Follow-Up By: 09/30/19 Additional Comments F/U for PO intakes and ONS need
--- NOTE | 2019-09-28 12:11 | Progress Note ---
Assessment and Plan 44 y/o male with sickle cell admitted with left sided pleural effusion 1. Follow up CT of chest 2. All others per primary team Subjective Date of service: 09/28/19 Interval history: No acute events. Awaiting CT of chest. Objective Vital Signs - 12hr 09/28/19 09/28/19 09/28/19 01:00 05:35 11:39 Temperature 98.1 F 98.1 F Pulse Rate 75 81 Respiratory 16 17 16 Rate Blood Pressure 87/51 93/56 O2 Sat by Pulse 95 96 Oximetry Constitutional: appears uncomfortable Eyes: icteric ENT: other (poor dentition) Neck: supple Effort: normal Ascultation: Left: diminished breath sounds (base) Percussion: Left: dull (base) Cardiovascular: regular rate and rhythm Gastrointestinal: normoactive bowel sounds CBC and BMP: 09/27/19 Unknown 09/27/19 02:40 Abnormal lab findings: Abnormal Labs 09/26/19 09/26/19 09/27/19 21:19 23:54 02:40 WBC 23.9 H RBC 3.42 L Hgb 9.4 L Hct 27.4 L MCV 80 L MCH RDW 21.6 H Seg Neuts % (Manual) 79.0 H Lymphocytes % (Manual) 13.0 L Monocytes % (Manual) 8.0 H Seg Neutrophils # Man 18.9 H Monocytes # (Manual) 1.9 H Percent Retic 4.56 H Sodium 135 L 135 L Chloride 95.2 L BUN 7 L 6 L Calcium 7.6 L D 09/27/19 Unknown WBC 21.3 H RBC 2.96 L Hgb 8.0 L Hct 23.7 L MCV 80 L MCH 27 L RDW 21.6 H Seg Neuts % (Manual) 71.0 H Lymphocytes % (Manual) Monocytes % (Manual) Seg Neutrophils # Man 15.1 H Monocytes # (Manual) 1.5 H Percent Retic Sodium Chloride BUN Calcium
--- NOTE | 2019-09-28 14:42 | Cat Scan Report ---
CT CHEST WITHOUT CONTRAST INDICATION / CLINICAL INFORMATION: lower lobe airspace disease vs fluid. TECHNIQUE: Axial CT images were obtained through the chest without contrast. All CT scans at this location are p erformed using CT dose reduction for ALARA by means of automated exposure control. COMPARISON: Chest radiograph 09/26/2019 FINDINGS: HEART: No significant abnormality. THORACIC AORTA: No significant abnormality. MEDIASTINUM and LUH: No significant abnormality. LUNGS: Grossly symmetric apical predominant paraseptal emphysema. The right upper and middle lobes ar e most entirely clear. In both lower lobes and at the base of the left upper lobe/lingula there is pa tchy consolidative and groundglass opacity, with greatest involvement of the left lower lobe, where m ultiple air bronchograms are seen peripherally. PLEURA: Small left pleural effusion. Trace right pleural effusion. No pneumothorax. ADDITIONAL FINDINGS: None. UPPER ABDOMEN: Extensive calcification in and at the periphery of the spleen. Spleen has normal to sl ightly small size. SKELETAL SYSTEM: No significant abnormality. IMPRESSION: 1. Multifocal pneumonia with greatest involvement in the left lower lobe, followed by the right lower lobe and lingula. There are small parapneumonic effusions. Signer Name: Chago Swain MD Signed: 09/28/2019 2:37 PM Workstation Name: [id number]
--- NOTE | 2019-09-28 19:00 | Event Note ---
Date: 09/28/19 CT chest without :Multifocal pneumonia; the greatest involvement of the left lower lobe Followed by right lower lobe and lingula,Small parapneumonic effusions. Change antibiotics to cefepime ,consult ID, follow cultures Closely monitored and adjust the management as needed Sepsis secondary to multifocal pneumonia
[2019-09-28] MEDS: CEFEPIME/NS 2 GM/100 ML 2 GM/100 ML BAG IV SCH (21:34)
[2019-09-29] MEDS: LEVOTHYROXINE 112 MCG TAB PO SCH (05:48)
[2019-09-29] MEDS: CEFEPIME/NS 2 GM/100 ML 2 GM/100 ML BAG IV SCH (05:48)
[2019-09-29 05:50] LABS: Hematocrit 21.2 % (35.5-45.6); Hemoglobin 7.3 gm/dl (11.8-15.2); Mean Corpuscular HGB Conc 34 % (32-34); Mean Corpuscular Volume 80 fl (84-94); Platelet Count 372 K/mm3 (140-440); Red Blood Count 2.65 M/mm3 (3.65-5.03)
[2019-09-29 06:16] LABS: Red Cell Distribution Width 22.4 % (13.2-15.2)
[2019-09-29] MEDS: MIDODRINE 5 MG TAB PO SCH ×3 (08:00→16:00)
[2019-09-29] MEDS: FLUTICASONE PROPIONATE NASAL SPRAY 16 GM NS SCH (09:19)
[2019-09-29] MEDS: ENOXAPARIN 40 MG/0.4 ML INJ SUB-Q SCH (09:20)
[2019-09-29] MEDS: LORATADINE (NF) 10 MG TAB PO SCH (09:21)
--- NOTE | 2019-09-29 10:06 | Progress Note ---
Assessment and Plan 44 y/o male with sickle cell admitted with left sided pleural effusion 1. WC improving. Effusions to small to tap. 2. Follow up ID recs, remains on room air 3. Will see as needed, call if questions or needs. Subjective Date of service: 09/29/19 Interval history: No acute events. Remains on room air. CT done and effusions are extremely small as confirmed on ultrasound. Bilateral alveolar filling processes at the bases, worse on the left than right. IMS changed abx therapy and consulted ID. Objective Vital Signs - 12hr 09/28/19 23:09 Temperature 98.5 F Pulse Rate 83 Respiratory 16 Rate Blood Pressure 108/58 O2 Sat by Pulse 94 Oximetry Constitutional: appears uncomfortable Eyes: icteric ENT: other (poor dentition) Neck: supple Effort: normal Ascultation: Left: diminished breath sounds (base) Percussion: Left: dull (base) Cardiovascular: regular rate and rhythm Gastrointestinal: normoactive bowel sounds CBC and BMP: 09/29/19 04:33 09/27/19 02:40 Abnormal lab findings: Abnormal Labs 09/26/19 09/26/19 09/27/19 21: 23:54 02:40 WBC 23.9 H RBC 3.42 L Hgb 9.4 L Hct 27.4 L MCV 80 L MCH RDW 21.6 H Seg Neuts % (Manual) 79.0 H Lymphocytes % (Manual) 13.0 L Monocytes % (Manual) 8.0 H Seg Neutrophils # Man 18.9 H Monocytes # (Manual) 1.9 H Percent Retic 4.56 H Sodium 135 L 135 L Chloride 95.2 L BUN 7 L 6 L Calcium 7.6 L D 09/27/19 09/29/19 Unknown 04:33 WBC 21.3 H 12.9 H RBC 2.96 L 2.65 L Hgb 8.0 L 7.3 L Hct 23.7 L 21.2 L MCV 80 L 80 L MCH 27 L 27 L RDW 21.6 H 22.4 H Seg Neuts % (Manual) 71.0 H Lymphocytes % (Manual) Monocytes % (Manual) Seg Neutrophils # Man 15.1 H Monocytes # (Manual) 1.5 H Percent Retic Sodium Chloride BUN Calcium
[2019-09-29] MEDS ORDERED: IBUPROFEN 200 MG TAB PO PRN (10:50)
--- NOTE | 2019-09-29 10:58 | Consultation ---
History of Present Illness - Reason for Consult Consult date: 09/29/19 pneumonia w parapneumonic effusion Requesting physician: KARL FERRER - History of Present Illness 44 y/o male with history of sickle cell admitted on 09/26/2019 due to 3 week history of on/off fever and chills at home associated with severe initial right sided flank pain and then left sided. Denies cough or SOB. Pain is worse with inspiration. Denies any sick contacts. Denies ETOH, drugs. In the ED, temp was 99.5, HR 111, BP 100/68. WBC 23.9. Hg 9.4. UA negative. Blood culture 09/27/2019 no growth so far. Urine culture 09/27/2019 negative. CXR pleural parapneumonic LLL density. CT chest multifocal pneumonia more LLL and RLL and lingula. Review of Systems: Bold if positive, otherwise negative General: fevers, chills, body aches HEENT: visual disturbance, diplopia, eye pain Respiratory: cough, sputum, hemoptysis, shortness of breath Cardiovascular: chest pain, syncope Gastrointestinal: nausea, vomiting, diarrhea, abdominal pain Genitourinary: dysuria, hematuria, flank pain Musculoskeletal: neck pain, back pain, joint pain, edema Neurologic: headaches, seizures Hematologic: easy bruising or bleeding Endocrine: night sweats, acute weight loss Skin: rash, jaundice, redness Psychiatric: suicidal, homicidal ideation Past History Past Medical History: other (seizures and chronic hypotension) Medications and Allergies Allergies Allergy/AdvReac Type Severity Reaction Status Date / Time naproxen [From Naprosyn] AdvReac Vomiting Verified 12/16/18 14:28 Home Medications Medication Instructions Recorded Confirmed Last Taken Type Cetirizine HCl [ZyrTEC 10mg cap] 10 mg PO QAM 14 Days #14 capsule 12/16/18 09/27/19 Unknown Rx Fluticasone [Flonase] 50 mcg NS QDAY bottle 12/31/18 09/27/19 Unknown Rx Levothyroxine [Synthroid] 112 mcg PO DAILY@0600 #30 tablet 12/31/18 09/27/19 Unknown Rx Loratadine [Claritin] 10 mg PO DAILY #30 tablet 12/31/18 09/27/19 Unknown Rx Midodrine [Proamatine] 5 mg PO TID@0800,1200,1600 #30 12/31/18 09/27/19 Unknown Rx tablet Active Meds: Active Medications Acetaminophen (Tylenol) 650 mg PO Q4H PRN PRN Reason: Pain MILD(1-3)/Fever >100.5/LOWRY Last Admin: 09/28/19 21:39 Dose: 650 mg Documented by: Enoxaparin Sodium (Enoxaparin) 40 mg SUB-Q QDAY@1000 [facility] Last Admin: 09/29/19 09:20 Dose: 40 mg Documented by: Fluticasone Propionate (Flonase) 50 mcg NS QDAY [facility] Last Admin: 09/29/19 09:19 Dose: 50 mcg Documented by: Cefepime HCl (Cefepime/Ns 2 Gm/100 Ml) 2 gm in 100 mls @ 200 mls/hr IV Q8HR [facility]; Protocol Last Admin: 09/29/19 05:48 Dose: 200 mls/hr Documented by: Ibuprofen (Motrin) 200 mg PO Q6H PRN PRN Reason: Pain , Severe (7-10) Ibuprofen (Ibuprofen) 200 mg PO Q6H PRN PRN Reason: Pain , Severe (7-10) Levothyroxine Sodium (Synthroid) 112 mcg PO DAILY@0600 [facility] Last Admin: 09/29/19 05:48 Dose: 112 mcg Documented by: Loratadine (Claritin) 10 mg PO DAILY [facility] Last Admin: 09/29/19 09:21 Dose: 10 mg Documented by: Midodrine (Proamatine) 5 mg PO TID@0800,1200,1600 [facility] Last Admin: 09/29/19 08:00 Dose: 5 mg Documented by: Morphine Sulfate (Morphine) 2 mg IV Q4H PRN PRN Reason: Pain, Moderate (4-6) Ondansetron HCl (Zofran) 4 mg IV Q8H PRN PRN Reason: Nausea And Vomiting Sodium Chloride (Sodium Chloride Flush Syringe 10 Ml) 10 ml IV BID [facility] Last Admin: 09/29/19 09:22 Dose: 10 ml Documented by: Sodium Chloride (Sodium Chloride Flush Syringe 10 Ml) 10 ml IV PRN PRN PRN Reason: LINE FLUSH Physical Examination - Physical Exam Narrative exam: Constitutional: Alert, cooperative. No acute distress Head, Ears, Nose: Normocephalic, atraumatic. External ears, nose normal Eyes: Conjunctivae/corneas clear. No icterus. No ptosis. Neck: Supple, no meningeal signs Oral: dentition fair, no thrush Cardiovascular: S1, S2 normal. Respiratory: vasiliy scattered crackles GI: Soft, non-tender Musculoskeletal: No pedal edema, no cyanosis. b/l leg wounds Skin: no rash Hem/Lymphatic: No palpable cervical or supraclavicular nodes. No lymphangitis Psych: Mood ok. Affect normal Neurological: Awake, alert, oriented. - Constitutional Vitals: Vital Signs Temp Pulse Resp BP Pulse Ox 98.0 F 76 16 94/52 96 09/29/19 06:14 09/29/19 06:14 09/29/19 06:14 09/29/19 10:34 09/29/19 06:14 Temperature -Last 24 Hours Temperature 98.0 F Temperature 98.5 F Temperature 98.6 F Temperature 98.1 F Results - Labs CBC & Chem 7: 09/29/19 04:33 09/27/19 02:40 Labs: Abnormal lab results 09/29/19 Range/Units 04:33 WBC 12.9 H (4.5-11.0) K/mm3 RBC 2.65 L (3.65-5.03) M/mm3 Hgb 7.3 L (11.8-15.2) gm/dl Hct 21.2 L (35.5-45.6) % MCV 80 L (84-94) fl MCH 27 L (28-32) pg RDW 22.4 H (13.2-15.2) % Assessment and Plan Cultures: Blood culture 09/22/2019 no growth so far Assessment: 44 y/o male with history of sickle cell admitted on 09/26/2019 due to 3 week history of on/off fever and chills at home associated with severe initial right sided flank pain and then left sided: 1) Mulitfocal pnuemonia: SCD patients have commonly Mycoplasma/Chlamydia/l egionalla pnemonia. Influenza and Strep pneumoniae are less common. Unknown HIV status. CXR pleural parapneumonic LLL density. CT chest multifocal pneumonia more LLL and RLL and lingula. 2) Leukocytosis from #1 and pneumonia. UA negative. Blood culture 09/27/2019 no growth so far. Urine culture 09/27/2019 negative. Recs: start ceftriaxone 2 gm IV q day add levaquin 750 mg IV q day stop cefepime check legionella urine ag, Strep pneumoniae urine ag, Mycoplasma/Chlamydia serology Will follow. Thanks for consultation. Dr Ryan jordan tomorrow Yasmin Simon MD Infectious Diseases Hemming [employer] Tacking Machine Operator [facility] ([facility]) M [phone] O [phone]
[2019-09-29 11:00] LABS: Anisocytosis 1+; Basophils % (Manual) 0 % (0.0-1.8); Hypochromasia 1+; Platelet Estimate Consistent w Auto; Target Cells 1+; Total Cells Counted 100
--- NOTE | 2019-09-29 12:05 | Progress Note ---
Assessment and Plan Assessment and plan: --Multifocal pneumonia; on CT chest ID evaluation and recommendations noted and appreciated Antibiotics changed to Rocephin and Levaquin, follow cultures --Parapneumonic effusion; IV antibiotics, supportive care, not enough fluid for thoracentesis Pulmonary following. --Lt pleural effusion; CT chest, small effusions --Sickle cell disease; Oxygen, pain management, supportive care --Chronic Hypotension: IV fluids , midodrine and supportive care --DVT prophylaxis; Lovenox Monitor closely and adjust management as needed Consults and recommendations noted and appreciated Plan of care reviewed with the patient and significant other at the bedside I answered all their questions History Interval history: Patient seen and examined medical records reviewed Patient complains of some chest congestion and cough Alert awake oriented Vital signs reviewed Hospitalist Physical - Constitutional Vitals: Temp Pulse Resp BP Pulse Ox 98.0 F 76 16 94/52 96 09/29/19 06:14 09/29/19 06:14 09/29/19 06:14 09/29/19 10:34 09/29/19 06:14 General appearance: Present: mild distress, cachectic - EENT Eyes: Present: PERRL, EOM intact - Neck Neck: Present: supple, normal ROM - Respiratory Respiratory effort: normal Respiratory: bilateral: diminished, rhonchi (left more than right), negative: rales, wheezing - Cardiovascular Rhythm: regular Heart Sounds: Present: S1 & S2 - Extremities Extremities: no ischemia, No edema - Abdominal General gastrointestinal: soft, non-tender, non-distended, normal bowel sounds - Integumentary Integumentary: Present: clear, warm - Psychiatric Psychiatric: appropriate mood/affect, cooperative - Neurologic Neurologic: moves all extremities Results - Labs CBC & Chem 7: 09/29/19 04:33 09/27/19 02:40 Labs: Laboratory Last Values WBC 12.9 K/mm3 (4.5-11.0) H 09/29/19 04:33 RBC 2.65 M/mm3 (3.65-5.03) L 09/29/19 04:33 Hgb 7.3 gm/dl (11.8-15.2) L 09/29/19 04:33 Hct 21.2 % (35.5-45.6) L 09/29/19 04:33 MCV 80 fl (84-94) L 09/29/19 04:33 MCH 27 pg (28-32) L 09/29/19 04:33 MCHC 34 % (32-34) 09/29/19 04:33 RDW 22.4 % (13.2-15.2) H 09/29/19 04:33 Plt Count 372 K/mm3 (140-440) 09/29/19 04:33 Add Manual Diff Complete 09/29/19 04:33 Total Counted 100 09/29/19 04:33 Seg Neuts % (Manual) 73.0 % (40.0-70.0) H 09/29/19 04:33 Band Neutrophils % 0 % 09/29/19 04:33 Lymphocytes % (Manual) 21.0 % (13.4-35.0) 09/29/19 04:33 Reactive Lymphs % (Man) 0 % 09/29/19 04:33 Monocytes % (Manual) 3.0 % (0.0-7.3) 09/29/19 04:33 Eosinophils % (Manual) 2.0 % (0.0-4.3) 09/29/19 04:33 Basophils % (Manual) 0 % (0.0-1.8) 09/29/19 04:33 Metamyelocytes % 1.0 % 09/29/19 04:33 Myelocytes % 0 % 09/29/19 04:33 Promyelocytes % 0 % 09/29/19 04:33 Blast Cells % 0 % 09/29/19 04:33 Nucleated RBC % 2.0 % (0.0-0.9) H 09/29/19 04:33 Seg Neutrophils # Man 9.4 K/mm3 (1.8-7.7) H 09/29/19 04:33 Band Neutrophils # 0.0 K/mm3 09/29/19 04:33 Lymphocytes # (Manual) 2.7 K/mm3 (1.2-5.4) 09/29/19 04:33 Abs React Lymphs (Man) 0.0 K/mm3 09/29/19 04:33 Monocytes # (Manual) 0.4 K/mm3 (0.0-0.8) 09/29/19 04:33 Eosinophils # (Manual) 0.3 K/mm3 (0.0-0.4) 09/29/19 04:33 Basophils # (Manual) 0.0 K/mm3 (0.0-0.1) 09/29/19 04:33 Metamyelocytes # 0.1 K/mm3 09/29/19 04:33 Myelocytes # 0.0 K/mm3 09/29/19 04:33 Promyelocytes # 0.0 K/mm3 09/29/19 04:33 Blast Cells # 0.0 K/mm3 09/29/19 04:33 WBC Morphology Not Reportable 09/29/19 04:33 Hypersegmented Neuts Not Reportable 09/29/19 04:33 Hyposegmented Neuts Not Reportable 09/29/19 04:33 Hypogranular Neuts Not Reportable 09/29/19 04:33 Smudge Cells Not Reportable 09/29/19 04:33 Toxic Granulation Not Reportable 09/29/19 04:33 Toxic Vacuolation Not Reportable 09/29/19 04:33 Dohle Bodies Not Reportable 09/29/19 04:33 Pelger-Huet Anomaly Not Reportable 09/29/19 04:33 Carlton Rods Not Reportable 09/29/19 04:33 Platelet Estimate Consistent w auto 09/29/19 04:33 Clumped Platelets Not Reportable 09/29/19 04:33 Plt Clumps, EDTA Not Reportable 09/29/19 04:33 Large Platelets Not Reportable 09/29/19 04:33 Giant Platelets Not Reportable 09/29/19 04:33 Platelet Satelliting Not Reportable 09/29/19 04:33 Plt Morphology Comment Not Reportable 09/29/19 04:33 RBC Morphology Not Reportable 09/29/19 04:33 Dimorphic RBCs Not Reportable 09/29/19 04:33 Polychromasia Not Reportable 09/29/19 04:33 Hypochromasia 1+ 09/29/19 04:33 Poikilocytosis Not Reportable 09/29/19 04:33 Anisocytosis 1+ 09/29/19 04:33 Microcytosis Few 09/29/19 04:33 Macrocytosis Not Reportable 09/29/19 04:33 Spherocytes Not Reportable 09/29/19 04:33 Pappenheimer Bodies Not Reportable 09/29/19 04:33 Sickle Cells Not Reportable 09/29/19 04:33 Target Cells 1+ 09/29/19 04:33 Tear Drop Cells Not Reportable 09/29/19 04:33 Ovalocytes Not Reportable 09/29/19 04:33 Helmet Cells Not Reportable 09/29/19 04:33 [place] Bodies Not Reportable 09/29/19 04:33 [place] Rings Not Reportable 09/29/19 04:33 [place] Cells Not Reportable 09/29/19 04:33 Bite Cells Not Reportable 09/29/19 04:33 Crenated Cell Not Reportable 09/29/19 04:33 Elliptocytes Not Reportable 09/29/19 04:33 Acanthocytes (Spur) Not Reportable 09/29/19 04:33 Rouleaux Not Reportable 09/29/19 04:33 Hemoglobin C Crystals Not Reportable 09/29/19 04:33 Schistocytes Not Reportable 09/29/19 04:33 Malaria parasites Not Reportable 09/29/19 04:33 Percent Retic 4.56 % (0.78-2.58) H 09/26/19 21:19 Obdulio Bodies Not Reportable 09/29/19 04:33 Hem Pathologist Commnt No 09/29/19 04:33 APTT 34.5 Sec. (24.2-36.6) 09/26/19 23:54 VBG pH 7.383 (7.320-7.420) 09/26/19 23:54 Sodium 135 mmol/L (137-145) L 09/27/19 02:40 Potassium 4.3 mmol/L (3.6-5.0) 09/27/19 02:40 Chloride 100.4 mmol/L (98-107) 09/27/19 02:40 Carbon Dioxide 23 mmol/L (22-30) 09/27/19 02:40 Anion Gap 16 mmol/L 09/27/19 02:40 BUN 6 mg/dL (9-20) L 09/27/19 02:40 Creatinine 0.8 mg/dL (0.8-1.5) 09/27/19 02:40 Estimated GFR > 60 ml/min 09/27/19 02:40 BUN/Creatinine Ratio 8 % 09/27/19 02:40 Glucose 90 mg/dL (75-100) 09/27/19 02:40 Lactic Acid 0.80 mmol/L (0.7-2.0) 09/27/19 Unknown Calcium 7.6 mg/dL (8.4-10.2) L D 09/27/19 02:40 Total Bilirubin 1.20 mg/dL (0.1-1.2) 09/26/19 23:54 AST 16 units/L (5-40) 09/26/19 23:54 ALT 8 units/L (7-56) 09/26/19 23:54 Alkaline Phosphatase 109 units/L (35-129) 09/26/19 23:54 Total Protein 7.6 g/dL (6.3-8.2) 09/26/19 23:54 Albumin 4.3 g/dL (3.9-5) 09/26/19 23:54 Albumin/Globulin Ratio 1.3 % 09/26/19 23:54 Urine Color Yellow (Yellow) 09/27/19 02:10 Urine Turbidity Clear (Clear) 09/27/19 02:10 Urine pH 5.0 (5.0-7.0) 09/27/19 02:10 Ur Specific [place] 1.012 (1.003-1.030) 09/27/19 02:10 Urine Protein <15 mg/dl mg/dL (Negative) 09/27/19 02:10 Urine Glucose (UA) Neg mg/dL (Negative) 09/27/19 02:10 Urine Ketones Tr mg/dL (Negative) 09/27/19 02:10 Urine Blood Neg (Negative) 09/27/19 02:10 Urine Nitrite Neg (Negative) 09/27/19 02:10 Urine Bilirubin Neg (Negative) 09/27/19 02:10 Urine Urobilinogen < 2.0 mg/dL (<2.0) 09/27/19 02:10 Ur Leukocyte Esterase Neg (Negative) 09/27/19 02:10 Urine WBC (Auto) 1.0 /HPF (0.0-6.0) 09/27/19 02:10 Urine RBC (Auto) 1.0 /HPF (0.0-6.0) 09/27/19 02:10 Urine Mucus Few /HPF 09/27/19 02:10 Active Medications - Current Medications Current Medications: Generic Name Dose Route Start Last Admin Trade Name Kaelq PRN Reason Stop Dose Admin Acetaminophen 650 mg 09/27/19 01:23 09/28/19 21:39 Tylenol PO 650 mg Q4H PRN Administration Pain MILD(1-3)/Fever >100.5/LOWRY Enoxaparin Sodium 40 mg 09/27/19 10:00 09/29/19 09:20 Enoxaparin SUB-Q 40 mg QDAY@1000 JAMIR Administration Fluticasone Propionate 50 mcg 09/29/19 10:00 09/29/19 09:19 Flonase NS 50 mcg QDAY JAMIR Administration Cefepime HCl 2 gm in 100 mls @ 200 mls/hr 09/28/19 22:00 09/29/19 05:48 Cefepime/Ns 2 Gm/100 Ml IV 200 mls/hr Q8HR JAMIR Administration Protocol Ibuprofen 200 mg 09/27/19 19:29 Motrin PO Q6H PRN Pain , Severe (7-10) Ibuprofen 200 mg 09/29/19 10:50 09/29/19 11:32 Ibuprofen PO 200 mg Q6H PRN Administration Pain , Severe (7-10) Levothyroxine Sodium 112 mcg 09/29/19 06:00 09/29/19 05:48 Synthroid PO 112 mcg DAILY@0600 JAMIR Administration Loratadine 10 mg 09/29/19 10:00 09/29/19 09:21 Claritin PO 10 mg DAILY JAMIR Administration Midodrine 5 mg 09/29/19 08:00 09/29/19 11:32 Proamatine PO 5 mg TID@0800,1200,1600 JAMIR Administration Morphine Sulfate 2 mg 09/27/19 01:23 Morphine IV Q4H PRN Pain, Moderate (4-6) Ondansetron HCl 4 mg 09/27/19 01:23 Zofran IV Q8H PRN Nausea And Vomiting Sodium Chloride 10 ml 09/27/19 10:00 09/29/19 09:22 Sodium Chloride Flush Syringe 10 Ml IV 10 ml BID JAMIR Administration Sodium Chloride 10 ml 09/27/19 01:23 Sodium Chloride Flush Syringe 10 Ml IV PRN PRN LINE FLUSH Nutrition/Malnutrition Assess - Dietary Evaluation Nutrition/Malnutrition Findings: Nutrition Notes Start: 09/27/19 10:01 Freq: Status: Active Protocol: Document 09/27/19 10:01 JENNIFER (Rec: 09/27/19 10:55 JENNIFER [id number]) Co-Sign 09/27/19 10:01 LM Nutrition Notes Need for Assessment generated from: instrument technologist,MST Initial or Follow up Assessment Other Pertinent Diagnosis Sickle cell Current Diet Regular diet Labs/Tests BUN 6 Na 135 Pertinent Medications NaCl 0.9% at 125ml/hr Height 5 ft 10 in Weight 58 kg Usual Body Weight 63.63 kg [place] Body Weight (kg) 75.45 BMI 18.3 Intake Prior to Admission Fair Weight change and time frame Pt stated he didn't know if he lost wt. Pt lost 9% from UBW. Time frame is unknown. Weight Status Underweight Subjective/Other Information RD consult for malnutrition per RN. 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 Pt stated his appetite was good and ate 25% of breakfast and was still eating . Pt had a friend at bedside that stated that he normally eats slow and eats small portions. I explained ensure to pt, and pt and his friend denied it. Mild clavicle wasting noted. Burn Absent Trauma Absent GI Symptoms None Current % PO Poor (25-49%) Minimum of two criteria Yes Energy Intake (non-severe) <75% Estimated Energy Requirement >7 days Body Fat Depletion Mild depletion (non-severe) #1 Nutrition Diagnosis Malnutrition Etiology Sickle cell crisis As Evidenced by Signs and Symptoms Clavicle wasting, <75% of estimated energy requirement > 7 days, and BMI of 18.3 Is patient on ventilator? No Is Patient Ambulatory and/or Out of Bed Yes REE-([facility]-ambulatory/OOB) [ 1925.625 NUTR.[id number]] Kcal/Kg value to use for calculation 38 Approximate Energy Requirements Using 2204 kcal/Kg Calculation Used for Recommendations Kcal/kg Additional Notes Protein: 70-87g/kg (1.2-1.5g/ kg) Fluid: 1ml/kcal Nutrition Intervention Change Diet Order: Continue current Goal #1 Meet at least 90% of energy and protein needs via PO intakes Goal #2 Wt maintenance Follow-Up By: 09/30/19 Additional Comments F/U for PO intakes and ONS need
[2019-09-29] MEDS: cefTRIAXone/NS 2 GM/100 ML 2 GM/100 ML BAG IV SCH (14:30)
[2019-09-30 06:06] LABS: Hematocrit 23.2 % (35.5-45.6); Hemoglobin 7.6 gm/dl (11.8-15.2); Mean Corpuscular HGB Conc 33 % (32-34); Mean Corpuscular Volume 79 fl (84-94); Platelet Count 469 K/mm3 (140-440); Red Blood Count 2.93 M/mm3 (3.65-5.03)
[2019-09-30 06:55] LABS: Anisocytosis 1+; Basophils % (Manual) 0 % (0.0-1.8); Poikilocytosis 3+; Total Cells Counted 100
[2019-09-30 06:56] LABS: Target Cells 3+
[2019-09-30 06:57] LABS: Large Platelets Few; Platelet Estimate Consistent w Auto; Stomatocytes Few
[2019-09-30] MEDS: LORATADINE (NF) 10 MG TAB PO SCH (09:16)
[2019-09-30] MEDS: MIDODRINE 5 MG TAB PO SCH ×3 (09:16→16:00)
[2019-09-30] MEDS: FLUTICASONE PROPIONATE NASAL SPRAY 16 GM NS SCH (09:19)
[2019-09-30] MEDS: LEVOTHYROXINE 112 MCG TAB PO SCH (09:19)
--- NOTE | 2019-09-30 10:12 | Progress Note ---
Assessment and Plan Cultures: Blood culture 09/22/2019 no growth so far Urine culture 09/27/19 nGTD Assessment: 44 y/o male with history of sickle cell admitted on 09/26/2019 due to 3 week history of on/off fever and chills at home associated with severe initial right sided flank pain and then left sided: 1) Mulitfocal pnuemonia: SCD patients have commonly Mycoplasma/Chlamydia/legionalla pnemonia. Influenza and Strep pneumoniae are less common. Unknown HIV status. CXR pleural parapneumonic LLL density. CT chest multifocal pneumonia more LLL and RLL and lingula. 2) Leukocytosis from #1 and pneumonia. UA negative. Blood culture 09/27/2019 no growth so far. Urine culture 09/27/2019 negative. Recs: Continue ceftriaxone 2 gm IV q day Continue Levaquin 750 mg IV q day WBC responding - continue therapy, expect 5 day course. When ready for discharge, would complete 5 day course of levofloxacin 750mg q24h and cefdinir 300mg q12h. Stop date 10/04/19 check legionella urine ag, Strep pneumoniae urine ag, Mycoplasma/Chlamydia serology - pending Will follow. Thanks for consultation. Tashi Martinez [facility] ([facility]) M: [phone] O: [phone] F: [phone] Subjective Date of service: 09/30/19 Interval history: Afebrile, feeling improved. Objective - Constitutional Vitals: Vital Signs Temp Pulse Resp BP Pulse Ox 99.5 F 71 18 100/65 97 09/30/19 06:25 09/30/19 06:25 09/30/19 06:25 09/30/19 06:25 09/30/19 06:25 Temperature -Last 24 Hours Temperature 99.5 F Temperature 97.9 F Temperature 98.6 F - Labs CBC & Chem 7: 09/30/19 07:45 09/27/19 02:40 Labs: Abnormal lab results 09/29/19 09/30/19 09/30/19 Range/Units 04:33 04:53 07:45 WBC 13.6 H (4.5-11.0) K/mm3 RBC 2.93 L (3.65-5.03) M/mm3 Hgb 7.6 L (11.8-15.2) gm/dl Hct 23.2 L (35.5-45.6) % MCV 79 L (84-94) fl MCH 26 L (28-32) pg RDW 23.0 H (13.2-15.2) % Plt Count 469 H 445 H (140-440) K/mm3 Seg Neuts % (Manual) 73.0 H (40.0-70.0) % Monocytes % (Manual) 10.0 H (0.0-7.3) % Nucleated RBC % 2.0 H 1.0 H (0.0-0.9) % Seg Neutrophils # Man 9.4 H 9.1 H (1.8-7.7) K/mm3 Monocytes # (Manual) 1.4 H (0.0-0.8) K/mm3
--- NOTE | 2019-09-30 13:01 | Progress Note ---
Assessment and Plan Assessment and plan: --Sepsis secondary toMultifocal pneumonia; on CT chest ID evaluation and recommendations noted and appreciated Antibiotics changed to Rocephin and Levaquin, follow cultures --Parapneumonic effusion; IV antibiotics, supportive care, not enough fluid for thoracentesis Pulmonary following. --Lt pleural effusion; CT chest, small effusions --Sickle cell disease; Oxygen, pain management, supportive care --Chronic Hypotension: IV fluids , midodrine and supportive care --DVT prophylaxis; Lovenox Monitor closely and adjust management as needed Consults and recommendations noted and appreciated Plan of care reviewed with the patient and significant other at the bedside I answered all their questions History Interval history: Patient seen and examined this morning medical records reviewed Patient feels slightly better no new complaints Vital signs noted Hospitalist Physical - Constitutional Vitals: Temp Pulse Resp BP Pulse Ox 97.9 F 71 20 104/66 96 09/30/19 11:41 09/30/19 11:41 09/30/19 11:41 09/30/19 11:41 09/30/19 11:41 General appearance: Present: mild distress, cachectic - EENT Eyes: Present: PERRL, EOM intact - Neck Neck: Present: supple, normal ROM - Respiratory Respiratory effort: normal Respiratory: bilateral: diminished, rhonchi, negative: rales, wheezing - Cardiovascular Rhythm: regular Heart Sounds: Present: S1 & S2 - Extremities Extremities: no ischemia, No edema - Abdominal General gastrointestinal: soft, non-tender, non-distended, normal bowel sounds - Integumentary Integumentary: Present: clear, warm - Psychiatric Psychiatric: appropriate mood/affect, cooperative - Neurologic Neurologic: CNII-XII intact, moves all extremities Results - Labs CBC & Chem 7: 09/30/19 07:45 09/27/19 02:40 Labs: Laboratory Last Values WBC 13.6 K/mm3 (4.5-11.0) H 09/30/19 04:53 RBC 2.93 M/mm3 (3.65-5.03) L 09/30/19 04:53 Hgb 7.6 gm/dl (11.8-15.2) L 09/30/19 04:53 Hct 23.2 % (35.5-45.6) L 09/30/19 04:53 MCV 79 fl (84-94) L 09/30/19 04:53 MCH 26 pg (28-32) L 09/30/19 04:53 MCHC 33 % (32-34) 09/30/19 04:53 RDW 23.0 % (13.2-15.2) H 09/30/19 04:53 Plt Count 445 K/mm3 (140-440) H 09/30/19 07:45 Lymph # Research Staff Member 09/30/19 04:53 Add Manual Diff Complete 09/30/19 04:53 Total Counted 100 09/30/19 04:53 Seg Neuts % (Manual) 67.0 % (40.0-70.0) 09/30/19 04:53 Band Neutrophils % 0 % 09/30/19 04:53 Lymphocytes % (Manual) 21.0 % (13.4-35.0) 09/30/19 04:53 Reactive Lymphs % (Man) 0 % 09/30/19 04:53 Monocytes % (Manual) 10.0 % (0.0-7.3) H 09/30/19 04:53 Eosinophils % (Manual) 1.0 % (0.0-4.3) 09/30/19 04:53 Basophils % (Manual) 0 % (0.0-1.8) 09/30/19 04:53 Metamyelocytes % 1.0 % 09/30/19 04:53 Myelocytes % 0 % 09/30/19 04:53 Promyelocytes % 0 % 09/30/19 04:53 Blast Cells % 0 % 09/30/19 04:53 Nucleated RBC % 1.0 % (0.0-0.9) H 09/30/19 04:53 Seg Neutrophils # Man 9.1 K/mm3 (1.8-7.7) H 09/30/19 04:53 Band Neutrophils # 0.0 K/mm3 09/30/19 04:53 Lymphocytes # (Manual) 2.9 K/mm3 (1.2-5.4) 09/30/19 04:53 Abs React Lymphs (Man) 0.0 K/mm3 09/30/19 04:53 Monocytes # (Manual) 1.4 K/mm3 (0.0-0.8) H 09/30/19 04:53 Eosinophils # (Manual) 0.1 K/mm3 (0.0-0.4) 09/30/19 04:53 Basophils # (Manual) 0.0 K/mm3 (0.0-0.1) 09/30/19 04:53 Metamyelocytes # 0.1 K/mm3 09/30/19 04:53 Myelocytes # 0.0 K/mm3 09/30/19 04:53 Promyelocytes # 0.0 K/mm3 09/30/19 04:53 Blast Cells # 0.0 K/mm3 09/30/19 04:53 WBC Morphology Not Reportable 09/30/19 04:53 Hypersegmented Neuts Not Reportable 09/30/19 04:53 Hyposegmented Neuts Not Reportable 09/30/19 04:53 Hypogranular Neuts Not Reportable 09/30/19 04:53 Smudge Cells Not Reportable 09/30/19 04:53 Toxic Granulation Not Reportable 09/30/19 04:53 Toxic Vacuolation Not Reportable 09/30/19 04:53 Dohle Bodies Not Reportable 09/30/19 04:53 Pelger-Huet Anomaly Not Reportable 09/30/19 04:53 Carlton Rods Not Reportable 09/30/19 04:53 Platelet Estimate Consistent w auto 09/30/19 04:53 Clumped Platelets Not Reportable 09/30/19 04:53 Plt Clumps, EDTA Not Reportable 09/30/19 04:53 Large Platelets Few 09/30/19 04:53 Giant Platelets Not Reportable 09/30/19 04:53 Platelet Satelliting Not Reportable 09/30/19 04:53 Plt Morphology Comment Not Reportable 09/30/19 04:53 RBC Morphology Not Reportable 09/30/19 04:53 Dimorphic RBCs Not Reportable 09/30/19 04:53 Polychromasia Not Reportable 09/30/19 04:53 Hypochromasia Not Reportable 09/30/19 04:53 Poikilocytosis 3+ 09/30/19 04:53 Anisocytosis 1+ 09/30/19 04:53 Microcytosis Not Reportable 09/30/19 04:53 Macrocytosis Not Reportable 09/30/19 04:53 Spherocytes Not Reportable 09/30/19 04:53 Pappenheimer Bodies Not Reportable 09/30/19 04:53 Sickle Cells Not Reportable 09/30/19 04:53 Target Cells 3+ 09/30/19 04:53 Tear Drop Cells Not Reportable 09/30/19 04:53 Ovalocytes Not Reportable 09/30/19 04:53 Stomatocytes Few 09/30/19 04:53 Helmet Cells Not Reportable 09/30/19 04:53 [place] Bodies Not Reportable 09/30/19 04:53 [place] Rings Not Reportable 09/30/19 04:53 [place] Cells Not Reportable 09/30/19 04:53 Bite Cells Not Reportable 09/30/19 04:53 Crenated Cell Not Reportable 09/30/19 04:53 Elliptocytes Not Reportable 09/30/19 04:53 Acanthocytes (Spur) Not Reportable 09/30/19 04:53 Rouleaux Not Reportable 09/30/19 04:53 Hemoglobin C Crystals Not Reportable 09/30/19 04:53 Schistocytes Not Reportable 09/30/19 04:53 Malaria parasites Not Reportable 09/30/19 04:53 Percent Retic 4.56 % (0.78-2.58) H 09/26/19 21:19 Obdulio Bodies Not Reportable 09/30/19 04:53 Hem Pathologist Commnt No 09/30/19 04:53 PT 13.1 Sec. (12.2-14.9) 09/30/19 07:45 INR 1.00 (0.87-1.13) 09/30/19 07:45 APTT 34.5 Sec. (24.2-36.6) 09/26/19 23:54 VBG pH 7.383 (7.320-7.420) 09/26/19 23:54 Sodium 135 mmol/L (137-145) L 09/27/19 02:40 Potassium 4.3 mmol/L (3.6-5.0) 09/27/19 02:40 Chloride 100.4 mmol/L (98-107) 09/27/19 02:40 Carbon Dioxide 23 mmol/L (22-30) 09/27/19 02:40 Anion Gap 16 mmol/L 09/27/19 02:40 BUN 6 mg/dL (9-20) L 09/27/19 02:40 Creatinine 0.8 mg/dL (0.8-1.5) 09/27/19 02:40 Estimated GFR > 60 ml/min 09/27/19 02:40 BUN/Creatinine Ratio 8 % 09/27/19 02:40 Glucose 90 mg/dL (75-100) 09/27/19 02:40 Lactic Acid 0.80 mmol/L (0.7-2.0) 09/27/19 Unknown Calcium 7.6 mg/dL (8.4-10.2) L D 09/27/19 02:40 Total Bilirubin 1.20 mg/dL (0.1-1.2) 09/26/19 23:54 AST 16 units/L (5-40) 09/26/19 23:54 ALT 8 units/L (7-56) 09/26/19 23:54 Alkaline Phosphatase 109 units/L (35-129) 09/26/19 23:54 Total Protein 7.6 g/dL (6.3-8.2) 09/26/19 23:54 Albumin 4.3 g/dL (3.9-5) 09/26/19 23:54 Albumin/Globulin Ratio 1.3 % 09/26/19 23:54 Urine Color Yellow (Yellow) 09/27/19 02:10 Urine Turbidity Clear (Clear) 09/27/19 02:10 Urine pH 5.0 (5.0-7.0) 09/27/19 02:10 Ur Specific [place] 1.012 (1.003-1.030) 09/27/19 02:10 Urine Protein <15 mg/dl mg/dL (Negative) 09/27/19 02:10 Urine Glucose (UA) Neg mg/dL (Negative) 09/27/19 02:10 Urine Ketones Tr mg/dL (Negative) 09/27/19 02:10 Urine Blood Neg (Negative) 09/27/19 02:10 Urine Nitrite Neg (Negative) 09/27/19 02:10 Urine Bilirubin Neg (Negative) 09/27/19 02:10 Urine Urobilinogen < 2.0 mg/dL (<2.0) 09/27/19 02:10 Ur Leukocyte Esterase Neg (Negative) 09/27/19 02:10 Urine WBC (Auto) 1.0 /HPF (0.0-6.0) 09/27/19 02:10 Urine RBC (Auto) 1.0 /HPF (0.0-6.0) 09/27/19 02:10 Urine Mucus Few /HPF 09/27/19 02:10 Active Medications - Current Medications Current Medications: Generic Name Dose Route Start Last Admin Trade Name Freq PRN Reason Stop Dose Admin Acetaminophen 650 mg 09/27/19 01:23 09/28/19 21:39 Tylenol PO 650 mg Q4H PRN Administration Pain MILD(1-3)/Fever >100.5/LOWRY Enoxaparin Sodium 40 mg 09/27/19 10:00 09/29/19 09:20 Enoxaparin SUB-Q 40 mg QDAY@1000 JAMIR Administration Fluticasone Propionate 50 mcg 09/29/19 10:00 09/30/19 09:19 Flonase NS 50 mcg QDAY JAMIR Administration Ceftriaxone Sodium 2 gm in 100 mls @ 200 mls/hr 09/29/19 14:00 09/29/19 14:30 Rocephin/Ns 2 Gm/100 Ml IV 10/04/19 13:59 200 mls/hr Q24H JAMIR Administration Protocol Levofloxacin/Dextrose 750 mg in 150 mls @ 100 mls/hr 09/29/19 13:00 09/29/19 13:38 Levaquin 750mg/150ml IV 10/04/19 12:59 100 mls/hr Q24H JAMIR Administration Protocol Ibuprofen 200 mg 09/27/19 19:29 Motrin PO Q6H PRN Pain , Severe (7-10) Ibuprofen 200 mg 09/29/19 10:50 09/29/19 11:32 Ibuprofen PO 200 mg Q6H PRN Administration Pain , Severe (7-10) Levothyroxine Sodium 112 mcg 09/29/19 06:00 09/30/19 09:19 Synthroid PO 112 mcg DAILY@0600 JAMIR Administration Loratadine 10 mg 09/29/19 10:00 09/30/19 09:16 Claritin PO 10 mg DAILY JAMIR Administration Midodrine 5 mg 09/29/19 08:00 09/30/19 09:16 Proamatine PO 5 mg TID@0800,1200,1600 JAMIR Administration Morphine Sulfate 2 mg 09/27/19 01:23 Morphine IV Q4H PRN Pain, Moderate (4-6) Ondansetron HCl 4 mg 09/27/19 01:23 Zofran IV Q8H PRN Nausea And Vomiting Sodium Chloride 10 ml 09/27/19 10:00 09/29/19 09:22 Sodium Chloride Flush Syringe 10 Ml IV 10 ml BID JAMIR Administration Sodium Chloride 10 ml 09/27/19 01:23 Sodium Chloride Flush Syringe 10 Ml IV PRN PRN LINE FLUSH Nutrition/Malnutrition Assess - Dietary Evaluation Nutrition/Malnutrition Findings: Nutrition Notes Start: 09/27/19 10:01 Freq: Status: Active Protocol: Document 09/27/19 10:01 JENNIFER (Rec: 09/27/19 10:55 JENNIFER [id number]) Co-Sign 09/27/19 10:01 LM Nutrition Notes Need for Assessment generated from: miller helper,MST Initial or Follow up Assessment Other Pertinent Diagnosis Sickle cell Current Diet Regular diet Labs/Tests BUN 6 Na 135 Pertinent Medications NaCl 0.9% at 125ml/hr Height 5 ft 10 in Weight 58 kg Usual Body Weight 63.63 kg [place] Body Weight (kg) 75.45 BMI 18.3 Intake Prior to Admission Fair Weight change and time frame Pt stated he didn't know if he lost wt. Pt lost 9% from UBW. Time frame is unknown. Weight Status Underweight Subjective/Other Information RD consult for malnutrition per RN. 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 Pt stated his appetite was good and ate 25% of breakfast and was still eating . Pt had a friend at bedside that stated that he normally eats slow and eats small portions. I explained ensure to pt, and pt and his friend denied it. Mild clavicle wasting noted. Burn Absent Trauma Absent GI Symptoms None Current % PO Poor (25-49%) Minimum of two criteria Yes Energy Intake (non-severe) <75% Estimated Energy Requirement >7 days Body Fat Depletion Mild depletion (non-severe) #1 Nutrition Diagnosis Malnutrition Etiology Sickle cell crisis As Evidenced by Signs and Symptoms Clavicle wasting, <75% of estimated energy requirement > 7 days, and BMI of 18.3 Is patient on ventilator? No Is Patient Ambulatory and/or Out of Bed Yes REE-([place] Jeor-ambulatory/OOB) [ 1925.625 NUTR.[id number]] Kcal/Kg value to use for calculation 38 Approximate Energy Requirements Using 2204 kcal/Kg Calculation Used for Recommendations Kcal/kg Additional Notes Protein: 70-87g/kg (1.2-1.5g/ kg) Fluid: 1ml/kcal Nutrition Intervention Change Diet Order: Continue current Goal #1 Meet at least 90% of energy and protein needs via PO intakes Goal #2 Wt maintenance Follow-Up By: 09/30/19 Additional Comments F/U for PO intakes and ONS need
[2019-09-30] MEDS: ENOXAPARIN 40 MG/0.4 ML INJ SUB-Q SCH (13:11)
[2019-09-30] MEDS: cefTRIAXone/NS 2 GM/100 ML 2 GM/100 ML BAG IV SCH (15:51)
[2019-10-01] MEDS: LEVOTHYROXINE 112 MCG TAB PO SCH (06:33)
[2019-10-01] MEDS: LORATADINE (NF) 10 MG TAB PO SCH (09:55)
[2019-10-01] MEDS: MIDODRINE 5 MG TAB PO SCH ×3 (09:55→17:48)
[2019-10-01] MEDS: ENOXAPARIN 40 MG/0.4 ML INJ SUB-Q SCH (09:55)
--- NOTE | 2019-10-01 11:41 | Progress Note ---
Assessment and Plan Cultures: Blood culture 09/22/2019 no growth so far Urine culture 09/27/19 nGTD Assessment: 44 y/o male with history of sickle cell admitted on 09/26/2019 due to 3 week history of on/off fever and chills at home associated with severe initial right sided flank pain and then left sided: 1) Mulitfocal pnuemonia: SCD patients have commonly Mycoplasma/Chlamydia/[place]ionalla pnemonia. Influenza and Strep pneumoniae are less common. Unknown HIV status. CXR pleural parapneumonic LLL density. CT chest multifocal pneumonia more LLL and RLL and lingula. 2) Leukocytosis from #1 and pneumonia. UA negative. Blood culture 09/27/2019 no growth so far. Urine culture 09/27/2019 negative. Recs: Continue ceftriaxone 2 gm IV q day Continue Levaquin 750 mg IV q day WBC responding - continue therapy, expect 5 day course. When ready for discharge, would complete 5 day course of levofloxacin 750mg q24h and cefdinir 300mg q12h. Stop date 10/04/19 check legionella urine ag, Strep pneumoniae urine ag, Mycoplasma/Chlamydia serology - pending Will follow. Thanks for consultation. [facility] M: [phone] O: [phone] F: [phone] Subjective Date of service: 10/01/19 Interval history: Afebrile, feeling improved. Objective - Exam Narrative Exam: Constitutional: Alert, cooperative. No acute distress Head, Ears, Nose: Normocephalic, atraumatic. External ears, nose normal Eyes: Conjunctivae/corneas clear. No icterus. No ptosis. Neck: Supple, no meningeal signs Oral: dentition fair, no thrush Cardiovascular: S1, S2 normal. Respiratory: vasiliy scattered crackles GI: Soft, non-tender Musculoskeletal: No pedal edema, no cyanosis. b/l leg wounds Skin: no rash Hem/Lymphatic: No palpable cervical or supraclavicular nodes. No lymphangitis Psych: Mood ok. Affect normal Neurological: Awake, alert, oriented. - Constitutional Vitals: Vital Signs Temp Pulse Resp BP Pulse Ox 98.6 F 77 18 98/60 95 10/01/19 05:54 10/01/19 05:54 10/01/19 05:54 10/01/19 05:54 10/01/19 05:54 Temperature -Last 24 Hours Temperature 98.6 F Temperature 98.4 F Temperature 97.7 F Temperature 97.9 F - Labs CBC & Chem 7: 09/30/19 07:45 09/27/19 02:40
[2019-10-01] MEDS: cefTRIAXone/NS 2 GM/100 ML 2 GM/100 ML BAG IV SCH (14:55)
[2019-10-01] MEDS: FLUTICASONE PROPIONATE NASAL SPRAY 16 GM NS SCH (14:55)
--- NOTE | 2019-10-01 18:01 | Progress Note ---
Assessment and Plan Assessment and plan: --Sepsis secondary to Multifocal pneumonia; on CT chest ID evaluation and recommendations noted and appreciated Antibiotics changed to Rocephin and Levaquin, follow cultures --Parapneumonic effusion; IV antibiotics, supportive care, not enough fluid for thoracentesis Pulmonary following. --Lt pleural effusion; CT chest, small effusions --Sickle cell disease; Oxygen, pain management, supportive care --Chronic Hypotension: IV fluids , midodrine and supportive care --DVT prophylaxis; Lovenox Monitor closely and adjust management as needed Consults and recommendations noted and appreciated Plan of care reviewed with the patient and significant other at the bedside I answered all their questions History Interval history: Patient seen and examined medical records reviewed Feels better no new complaints vital signs reviewed Hospitalist Physical - Constitutional Vitals: Temp Pulse Resp BP Pulse Ox 97.7 F 73 20 97/58 96 10/01/19 11:51 10/01/19 11:51 10/01/19 11:51 10/01/19 11:51 10/01/19 11:51 General appearance: Present: mild distress, cachectic - EENT Eyes: Present: PERRL, EOM intact - Neck Neck: Present: supple, normal ROM - Respiratory Respiratory effort: normal Respiratory: bilateral: diminished, negative: rales, rhonchi, wheezing - Cardiovascular Rhythm: regular Heart Sounds: Present: S1 & S2 - Extremities Extremities: no ischemia, No edema - Abdominal General gastrointestinal: soft, non-tender, non-distended, normal bowel sounds - Integumentary Integumentary: Present: clear, warm - Psychiatric Psychiatric: appropriate mood/affect, cooperative - Neurologic Neurologic: CNII-XII intact, moves all extremities Results - Labs CBC & Chem 7: 09/30/19 07:45 09/27/19 02:40 Labs: Laboratory Last Values WBC 13.6 K/mm3 (4.5-11.0) H 09/30/19 04:53 RBC 2.93 M/mm3 (3.65-5.03) L 09/30/19 04:53 Hgb 7.6 gm/dl (11.8-15.2) L 09/30/19 04:53 Hct 23.2 % (35.5-45.6) L 09/30/19 04:53 MCV 79 fl (84-94) L 09/30/19 04:53 MCH 26 pg (28-32) L 09/30/19 04:53 MCHC 33 % (32-34) 09/30/19 04:53 RDW 23.0 % (13.2-15.2) H 09/30/19 04:53 Plt Count 445 K/mm3 (140-440) H 09/30/19 07:45 Lymph # Tubing Mill Operator 09/30/19 04:53 Add Manual Diff Complete 09/30/19 04:53 Total Counted 100 09/30/19 04:53 Seg Neuts % (Manual) 67.0 % (40.0-70.0) 09/30/19 04:53 Band Neutrophils % 0 % 09/30/19 04:53 Lymphocytes % (Manual) 21.0 % (13.4-35.0) 09/30/19 04:53 Reactive Lymphs % (Man) 0 % 09/30/19 04:53 Monocytes % (Manual) 10.0 % (0.0-7.3) H 09/30/19 04:53 Eosinophils % (Manual) 1.0 % (0.0-4.3) 09/30/19 04:53 Basophils % (Manual) 0 % (0.0-1.8) 09/30/19 04:53 Metamyelocytes % 1.0 % 09/30/19 04:53 Myelocytes % 0 % 09/30/19 04:53 Promyelocytes % 0 % 09/30/19 04:53 Blast Cells % 0 % 09/30/19 04:53 Nucleated RBC % 1.0 % (0.0-0.9) H 09/30/19 04:53 Seg Neutrophils # Man 9.1 K/mm3 (1.8-7.7) H 09/30/19 04:53 Band Neutrophils # 0.0 K/mm3 09/30/19 04:53 Lymphocytes # (Manual) 2.9 K/mm3 (1.2-5.4) 09/30/19 04:53 Abs React Lymphs (Man) 0.0 K/mm3 09/30/19 04:53 Monocytes # (Manual) 1.4 K/mm3 (0.0-0.8) H 09/30/19 04:53 Eosinophils # (Manual) 0.1 K/mm3 (0.0-0.4) 09/30/19 04:53 Basophils # (Manual) 0.0 K/mm3 (0.0-0.1) 09/30/19 04:53 Metamyelocytes # 0.1 K/mm3 09/30/19 04:53 Myelocytes # 0.0 K/mm3 09/30/19 04:53 Promyelocytes # 0.0 K/mm3 09/30/19 04:53 Blast Cells # 0.0 K/mm3 09/30/19 04:53 WBC Morphology Not Reportable 09/30/19 04:53 Hypersegmented Neuts Not Reportable 09/30/19 04:53 Hyposegmented Neuts Not Reportable 09/30/19 04:53 Hypogranular Neuts Not Reportable 09/30/19 04:53 Smudge Cells Not Reportable 09/30/19 04:53 Toxic Granulation Not Reportable 09/30/19 04:53 Toxic Vacuolation Not Reportable 09/30/19 04:53 Dohle Bodies Not Reportable 09/30/19 04:53 Pelger-Huet Anomaly Not Reportable 09/30/19 04:53 Carlton Rods Not Reportable 09/30/19 04:53 Platelet Estimate Consistent w auto 09/30/19 04:53 Clumped Platelets Not Reportable 09/30/19 04:53 Plt Clumps, EDTA Not Reportable 09/30/19 04:53 Large Platelets Few 09/30/19 04:53 Giant Platelets Not Reportable 09/30/19 04:53 Platelet Satelliting Not Reportable 09/30/19 04:53 Plt Morphology Comment Not Reportable 09/30/19 04:53 RBC Morphology Not Reportable 09/30/19 04:53 Dimorphic RBCs Not Reportable 09/30/19 04:53 Polychromasia Not Reportable 09/30/19 04:53 Hypochromasia Not Reportable 09/30/19 04:53 Poikilocytosis 3+ 09/30/19 04:53 Anisocytosis 1+ 09/30/19 04:53 Microcytosis Not Reportable 09/30/19 04:53 Macrocytosis Not Reportable 09/30/19 04:53 Spherocytes Not Reportable 09/30/19 04:53 Pappenheimer Bodies Not Reportable 09/30/19 04:53 Sickle Cells Not Reportable 09/30/19 04:53 Target Cells 3+ 09/30/19 04:53 Tear Drop Cells Not Reportable 09/30/19 04:53 Ovalocytes Not Reportable 09/30/19 04:53 Stomatocytes Few 09/30/19 04:53 Helmet Cells Not Reportable 09/30/19 04:53 [place] Bodies Not Reportable 09/30/19 04:53 [place] Rings Not Reportable 09/30/19 04:53 [place] Cells Not Reportable 09/30/19 04:53 Bite Cells Not Reportable 09/30/19 04:53 Crenated Cell Not Reportable 09/30/19 04:53 Elliptocytes Not Reportable 09/30/19 04:53 Acanthocytes (Spur) Not Reportable 09/30/19 04:53 Rouleaux Not Reportable 09/30/19 04:53 Hemoglobin C Crystals Not Reportable 09/30/19 04:53 Schistocytes Not Reportable 09/30/19 04:53 Malaria parasites Not Reportable 09/30/19 04:53 Percent Retic 4.56 % (0.78-2.58) H 09/26/19 21:19 Obdulio Bodies Not Reportable 09/30/19 04:53 Hem Pathologist Commnt No 09/30/19 04:53 PT 13.1 Sec. (12.2-14.9) 09/30/19 07:45 INR 1.00 (0.87-1.13) 09/30/19 07:45 APTT 34.5 Sec. (24.2-36.6) 09/26/19 23:54 VBG pH 7.383 (7.320-7.420) 09/26/19 23:54 Sodium 135 mmol/L (137-145) L 09/27/19 02:40 Potassium 4.3 mmol/L (3.6-5.0) 09/27/19 02:40 Chloride 100.4 mmol/L (98-107) 09/27/19 02:40 Carbon Dioxide 23 mmol/L (22-30) 09/27/19 02:40 Anion Gap 16 mmol/L 09/27/19 02:40 BUN 6 mg/dL (9-20) L 09/27/19 02:40 Creatinine 0.8 mg/dL (0.8-1.5) 09/27/19 02:40 Estimated GFR > 60 ml/min 09/27/19 02:40 BUN/Creatinine Ratio 8 % 09/27/19 02:40 Glucose 90 mg/dL (75-100) 09/27/19 02:40 Lactic Acid 0.80 mmol/L (0.7-2.0) 09/27/19 Unknown Calcium 7.6 mg/dL (8.4-10.2) L D 09/27/19 02:40 Total Bilirubin 1.20 mg/dL (0.1-1.2) 09/26/19 23:54 AST 16 units/L (5-40) 09/26/19 23:54 ALT 8 units/L (7-56) 09/26/19 23:54 Alkaline Phosphatase 109 units/L (35-129) 09/26/19 23:54 Total Protein 7.6 g/dL (6.3-8.2) 09/26/19 23:54 Albumin 4.3 g/dL (3.9-5) 09/26/19 23:54 Albumin/Globulin Ratio 1.3 % 09/26/19 23:54 Urine Color Yellow (Yellow) 09/27/19 02:10 Urine Turbidity Clear (Clear) 09/27/19 02:10 Urine pH 5.0 (5.0-7.0) 09/27/19 02:10 Ur Specific [place] 1.012 (1.003-1.030) 09/27/19 02:10 Urine Protein <15 mg/dl mg/dL (Negative) 09/27/19 02:10 Urine Glucose (UA) Neg mg/dL (Negative) 09/27/19 02:10 Urine Ketones Tr mg/dL (Negative) 09/27/19 02:10 Urine Blood Neg (Negative) 09/27/19 02:10 Urine Nitrite Neg (Negative) 09/27/19 02:10 Urine Bilirubin Neg (Negative) 09/27/19 02:10 Urine Urobilinogen < 2.0 mg/dL (<2.0) 09/27/19 02:10 Ur Leukocyte Esterase Neg (Negative) 09/27/19 02:10 Urine WBC (Auto) 1.0 /HPF (0.0-6.0) 09/27/19 02:10 Urine RBC (Auto) 1.0 /HPF (0.0-6.0) 09/27/19 02:10 Urine Mucus Few /HPF 09/27/19 02:10 Active Medications - Current Medications Current Medications: Generic Name Dose Route Start Last Admin Trade Name Freq PRN Reason Stop Dose Admin Acetaminophen 650 mg 09/27/19 01:23 09/28/19 21:39 Tylenol PO 650 mg Q4H PRN Administration Pain MILD(1-3)/Fever >100.5/LOWRY Enoxaparin Sodium 40 mg 09/27/19 10:00 10/01/19 09:55 Enoxaparin SUB-Q 40 mg QDAY@1000 JAMIR Administration Fluticasone Propionate 50 mcg 09/29/19 10:00 10/01/19 14:55 Flonase NS 50 mcg QDAY JAMIR Administration Ceftriaxone Sodium 2 gm in 100 mls @ 200 mls/hr 09/29/19 14:00 10/01/19 14:55 Rocephin/Ns 2 Gm/100 Ml IV 10/04/19 13:59 200 mls/hr Q24H JAMIR Administration Protocol Levofloxacin/Dextrose 750 mg in 150 mls @ 100 mls/hr 09/29/19 13:00 10/01/19 13:28 Levaquin 750mg/150ml IV 10/04/19 12:59 100 mls/hr Q24H JAMIR Administration Protocol Ibuprofen 200 mg 09/29/19 10:50 09/29/19 11:32 Ibuprofen PO 200 mg Q6H PRN Administration Pain , Severe (7-10) Levothyroxine Sodium 112 mcg 09/29/19 06:00 10/01/19 06:33 Synthroid PO 112 mcg DAILY@0600 JAMIR Administration Loratadine 10 mg 09/29/19 10:00 10/01/19 09:55 Claritin PO 10 mg DAILY JAMIR Administration Midodrine 5 mg 09/29/19 08:00 10/01/19 17:48 Proamatine PO 5 mg TID@0800,1200,1600 JAMIR Administration Morphine Sulfate 2 mg 09/27/19 01:23 09/30/19 13:26 Morphine IV 2 mg Q4H PRN Administration Pain, Moderate (4-6) Ondansetron HCl 4 mg 09/27/19 01:23 Zofran IV Q8H PRN Nausea And Vomiting Sodium Chloride 10 ml 09/27/19 10:00 10/01/19 09:55 Sodium Chloride Flush Syringe 10 Ml IV 10 ml BID JAMIR Administration Sodium Chloride 10 ml 09/27/19 01:23 Sodium Chloride Flush Syringe 10 Ml IV PRN PRN LINE FLUSH Nutrition/Malnutrition Assess - Dietary Evaluation Nutrition/Malnutrition Findings: Nutrition Notes Start: 09/27/19 10:01 Freq: Status: Active Protocol: Document 09/30/19 13:32 LP (Rec: 09/30/19 13:36 LP [id number]) Nutrition Notes Initial or Follow up Reassessment Other Pertinent Diagnosis Sickle cell Labs/Tests Reviewed Pertinent Medications Reviewed Height 5 ft 10 in Weight 62.8 kg [place] Body Weight (kg) 75.45 BMI 19.8 Subjective/Other Information Pt states eating well. Pt denies need for supplement and would like fruit every tray. Burn Absent Trauma Absent GI Symptoms None Current % PO Good (75-100%) Minimum of two criteria Yes Energy Intake (non-severe) <75% Estimated Energy Requirement >7 days Body Fat Depletion Mild depletion (non-severe) #1 Nutrition Diagnosis Malnutrition Etiology Sickle cell crisis As Evidenced by Signs and Symptoms Clavicle wasting, <75% of estimated energy requirement > 7 days Diagnosis Progress(for reassessment Continues documentation) Is patient on ventilator? No Is Patient Ambulatory and/or Out of Bed Yes REE-([facility]-ambulatory/OOB) [ 1988.025 [id number]] Calculation Used for Recommendations [facility] Additional Notes Protein: 70-87g/kg (1.2-1.5g/ kg) Fluid: 1ml/kcal Nutrition Intervention Change Diet Order: Continue current Goal #1 Meet at least 90% of energy and protein needs via PO intakes Goal #2 Wt maintenance Anticipated Discharge Needs: Regular Follow-Up By: 10/07/19 Additional Comments Follow for stable intakes
[2019-10-02] MEDS: LEVOTHYROXINE 112 MCG TAB PO SCH (05:41)
[2019-10-02] MEDS: MIDODRINE 5 MG TAB PO SCH ×2 (08:40→12:24)
[2019-10-02] MEDS: FLUTICASONE PROPIONATE NASAL SPRAY 16 GM NS SCH (09:31)
[2019-10-02] MEDS: LORATADINE (NF) 10 MG TAB PO SCH (09:31)
[2019-10-02] MEDS: ENOXAPARIN 40 MG/0.4 ML INJ SUB-Q SCH (09:31)
--- NOTE | 2019-10-02 12:00 | Progress Note ---
Assessment and Plan Cultures: Blood culture 09/22/2019 no growth so far Urine culture 09/27/19 nGTD Assessment: 44 y/o male with history of sickle cell admitted on 09/26/2019 due to 3 week history of on/off fever and chills at home associated with severe initial right sided flank pain and then left sided: 1) Mulitfocal pnuemonia: SCD patients have commonly Mycoplasma/Chlamydia/legionalla pnemonia. Influenza and Strep pneumoniae are less common. Unknown HIV status. CXR pleural parapneumonic LLL density. CT chest multifocal pneumonia more LLL and RLL and lingula. 2) Leukocytosis from #1 and pneumonia. UA negative. Blood culture 09/27/2019 no growth so far. Urine culture 09/27/2019 negative. Recs: Continue ceftriaxone 2 gm IV q day Continue Levaquin 750 mg IV q day WBC responding - continue therapy, expect 5 day course. When ready for discharge, would complete 5 day course of levofloxacin 750mg q24h and cefdinir 300mg q12h. Stop date 10/04/19 check legionella urine ag, Strep pneumoniae urine ag, Mycoplasma/Chlamydia serology - pending Will follow. Thanks for consultation. [facility] M: [phone] O: [phone] F: [phone] Subjective Date of service: 10/02/19 Interval history: Afebrile, feeling improved. Objective - Exam Narrative Exam: Constitutional: Alert, cooperative. No acute distress Head, Ears, Nose: Normocephalic, atraumatic. External ears, nose normal Eyes: Conjunctivae/corneas clear. No icterus. No ptosis. Neck: Supple, no meningeal signs Oral: dentition fair, no thrush Cardiovascular: S1, S2 normal. Respiratory: vasiliy scattered crackles GI: Soft, non-tender Musculoskeletal: No pedal edema, no cyanosis. b/l leg wounds Skin: no rash Hem/Lymphatic: No palpable cervical or supraclavicular nodes. No lymphangitis Psych: Mood ok. Affect normal Neurological: Awake, alert, oriented. - Constitutional Vitals: Vital Signs Temp Pulse Resp BP Pulse Ox 98.2 F 58 L 18 95/58 97 10/02/19 04:09 10/02/19 04:09 10/02/19 04:09 10/02/19 04:09 10/02/19 04:09 Temperature -Last 24 Hours Temperature 98.2 F Temperature 97.2 F Temperature 98.4 F - Labs CBC & Chem 7: 09/30/19 07:45 09/27/19 02:40
[2019-10-02 12:29] VITALS: BP 98/61
--- NOTE | 2019-10-02 12:59 | Discharge Summary ---
Providers - Providers Date of Admission: 09/27/19 02:41 Date of discharge: 10/02/19 Attending physician: KARL FERRER 09/29/19 09:35 Consult to Physician [CONS] Routine Comment: Consulting Provider: SHILPI MCGEE Physician Instructions: Reason For Exam: Multifocal pneumonia/sepsis Primary care physician: FILTER CHANGER Hospitalization Reason for admission: fever/multifocal pneumonia Condition: Stable Pertinent studies: Chest x-ray CT chest Hospital course: 44 -year-old history of sickle cell emergency room complaining of left lateral thoracic pain 1 week. Pain is pleuritic, sharp for surgery inspiration, no cough, complains of chills, shortness of breath, no fever, no joint pain or previous admission for sickle cell. Patient received IV fluids and antibiotics in the emergency room.The patient was admitted on 09/26/2019 due to 37 history of on and off fevers chills associated with CVS right-sided flank pain Initial evaluation was consistent with multifocal pneumonia, started on empiric antibiotic subsequently evaluated by ID medications optimized Patient's symptoms slowly but gradually improved cultures were negative to date, patient was also managed with IV hydration and pain medications Today patient is comfortable no new complaints vital signs stable physical examination unremarkable ID cleared for discharge on oral antibiotics and follow-up in the office Patient is stable at discharge Discharge diagnosis; --Sepsis secondary to Multifocal pneumonia; on CT chest ID evaluation and recommendations noted and appreciated Antibiotics changed to Rocephin and Levaquin, follow cultures --Parapneumonic effusion; IV antibiotics, supportive care, not enough fluid for thoracentesis Pulmonary following. --Lt pleural effusion; CT chest, small effusions --Sickle cell disease; Oxygen, pain management, supportive care --Chronic Hypotension: IV fluids , midodrine and supportive care --DVT prophylaxis; Lovenox Stable at discharge Disposition: DC-01 TO HOME OR SELFCARE Time spent for discharge: 32 min Core Measure Documentation - Palliative Care Palliative Care/ Comfort Measures: Not Applicable - Core Measures Any of the following diagnoses?: none Exam - Constitutional Vitals: Temp Pulse Resp BP Pulse Ox 98.6 F 62 18 98/61 98 10/02/19 11:44 10/02/19 11:44 10/02/19 11:44 10/02/19 11:44 10/02/19 11:44 General appearance: Present: no acute distress, well-nourished - EENT Eyes: Present: PERRL, EOM intact - Neck Neck: Present: supple, normal ROM - Respiratory Respiratory effort: normal Respiratory: bilateral: diminished, negative: rales, rhonchi, wheezing - Cardiovascular Rhythm: regular Heart Sounds: Present: S1 & S2 - Extremities Extremities: no ischemia, No edema - Abdominal General gastrointestinal: Present: soft, non-tender, non-distended, normal bowel sounds - Integumentary Integumentary: Present: clear, warm - Musculoskeletal Musculoskeletal: strength equal bilaterally - Psychiatric Psychiatric: appropriate mood/affect, cooperative - Neurologic Neurologic: CNII-XII intact, moves all extremities Plan Activity: no restrictions Diet: regular Additional Instructions: Advised 2 days work excuse on 10/03/19 and 10/04/19 Follow up with: PRIMARY CARE, [Primary Care Provider] - 7 Days BRYANNA GLOVER MD [Staff Physician] - 7 Days SHILPI MCGEE MD [Staff Physician] - 7 Days Forms: Work/School Release Form Prescriptions: Cefdinir 300 mg PO Q12H #4 capsule Loratadine (Nf) [Claritin (Nf)] 10 mg PO DAILY #30 tablet Fluticasone [Flonase] 50 mcg NS QDAY #1 bottle levoFLOXacin [Levaquin] 750 mg PO QDAY #2 tablet Midodrine [Proamatine] 5 mg PO TID@0800,1200,1600 #90 tablet Levothyroxine [Synthroid] 112 mcg PO DAILY@0600 #30 tablet
[2019-10-02] MEDS: cefTRIAXone/NS 2 GM/100 ML 2 GM/100 ML BAG IV SCH (14:46)
[2019-10-02] MEDS ORDERED: cefTRIAXone/NS 2 GM/100 ML 2 GM/100 ML BAG IV SCH (15:00)
== END 2019-10-02 16:50 | disposition home or self-care (01) | DRG 871 ==
LOC: ED 19:39 → 3A 09-27 02:41
PROVIDERS: ADMIT Internal Medicine; ATTEND Internal Medicine
DX: A41.9 Sepsis, unspecified organism (principal); J18.9 Pneumonia, unspecified organism; J90 Pleural effusion, not elsewhere classified; D57.1 Sickle-cell disease without crisis; I95.89 Other hypotension; F17.200 Nicotine dependence, unspecified, uncomplicated; Z79.899 Other long term (current) drug therapy; Z82.49 Family history of ischemic heart disease and other diseases of the circulatory system; Z72.89 Other problems related to lifestyle
CPT/HCPCS: 36415; 71046; 71250; 80048; 80053; 81001; 82140; 82805; 85007; 85025; 85045; 85049; 85610; 85730; 86738; 87040; 87086; 87116; 87449; 93005; 93010; 96365; 96366; 96375; 99406; G0378; J0692; J0696; J1650; J1956; J2270; J2405; J2543; J7030